=== PATIENT | female | born 2000 | race Hispanic/Latino ===

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

== ENCOUNTER 2023-04-30 14:58 | Emergency (ER) | payer OTHER ==
--- OUTSIDE RECORDS SUMMARY | 2023-04-30 15:09 | XMS REPORT | Continuity of Care Document ---
:2000 Author Organization [facility] t Address [address] [place] [address] Care Team Providers Name Role Phone Adrienne Serna PA-C Primary Care Physician [phone] DOM MOSER Attending Clinician Unavailable DOM MOSER Attending Clinician Unavailable Alexia Cheema MD Attending Clinician ALEXIA CHEEMA Attending Clinician Unavailable ERICA BURRIS Attending Clinician Unavailable Erica Burris MD Attending Clinician Doctor Unassigned, [place] Attending Clinician Unavailable Piter Tran CRNA Attending Clinician 1, Lkj Nst Room Attending Clinician Unavailable Room, [facility] Nst Attending Clinician Unavailable Pob, 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 Attending Clinician Unavailable 1, [facility] Us Room Attending Clinician Unavailable Jad Beckham MD Attending Clinician Zena Rizvi RN Attending Clinician Unavailable Kandy Delgado MD Attending Clinician Ultrasound, Jamilah Attending Clinician Unavailable JAD BECKHAM Attending Clinician Unavailable JAD BECKHAM Attending Clinician Unavailable Lab, Ang - Db Attending Clinician Unavailable Shawn Almaraz Attending Clinician SHAWN REID Attending Clinician Unavailable KANDY DELGADO Attending Clinician Unavailable Joo Jacksono F Attending Clinician Adrienne Serna PA-C Attending Clinician ADRIENNE SERNA Attending Clinician Unavailable KANDY BYRD Attending Clinician Unavailable Kandy Buchanan Attending Clinician Keny SHELTON Shakiralexis Sahu Attending Clinician Lab, Adc Fam Pob I Attending Clinician Unavailable Rolanda Jo BERG Attending Clinician Lab, Lkj Libradoi Attending Clinician Unavailable PIPPA GARAY Attending Clinician Unavailable Pippa Garay NP Attending Clinician Naomie Mario Attending Clinician KANDY DELGADO Admitting Clinician Unavailable ERICA BURRIS Admitting Clinician Unavailable Erica Burris MD Admitting Clinician ALEXIA CHEEMA Admitting Clinician Unavailable Kandy Delgado MD Admitting Clinician DOM MOSER Admitting Clinician Unavailable PIPPA GARAY Admitting Clinician Unavailable Payers Payer Name Policy Type Policy Number Effective Date Expiration Date [facility]is [facility]as [facility] [place] [id number] 2020 00:00:00 [place] [id number] 2022 00:00:00 [facility] [id number] 2019 00:00:00 Problems Condition Condition Condition Status Onset Resolution Last Treating Co mments Source Name Details Category Date Date Treatment Clinician Date Menorrhagi Menorrhagi Disease Active U nivers a with a with 2-17 [place] irregular irregular [place] cycle 00 [place] Oral Oral Disease Active Univers contracept contracept 2-17 it y of kayli pill kayli pill 00:00: [place] surveillan surveillan 00 Me dical ce ce Branch Breastfeed Breastfeed Disease Active U nivers ing ing 2-17 ity of problem problem 00:00: [place] 00 Medical Branch Positive Positive Disease Active Unive rs depression depression 2-17 [place] of screening [place] 00[place] [facility] Liveborn Liveborn Disease Active 2021-06 Unive rs infant, of infant, of 2-16 it y of capone capone 00:[place] , , 00 Me dical born in born in [facility] hospital by vaginal by vaginal delivery delivery 40 weeks 40 weeks Disease Active 2021-06 Unive rs gestation gestation 2-15 ity of of of 00:00: [place] 00 [facility] Encounter Encounter Disease Active 2021-06 Uni vers for for 2-15 it[place] of screening screening 00:00[place] for for 00 Medical maternal maternal Branch depression depression Post-term Post-term Disease Active 2021-06 Uni vers , , 2-12 it y of 40-42 40-42 00:00: [place] weeks of weeks of 00 Medica l gestation gestation Bran ch Obesity in Obesity in Disease Active 2021-06 U nivers , , 1-11 it [place] of antepartum antepartum [place] [facility] Candidiasi Candidiasi Disease Active 2021-06 U zhane s of s of 1-11 ity of breast breast 00:00: [place] 00 [facility] 34 weeks 34 weeks Disease Active 2021-06 Unive rs gestation gestation 1-04 ity of of of 00:00: [place] 00 [facility] Anemia of Anemia of Disease Active 2021-06 Uni vers mother in mother in 1-04 it[place] of , , 00:[place] antepartum antepartum 00 [facility] Heartburn Heartburn Disease Active Uni vers during during 7-12 it[place] of , , 00[place]00[place] antepartum antepartum 00 [facility] Maternal Maternal Disease Active Unive rs hypotensio hypotensio 7-12 it y of n n 00:00: [place] syndrome, syndrome, 00 [facility] antepartum antepartum Br anch Dizziness Dizziness Disease Active Uni vers and and 7-12 ity of giddiness giddiness 00:00[place] [facility] Dysuria Dysuria Disease Active Univers 7-02 ity of 00:00: [place] 00 [facility] Abnormal Abnormal Disease Active Unive rs urinalysis urinalysis - it y of 00:00: [place] 00 Medical Branch Hyperemesi Hyperemesi Disease Active U nivers s s 6-10 ity of gravidarum gravidarum 00:00: [place] 00 [place] Syncope, Syncope, Disease Active Unive rs unspecifie unspecifie 6-09 it y of d syncope d syncope 00:00[place] type type 00 [place] Encounter Encounter Disease Active Uni vers for for 5-16 ity of supervisio supervisio 00:[place] n of n of 00 Medical normal normal Branch first first in first in first trimester trimester Nausea and Nausea and Disease Active U nivers vomiting vomiting 5-16 ity of in in 00:00: [place] 00 Medi manish Branch BMI BMI Disease Active Univers 32.0-32.9, 32.0-32.9, 5-16 it y of adult adult 00:00: [place] 00 Medical Branch Supervisio Supervisio Disease Active U nivers n of other n of other 4-18 it y of high risk high risk 00:00[place] pregnancie pregnancie 00 Me dical s, third s, third Branch trimester trimester Disease Active Uni vers screening screening 4-18 ity of for for 00:00: [place] malformati malformati 00 Me dical on using on using Branch ultrasonic ultrasonic s s Asthma Asthma Disease Active Univers affecting affecting 4-18 it[place] of 00:00[place] in first in first 00 Medica l trimester trimester Bran ch Phalanx Phalanx Disease Active Univers (hand) (hand) 5-22 ity of fracture, fracture, 00:[place] closed[place] closed, 00 Medical initial initial Branch encounter encounter Allergies, Adverse Reactions, Alerts Allergy Allergy Status Severity Reaction(s) Onset Inactive Treating Comm ents Source Name Type Date Date Clinician NO KNOWN Drug Active Univers ALLERGIE Class ity of S [facility] Social History Social Habit Start Date Stop Date Quantity Comments Source ASSERTION 2021-09-04 [facility] 00:00:00 [facility] History of tobacco Passive smoker Un iversity of use [facility] Sexual orientation Univer sity of [facility] Exposure to 2022-07-25 2022-08-04 Not sure [facility] SARS-CoV-2 (event) 00:00:00 09:04:00 [facility] Education 2022-06-01 2022-06-01 13 [facility] 00:00:00 00:00:00 [facility] Alcohol intake 2022-01-09 2022-01-09 Ex-drinker [facility] 00:00:00 00:00:00 (finding) [facility] History of Social 2021-10-03 2021-10-03 Univers ity of function 00:00:00 00:00:00 [facility] Tobacco use and 2017-05-18 2017-05-18 Smokeless Universit y of exposure 00:00:00 00:00:00 tobacco non-user [facility] Sex Assigned At [birth year] Universit y of 00:00:00 00:00:00 [facility] Smoking Status Start Date Stop Date Source Never smoked tobacco [facility] Medications Ordered Filled Start Stop Current Ordering Indication Dosage Frequency Signature Comments Components Source Medication Medication Date Date Medication? Clinician (SIG) [facility] [id number] Take by Univers HCl (ZYRTEC 2-17 103 mouth. ity of ORAL) 09:18: [address] cetirine Yes [id number] Take by Univers HCl (ZYRTEC 2-17 103 mouth. ity of ORAL) 09:18: [address] cetirizine Yes [id number] Take by Univers HCl (ZYRTEC 2-17 103 mouth. ity of ORAL) 09:18: [address] cetirizine Yes [id number] Take by Univers HCl (ZYRTEC 2-17 103 mouth. ity of ORAL) 09:18: [address] cetirizine Yes [id number] Take by Univers HCl (ZYRTEC 2-17 103 mouth. ity of ORAL) 09:18: [address] cetirizine Yes [id number] Take by Univers HCl (ZYRTEC 2-17 103 mouth. ity of ORAL) 09:18: [address] cetirizine Yes [id number] Take by Univers HCl (ZYRTEC 2-17 103 mouth. ity of ORAL) 09:18: [place] [address] Medical Branch cetirizine 2022-0 Yes [id number] Take by Univers HCl (ZYRTEC 2-17 103 mouth. ity of ORAL) 09:18: [place] [address] Medical Branch norethindro 2022-0 Yes [id number] .35mg Take 1 Univers ne (ORTHO 2-17 tablet by ity o f MICRONOR) 00:00: [place] 0.35 mg 00 the Medical tablet morning. Branch metoclopram 2022-0 Yes [id number] 10mg Take 1 Univers riaz HCl 10 2-17 tablet by ity of mg tablet 00:00: mouth [place] 00 every 8 Medical (eight) Branch hours. norethindro 2022-0 Yes [id number] .35mg Take 1 Univers ne (ORTHO 2-17 tablet by ity o f MICRONOR) 00:00: [place] 0.35 mg 00 the Medical tablet morning. Branch metoclopram 2022-0 Yes [id number] 10mg Take 1 Univers riaz HCl 10 2-17 tablet by ity of mg tablet 00:00: mouth [place] 00 every 8 Medical (eight) Branch hours. norgestimat 2022-0 Yes [id number] 1{tbl} Take 1 Univers e-ethinyl 1-06 tablet by ity o f estradioL 00:00: mouth [place] 0.25-35 00 the Medical mg-mcg per morning. Branc h tablet norgestimat 2022-0 Yes [id number] 1{tbl} Take 1 Univers e-ethinyl 1-06 tablet by ity o f estradioL 00:00: mouth [place] 0.25-35 00 the Medical mg-mcg per morning. Branc h tablet norgestimat 3-0 Yes [id number] 1{tbl} Take 1 Univers e-ethinyl 1-06 tablet by ity o f estradioL 00:00: mouth in [place] 0.25-35 00 the Medical mg-mcg per morning. Branc h tablet norgestimat 2022-0 Yes [id number] 1{tbl} Take 1 Univers e-ethinyl 1-06 tablet by ity o f estradioL 00:00: mouth in [place] 0.25-35 00 the Medical mg-mcg per morning. Branc h tablet norgestimat Yes [id number] 1{tbl} Take 1 Univers e-ethinyl 1-06 tablet by ity o f estradioL 00:00: mouth in [place] 0.25-35 00 the Medical mg-mcg per morning. Branc h tablet norgestimat 2022- No [id number] 1{tbl} Take 1 Univers e-ethinyl 1-06 02-17 tablet by ity of estradioL 00:00: 00:00 mouth in [place] 0.25-35 00 :00 the Medical mg-mcg per morning. Branc h tablet norgestimat 2022- No [id number] 1{tbl} Take 1 Univers e-ethinyl 1-06 02-17 tablet by ity of estradioL 00:00: 00:00 mouth in [place] 0.25-35 00 :00 the Medical mg-mcg per morning. Branc h tablet cetirizine 2021-06 Yes [id number] Take by Univers HCl (ZYRTEC 2-17 103 mouth. ity of ORAL) 14:21: [address] cetirizine 2021-06 Yes [id number] Take by Univers HCl (ZYRTEC 2-17 103 mouth. ity of ORAL) 14:21: [address] cetirizine 2021-06 Yes [id number] Take by Univers HCl (ZYRTEC 2-17 103 mouth. ity of ORAL) 14:21: [address] cetirizine 2021-06 Yes [id number] Take by Univers HCl (ZYRTEC 2-17 103 mouth. ity of ORAL) 14:21: [address] cetirizine 2021-06 Yes [id number] Take by Univers HCl (ZYRTEC 2-17 103 mouth. ity of ORAL) 14:21: [address] cetirizine 2021-06 Yes [id number] Take by Univers HCl (ZYRTEC 2-17 103 mouth. ity of ORAL) 14:21: [address] 2021-06 Take by Unive rs 25/iron 2-16 12-16 mouth. ity of fum/folic/d 08:38: 00:00 Nathalie silva 37 :00 Medical (-1 Branch ORAL) rho(D) 2021-06 Yes 300ug 300 mcg, Univer s immune 2-16 Intramuscu ity of globulin 06:37: lar, ONCE, [place] (RHOGAM) 08 For 1 Medical syringe 300 dose, Branch mcg Conditiona l, Routine witch Elizabeth 2021-06 Yes Topical, Un luis felipe (TUCKS) 50 2-16 Q4HPRN, ity of % topical 06:36: [place] pad 53 on Fri Medical 06/02/22 Branch at 0036, Until Discontinu ed, Routine, rectal/hem orrhoidal pain HYDROcodone 2021-06 Yes 1{tbl} 1 tablet, Univers -acetaminop 2-16 Oral, ity of hen (NORCO 06:36: Q6HPRN, [place] 5) 5-325 mg 53 Starting Medi manish tablet 1 on Fri Branch tablet 06/02/22 at 0036, Until Discontinu ed, Routine, Pain (scale 7-10) ibuprofen 2021-06 Yes 600mg 600 mg, Univ ers (IBU) 2-16 Oral, ity of tablet 600 06:36: Q6HPRN, [place] mg 53 Starting Medical on Fri Branch 06/02/22 at 0036, Until Discontinu ed, Routine, Pain (scale 4-6) acetaminoph 2021-06 Yes 650mg 650 mg, Un luis felipe en 2-16 Oral, ity of (TYLENOL) 06:36: Q6HPRN, [place] tablet 650 53 Starting Medic al mg on Fri Branch 06/02/22 at 0036, Until Discontinu ed, Routine, Pain (scale 1-3) diphenhydrA 2021-06 Yes 25mg 25 mg, Univ ers MINE 2-16 Oral, ity of (BENADRYL) 06:36: Q6HPRN, [place] tablet 25 53 Starting Medica l mg on Fri Branch 06/02/22 at 0036, Until Discontinu ed, Routine, Sleep, Itching ondansetron 2021-06 Yes 4mg 4 mg, Slow Univers (ZOFRAN 2-16 IV Push, ity of (PF)) 06:36: Q8HPRN, [place] injection 4 53 Starting Medi manish mg on Fri Branch 06/02/22 at 0036, Until Discontinu ed, Routine, Nausea and Vomiting (N/V) simethicone 2021-06 Yes 160mg 160 mg, Un luis felipe (GAS RELIEF 2-16 Oral, ity of (SIMETHICON 06:36: PC+HSPRN, [place] E)) 53 Starting Medical chewable on Sun Branch tablet 160 06/02/22 mg at 0036, Until Discontinu ed, Routine, Gas docusate 2021-06 Yes 200mg 200 mg, Unive rs (COLACE) 2-16 Oral, ity of capsule 200 06:36: QDAILYPRN, [place] mg 53 Starting Medical on Fri Branch 06/02/22 at 0036, Until Discontinu ed, Routine, Constipati on magnesium 2021-06 Yes 30mL 30 mL, Univer s hydroxide 2-16 Oral, ity of (MILK OF 06:36: QDAILYPRN, [place] MAGNESIA) 53 Starting Medica l 400 mg/5 mL on Sun Branch suspension 06/02/22 30 mL at 0036, Until Discontinu ed, Routine, Constipati on benzocaine- 2021-06 Yes Topical, Un luis felipe menthol 2-16 PRN, ity of (DERMOPLAST 06:36: [place] 20-0.5 % 53 on Sun Medical topical 06/02/22 Branch spray at 0036, Until Discontinu ed, Routine, Perineum discomfort cetirizine 2021-06 Yes [id number] Take by [facility] (ZYRTEC 2-16 103 mouth. ity of ORAL) 00:16: [place] 55 Medical Branch 2021-06 Yes Take by Univer s 25/iron 2-16 mouth. ity of fum/folic/d 00:16: [facility] [facility] 55 Medical (-1 Branch ORAL) 2021-06 Yes [id number] 1{tbl} Take 1 U nivers vitamin 2-16 tablet by ity of w/FA tablet 00:00: mouth in [place] 00 the Medical morning. Branch docusate 2021-06 Yes [id number] 200mg Take 2 Un luis felipe 100 mg 2-16 capsules ity of capsule 00:00: by mouth [place] [id number] once daily Medical as needed Branch for Constipati on. ferrous 2021-06 Yes [id number] 325mg Take 1 Uni vers sulfate 325 2-16 tablet by ity of mg (65 mg 00:00: [place] iron) 00 the Medical tablet morning Branch and 1 tablet in the evening. ibuprofen 2021-06 Yes [id number] 600mg Take 1 U nivers 600 mg 2-16 tablet by ity of tablet 00:00: mouth [place] 00 every 6 Medical (six) Branch hours as needed (Pain). Take with food or milk. 2021-06 Yes [id number] 1{tbl} Take 1 U nivers vitamin 2-16 tablet by ity of w/FA tablet 00:00: mouth in [place] 00 the Medical morning. Branch ferrous 2021-06 Yes [id number] 325mg Take 1 Uni vers sulfate 325 2-16 tablet by ity of mg (65 mg 00:00: [place] iron) 00 the Medical tablet morning Branch and 1 tablet in the evening. 2021-06 Yes [id number] 1{tbl} Take 1 U nivers vitamin 2-16 tablet by ity of w/FA tablet 00:00: mouth in [place] 00 the Medical morning. Branch ferrous 2021-06 Yes [id number] 325mg Take 1 Uni vers sulfate 325 2-16 tablet by ity of mg (65 mg 00:00: [place] iron) 00 the Medical tablet morning Branch and 1 tablet in the evening. 2021-06 Yes [id number] 1{tbl} Take 1 U nivers vitamin 2-16 tablet by ity of w/FA tablet 00:00: mouth in [place] 00 the Medical morning. Branch ferrous 2021-06 Yes [id number] 325mg Take 1 Uni vers sulfate 325 2-16 tablet by ity of mg (65 mg 00:00: [place] iron) 00 the Medical tablet morning Branch and 1 tablet in the evening. 2021-06 Yes [id number] 1{tbl} Take 1 U nivers vitamin 2-16 tablet by ity of w/FA tablet 00:00: mouth in [place] 00 the Medical morning. Branch ferrous 2021-06 Yes [id number] 325mg Take 1 Uni vers sulfate 325 2-16 tablet by ity of mg (65 mg 00:00: [place] iron) 00 the Medical tablet morning Branch and 1 tablet in the evening. 2021-06 Yes [id number] 1{tbl} Take 1 U nivers vitamin 2-16 tablet by ity of w/FA tablet 00:00: mouth in [place] 00 the Medical morning. Branch ferrous 2021-06 Yes [id number] 325mg Take 1 Uni vers sulfate 325 2-16 tablet by ity of mg (65 mg 00:00: mouth [place] iron) 00 the Medical tablet morning Branch and 1 tablet in the evening. 2021-06 Yes [id number] 1{tbl} Take 1 U nivers vitamin 2-16 tablet by ity of w/FA tablet 00:00: mouth in [place] 00 the Medical morning. Branch ferrous 2021-06 Yes [id number] 325mg Take 1 Uni vers sulfate 325 2-16 tablet by ity of mg (65 mg 00:00: mouth [place] iron) 00 the Medical tablet morning Branch and 1 tablet in the evening. 2021-06 Yes [id number] 1{tbl} Take 1 U nivers vitamin 2-16 tablet by ity of w/FA tablet 00:00: mouth in [place] 00 the Medical morning. Branch ferrous 2021-06 Yes [id number] 325mg Take 1 Uni vers sulfate 325 2-16 tablet by ity of mg (65 mg 00:00: mouth [place] iron) 00 the Medical tablet morning Branch and 1 tablet in the evening. 2021-06 Yes [id number] 1{tbl} Take 1 U nivers vitamin 2-16 tablet by ity of w/FA tablet 00:00: mouth in [place] 00 the Medical morning. Branch ferrous 2021-06 Yes [id number] 325mg Take 1 Uni vers sulfate 325 2-16 tablet by ity of mg (65 mg 00:00: mouth [place] iron) 00 the Medical tablet morning Branch and 1 tablet in the evening. docusate 2021-06- No [id number] 200mg Take 2 U nivers 100 mg 2-16 - capsules ity of capsule 00:00: 00:00 by mouth [place] 00 :00 once daily Medical as needed Branch for Constipati on. ibuprofen 2021-06- No [id number] 600mg Take 1 Univers 600 mg 2-16 - tablet by ity of tablet 00:00: 00:00 mouth [place] 00 :00 every 6 Medical (six) Branch hours as needed (Pain). Take with food or milk. misoprostol 2021-06 No 25ug 25 mcg, Un luis felipe (CYTOTEC) 08-02 Vaginal, ity o f quarter-tab 18:30: 06:37 Q4H ABX, [place] let 25 mcg 00 :04 First dose Med ical on [place] Branch 06/01/22 at 1230, Until Discontinu ed, Routine lactated 2021-06- No 500mL at 999 Unive rs ringers IV 08-02 12-15 mL/hr, 500 it y of infusion 18:15: 17:52 mL, IV [place] 500 mL 00 :00 Infusion, Medical ONCE, 1 Branch dose, On [place]da 06/01/22 at 1215, Routine misoprostol 2021-06 No 25ug 25 mcg, Un luis felipe (CYTOTEC) 08-02 Oral, ity of quarter-tab 17:45: 18:34 ONCE, 1 [place] let 25 mcg 00 :00 dose, On Medic al [place] Branch 06/01/22 at 1145, Routine FENTanyl PF 2021-06- No 100ug 100 mcg, Univers (SUBLIMAZE 08-02 Slow IV ity o f (PF)) 17:29: 06:37 Push, [place] injection 21 :04 Q1HPRN, Medical 100 mcg Starting Branch on Brenda 06/01/22 at 1129, Until Sun06/02/22 at 0037, Routine, contractio n pain without an epidural and SVE < 8 cm and Cat I strip proMETHazin 2021-06- No 25mg 25 mg, IV Univers e 08-02 Piggyback, ity of (PHENERGAN) 17:29: 06:37 Q4HPRN, [place] 25 mg in 13 :04 Starting Medical NaCl 0.9% on [place] Branch (NS) 50 mL 06/01/22 IV at 1129, piggyback Until Sun06/02/22 at 0037, Routine, Nausea and Vomiting (N/V) lactated 2021-06- No 500mL at 999 Unive rs ringers IV 08-02-16 mL/hr, 500 it y of infusion 17:26: 06:37 mL, IV [place] 500 mL 52 :04 Infusion, Medical PRN - SEE Branch INSTRUCTIO NS, Starting on Brenda 06/01/22 at 1126, Until Sun06/02/22 at 0037, Routine D5W-LR IV 2021-06- 1000mL at 1-125 U nivers infusion 2-15 12-16 mL/hr, IV ity o f 1,000 mL 17:26: 06:37 Infusion, [place] 52 :04 TITRATE, Medical Starting Branch on Brenda 06/01/22 at 1126, Until Sun06/02/22 at 0037, Routine cetirizine 2021-06 Yes [id number] Take by Univers HCl (ZYRTEC 123 103 mouth. ity of ORAL) 13:17: [address] cetirizine 2021-06 Yes [id number] Take by Univers HCl (ZYRTEC 123 103 mouth. ity of ORAL) 13:17: [address] cetirizine 2021-06 Yes [id number] Take by Univers HCl (ZYRTEC 123 103 mouth. ity of ORAL) 13:17: [address] cetirizine 2021-06 Yes [id number] Take by Univers HCl (ZYRTEC 123 103 mouth. ity of ORAL) 13:17: [address] cetirizine 2021-06 Yes [id number] Take by Univers HCl (ZYRTEC 123 103 mouth. ity of ORAL) 13:17: [address] cetirizine 2021-06 Yes [id number] Take by Univers HCl (ZYRTEC 123 103 mouth. ity of ORAL) 13:17: [address] cetirizine 2021-06 Yes [id number] Take by Univers HCl (ZYRTEC 123 103 mouth. ity of ORAL) 13:17: [address] cetirizine 2021-06 Yes [id number] Take by Univers HCl (ZYRTEC 1-23 103 mouth. ity of ORAL) 13:17: [address] cetirizine 2021-06 Yes [id number] Take by Univers HCl (ZYRTEC 123 103 mouth. ity of ORAL) 13:17: [place] 57 Medical Branch nystatin 2021- Yes [id number] Apply to U nivers 100,000 1-11 area(s) 2 ity of unit/gram 00:00: (two) [place] cream 00 times Medical daily. Branch nystatin 2021-06 Yes [id number] Apply to U nivers 100,000 1-11 area(s) 2 ity of unit/gram 00:00: (two) [place] cream 00 times Medical daily. Branch nystatin 2021-06 Yes [id number] Apply to U nivers 100,000 1-11 area(s) 2 ity of unit/gram 00:00: (two) [place] cream 00 times Medical daily. Branch nystatin 2021-06 Yes [id number] Apply to U nivers 100,000 1-11 area(s) 2 ity of unit/gram 00:00: (two) [place] cream 00 times Medical daily. Branch nystatin 2021-06 Yes [id number] Apply to U nivers 100,000 1-11 area(s) 2 ity of unit/gram 00:00: (two) [place] cream 00 times Medical daily. Branch nystatin 2021-06 Yes [id number] Apply to U nivers 100,000 1-11 area(s) 2 ity of unit/gram 00:00: (two) [place] cream 00 times Medical daily. Branch nystatin 2021-06 Yes [id number] Apply to U nivers 100,000 1-11 area(s) 2 ity of unit/gram 00:00: (two) [place] cream 00 times Medical daily. Branch nystatin 2021-06 Yes [id number] Apply to U nivers 100,000 1-11 area(s) 2 ity of unit/gram 00:00: (two) [place] cream 00 times Medical daily. Branch nystatin 2021-06 Yes [id number] Apply to U nivers 100,000 1-11 area(s) 2 ity of unit/gram 00:00: (two) [place] cream 00 times Medical daily. Branch nystatin 2021- Yes [id number] Apply to U nivers 100,000 1-11 area(s) 2 ity of unit/gram 00:00: (two) [place] cream 00 times Medical daily. Branch nystatin 2021-06 Yes [id number] Apply to U nivers 100,000 1-11 area(s) 2 ity of unit/gram 00:00: (two) [place] cream 00 times Medical daily. Branch nystatin 2021-06 Yes [id number] Apply to U nivers 100,000 1-11 area(s) 2 ity of unit/gram 00:00: (two) [place] cream 00 times Medical daily. Branch nystatin 2021-06 Yes [id number] Apply to U nivers 100,000 1-11 area(s) 2 ity of unit/gram 00:00: (two) [place] cream 00 times Medical daily. Branch nystatin 2021-06 Yes [id number] Apply to U nivers 100,000 1-11 area(s) 2 ity of unit/gram 00:00: (two) [place] cream 00 times Medical daily. Branch nystatin 2021-06 Yes [id number] Apply to U nivers 100,000 1-11 area(s) 2 ity of unit/gram 00:00: (two) [place] cream 00 times Medical daily. Branch nystatin 2021-06- No [id number] Apply to Univers 100,000 1-11 12-16 area(s) 2 ity of unit/gram 00:00: 00:00 (two) [place] cream 00 :00 times Medical daily. Branch ferrous 2021-06 Yes [id number] 325mg Take 1 Un luis felipe sulfate 0-19 tablet by ity of (IRON, 00:00: mouth in [place] FERROUS 00 the Medical SULFATE,) morning Branch 325 mg (65 and 1 mg iron) tablet in tablet the evening. ascorbic 2021-06 Yes [id number] 250mg Take 0.5 Univers acid, 0-19 tablets by ity of vitamin C, 00:00: mouth in [place] 500 mg 00 the Medical tablet morning Branch and 0.5 tablets in the evening. polyethylen 2021-06 Yes [id number] 17g Take 17 g Univers e glycol 0-19 by mouth ity of 3350 17 00:00: in the [place] gram/dose 00 morning. Medica l powder Branch ferrous 2021-06 Yes [id number] 325mg Take 1 Un luis felipe sulfate 0-19 tablet by ity of (IRON, 00:00: mouth in [place] FERROUS 00 the Medical SULFATE,) morning Branch 325 mg (65 and 1 mg iron) tablet in tablet the evening. ascorbic 2021-06 Yes [id number] 250mg Take 0.5 Univers acid, 0-19 tablets by ity of vitamin C, 00:00: mouth in [place] 500 mg 00 the Medical tablet morning Branch and 0.5 tablets in the evening. polyethylen 2021-06 Yes [id number] 17g Take 17 g [facility] glycol 0-19 by mouth ity of 3350 17 00:00: in the [place] gram/dose 00 morning. Medica l powder Branch ferrous 2021-06 Yes [id number] 325mg Take 1 Un luis felipe sulfate 0-19 tablet by ity of (IRON, 00:00: mouth in [place] FERROUS 00 the Medical SULFATE,) morning Branch 325 mg (65 and 1 mg iron) tablet in tablet the evening. ascorbic 2021-06 Yes [id number] 250mg Take 0.5 [facility] acid, 0-19 tablets by ity of vitamin C, 00:00: mouth in [place] 500 mg 00 the Medical tablet morning Branch and 0.5 tablets in the evening. polyethylen 2021-06 Yes [id number] 17g Take 17 g [facility] e glycol 0-19 by mouth ity of 3350 17 00:00: in the [place] gram/dose 00 morning. Medica l powder Branch ferrous 2021-06 Yes [id number] 325mg Take 1 [facility] felipe sulfate 0-19 tablet by ity of (IRON, 00:00: mouth in [place] FERROUS 00 the Medical SULFATE,) morning Branch 325 mg (65 and 1 mg iron) tablet in tablet the evening. ascorbic 2021-06 Yes [id number] 250mg Take 0.5 [facility] acid, 0-19 tablets by ity of vitamin C, 00:00: mouth in [place] 500 mg 00 the Medical tablet morning Branch and 0.5 tablets in the evening. polyethylen 2021-06 Yes [id number] 17g Take 17 g [facility] e glycol 0-19 by mouth ity of 3350 17 00:00: in the [place] gram/dose 00 morning. Medica l powder Branch ferrous 2021-06 Yes [id number] 325mg Take 1 [facility] felipe sulfate 0-19 tablet by ity of (IRON, 00:00: mouth in [place] FERROUS 00 the Medical SULFATE,) morning Branch 325 mg (65 and 1 mg iron) tablet in tablet the evening. ascorbic 2021-06 Yes [id number] 250mg Take 0.5 [facility] acid, 0-19 tablets by ity of vitamin C, 00:00: mouth in [place] 500 mg 00 the Medical tablet morning Branch and 0.5 tablets in the evening. polyethylen 2021-06 Yes [id number] 17g Take 17 g [facility] e glycol 0-19 by mouth ity of 3350 17 00:00: in the [place] gram/dose 00 morning. Medica l powder Branch ferrous 2021-06 Yes [id number] 325mg Take 1 [facility] felipe sulfate 0-19 tablet by ity of (IRON, 00:00: mouth in [place] FERROUS 00 the Medical SULFATE,) morning Branch 325 mg (65 and 1 mg iron) tablet in tablet the evening. ascorbic 2021-06 Yes [id number] 250mg Take 0.5 [facility] acid, 0-19 tablets by ity of vitamin C, 00:00: mouth in [place] 500 mg 00 the Medical tablet morning Branch and 0.5 tablets in the evening. polyethylen 2021-06 Yes [id number] 17g Take 17 g [facility] e glycol 0-19 by mouth ity of 3350 17 00:00: in the [place] gram/dose 00 morning. Medica l powder Branch ferrous 2021-06 Yes [id number] 325mg Take 1 [facility] felipe sulfate 0-19 tablet by ity of (IRON, 00:00: mouth in [place] FERROUS 00 the Medical SULFATE,) morning Branch 325 mg (65 and 1 mg iron) tablet in tablet the evening. ascorbic 2021-06 Yes [id number] 250mg Take 0.5 [facility] acid, 0-19 tablets by ity of vitamin C, 00:00: mouth in [place] 500 mg 00 the Medical tablet morning Branch and 0.5 tablets in the evening. polyethylen 2021-06 Yes [id number] 17g Take 17 g [facility] glycol 0-19 by mouth ity of 3350 17 00:00: in the [place] gram/dose 00 morning. Medica l powder Branch ferrous 2021-06 Yes [id number] 325mg Take 1 [facility] felipe sulfate 0-19 tablet by ity of (IRON, 00:00: mouth in [place] FERROUS 00 the Medical SULFATE,) morning Branch 325 mg (65 and 1 mg iron) tablet in tablet the evening. ascorbic 2021-06 Yes [id number] 250mg Take 0.5 [facility] acid, 0-19 tablets by ity of vitamin C, 00:00: mouth in [place] 500 mg 00 the Medical tablet morning Branch and 0.5 tablets in the evening. polyethylen 2021-06 Yes [id number] 17g Take 17 g [facility] e glycol 0-19 by mouth ity of 3350 17 00:00: in the [place] gram/dose 00 morning. Medica l powder Branch ferrous 2021-06 Yes [id number] 325mg Take 1 [facility] felipe sulfate 0-19 tablet by ity of (IRON, 00:00: mouth in [place] FERROUS 00 the Medical SULFATE,) morning Branch 325 mg (65 and 1 mg iron) tablet in tablet the evening. ascorbic 2021-06 Yes [id number] 250mg Take 0.5 [facility] acid, 0-19 tablets by ity of vitamin C, 00:00: mouth in [place] 500 mg 00 the Medical tablet morning Branch and 0.5 tablets in the evening. polyethylen 2021-06 Yes [id number] 17g Take 17 g [facility] e glycol 0-19 by mouth ity of 3350 17 00:00: in the [place] gram/dose 00 morning. Medica l powder Branch ferrous 2021-06 Yes [id number] 325mg Take 1 [facility] felipe sulfate 0-19 tablet by ity of (IRON, 00:00: mouth in [place] FERROUS 00 the Medical SULFATE,) morning Branch 325 mg (65 and 1 mg iron) tablet in tablet the evening. ascorbic 2021-06 Yes [id number] 250mg Take 0.5 [facility] acid, 0-19 tablets by ity of vitamin C, 00:00: mouth in [place] 500 mg 00 the Medical tablet morning Branch and 0.5 tablets in the evening. polyethylen 2021-06 Yes [id number] 17g Take 17 g [facility] e glycol 0-19 by mouth ity of 3350 17 00:00: in the [place] gram/dose 00 morning. Medica l powder Branch ferrous 2021-06 Yes [id number] 325mg Take 1 [facility] felipe sulfate 0-19 tablet by ity of (IRON, 00:00: mouth in [place] FERROUS 00 the Medical SULFATE,) morning Branch 325 mg (65 and 1 mg iron) tablet in tablet the evening. ascorbic 2021-06 Yes [id number] 250mg Take 0.5 [facility] acid, 0-19 tablets by ity of vitamin C, 00:00: mouth in [place] 500 mg 00 the Medical tablet morning Branch and 0.5 tablets in the evening. polyethylen 2021-06 Yes [id number] 17g Take 17 g [facility] e glycol 0-19 by mouth ity of 3350 17 00:00: in the [place] gram/dose 00 morning. Medica l powder Branch ferrous 2021-06 Yes [id number] 325mg Take 1 [facility] felipe sulfate 0-19 tablet by ity of (IRON, 00:00: mouth in [place] FERROUS 00 the Medical SULFATE,) morning Branch 325 mg (65 and 1 mg iron) tablet in tablet the evening. ascorbic 2021-06 Yes [id number] 250mg Take 0.5 [facility] acid, 0-19 tablets by ity of vitamin C, 00:00: mouth in [place] 500 mg 00 the Medical tablet morning Branch and 0.5 tablets in the evening. polyethylen 2021-06 Yes [id number] 17g Take 17 g [facility] e glycol 0-19 by mouth ity of 3350 17 00:00: in the [place] gram/dose 00 morning. Medica l powder Branch ferrous 2021-06 Yes [id number] 325mg Take 1 [facility] felipe sulfate 0-19 tablet by ity of (IRON, 00:00: mouth in [place] FERROUS 00 the Medical SULFATE,) morning Branch 325 mg (65 and 1 mg iron) tablet in tablet the evening. ascorbic 2021-06 Yes [id number] 250mg Take 0.5 [facility] acid, 0-19 tablets by ity of vitamin C, 00:00: mouth in [place] 500 mg 00 the Medical tablet morning Branch and 0.5 tablets in the evening. polyethylen 2021-06 Yes [id number] 17g Take 17 g [facility] e glycol 0-19 by mouth ity of 3350 17 00:00: in the [place] gram/dose 00 morning. Medica l powder Branch ferrous 2021-06 Yes [id number] 325mg Take 1 [facility] felipe sulfate 0-19 tablet by ity of (IRON, 00:00: mouth in [place] FERROUS 00 the Medical SULFATE,) morning Branch 325 mg (65 and 1 mg iron) tablet in tablet the evening. ascorbic 2021-06 Yes [id number] 250mg Take 0.5 [facility] acid, 0-19 tablets by ity of vitamin C, 00:00: mouth in [place] 500 mg 00 the Medical tablet morning Branch and 0.5 tablets in the evening. polyethylen 2021-06 Yes [id number] 17g Take 17 g [facility] e glycol 0-19 by mouth ity of 3350 17 00:00: in the [place] gram/dose 00 morning. Medica l powder Branch ferrous 2021-06 Yes [id number] 325mg Take 1 [facility] felipe sulfate 0-19 tablet by ity of (IRON, 00:00: mouth in [place] FERROUS 00 the Medical SULFATE,) morning Branch 325 mg (65 and 1 mg iron) tablet in tablet the evening. ascorbic 2021-06 Yes [id number] 250mg Take 0.5 [facility] acid, 0-19 tablets by ity of vitamin C, 00:00: mouth in [place] 500 mg 00 the Medical tablet morning Branch and 0.5 tablets in the evening. polyethylen 2021-06 Yes [id number] 17g Take 17 g [facility] e glycol 0-19 by mouth ity of 3350 17 00:00: in the [place] gram/dose 00 morning. Medica l powder Branch ferrous 2021-06 Yes [id number] 325mg Take 1 [facility] felipe sulfate 0-19 tablet by ity of (IRON, 00:00: mouth in [place] FERROUS 00 the Medical SULFATE,) morning Branch 325 mg (65 and 1 mg iron) tablet in tablet the evening. ascorbic 2021-06 Yes [id number] 250mg Take 0.5 [facility] acid, 0-19 tablets by ity of vitamin C, 00:00: mouth in [place] 500 mg 00 the Medical tablet morning Branch and 0.5 tablets in the evening. polyethylen 2021-06 Yes [id number] 17g Take 17 g [facility] e glycol 0-19 by mouth ity of 3350 17 00:00: in the [place] gram/dose 00 morning. Medica l powder Branch ferrous 2021-06 Yes [id number] 325mg Take 1 [facility] felipe sulfate 0-19 tablet by ity of (IRON, 00:00: mouth in [place] FERROUS 00 the Medical SULFATE,) morning Branch 325 mg (65 and 1 mg iron) tablet in tablet the evening. ascorbic 2021-06 Yes [id number] 250mg Take 0.5 [facility] acid, 0-19 tablets by ity of vitamin C, 00:00: mouth in [place] 500 mg 00 the Medical tablet morning Branch and 0.5 tablets in the evening. polyethylen 2021-06 Yes [id number] 17g Take 17 g [facility] e glycol 0-19 by mouth ity of 3350 17 00:00: in the [place] gram/dose 00 morning. Medica l powder Branch ascorbic 2021-06 Yes [id number] 250mg Take 0.5 [facility] acid, 0-19 tablets by ity of vitamin C, 00:00: mouth in [place] 500 mg 00 the Medical tablet morning Branch and 0.5 tablets in the evening. ascorbic 2021-06 Yes [id number] 250mg Take 0.5 [facility] acid, 0-19 tablets by ity of vitamin C, 00:00: mouth in [place] 500 mg 00 the Medical tablet morning Branch and 0.5 tablets in the evening. ascorbic 2021-06 Yes [id number] 250mg Take 0.5 [facility] acid, 0-19 tablets by ity of vitamin C, 00:00: mouth in [place] 500 mg 00 the Medical tablet morning Branch and 0.5 tablets in the evening. ascorbic 2021-06 Yes [id number] 250mg Take 0.5 [facility] acid, 0-19 tablets by ity of vitamin C, 00:00: mouth in [place] 500 mg 00 the Medical tablet morning Branch and 0.5 tablets in the evening. ascorbic 2021-06 Yes [id number] 250mg Take 0.5 [facility] acid, 0-19 tablets by ity of vitamin C, 00:00: mouth in [place] 500 mg 00 the Medical tablet morning Branch and 0.5 tablets in the evening. ascorbic 2021-06 Yes [id number] 250mg Take 0.5 [facility] acid, 0-19 tablets by ity of vitamin C, 00:00: mouth in [place] 500 mg 00 the Medical tablet morning Branch and 0.5 tablets in the evening. ascorbic 2021-06 Yes [id number] 250mg Take 0.5 [facility] acid, 0-19 tablets by ity of vitamin C, 00:00: mouth in [place] 500 mg 00 the Medical tablet morning Branch and 0.5 tablets in the evening. ascorbic 2021-06 Yes [id number] 250mg Take 0.5 [facility] acid, 0-19 tablets by ity of vitamin C, 00:00: mouth in [place] 500 mg 00 the Medical tablet morning Branch and 0.5 tablets in the evening. ascorbic 2021-06 Yes [id number] 250mg Take 0.5 [facility] acid, 0-19 tablets by ity of vitamin C, 00:00: mouth in [place] 500 mg 00 the Medical tablet morning Branch and 0.5 tablets in the evening. ascorbic 2021-06 Yes [id number] 250mg Take 0.5 [facility] acid, 0-19 tablets by ity of vitamin C, 00:00: mouth in [place] 500 mg 00 the Medical tablet morning Branch and 0.5 tablets in the evening. ascorbic 2021-06 Yes [id number] 250mg Take 0.5 [facility] acid, 0-19 tablets by ity of vitamin C, 00:00: mouth in [place] 500 mg 00 the Medical tablet morning Branch and 0.5 tablets in the evening. ferrous 2021-06- No [id number] 325mg Take 1 [facility] sulfate 0-19 12-16 tablet by ity of (IRON, 00:00: 00:00 mouth in [place] FERROUS 00 :00 the Medical SULFATE,) morning Branch 325 mg (65 and 1 mg iron) tablet in tablet the evening. polyethylen 2021-06- No [id number] 17g Take 17 g [facility] e glycol 0-19 12-16 by mouth ity of 3350 17 00:00: 00:00 in the [place] gram/dose 00 :00 morning. Medica l powder Branch ondansetron 2021-06 Yes [id number] 8mg Take 1 [facility] 8 mg 0-17 tablet by ity of disintegrat 00:00: mouth [place] ing tablet 00 every 8 Medica l (eight) Branch hours as needed for Nausea and Vomiting (N/V). omeprazole 2021-06 Yes [id number] 20mg Take 1 [facility] 20 mg 0-17 capsule by ity of capsule 00:00: mouth in [place] 00 the morning. Branch ondansetron 2021-06 Yes [id number] 8mg Take 1 [facility] 8 mg 0-17 tablet by ity of disintegrat 00:00: mouth [place] ing tablet 00 every 8 Medica l (eight) Branch hours as needed for Nausea and Vomiting (N/V). omeprazole 2021-06 Yes [id number] 20mg Take 1 [facility] 20 mg 0-17 capsule by ity of capsule 00:00: mouth in [place] 00 the morning. Branch ondansetron 2021-06 Yes [id number] 8mg Take 1 [facility] 8 mg 0-17 tablet by ity of disintegrat 00:00: mouth [place] ing tablet 00 every 8 Medica l (eight) Branch hours as needed for Nausea and Vomiting (N/V). omeprazole 2021-06 Yes [id number] 20mg Take 1 [facility] nivers 20 mg 0-17 capsule by ity of capsule 00:00: mouth in [place] 00 the Medical morning. Branch ondansetron 2021-06 Yes [id number] 8mg Take 1 [facility] 8 mg 0-17 tablet by ity of disintegrat 00:00: mouth [place] ing tablet 00 every 8 Medica l (eight) Branch hours as needed for Nausea and Vomiting (N/V). omeprazole 2021-06 Yes [id number] 20mg Take 1 [facility] nivers 20 mg 0-17 capsule by ity of capsule 00:00: mouth in [place] 00 the Medical morning. Branch ondansetron 2021-06 Yes [id number] 8mg Take 1 [facility] 8 mg 0-17 tablet by ity of disintegrat 00:00: mouth [place] ing tablet 00 every 8 Medica l (eight) Branch hours as needed for Nausea and Vomiting (N/V). omeprazole 2021-06 Yes [id number] 20mg Take 1 [facility] nivers 20 mg 0-17 capsule by ity of capsule 00:00: mouth in [place] the Medical morning. Branch ondansetron 2021-06 Yes [id number] 8mg Take 1 [facility] 8 mg 0-17 tablet by ity of disintegrat 00:00: mouth [place] ing tablet 00 every 8 Medica l (eight) Branch hours as needed for Nausea and Vomiting (N/V). omeprazole 2021-06 Yes [id number] 20mg Take 1 U nivers 20 mg 0-17 capsule by ity of capsule 00:00: mouth in [place] the Medical morning. Branch ondansetron 2021-06 Yes [id number] 8mg Take 1 [facility] 8 mg 0-17 tablet by ity of disintegrat 00:00: mouth [place] ing tablet 00 every 8 Medica l (eight) Branch hours as needed for Nausea and Vomiting (N/V). omeprazole 2021-06 Yes [id number] 20mg Take 1 [facility] nivers 20 mg 0-17 capsule by ity of capsule 00:00: mouth in [place] 00 the Medical morning. Branch ondansetron 2021-06 Yes [id number] 8mg Take 1 [facility] 8 mg 0-17 tablet by ity of disintegrat 00:00: mouth [place] ing tablet 00 every 8 Medica l (eight) Branch hours as needed for Nausea and Vomiting (N/V). omeprazole 2022-1 Yes [id number] 20mg Take 1 U nivers 20 mg 0-17 capsule by ity of capsule 00:00: mouth in [place] 00 the Medical morning. Branch ondansetron 2021-06 Yes [id number] 8mg Take 1 [facility] 8 mg 0-17 tablet by ity of disintegrat 00:00: mouth [place] ing tablet 00 every 8 Medica l (eight) Branch hours as needed for Nausea and Vomiting (N/V). omeprazole 2021-06 Yes [id number] 20mg Take 1 U nivers 20 mg 0-17 capsule by ity of capsule 00:00: mouth in [place] 00 the Medical morning. Branch ondansetron 2021-06 Yes [id number] 8mg Take 1 [facility] 8 mg 0-17 tablet by ity of disintegrat 00:00: mouth [place] ing tablet 00 every 8 Medica l (eight) Branch hours as needed for Nausea and Vomiting (N/V). omeprazole 2021-06 Yes [id number] 20mg Take 1 U nivers 20 mg 0-17 capsule by ity of capsule 00:00: mouth in [place] the Medical morning. Branch ondansetron 2021-06 Yes [id number] 8mg Take 1 [facility] 8 mg 0-17 tablet by ity of disintegrat 00:00: mouth [place] ing tablet 00 every 8 Medica l (eight) Branch hours as needed for Nausea and Vomiting (N/V). omeprazole 2021-06 Yes [id number] 20mg Take 1 U nivers 20 mg 0-17 capsule by ity of capsule 00:00: mouth in [place] the Medical morning. Branch ondansetron 2021-06 Yes [id number] 8mg Take 1 [facility] 8 mg 0-17 tablet by ity of disintegrat 00:00: mouth [place] ing tablet 00 every 8 Medica l (eight) Branch hours as needed for Nausea and Vomiting (N/V). omeprazole 2021-06 Yes [id number] 20mg Take 1 U nivers 20 mg 0-17 capsule by ity of capsule 00:00: mouth in [place] the Medical morning. Branch ondansetron 2021-06 Yes [id number] 8mg Take 1 [facility] 8 mg 0-17 tablet by ity of disintegrat 00:00: mouth [place] ing tablet 00 every 8 Medica l (eight) Branch hours as needed for Nausea and Vomiting (N/V). omeprazole 2021-06 Yes [id number] 20mg Take 1 U nivers 20 mg 0-17 capsule by ity of capsule 00:00: mouth in [place] 00 the Medical morning. Branch ondansetron 2021-06 Yes [id number] 8mg Take 1 [facility] 8 mg 0-17 tablet by ity of disintegrat 00:00: mouth [place] ing tablet 00 every 8 Medica l (eight) Branch hours as needed for Nausea and Vomiting (N/V). omeprazole 2021-06 Yes [id number] 20mg Take 1 U nivers 20 mg 0-17 capsule by ity of capsule 00:00: mouth in [place] the Medical morning. Branch ondansetron 2021-06 Yes [id number] 8mg Take 1 [facility] 8 mg 0-17 tablet by ity of disintegrat 00:00: mouth [place] ing tablet 00 every 8 Medica l (eight) Branch hours as needed for Nausea and Vomiting (N/V). omeprazole 2021-06 Yes [id number] 20mg Take 1 U nivers 20 mg 0-17 capsule by ity of capsule 00:00: mouth in [place] the Medical morning. Branch ondansetron 2021-06 Yes [id number] 8mg Take 1 [facility] 8 mg 0-17 tablet by ity of disintegrat 00:00: mouth [place] ing tablet 00 every 8 Medica l (eight) Branch hours as needed for Nausea and Vomiting (N/V). omeprazole 2021-06 Yes [id number] 20mg Take 1 U nivers 20 mg 0-17 capsule by ity of capsule 00:00: mouth in [place] the Medical morning. Branch ondansetron 2021-06 Yes [id number] 8mg Take 1 [facility] 8 mg 0-17 tablet by ity of disintegrat 00:00: mouth [place] ing tablet 00 every 8 Medica l (eight) Branch hours as needed for Nausea and Vomiting (N/V). omeprazole 2021-06 Yes [id number] 20mg Take 1 U nivers 20 mg 0-17 capsule by ity of capsule 00:00: mouth in [place] 00 the Medical morning. Branch ondansetron 2021-06 Yes [id number] 8mg Take 1 [facility] 8 mg 0-17 tablet by ity of disintegrat 00:00: mouth [place] ing tablet 00 every 8 Medica l (eight) Branch hours as needed for Nausea and Vomiting (N/V). omeprazole 2021-06 Yes [id number] 20mg Take 1 U nivers 20 mg 0-17 capsule by ity of capsule 00:00: mouth in [place] 00 the Medical morning. Branch ondansetron 2021-06 Yes [id number] 8mg Take 1 [facility] 8 mg 0-17 tablet by ity of disintegrat 00:00: mouth [place] ing tablet 00 every 8 Medica l (eight) Branch hours as needed for Nausea and Vomiting (N/V). omeprazole 2021-06 Yes [id number] 20mg Take 1 U nivers 20 mg 0-17 capsule by ity of capsule 00:00: mouth in [place] 00 the Medical morning. Branch ondansetron 2021-06- No [id number] 8mg Take 1 [facility] 8 mg 0-17 12-16 tablet by ity of disintegrat 00:00: 00:00 [place] tablet 00 :00 every 8 Medica l (eight) Branch hours as needed for Nausea and Vomiting (N/V). omeprazole 2021-06- No [id number] 20mg Take 1 [facility] 20 mg 0-17 12-16 capsule by ity of capsule 00:00: 00:00 mouth in [place] 00 :00 the Medical morning. Branch cetirizine 2021-06 Yes [id number] Take by Univers HCl (ZYRTEC 0-14 103 mouth. ity of ORAL) 11:12: [place] [facility] cetirizine 2021-06 Yes [id number] Take by [facility] HCl (ZYRTEC 0-14 103 mouth. ity of ORAL) 11:12: [place] [facility] cetirizine 2021-06 Yes [id number] Take by [facility] HCl (ZYRTEC 0-14 103 mouth. ity of ORAL) 11:12: [place] [facility] cetirizine 2021-06 Yes [id number] Take by [facility] HCl (ZYRTEC 0-14 103 mouth. ity of ORAL) 11:12: [place] [facility] cetirizine 2021-06 Yes [id number] Take by [facility] HCl (ZYRTEC 0-14 103 mouth. ity of ORAL) 11:12: [address] cetirizine 2021-06 Yes [id number] Take by [facility] HCl (ZYRTEC 0-14 103 mouth. ity of ORAL) 11:12: [facility] cetirizine 2021-06 Yes [id number] Take by [facility] HCl (ZYRTEC 0-14 103 mouth. ity of ORAL) 11:12: [facility] cetirizine 2021-06 Yes [id number] Take by [facility] HCl (ZYRTEC 0-14 103 mouth. ity of ORAL) 11:12: [facility] cetirizine 2021-06 Yes [id number] Take by [facility] HCl (ZYRTEC 0-14 103 mouth. ity of ORAL) 11:12: [facility] cetirizine 2021-06 Yes [id number] Take by [facility] HCl (ZYRTEC 0-14 103 mouth. ity of ORAL) 11:12: [facility] cetirizine 2021-06 Yes [id number] Take by [facility] HCl (ZYRTEC 0-14 103 mouth. ity of ORAL) 11:12: [address] cetirizine Yes [id number] Take by [facility] HCl (ZYRTEC 9-16 103 mouth. ity of ORAL) 15:39: [address] cetirizine Yes [id number] Take by [facility] HCl (ZYRTEC 9-16 103 mouth. ity of ORAL) 15:39: [address] cetirizine Yes [id number] Take by [facility] HCl (ZYRTEC 9-16 103 mouth. ity of ORAL) 15:39: [address] cetirizine Yes [id number] Take by [facility] HCl (ZYRTEC 9-16 103 mouth. ity of ORAL) 15:39: [address] ondansetron Yes [id number] 8mg Take 1 [facility] 8 mg 9-16 tablet by ity of disintegrat 00:00: mouth [place] ing tablet 00 every 8 Medica l (eight) Branch hours as needed for Nausea and Vomiting (N/V). ondansetron Yes [id number] 8mg Take 1 [facility] 8 mg 9-16 tablet by ity of disintegrat 00:00: mouth [place] ing tablet 00 every 8 Medica l (eight) Branch hours as needed for Nausea and Vomiting (N/V). ondansetron 2021-0 Yes [id number] 8mg Take 1 [facility] 8 mg 9-16 tablet by ity of disintegrat 00:00: mouth [place] ing tablet 00 every 8 Medica l (eight) Branch hours as needed for Nausea and Vomiting (N/V). ondansetron 2021-0 Yes [id number] 8mg Take 1 [facility] 8 mg 9-16 tablet by ity of disintegrat 00:00: mouth [place] ing tablet 00 every 8 Medica l (eight) Branch hours as needed for Nausea and Vomiting (N/V). ondansetron 2021-0 Yes [id number] 8mg Take 1 [facility] 8 mg 9-16 tablet by ity of disintegrat 00:00: mouth [place] ing tablet 00 every 8 Medica l (eight) Branch hours as needed for Nausea and Vomiting (N/V). ondansetron 2021- No [id number] 8mg Take 1 [facility] 8 mg 9-16 10-17 tablet by ity of disintegrat 00:00: 00:00 [place] tablet 00 :00 every 8 Medica l (eight) Branch hours as needed for Nausea and Vomiting (N/V). ondansetron 2021-0 Yes [id number] 8mg Take 1 [facility] 8 mg 7-11 tablet by ity of disintegrat 00:00: mouth [place] ing tablet 00 every 8 Medica l (eight) Branch hours as needed for Nausea and Vomiting (N/V). omeprazole 2021-0 Yes [id number] 20mg Take 1 U nivers 20 mg 7-11 capsule by ity of capsule 00:00: mouth in [place] 00 the Medical morning. Branch ondansetron 2021-0 Yes [id number] 8mg Take 1 [facility] 8 mg 7-11 tablet by ity of disintegrat 00:00: mouth [place] ing tablet 00 every 8 Medica l (eight) Branch hours as needed for Nausea and Vomiting (N/V). omeprazole 2-0 Yes [id number] 20mg Take 1 U nivers 20 mg 7-11 capsule by ity of capsule 00:00: mouth in [place] 00 the Medical morning. Branch ondansetron 2021-0 Yes [id number] 8mg Take 1 [facility] 8 mg 7-11 tablet by ity of disintegrat 00:00: mouth [place] ing tablet 00 every 8 Medica l (eight) Branch hours as needed for Nausea and Vomiting (N/V). omeprazole 2021-0 Yes [id number] 20mg Take 1 U nivers 20 mg 7-11 capsule by ity of capsule 00:00: mouth in [place] 00 the Medical morning. Branch omeprazole 2021-0 Yes [id number] 20mg Take 1 U nivers 20 mg 7-11 capsule by ity of capsule 00:00: mouth in [place] the Medical morning. Branch omeprazole 2021-0 Yes [id number] 20mg Take 1 U nivers 20 mg 7-11 capsule by ity of capsule 00:00: mouth in [place] 00 the Medical morning. Branch omeprazole 2021-0 Yes [id number] 20mg Take 1 U nivers 20 mg 7-11 capsule by ity of capsule 00:00: mouth in [place] the morning. Branch omeprazole 2021-0 Yes [id number] 20mg Take 1 U nivers 20 mg 7-11 capsule by ity of capsule 00:00: mouth in [place] the morning. Branch omeprazole 2021-0 Yes [id number] 20mg Take 1 U nivers 20 mg 7-11 capsule by ity of capsule 00:00: mouth in [place] the morning. Branch omeprazole 2021-0 Yes [id number] 20mg Take 1 U nivers 20 mg 7-11 capsule by ity of capsule 00:00: mouth in [place] the Medical morning. Branch omeprazole 0 2021- No [id number] 20mg Take 1 [facility] 20 mg 7-11 10-17 capsule by ity of capsule 00:00: 00:00 mouth in [place] 00 :00 the Medical morning. Branch ondansetron 2021-0 2021- No [id number] 8mg Take 1 [facility] 8 mg 7-11 09-16 tablet by ity of disintegrat 00:00: 00:00 [place] tablet 00 :00 every 8 Medica l (eight) Branch hours as needed for Nausea and Vomiting (N/V). ondansetron 2021-0 2021- No [id number] 8mg Take 1 [facility] 8 mg 7-11 09-16 tablet by ity of disintegrat 00:00: 00:00 [place] tablet 00 :00 every 8 Medica l (eight) Branch hours as needed for Nausea and Vomiting (N/V). 2021-0 Yes Take by Univer s 25/iron 6-29 mouth. ity of fum/folic/d 14:03: [place] [facility] 24 Medical (-1 Branch ORAL) 2021-0 Yes Take by Univer [facility] 25/iron 6-29 mouth. ity of fum/folic/d 14:03: [facility] [facility] 24 Medical (-1 Branch ORAL) 2021-0 Yes Take by Univer s 25/iron 6-29 mouth. ity of fum/folic/d 14:03: [place] [facility] 24 Medical (-1 Branch ORAL) 2021-0 Yes Take by Univer s 25/iron 6-29 mouth. ity of fum/folic/d 14:03: [facility] [facility] 24 Medical (-1 Branch ORAL) 2021-0 Yes Take by Univer s 25/iron 6-29 mouth. ity of fum/folic/d 14:03: [facility] [facility] 24 Medical (-1 Branch ORAL) 2021-0 Yes Take by Univer s 25/iron 6-29 mouth. ity of fum/folic/d 14:03: [facility] [facility] 24 Medical (-1 Branch ORAL) 0 Yes Take by Univer s 25/iron 6-29 mouth. ity of fum/folic/d 14:03: [facility] [facility] 24 Medical (-1 Branch ORAL) 2021-0 Yes Take by Univer s 25/iron 6-29 mouth. ity of fum/folic/d 14:03: [facility] [facility] 24 Medical (-1 Branch ORAL) 2021-0 Yes Take by Univer s 25/iron 6-29 mouth. ity of fum/folic/d 14:03: [place] [facility] 24 Medical (-1 Branch ORAL) 2021-0 Yes Take by Univer s 25/iron 6-29 mouth. ity of fum/folic/d 14:03: [facility] [facility] 24 Medical (-1 Branch ORAL) 2021-0 Yes Take by Univer s 25/iron 6-29 mouth. ity of fum/folic/d 14:03: [facility] [facility] 24 Medical (-1 Branch ORAL) 2021-0 Yes Take by Univer s 25/iron 6-29 mouth. ity of fum/folic/d 14:03: [place] [facility] 24 Medical (-1 Branch ORAL) 202-0 Yes Take by Univer s 25/iron 6-29 mouth. ity of fum/folic/d 14:03: [facility] [facility] 24 Medical (-1 Branch ORAL) 2021-0 Yes Take by Univer s 25/iron 6-29 mouth. ity of fum/folic/d 14:03: [facility] [facility] 24 Medical (-1 Branch ORAL) 2021-0 Yes Take by Unive rs 25/iron 6-29 mouth. ity of fum/folic/d 14:03: [facility] [facility] 24 Medical (-1 Branch ORAL) 2021-0 Yes Take by Univer s 25/iron 6-29 mouth. ity of fum/folic/d 14:03: [facility] [facility] 24 Medical (-1 Branch ORAL) 0 Yes Take by Univer s 25/iron 6-29 mouth. ity of fum/folic/d 14:03: [facility] [facility] 24 Medical (-1 Branch ORAL) 0 Yes Take by Univer s 25/iron 6-29 mouth. ity of fum/folic/d 14:03: [facility] [facility] 24 Medical (-1 Branch ORAL) 0 Yes Take by Univer s 25/iron 6-29 mouth. ity of fum/folic/d 14:03: [facility] [facility] 24 Medical (-1 Branch ORAL) 0 Yes Take by Univer s 25/iron 6-29 mouth. ity of fum/folic/d 14:03: [facility] [facility] 24 Medical (-1 Branch ORAL) 0 Yes Take by Univer s 25/iron 6-29 mouth. ity of fum/folic/d 14:03: [facility] [facility] 24 Medical (-1 Branch ORAL) 2021-0 Yes Take by Univer s 25/iron 6-29 mouth. ity of fum/folic/d 14:03: [facility] [facility] 24 Medical (-1 Branch ORAL) 2021-0 Yes Take by Univer s 25/iron 6-29 mouth. ity of fum/folic/d 14:03: [facility] [facility] 24 Medical (-1 Branch ORAL) 2021-0 Yes Take by Univer s 25/iron 6-29 mouth. ity of fum/folic/d 14:03: [facility] [facility] 24 Medical (-1 Branch ORAL) Yes Take by Univer s 25/iron 6-29 mouth. ity of fum/folic/d 14:03: [facility] [facility] 24 Medical (-1 Branch ORAL) Yes Take by Univer s 25/iron 6-29 mouth. ity of fum/folic/d 14:03: [place] [address] Medical (-1 Branch ORAL) Yes Take by Univer s 25/iron 6-29 mouth. ity of fum/folic/d 14:03: [facility] [facility] 24 Medical (-1 Branch ORAL) metoclopram Yes [id number] 10mg Take 1 [facility] riaz HCl 10 6-29 tablet by ity of mg tablet 00:00: mouth [place] 00 every 6 Medical (six) Branch hours as needed for Nausea and Vomiting (N/V). metoclopram Yes [id number] 10mg Take 1 [facility] riaz HCl 10 6-29 tablet by ity of mg tablet 00:00: mouth [place] 00 every 6 Medical (six) Branch hours as needed for Nausea and Vomiting (N/V). metoclopram Yes [id number] 10mg Take 1 [facility] ri[facility] HCl 10 6-29 tablet by ity of mg tablet 00:00: mouth [place] 00 every 6 Medical (six) Branch hours as needed for Nausea and Vomiting (N/V). metoclopram 2021- No [id number] 10mg Take 1 [facility] ri[facility] HCl 10 6-29 09-16 tablet by ity of mg tablet 00:00: 00:00 mouth [place] 00 :00 every 6 Medical (six) Branch hours as needed for Nausea and Vomiting (N/V). metoclopram 2021- No [id number] 10mg Take 1 [facility] riaz HCl 10 6-29 09-16 tablet by ity of mg tablet 00:00: 00:00 mouth [place] 00 :00 every 6 Medical (six) Branch hours as needed for Nausea and Vomiting (N/V). cetirizine 0 Yes [id number] Take by Univers HCl (ZYRTEC 6-12 103 mouth. ity of ORAL) 09:48: [place] [address] Medical Branch cetirizine 2021-0 Yes [id number] Take by Univers HCl (ZYRTEC 6-12 103 mouth. ity of ORAL) 09:48: [place] [address] Medical Branch cetirizine 2021-0 Yes [id number] Take by Univers HCl (ZYRTEC 6-12 103 mouth. ity of ORAL) 09:48: [place] [address] Medical Branch pyridoxine, 2021-0 Yes [id number] 25mg Take 1 Univers vitamin B6, 6-12 tablet by ity of 25 mg 00:00: mouth 3 [place] tablet 00 (three) Medical times Branch daily. pyridoxine, 2021-0 Yes [id number] 25mg Take 1 [facility] vitamin B6, 6-12 tablet by ity of 25 mg 00:00: mouth 3 [place] tablet 00 (three) Medical times Branch daily. pyridoxine, 2021-0 Yes [id number] 25mg Take 1 [facility] vitamin B6, 6-12 tablet by ity of 25 mg 00:00: mouth 3 [place] tablet 00 (three) Medical times Branch daily. pyridoxine, 2021-0 2022- No [id number] 25mg Take 1 [facility] vitamin B6, 6-12 -16 tablet by it y of 25 mg 00:00: 00:00 mouth 3 [place] tablet 00 :00 (three) Medical times Branch daily. pyridoxine, 2021-0 2022- No [id number] 25mg Take 1 Univers vitamin B6, 6-12 -16 tablet by it y of 25 mg 00:00: 00:00 mouth 3 [place] tablet 00 :00 (three) Medical times Branch daily. metoclopram 2021-0 Yes [id number] 10mg Take 1 [facility] HCl 10 6-11 tablet by ity of mg tablet 00:00: mouth [place] 00 every 6 Medical (six) Branch hours as needed for Nausea and Vomiting (N/V). doxylamine 2-0 Yes [id number] 25mg Take 1 U nivers 25 mg 6-11 tablet by ity of tablet 00:00: mouth at [place] 00 bedtime as Medical needed for Branch Nausea and Vomiting (N/V). metoclopram 2022-0 Yes [id number] 10mg Take 1 [facility] ri[facility] HCl 10 6-11 tablet by ity of mg tablet 00:00: mouth [place] 00 every 6 Medical (six) Branch hours as needed for Nausea and Vomiting (N/V). doxylamine 2022-0 Yes [id number] 25mg Take 1 U nivers 25 mg 6-11 tablet by ity of tablet 00:00: mouth at [place] 00 bedtime as Medical needed for Branch Nausea and Vomiting (N/V). metoclopram 2-0 Yes [id number] 10mg Take 1 [facility] ri[facility] HCl 10 6-11 tablet by ity of mg tablet 00:00: mouth [place] 00 every 6 Medical (six) Branch hours as needed for Nausea and Vomiting (N/V). doxylamine 2021-0 Yes [id number] 25mg Take 1 U nivers 25 mg 6-11 tablet by ity of tablet 00:00: mouth at [place] 00 bedtime as Medical needed for Branch Nausea and Vomiting (N/V). metoclopram 2021-0 2021- No [id number] 10mg Take 1 [facility] ri[facility] HCl 10 -04 26-16 tablet by ity of mg tablet 00:00: 00:00 mouth [place] 00 :00 every 6 Medical (six) Branch hours as needed for Nausea and Vomiting (N/V). doxylamine 2021-0 2021- No [id number] 25mg Take 1 Univers 25 mg 6-04 26-16 tablet by ity of tablet 00:00: 00:00 mouth at [place] 00 :00 bedtime as Medical needed for Branch Nausea and Vomiting (N/V). metoclopram 2021-0 2021- No [id number] 10mg Take 1 [facility] ri[facility] HCl 10 11-2616 tablet by ity of mg tablet 00:00: 00:00 mouth [place] 00 :00 every 6 Medical (six) Branch hours as needed for Nausea and Vomiting (N/V). doxylamine 2021-0 2021- No [id number] 25mg Take 1 Univers 25 mg 11-2616 tablet by ity of tablet 00:00: 00:00 mouth at [place] 00 :00 bedtime as Medical needed for Branch Nausea and Vomiting (N/V). ondansetron 0 Yes TAKE 1 Univ ers 8 mg tablet 6-08 TABLET BY ity of 00:00: MOUTH [place] 00 EVERY 8 Medical HOURS FOR Branch NAUSEA AND VOMITING ondansetron 2021-0 Yes TAKE 1 Univ ers 8 mg tablet 6-08 TABLET BY ity of 00:00: MOUTH [place] 00 EVERY 8 Medical HOURS FOR Branch NAUSEA AND VOMITING ondansetron 2021-0 2021- No TAKE 1 Uni vers 8 mg tablet 11-23 TABLET BY it y of 00:00: 00:00 MOUTH [place] 00 :00 EVERY 8 Medical HOURS FOR Branch NAUSEA AND VOMITING ondansetron 0 2021- No TAKE 1 Uni vers 8 mg tablet 11-23 TABLET BY it y of 00:00: 00:00 MOUTH [place] 00 :00 EVERY 8 Medical HOURS FOR Branch NAUSEA AND VOMITING albuterol 0 Yes [id number] 2{puff} Inhale 2 Univers (PROAIR 6-16 Puffs ity of HFA) 90 00:00: every 6 [place] mcg/actuati 00 (six) Medical on inhaler hours as Branc h needed for Wheezing or Shortness of Breath. montelukast Yes [id number] 10mg Take 1 Univers (SINGULAIR) 6-16 tablet by ity of 10 mg 00:00: mouth [place] tablet 00 daily. Medical Branch albuterol 0 Yes [id number] 2{puff} Inhale 2 Univers (PROAIR 6-16 Puffs ity of HFA) 90 00:00: every 6 [place] mcg/actuati 00 (six) Medical on inhaler hours as Branc h needed for Wheezing or Shortness of Breath. montelukast 0 Yes [id number] 10mg Take 1 Univers (SINGULAIR) 6-16 tablet by ity of 10 mg 00:00: mouth [place] tablet 00 daily. Medical Branch albuterol 0 Yes [id number] 2{puff} Inhale 2 Univers (PROAIR 6-16 Puffs ity of HFA) 90 00:00: every 6 [place] mcg/actuati 00 (six) Medical on inhaler hours as Branc h needed for Wheezing or Shortness of Breath. montelukast Yes [id number] 10mg Take 1 Univers (SINGULAIR) 6-16 tablet by ity of 10 mg 00:00: mouth [place] tablet 00 daily. Medical Branch albuterol Yes [id number] 2{puff} Inhale 2 Univers (PROAIR 6-16 Puffs ity of HFA) 90 00:00: every 6 [place] mcg/actuati 00 (six) Medical on inhaler hours as Branc h needed for Wheezing or Shortness of Breath. albuterol Yes [id number] 2{puff} Inhale 2 Univers (PROAIR 6-16 Puffs ity of HFA) 90 00:00: every 6 [place] mcg/actuati 00 (six) Medical on inhaler hours as Branc h needed for Wheezing or Shortness of Breath. albuterol 0 Yes [id number] 2{puff} Inhale 2 Univers (PROAIR 6-16 Puffs ity of HFA) 90 00:00: every 6 [place] mcg/actuati 00 (six) Medical on inhaler hours as Branc h needed for Wheezing or Shortness of Breath. albuterol 0 Yes [id number] 2{puff} Inhale 2 Univers (PROAIR 6-16 Puffs ity of HFA) 90 00:00: every 6 [place] mcg/actuati 00 (six) Medical on inhaler hours as Branc h needed for Wheezing or Shortness of Breath. albuterol 0 Yes [id number] 2{puff} Inhale 2 Univers (PROAIR 6-16 Puffs ity of HFA) 90 00:00: every 6 [place] mcg/actuati 00 (six) Medical on inhaler hours as Branc h needed for Wheezing or Shortness of Breath. albuterol 0 Yes [id number] 2{puff} Inhale 2 Univers (PROAIR 6-16 Puffs ity of HFA) 90 00:00: every 6 [place] mcg/actuati 00 (six) Medical on inhaler hours as Branc h needed for Wheezing or Shortness of Breath. albuterol 0 Yes [id number] 2{puff} Inhale 2 Univers (PROAIR 6-16 Puffs ity of HFA) 90 00:00: every 6 [place] mcg/actuati 00 (six) Medical on inhaler hours as Branc h needed for Wheezing or Shortness of Breath. albuterol 0 Yes [id number] 2{puff} Inhale 2 Univers (PROAIR 6-16 Puffs ity of HFA) 90 00:00: every 6 [place] mcg/actuati 00 (six) Medical on inhaler hours as Branc h needed for Wheezing or Shortness of Breath. albuterol 0 Yes [id number] 2{puff} Inhale 2 Univers (PROAIR 6-16 Puffs ity of HFA) 90 00:00: every 6 [place] mcg/actuati 00 (six) Medical on inhaler hours as Branc h needed for Wheezing or Shortness of Breath. albuterol 2020-0 Yes [id number] 2{puff} Inhale 2 Univers (PROAIR 6-16 Puffs ity of HFA) 90 00:00: every 6 [place] mcg/actuati 00 (six) Medical on inhaler hours as Branc h needed for Wheezing or Shortness of Breath. albuterol 2020-0 Yes [id number] 2{puff} Inhale 2 Univers (PROAIR 6-16 Puffs ity of HFA) 90 00:00: every 6 [place] mcg/actuati 00 (six) Medical on inhaler hours as Branc h needed for Wheezing or Shortness of Breath. albuterol 2020-0 Yes [id number] 2{puff} Inhale 2 Univers (PROAIR 6-16 Puffs ity of HFA) 90 00:00: every 6 [place] mcg/actuati 00 (six) Medical on inhaler hours as Branc h needed for Wheezing or Shortness of Breath. albuterol 2020-0 Yes [id number] 2{puff} Inhale 2 Univers (PROAIR 6-16 Puffs ity of HFA) 90 00:00: every 6 [place] mcg/actuati 00 (six) Medical on inhaler hours as Branc h needed for Wheezing or Shortness of Breath. albuterol 2020-0 Yes [id number] 2{puff} Inhale 2 Univers (PROAIR 6-16 Puffs ity of HFA) 90 00:00: every 6 [place] mcg/actuati 00 (six) Medical on inhaler hours as Branc h needed for Wheezing or Shortness of Breath. albuterol 2020-0 Yes [id number] 2{puff} Inhale 2 Univers (PROAIR 6-16 Puffs ity of HFA) 90 00:00: every 6 [place] mcg/actuati 00 (six) Medical on inhaler hours as Branc h needed for Wheezing or Shortness of Breath. albuterol 2020-0 Yes [id number] 2{puff} Inhale 2 Univers (PROAIR 6-16 Puffs ity of HFA) 90 00:00: every 6 [place] mcg/actuati 00 (six) Medical on inhaler hours as Branc h needed for Wheezing or Shortness of Breath. albuterol 2020-0 Yes [id number] 2{puff} Inhale 2 Univers (PROAIR 6-16 Puffs ity of HFA) 90 00:00: every 6 [place] mcg/actuati 00 (six) Medical on inhaler hours as Branc h needed for Wheezing or Shortness of Breath. albuterol 2020-0 Yes [id number] 2{puff} Inhale 2 Univers (PROAIR 6-16 Puffs ity of HFA) 90 00:00: every 6 [place] mcg/actuati 00 (six) Medical on inhaler hours as Branc h needed for Wheezing or Shortness of Breath. albuterol 2020-0 Yes [id number] 2{puff} Inhale 2 Univers (PROAIR 6-16 Puffs ity of HFA) 90 00:00: every 6 [place] mcg/actuati 00 (six) Medical on inhaler hours as Branc h needed for Wheezing or Shortness of Breath. albuterol 2020-0 Yes [id number] 2{puff} Inhale 2 Univers (PROAIR 6-16 Puffs ity of HFA) 90 00:00: every 6 [place] mcg/actuati 00 (six) Medical on inhaler hours as Branc h needed for Wheezing or Shortness of Breath. albuterol 2020-0 Yes [id number] 2{puff} Inhale 2 Univers (PROAIR 6-16 Puffs ity of HFA) 90 00:00: every 6 [place] mcg/actuati 00 (six) Medical on inhaler hours as Branc h needed for Wheezing or Shortness of Breath. albuterol 2020-0 Yes [id number] 2{puff} Inhale 2 Univers (PROAIR 6-16 Puffs ity of HFA) 90 00:00: every 6 [place] mcg/actuati 00 (six) Medical on inhaler hours as Branc h needed for Wheezing or Shortness of Breath. albuterol 2020-0 Yes [id number] 2{puff} Inhale 2 Univers (PROAIR 6-16 Puffs ity of HFA) 90 00:00: every 6 [place] mcg/actuati 00 (six) Medical on inhaler hours as Branc h needed for Wheezing or Shortness of Breath. albuterol 0 Yes [id number] 2{puff} Inhale 2 Univers (PROAIR 6-16 Puffs ity of HFA) 90 00:00: every 6 [place] mcg/actuati 00 (six) Medical on inhaler hours as Branc h needed for Wheezing or Shortness of Breath. albuterol 2020-0 Yes [id number] 2{puff} Inhale 2 Univers (PROAIR 6-16 Puffs ity of HFA) 90 00:00: every 6 [place] mcg/actuati 00 (six) Medical on inhaler hours as Branc h needed for Wheezing or Shortness of Breath. albuterol 2020-0 Yes [id number] 2{puff} Inhale 2 Univers (PROAIR 6-16 Puffs ity of HFA) 90 00:00: every 6 [place] mcg/actuati 00 (six) Medical on inhaler hours as Branc h needed for Wheezing or Shortness of Breath. albuterol 0 Yes [id number] 2{puff} Inhale 2 Univers (PROAIR 6-16 Puffs ity of HFA) 90 00:00: every 6 [place] mcg/actuati 00 (six) Medical on inhaler hours as Branc h needed for Wheezing or Shortness of Breath. albuterol 2020-0 Yes [id number] 2{puff} Inhale 2 Univers (PROAIR 6-16 Puffs ity of HFA) 90 00:00: every 6 [place] mcg/actuati 00 (six) Medical on inhaler hours as Branc h needed for Wheezing or Shortness of Breath. albuterol 2020-0 Yes [id number] 2{puff} Inhale 2 Univers (PROAIR 6-16 Puffs ity of HFA) 90 00:00: every 6 [place] mcg/actuati 00 (six) Medical on inhaler hours as Branc h needed for Wheezing or Shortness of Breath. albuterol 2020-0 Yes [id number] 2{puff} Inhale 2 Univers (PROAIR 6-16 Puffs ity of HFA) 90 00:00: every 6 [place] mcg/actuati 00 (six) Medical on inhaler hours as Branc h needed for Wheezing or Shortness of Breath. albuterol 2020-0 Yes [id number] 2{puff} Inhale 2 Univers (PROAIR 6-16 Puffs ity of HFA) 90 00:00: every 6 [place] mcg/actuati 00 (six) Medical on inhaler hours as Branc h needed for Wheezing or Shortness of Breath. albuterol 0 Yes [id number] 2{puff} Inhale 2 Univers (PROAIR 6-16 Puffs ity of HFA) 90 00:00: every 6 [place] mcg/actuati 00 (six) Medical on inhaler hours as Branc h needed for Wheezing or Shortness of Breath. albuterol 2020-0 Yes [id number] 2{puff} Inhale 2 Univers (PROAIR 6-16 Puffs ity of HFA) 90 00:00: every 6 [place] mcg/actuati 00 (six) Medical on inhaler hours as Branc h needed for Wheezing or Shortness of Breath. albuterol 0 Yes [id number] 2{puff} Inhale 2 Univers (PROAIR 6-16 Puffs ity of HFA) 90 00:00: every 6 [place] mcg/actuati 00 (six) Medical on inhaler hours as Branc h needed for Wheezing or Shortness of Breath. albuterol 0 Yes [id number] 2{puff} Inhale 2 Univers (PROAIR 6-16 Puffs ity of HFA) 90 00:00: every 6 [place] mcg/actuati 00 (six) Medical on inhaler hours as Branc h needed for Wheezing or Shortness of Breath. albuterol 0 Yes [id number] 2{puff} Inhale 2 Univers (PROAIR 6-16 Puffs ity of HFA) 90 00:00: every 6 [place] mcg/actuati 00 (six) Medical on inhaler hours as Branc h needed for Wheezing or Shortness of Breath. albuterol 0 Yes [id number] 2{puff} Inhale 2 Univers (PROAIR 6-16 Puffs ity of HFA) 90 00:00: every 6 [place] mcg/actuati 00 (six) Medical on inhaler hours as Branc h needed for Wheezing or Shortness of Breath. albuterol 0 Yes [id number] 2{puff} Inhale 2 Univers (PROAIR 6-16 Puffs ity of HFA) 90 00:00: every 6 [place] mcg/actuati 00 (six) Medical on inhaler hours as Branc h needed for Wheezing or Shortness of Breath. albuterol Yes [id number] 2{puff} Inhale 2 Univers (PROAIR 6-16 Puffs ity of HFA) 90 00:00: every 6 [place] mcg/actuati 00 (six) Medical on inhaler hours as Branc h needed for Wheezing or Shortness of Breath. montelukast 2021- No [id number] 10mg Take 1 Univers (SINGULAIR) 12-01 tablet by it y of 10 mg 00:00: 00:00 mouth [place] tablet 00 :00 daily. [facility] montelukast 2021- No [id number] 10mg Take 1 Univers (SINGULAIR) 12-01 tablet by it y of 10 mg 00:00: 00:00 mouth [place] tablet 00 :00 daily. [facility] Immunizations Ordered Immunization Filled Date Status Comments Sour ce Name Immunization Name TDAP 2022-03-20 Completed University of 00:00:00 [facility] Influenza Virus 2022-03-20 Completed Universit y of Vaccine Quad IM, 00:00:00 [place] Me dical Preserv and ABX Free Bran ch 6 MO-64 YRS TDAP 2022-03-20 Completed University of 00:00:00 [facility] Influenza Virus 2022-03-20 Completed Universit y of Vaccine Quad IM, 00:00:00 [place] Me dical Preserv and ABX Free Bran ch 6 MO-64 YRS TDAP 2022-03-20 Completed University of 00:00:00 [facility] Influenza Virus 2022-03-20 Completed Universit y of Vaccine Quad IM, 00:00:00 [place] Me dical Preserv and ABX Free Bran ch 6 MO-64 YRS TDAP 2022-03-20 Completed University of 00:00:00 [facility] Influenza Virus 2022-03-20 Completed Universit y of Vaccine Quad IM, 00:00:00 [place] Me dical Preserv and ABX Free Bran ch 6 MO-64 YRS TDAP 2022-03-20 Completed University of 00:00:00 [facility] Influenza Virus 2022-03-20 Completed Universit y of Vaccine Quad IM, 00:00:00 [place] Me dical Preserv and ABX Free Bran ch 6 MO-64 YRS TDAP 2022-03-20 Completed University of 00:00:00 [facility] Influenza Virus 2022-03-20 Completed Universit y of Vaccine Quad IM, 00:00:00 [place] Me dical Preserv and ABX Free Bran ch 6 MO-64 YRS TDAP 2022-03-20 Completed University of 00:00:00 [facility] Influenza Virus 2022-03-20 Completed Universit y of Vaccine Quad IM, 00:00:00 [place] Me dical Preserv and ABX Free Bran ch 6 MO-64 YRS TDAP 2022-03-20 Completed University of 00:00:00 [facility] Influenza Virus 2022-03-20 Completed Universit y of Vaccine Quad IM, 00:00:00 [place] Me dical Preserv and ABX Free Bran ch 6 MO-64 YRS TDAP 2022-03-20 Completed University of 00:00:00 [facility] Influenza Virus 2022-03-20 Completed Universit y of Vaccine Quad IM, 00:00:00 [place] Me dical Preserv and ABX Free Bran ch 6 MO-64 YRS TDAP 2022-03-20 Completed University of 00:00:00 [facility] Influenza Virus 2022-03-20 Completed Universit y of Vaccine Quad IM, 00:00:00 [place] Me dical Preserv and ABX Free Bran ch 6 MO-64 YRS TDAP 2022-03-20 Completed University of 00:00:00 [facility] Influenza Virus 2022-03-20 Completed Universit y of Vaccine Quad IM, 00:00:00 [place] Me dical Preserv and ABX Free Bran ch 6 MO-64 YRS TDAP 2022-03-20 Completed University of 00:00:00 [facility] Influenza Virus 2022-03-20 Completed Universit y of Vaccine Quad IM, 00:00:00 [place] Me dical Preserv and ABX Free Bran ch 6 MO-64 YRS TDAP 2022-03-20 Completed University of 00:00:00 [facility] Influenza Virus 2022-03-20 Completed Universit y of Vaccine Quad IM, 00:00:00 [place] Me dical Preserv and ABX Free Bran ch 6 MO-64 YRS TDAP 2022-03-20 Completed University of 00:00:00 [facility] Influenza Virus 2022-03-20 Completed Universit y of Vaccine Quad IM, 00:00:00 [place] Me dical Preserv and ABX Free Bran ch 6 MO-64 YRS TDAP 2022-03-20 Completed University of 00:00:00 [facility] Influenza Virus 2022-03-20 Completed Universit y of Vaccine Quad IM, 00:00:00 [place] Me dical Preserv and ABX Free Bran ch 6 MO-64 YRS TDAP 2022-03-20 Completed University of 00:00:00 [facility] Influenza Virus 2022-03-20 Completed Universit y of Vaccine Quad IM, 00:00:00 [place] Me dical Preserv and ABX Free Bran ch 6 MO-64 YRS TDAP 2022-03-20 Completed University of 00:00:00 [facility] Influenza Virus 2022-03-20 Completed Universit y of Vaccine Quad IM, 00:00:00 [place] Me dical Preserv and ABX Free Bran ch 6 MO-64 YRS TDAP 2022-03-20 Completed University of 00:00:00 [facility] Influenza Virus 2022-03-20 Completed Universit y of Vaccine Quad IM, 00:00:00 [place] Me dical Preserv and ABX Free Bran ch 6 MO-64 YRS TDAP 2022-03-20 Completed University of 00:00:00 [facility] Influenza Virus 2022-03-20 Completed Universit y of Vaccine Quad IM, 00:00:00 [place] Me dical Preserv and ABX Free Bran ch 6 MO-64 YRS TDAP 2022-03-20 Completed University of 00:00:00 [facility] Influenza Virus 2022-03-20 Completed Universit y of Vaccine Quad IM, 00:00:00 [place] Me dical Preserv and ABX Free Bran ch 6 MO-64 YRS TDAP 2022-03-20 Completed University of 00:00:00 [facility] Influenza Virus 2022-03-20 Completed Universit y of Vaccine Quad IM, 00:00:00 [place] Me dical Preserv and ABX Free Bran ch 6 MO-64 YRS TDAP 2022-03-20 Completed University of 00:00:00 [facility] Influenza Virus 2022-03-20 Completed Universit y of Vaccine Quad IM, 00:00:00 [place] Me dical Preserv and ABX Free Bran ch 6 MO-64 YRS TDAP 2022-03-20 Completed University of 00:00:00 [facility] Influenza Virus 2022-03-20 Completed Universit y of Vaccine Quad IM, 00:00:00 [place] Me dical Preserv and ABX Free Bran ch 6 MO-64 YRS TDAP 2022-03-20 Completed University of 00:00:00 [facility] Influenza Virus 2022-03-20 Completed Universit y of Vaccine Quad IM, 00:00:00 [place] Me dical Preserv and ABX Free Bran ch 6 MO-64 YRS TDAP 2022-03-20 Completed University of 00:00:00 [facility] Influenza Virus 2022-03-20 Completed Universit y of Vaccine Quad IM, 00:00:00 [place] Me dical Preserv and ABX Free Bran ch 6 MO-64 YRS TDAP 2022-03-20 Completed University of 00:00:00 [facility] Influenza Virus 2022-03-20 Completed Universit y of Vaccine Quad IM, 00:00:00 [place] Me dical Preserv and ABX Free Bran ch 6 MO-64 YRS TDAP 2022-03-20 Completed University of 00:00:00 [facility] Influenza Virus 2022-03-20 Completed Universit y of Vaccine Quad IM, 00:00:00 [place] Me dical Preserv and ABX Free Bran ch 6 MO-64 YRS TDAP 2022-03-20 Completed University of 00:00:00 [facility] Influenza Virus 2022-03-20 Completed [facility], 00:00:00 [place] [facility] Preserv and ABX Free Bran ch 6 MO-64 YRS TDAP 2022-03-20 Completed [facility] 00:00:00 [facility] Influenza Virus 2022-03-20 Completed [facility], 00:00:00 [place] [facility] Preserv and ABX Free Bran ch 6 MO-64 YRS TDAP 2022-03-20 Completed [facility] 00:00:00 [facility] Influenza Virus 2022-03-20 Completed [facility], 00:00:00 [place] [facility] Preserv and ABX Free Bran ch 6 MO-64 YRS TDAP 2022-03-20 Completed [facility] 00:00:00 [facility] Influenza Virus 2022-03-20 Completed [facility], 00:00:00 [facility] dical Preserv and ABX Free Bran ch 6 MO-64 YRS Meningococcal B, OMV 2020-12-01 Completed [facility] ers[facility] of 00:00:00 [facility] Meningococcal B, OMV 2020-12-01 Completed Univ ersity of 00:00:00 [facility] Meningococcal B, OMV 2020-12-01 Completed Univ ersity of 00:00:00 [facility] Meningococcal B, OMV 2020-12-01 Completed Univ ersity of 00:00:00 [facility] Meningococcal B, OMV 2020-12-01 Completed [facility] ers[facility] of 00:00:00 [facility] Meningococcal B, OMV 2020-12-01 Completed [facility] ers[facility] of 00:00:00 [facility] Meningococcal B, OMV 2020-12-01 Completed [facility] ers[facility] of 00:00:00 [facility] Meningococcal B, OMV 2020-12-01 Completed [facility] ers[facility] of 00:00:00 [facility] Meningococcal B, OMV 2020-12-01 Completed [facility] ersity of 00:00:00 [facility] Meningococcal B, OMV 2020-12-01 Completed [facility] ers[facility] of 00:00:00 [facility] Meningococcal B, OMV 2020-12-01 Completed [facility] ers[facility] of 00:00:00 [facility] Meningococcal B, OMV 2020-12-01 Completed [facility] ers[facility] of 00:00:00 [facility] Meningococcal B, OMV 2020-12-01 Completed [facility] ers[facility] of 00:00:00 [facility] Meningococcal B, OMV 2020-12-01 Completed [facility] ers[facility] of 00:00:00 [facility] Meningococcal B, OMV 2020-12-01 Completed [facility] ers[facility] of 00:00:00 [facility] Meningococcal B, OMV 2020-12-01 Completed [facility] ers[facility] of 00:00:00 [facility] Meningococcal B, OMV 2020-12-01 Completed [facility] ers[facility] of 00:00:00 [facility] Meningococcal B, OMV 2020-12-01 Completed [facility] 00:00:00 [facility] Meningococcal B, OMV 2020-12-01 Completed [facility] 00:00:00 [facility] Meningococcal B, OMV 2020-12-01 Completed [facility] 00:00:00 [facility] Meningococcal B, OMV 2020-12-01 Completed [facility] of 00:00:00 [facility] Meningococcal B, OMV 2020-12-01 Completed [facility] 00:00:00 [facility] Meningococcal B, OMV 2020-12-01 Completed [facility] ers[facility] 00:00:00 [facility] Meningococcal B, OMV 2020-12-01 Completed [facility] 00:00:00 [facility] Meningococcal B, OMV 2020-12-01 Completed [facility] 00:00:00 [facility] Meningococcal B, OMV 2020-12-01 Completed [facility] 00:00:00 [facility] Meningococcal B, OMV 2020-12-01 Completed [facility] ers[facility] of 00:00:00 [facility] Meningococcal B, OMV 2020-12-01 Completed [facility] ers[facility] of 00:00:00 [facility] Meningococcal B, OMV 2020-12-01 Completed [facility] 00:00:00 [facility] Meningococcal B, OMV 2020-12-01 Completed [facility] of 00:00:00 [facility] Meningococcal B, OMV 2020-12-01 Completed [facility] 00:00:00 [facility] Meningococcal B, OMV 2020-12-01 Completed [facility] 00:00:00 [facility] Meningococcal B, OMV 2020-12-01 Completed [facility] 00:00:00 [facility] Meningococcal B, OMV 2020-12-01 Completed [facility] 00:00:00 [facility] Meningococcal B, OMV 2020-12-01 Completed [facility] 00:00:00 [facility] Meningococcal B, OMV 2020-12-01 Completed [facility] ers[facility] 00:00:00 [facility] Influenza Virus 2019-04-18 Completed [facility] .5 mL 00:00:00 [facility] 6+ MO Branch Influenza Virus 2019-04-18 Completed [facility] .5 mL 00:00:00 [facility] 6+ MO Branch Influenza Virus 2019-04-18 Completed [facility] .5 mL 00:00:00 [facility] 6+ MO Branch Influenza Virus 2019-04-18 Completed [facility] .5 mL 00:00:00 [facility] 6+ MO Branch Influenza Virus 2019-04-18 Completed [facility] .5 mL 00:00:00 [facility] 6+ MO Branch Influenza Virus 2019-04-18 Completed [facility] .5 mL 00:00:00 [facility] 6+ MO Branch Influenza Virus 2019-04-18 Completed [facility] .5 mL 00:00:00 [facility] 6+ MO [facility] Influenza Virus 2019-04-18 Completed [facility] .5 mL 00:00:00 [facility] 6+ MO Branch Influenza Virus 2019-04-18 Completed [facility] .5 mL 00:00:00 [facility] 6+ MO [facility] Influenza Virus 2019-04-18 Completed [facility] .5 mL 00:00:00 [facility] 6+ MO Branch Influenza Virus 2019-04-18 Completed [facility] .5 mL 00:00:00 [facility] 6+ MO [facility] Influenza Virus 2019-04-18 Completed [facility] .5 mL 00:00:00 [facility] 6+ MO [facility] Influenza Virus 2019-04-18 Completed [facility] .5 mL 00:00:00 [facility] 6+ MO Branch Influenza Virus 2019-04-18 Completed [facility] .5 mL 00:00:00 [facility] 6+ MO [facility] Influenza Virus 2019-04-18 Completed [facility] .5 mL 00:00:00 [facility] 6+ MO Branch Influenza Virus 2019-04-18 Completed [facility] .5 mL 00:00:00 [facility] 6+ MO [facility] Influenza Virus 2019-04-18 Completed [facility] .5 mL 00:00:00 [facility] 6+ MO Branch Influenza Virus 2019-04-18 Completed [facility] .5 mL 00:00:00 [facility] 6+ MO [facility] Influenza Virus 2019-04-18 Completed [facility] .5 mL 00:00:00 [facility] 6+ MO Branch Influenza Virus 2019-04-18 Completed [facility] .5 mL 00:00:00 [facility] 6+ MO [facility] Influenza Virus 2019-04-18 Completed [facility] .5 mL 00:00:00 [facility] 6+ MO Branch Influenza Virus 2019-04-18 Completed [facility] .5 mL 00:00:00 [facility] 6+ MO Branch Influenza Virus 2019-04-18 Completed [facility] .5 mL 00:00:00 [facility] 6+ MO [facility] Influenza Virus 2019-04-18 Completed [facility] .5 mL 00:00:00 [facility] 6+ MO Branch Influenza Virus 2019-04-18 Completed [facility] .5 mL 00:00:00 [facility] 6+ MO Branch Influenza Virus 2019-04-18 Completed [facility] .5 mL 00:00:00 [facility] 6+ MO Branch Influenza Virus 2019-04-18 Completed [facility] .5 mL 00:00:00 [facility] 6+ MO Branch Influenza Virus 2019-04-18 Completed [facility] .5 mL 00:00:00 [facility] 6+ MO Branch Influenza Virus 2019-04-18 Completed [facility] .5 mL 00:00:00 [facility] 6+ MO Branch Influenza Virus 2019-04-18 Completed [facility] .5 mL 00:00:00 [facility] 6+ MO Branch Influenza Virus 2019-04-18 Completed [facility] .5 mL 00:00:00 [place] [facility] 6+ MO Branch Influenza Virus 2019-04-18 Completed [facility] .5 mL 00:00:00 [facility] 6+ MO [facility] Influenza Virus 2019-04-18 Completed [facility] .5 mL 00:00:00 [facility] 6+ MO Branch Influenza Virus 2019-04-18 Completed [facility] .5 mL 00:00:00 [facility] 6+ MO Branch Influenza Virus 2019-04-18 Completed [facility] .5 mL 00:00:00 [facility] 6+ MO Branch Influenza Virus 2019-04-18 Completed [facility] .5 mL 00:00:00 [facility] 6+ MO Branch PPD (TB) 2018-11-25 Completed [facility] of 00:00:00 [facility] PPD (TB) 2018-11-25 Completed [facility] 00:00:00 [facility] PPD (TB) 2018-11-25 Completed [facility] 00:00:00 [facility] PPD (TB) 2018-11-25 Completed [facility] of 00:00:00 [facility] PPD (TB) 2018-11-25 Completed [facility] of 00:00:00 [facility] PPD (TB) 2018-11-25 Completed [facility] 00:00:00 [facility] PPD (TB) 2018-11-25 Completed [facility] 00:00:00 [facility] PPD (TB) 2018-11-25 Completed [facility] 00:00:00 [facility] PPD (TB) 2018-11-25 Completed [facility] of 00:00:00 [facility] PPD (TB) 2018-11-25 Completed [facility] of 00:00:00 [facility] PPD (TB) 2018-11-25 Completed [facility] of 00:00:00 [facility] PPD (TB) 2018-11-25 Completed [facility] of 00:00:00 [facility] PPD (TB) 2018-11-25 Completed [facility] of 00:00:00 [facility] PPD (TB) 2018-11-25 Completed [facility] of 00:00:00 [facility] PPD (TB) 2018-11-25 Completed [facility] 00:00:00 [facility] PPD (TB) 2018-11-25 Completed [facility] 00:00:00 [facility] PPD (TB) 2018-11-25 Completed [facility] 00:00:00 [facility] PPD (TB) 2018-11-25 Completed [facility] of 00:00:00 [facility] PPD (TB) 2018-11-25 Completed [facility] of 00:00:00 [facility] PPD (TB) 2018-11-25 Completed [facility] of 00:00:00 [facility] PPD (TB) 2018-11-25 Completed [facility] 00:00:00 [facility] PPD (TB) 2018-11-25 Completed [facility] 00:00:00 [facility] PPD (TB) 2018-11-25 Completed [facility] 00:00:00 [facility] PPD (TB) 2018-11-25 Completed [facility] of 00:00:00 [facility] PPD (TB) 2018-11-25 Completed [facility] 00:00:00 [facility] PPD (TB) 2018-11-25 Completed [facility] of 00:00:00 [facility] PPD (TB) 2018-11-25 Completed [facility] of 00:00:00 [facility] PPD (TB) 2018-11-25 Completed [facility] of 00:00:00 [facility] PPD (TB) 2018-11-25 Completed [facility] of 00:00:00 [facility] PPD (TB) 2018-11-25 Completed [facility] of 00:00:00 [facility] PPD (TB) 2018-11-25 Completed [facility] of 00:00:00 [facility] PPD (TB) 2018-11-25 Completed [facility] of 00:00:00 [facility] PPD (TB) 2018-11-25 Completed [facility] of 00:00:00 [facility] PPD (TB) 2018-11-25 Completed [facility] of 00:00:00 [facility] PPD (TB) 2018-11-25 Completed [facility] of 00:00:00 [facility] PPD (TB) 2018-11-25 Completed [facility] of 00:00:00 [facility] HPV9 2018-11-22 Completed [facility] 00:00:00 [facility] Meningococcal 2018-11-22 Completed [facility] Polysaccharide 00:00:00 [place] [facility] (groups A, C, Y and Branc h W-135) conjugate vaccine (MCV4P) HPV9 2018-11-22 Completed [facility] 00:00:00 [facility] Meningococcal 2018-11-22 Completed [facility] Polysaccharide 00:00:00 [place] [facility] (groups A, C, Y and Branc h W-135) conjugate vaccine (MCV4P) HPV9 2018-11-22 Completed [facility] 00:00:00 [facility] Meningococcal 2018-11-22 Completed [facility] Polysaccharide 00:00:00 [place] [facility] (groups A, C, Y and Branc h W-135) conjugate vaccine (MCV4P) HPV9 2018-11-22 Completed [facility] 00:00:00 [facility] Meningococcal 2018-11-22 Completed [facility] Polysaccharide 00:00:00 [place] [facility] (groups A, C, Y and Branc h W-135) conjugate vaccine (MCV4P) HPV9 2018-11-22 Completed [facility] 00:00:00 [facility] Meningococcal 2018-11-22 Completed [facility] Polysaccharide 00:00:00 [place] [facility] (groups A, C, Y and Branc h W-135) conjugate vaccine (MCV4P) HPV9 2018-11-22 Completed [facility] 00:00:00 [facility] Meningococcal 2018-11-22 Completed [facility] Polysaccharide 00:00:00 [place] [facility] (groups A, C, Y and Branc h W-135) conjugate vaccine (MCV4P) HPV9 2018-11-22 Completed [facility] 00:00:00 [facility] Meningococcal 2018-11-22 Completed [facility] Polysaccharide 00:00:00 [place] [facility] (groups A, C, Y and Branc h W-135) conjugate vaccine (MCV4P) 9 2018-11-22 Completed [facility] 00:00:00 [facility] Meningococcal 2018-11-22 Completed [facility] Polysaccharide 00:00:00 [place] [facility] (groups A, C, Y and Branc h W-135) conjugate vaccine (MCV4P) 9 2018-11-22 Completed [facility] 00:00:00 [facility] Meningococcal 2018-11-22 Completed [facility] of Polysaccharide 00:00:00 [place] [facility] (groups A, C, Y and Branc h W-135) conjugate vaccine (MCV4P) 2018-11-22 Completed [facility] 00:00:00 [facility] Meningococcal 2018-11-22 Completed [facility] Polysaccharide 00:00:00 [place] [facility] (groups A, C, Y and Branc h W-135) conjugate vaccine (MCV4P) 2018-11-22 Completed [facility] 00:00:00 [facility] Meningococcal 2018-11-22 Completed [facility] Polysaccharide 00:00:00 [place] [facility] (groups A, C, Y and Branc h W-135) conjugate vaccine (MCV4P) 9 2018-11-22 Completed [facility] 00:00:00 [facility] Meningococcal 2018-11-22 Completed [facility] Polysaccharide 00:00:00 [place] [facility] (groups A, C, Y and Branc h W-135) conjugate vaccine (MCV4P) 9 2018-11-22 Completed [facility] 00:00:00 [facility] Meningococcal 2018-11-22 Completed [facility] Polysaccharide 00:00:00 [place] [facility] (groups A, C, Y and Branc h W-135) conjugate vaccine (MCV4P) HPV9 2018-11-22 Completed [facility] 00:00:00 [facility] Meningococcal 2018-11-22 Completed [facility] Polysaccharide 00:00:00 [place] [facility] (groups A, C, Y and Branc h W-135) conjugate vaccine (MCV4P) HPV9 2018-11-22 Completed [facility] 00:00:00 [facility] Meningococcal 2018-11-22 Completed [facility] Polysaccharide 00:00:00 [place] [facility] (groups A, C, Y and Branc h W-135) conjugate vaccine (MCV4P) HPV9 2018-11-22 Completed [facility] 00:00:00 [facility] Meningococcal 2018-11-22 Completed [facility] Polysaccharide 00:00:00 [place] [facility] (groups A, C, Y and Branc h W-135) conjugate vaccine (MCV4P) HPV9 2018-11-22 Completed [facility] 00:00:00 [facility] Meningococcal 2018-11-22 Completed [facility] Polysaccharide 00:00:00 [place] [facility] (groups A, C, Y and Branc h W-135) conjugate vaccine (MCV4P) HPV9 2018-11-22 Completed [facility] 00:00:00 [facility] Meningococcal 2018-11-22 Completed [facility] Polysaccharide 00:00:00 [place] [facility] (groups A, C, Y and Branc h W-135) conjugate vaccine (MCV4P) HPV9 2018-11-22 Completed [facility] 00:00:00 [facility] Meningococcal 2018-11-22 Completed [facility] Polysaccharide 00:00:00 [place] [facility] (groups A, C, Y and Branc h W-135) conjugate vaccine (MCV4P) HPV9 2018-11-22 Completed [facility] 00:00:00 [facility] Meningococcal 2018-11-22 Completed [facility] Polysaccharide 00:00:00 [place] [facility] (groups A, C, Y and Branc h W-135) conjugate vaccine (MCV4P) HPV9 2018-11-22 Completed [facility] 00:00:00 [facility] Meningococcal 2018-11-22 Completed [facility] Polysaccharide 00:00:00 [place] [facility] (groups A, C, Y and Branc h W-135) conjugate vaccine (MCV4P) 9 2018-11-22 Completed [facility] 00:00:00 [facility] Meningococcal 2018-11-22 Completed [facility] Polysaccharide 00:00:00 [place] [facility] (groups A, C, Y and Branc h W-135) conjugate vaccine (MCV4P) HPV9 2018-11-22 Completed [facility] 00:00:00 [facility] Meningococcal 2018-11-22 Completed [facility] Polysaccharide 00:00:00 [place] [facility] (groups A, C, Y and Branc h W-135) conjugate vaccine (MCV4P) HPV9 2018-11-22 Completed [facility] 00:00:00 [facility] Meningococcal 2018-11-22 Completed [facility] Polysaccharide 00:00:00 [place] [facility] (groups A, C, Y and Branc h W-135) conjugate vaccine (MCV4P) HPV9 2018-11-22 Completed [facility] 00:00:00 [facility] Meningococcal 2018-11-22 Completed [facility] Polysaccharide 00:00:00 [place] [facility] (groups A, C, Y and Branc h W-135) conjugate vaccine (MCV4P) HPV9 2018-11-22 Completed [facility] 00:00:00 [facility] Meningococcal 2018-11-22 Completed [facility] Polysaccharide 00:00:00 [place] [facility] (groups A, C, Y and Branc h W-135) conjugate vaccine (MCV4P) HPV9 2018-11-22 Completed [facility] 00:00:00 [facility] Meningococcal 2018-11-22 Completed [facility] Polysaccharide 00:00:00 [place] [facility] (groups A, C, Y and Branc h W-135) conjugate vaccine (MCV4P) 9 2018-11-22 Completed [facility] 00:00:00 [facility] Meningococcal 2018-11-22 Completed [facility] of Polysaccharide 00:00:00 [place] [facility] (groups A, C, Y and Branc h W-135) conjugate vaccine (MCV4P) HPV2018-11-22 Completed [facility] 00:00:00 [facility] Meningococcal 2018-11-22 Completed [facility] Polysaccharide 00:00:00 [place] [facility] (groups A, C, Y and Branc h W-135) conjugate vaccine (MCV4P) HPV9 2018-11-22 Completed [facility] 00:00:00 [facility] Meningococcal 2018-11-22 Completed [facility] Polysaccharide 00:00:00 [place] [facility] (groups A, C, Y and Branc h W-135) conjugate vaccine (MCV4P) HPV9 2018-11-22 Completed [facility] 00:00:00 [facility] Meningococcal 2018-11-22 Completed [facility] Polysaccharide 00:00:00 [place] [facility] (groups A, C, Y and Branc h W-135) conjugate vaccine (MCV4P) HPV9 2018-11-22 Completed [facility] 00:00:00 [facility] Meningococcal 2018-11-22 Completed [facility] Polysaccharide 00:00:00 [place] [facility] (groups A, C, Y and Branc h W-135) conjugate vaccine (MCV4P) HPV9 2018-11-22 Completed [facility] 00:00:00 [facility] Meningococcal 2018-11-22 Completed [facility] Polysaccharide 00:00:00 [place] [facility] (groups A, C, Y and Branc h W-135) conjugate vaccine (MCV4P) HPV9 2018-11-22 Completed [facility] 00:00:00 [facility] Meningococcal 2018-11-22 Completed [facility] Polysaccharide 00:00:00 [place] [facility] (groups A, C, Y and Branc h W-135) conjugate vaccine (MCV4P) HPV9 2018-11-22 Completed [facility] 00:00:00 [facility] Meningococcal 2018-11-22 Completed [facility] Polysaccharide 00:00:00 [place] [facility] (groups A, C, Y and Branc h W-135) conjugate vaccine (MCV4P) HPV9 2018-11-22 Completed [facility] 00:00:00 [facility] Meningococcal 2018-11-22 Completed [facility] Polysaccharide 00:00:00 [place] [facility] (groups A, C, Y and Branc h W-135) conjugate vaccine (MCV4P) HPV9 2015-03-01 Completed [facility] 00:00:00 [facility] HPV 2015-03-01 Completed [facility] 00:00:00 [facility] HPV9 2015-03-01 Completed [facility] 00:00:00 [facility] HPV 2015-03-01 Completed [facility] 00:00:00 [facility] HPV9 2015-03-01 Completed [facility] 00:00:00 [facility] HPV 2015-03-01 Completed [facility] 00:00:00 [facility] HPV9 2015-03-01 Completed [facility] 00:00:00 [facility] HPV 2015-03-01 Completed [facility] 00:00:00 [facility] HPV9 2015-03-01 Completed [facility] 00:00:00 [facility] HPV 2015-03-01 Completed [facility] 00:00:00 [facility] HPV9 2015-03-01 Completed [facility] 00:00:00 [facility] HPV 2015-03-01 Completed [facility] 00:00:00 [facility] HPV9 2015-03-01 Completed [facility] 00:00:00 [facility] HPV 2015-03-01 Completed [facility] 00:00:00 [facility] HPV9 2015-03-01 Completed [facility] 00:00:00 [facility] HPV 2015-03-01 Completed [facility] 00:00:00 [facility] HPV9 2015-03-01 Completed [facility] 00:00:00 [facility] HPV 2015-03-01 Completed [facility] 00:00:00 [facility] HPV9 2015-03-01 Completed [facility] 00:00:00 [facility] HPV 2015-03-01 Completed [facility] 00:00:00 [facility] HPV9 2015-03-01 Completed [facility] 00:00:00 [facility] HPV 2015-03-01 Completed [facility] 00:00:00 [facility] HPV9 2015-03-01 Completed [facility] 00:00:00 [facility] HPV 2015-03-01 Completed [facility] 00:00:00 [facility] HPV9 2015-03-01 Completed [facility] 00:00:00 [facility] HPV 2015-03-01 Completed [facility] 00:00:00 [facility] HPV9 2015-03-01 Completed [facility] 00:00:00 [facility] HPV 2015-03-01 Completed [facility] 00:00:00 [facility] HPV9 2015-03-01 Completed [facility] 00:00:00 [facility] HPV 2015-03-01 Completed [facility] 00:00:00 [facility] HPV9 2015-03-01 Completed [facility] 00:00:00 [facility] HPV 2015-03-01 Completed [facility] 00:00:00 [facility] HPV9 2015-03-01 Completed [facility] 00:00:00 [facility] HPV 2015-03-01 Completed [facility] 00:00:00 [facility] HPV9 2015-03-01 Completed [facility] 00:00:00 [facility] HPV 2015-03-01 Completed [facility] 00:00:00 [facility] HPV9 2015-03-01 Completed [facility] 00:00:00 [facility] HPV 2015-03-01 Completed [facility] 00:00:00 [facility] HPV9 2015-03-01 Completed [facility] 00:00:00 [facility] HPV 2015-03-01 Completed [facility] 00:00:00 [facility] HPV9 2015-03-01 Completed [facility] 00:00:00 [facility] HPV 2015-03-01 Completed [facility] 00:00:00 [facility] HPV9 2015-03-01 Completed [facility] 00:00:00 [facility] HPV 2015-03-01 Completed [facility] 00:00:00 [facility] HPV9 2015-03-01 Completed [facility] 00:00:00 [facility] HPV 2015-03-01 Completed [facility] 00:00:00 [facility] HPV9 2015-03-01 Completed [facility] 00:00:00 [facility] HPV 2015-03-01 Completed [facility] 00:00:00 [facility] HPV9 2015-03-01 Completed [facility] 00:00:00 [facility] HPV 2015-03-01 Completed [facility] 00:00:00 [facility] HPV9 2015-03-01 Completed [facility] 00:00:00 [facility] HPV 2015-03-01 Completed [facility] 00:00:00 [facility] HPV9 2015-03-01 Completed [facility] 00:00:00 [facility] HPV 2015-03-01 Completed [facility] 00:00:00 [facility] HPV9 2015-03-01 Completed [facility] 00:00:00 [facility] HPV 2015-03-01 Completed [facility] 00:00:00 [facility] HPV9 2015-03-01 Completed [facility] 00:00:00 [facility] HPV 2015-03-01 Completed [facility] 00:00:00 [facility] HPV9 2015-03-01 Completed [facility] 00:00:00 [facility] HPV 2015-03-01 Completed [facility] 00:00:00 [facility] HPV9 2015-03-01 Completed [facility] 00[facility]00:00 [facility] HPV 2015-03-01 Completed [facility] 00:00:00 [facility] HPV9 2015-03-01 Completed [facility] 00:00:00 [facility] HPV 2015-03-01 Completed [facility] 00:00:00 [facility] HPV9 2015-03-01 Completed [facility] 00:00:00 [facility] HPV 2015-03-01 Completed [facility] 00:00:00 [facility] HPV9 2015-03-01 Completed [facility] 00:00:00 [facility] HPV 2015-03-01 Completed [facility] 00:00:00 [facility] HPV9 2015-03-01 Completed [facility] 00:00:00 [facility] HPV 2015-03-01 Completed [facility] 00:00:00 [facility] HPV9 2015-03-01 Completed [facility] 00:00:00 [facility] HPV 2015-03-01 Completed [facility] 00:00:00 [facility] HPV 2014-09-30 Completed [facility] 00:00:00 [facility] Meningococcal 2014-09-30 Completed [facility] Polysaccharide 00:00:00 [facility] (groups A, C, Y and Branc h W-135) conjugate vaccine (MCV4P) TDAP 2014-09-30 Completed [facility] 00:00:00 [facility] HPV 2014-09-30 Completed [facility] 00:00:00 [facility] Meningococcal 2014-09-30 Completed [facility] Polysaccharide 00:00:00 [facility] (groups A, C, Y and Branc h W-135) conjugate vaccine (MCV4P) TDAP 2014-09-30 Completed [facility] 00:00:00 [facility] HPV 2014-09-30 Completed [facility] 00:00:00 [facility] Meningococcal 2014-09-30 Completed [facility] Polysaccharide 00:00:00 [facility] (groups A, C, Y and Branc h W-135) conjugate vaccine (MCV4P) TDAP 2014-09-30 Completed [facility] 00:00:00 [facility] HPV 2014-09-30 Completed [facility] 00:00:00 [facility] Meningococcal 2014-09-30 Completed [facility] Polysaccharide 00:00:00 [facility] (groups A, C, Y and Branc h W-135) conjugate vaccine (MCV4P) TDAP 2014-09-30 Completed [facility] 00:00:00 [facility] HPV 2014-09-30 Completed [facility] 00:00:00 [facility] Meningococcal 2014-09-30 Completed [facility] Polysaccharide 00:00:00 [facility] (groups A, C, Y and Branc h W-135) conjugate vaccine (MCV4P) TDAP 2014-09-30 Completed [facility] 00:00:00 [facility] HPV 2014-09-30 Completed [facility] 00:00:00 [facility] Meningococcal 2014-09-30 Completed [facility] Polysaccharide 00:00:00 [facility] (groups A, C, Y and Branc h W-135) conjugate vaccine (MCV4P) TDAP 2014-09-30 Completed [facility] 00:00:00 [facility] HPV 2014-09-30 Completed [facility] 00:00:00 [facility] Meningococcal 2014-09-30 Completed [facility] Polysaccharide 00:00:00 [facility] (groups A, C, Y and Branc h W-135) conjugate vaccine (MCV4P) TDAP 2014-09-30 Completed [facility] 00:00:00 [facility] HPV 2014-09-30 Completed [facility] 00:00:00 [facility] Meningococcal 2014-09-30 Completed [facility] Polysaccharide 00:00:00 [facility] (groups A, C, Y and Branc h W-135) conjugate vaccine (MCV4P) TDAP 2014-09-30 Completed [facility] 00:00:00 [facility] HPV 2014-09-30 Completed [facility] 00:00:00 [facility] Meningococcal 2014-09-30 Completed [facility] Polysaccharide 00:00:00 [facility] (groups A, C, Y and Branc h W-135) conjugate vaccine (MCV4P) TDAP 2014-09-30 Completed [facility] 00:00:00 [facility] HPV 2014-09-30 Completed [facility] 00:00:00 [facility] Meningococcal 2014-09-30 Completed [facility] Polysaccharide 00:00:00 [facility] (groups A, C, Y and Branc h W-135) conjugate vaccine (MCV4P) TDAP 2014-09-30 Completed [facility] 00:00:00 [facility] HPV 2014-09-30 Completed [facility] 00:00:00 [facility] Meningococcal 2014-09-30 Completed [facility] Polysaccharide 00:00:00 [facility] (groups A, C, Y and Branc h W-135) conjugate vaccine (MCV4P) TDAP 2014-09-30 Completed [facility] 00:00:00 [facility] HPV 2014-09-30 Completed [facility] 00:00:00 [facility] Meningococcal 2014-09-30 Completed [facility] Polysaccharide 00:00:00 [facility] (groups A, C, Y and Branc h W-135) conjugate vaccine (MCV4P) TDAP 2014-09-30 Completed [facility] 00:00:00 [facility] HPV 2014-09-30 Completed [facility] 00:00:00 [facility] Meningococcal 2014-09-30 Completed [facility] Polysaccharide 00:00:00 [facility] (groups A, C, Y and Branc h W-135) conjugate vaccine (MCV4P) TDAP 2014-09-30 Completed [facility] 00:00:00 [facility] HPV 2014-09-30 Completed [facility] 00:00:00 [facility] Meningococcal 2014-09-30 Completed [facility] Polysaccharide 00:00:00 [facility] (groups A, C, Y and Branc h W-135) conjugate vaccine (MCV4P) TDAP 2014-09-30 Completed [facility] 00:00:00 [facility] HPV 2014-09-30 Completed [facility] 00:00:00 [facility] Meningococcal 2014-09-30 Completed [facility] Polysaccharide 00:00:00 [facility] (groups A, C, Y and Branc h W-135) conjugate vaccine (MCV4P) TDAP 2014-09-30 Completed [facility] 00:00:00 [facility] HPV 2014-09-30 Completed [facility] 00:00:00 [facility] Meningococcal 2014-09-30 Completed [facility] Polysaccharide 00:00:00 [facility] (groups A, C, Y and Branc h W-135) conjugate vaccine (MCV4P) TDAP 2014-09-30 Completed [facility] 00:00:00 [facility] HPV 2014-09-30 Completed [facility] 00:00:00 [facility] Meningococcal 2014-09-30 Completed [facility] Polysaccharide 00:00:00 [facility] (groups A, C, Y and Branc h W-135) conjugate vaccine (MCV4P) TDAP 2014-09-30 Completed [facility] 00:00:00 [facility] HPV 2014-09-30 Completed [facility] 00:00:00 [facility] Meningococcal 2014-09-30 Completed [facility] Polysaccharide 00:00:00 [facility] (groups A, C, Y and Branc h W-135) conjugate vaccine (MCV4P) TDAP 2014-09-30 Completed [facility] 00:00:00 [facility] HPV 2014-09-30 Completed [facility] 00:00:00 [facility] Meningococcal 2014-09-30 Completed [facility] Polysaccharide 00:00:00 [facility] (groups A, C, Y and Branc h W-135) conjugate vaccine (MCV4P) TDAP 2014-09-30 Completed [facility] 00:00:00 [facility] HPV 2014-09-30 Completed [facility] 00:00:00 [facility] Meningococcal 2014-09-30 Completed [facility] Polysaccharide 00:00:00 [facility] (groups A, C, Y and Branc h W-135) conjugate vaccine (MCV4P) TDAP 2014-09-30 Completed [facility] 00:00:00 [facility] HPV 2014-09-30 Completed [facility] 00:00:00 [facility] Meningococcal 2014-09-30 Completed [facility] Polysaccharide 00:00:00 [facility] (groups A, C, Y and Branc h W-135) conjugate vaccine (MCV4P) TDAP 2014-09-30 Completed [facility] 00:00:00 [facility] HPV 2014-09-30 Completed [facility] 00:00:00 [facility] Meningococcal 2014-09-30 Completed [facility] Polysaccharide 00:00:00 [facility] (groups A, C, Y and Branc h W-135) conjugate vaccine (MCV4P) TDAP 2014-09-30 Completed [facility] 00:00:00 [facility] HPV 2014-09-30 Completed [facility] 00:00:00 [facility] Meningococcal 2014-09-30 Completed [facility] Polysaccharide 00:00:00 [facility] (groups A, C, Y and Branc h W-135) conjugate vaccine (MCV4P) TDAP 2014-09-30 Completed [facility] 00:00:00 [facility] HPV 2014-09-30 Completed [facility] 00:00:00 [facility] Meningococcal 2014-09-30 Completed [facility] Polysaccharide 00:00:00 [facility] (groups A, C, Y and Branc h W-135) conjugate vaccine (MCV4P) TDAP 2014-09-30 Completed [facility] 00:00:00 [facility] HPV 2014-09-30 Completed [facility] 00:00:00 [facility] Meningococcal 2014-09-30 Completed [facility] Polysaccharide 00:00:00 [facility] (groups A, C, Y and Branc h W-135) conjugate vaccine (MCV4P) TDAP 2014-09-30 Completed [facility] 00:00:00 [facility] HPV 2014-09-30 Completed [facility] 00:00:00 [facility] Meningococcal 2014-09-30 Completed [facility] Polysaccharide 00:00:00 [facility] (groups A, C, Y and Branc h W-135) conjugate vaccine (MCV4P) TDAP 2014-09-30 Completed [facility] 00:00:00 [facility] HPV 2014-09-30 Completed [facility] 00:00:00 [facility] Meningococcal 2014-09-30 Completed [facility] Polysaccharide 00:00:00 [facility] (groups A, C, Y and Branc h W-135) conjugate vaccine (MCV4P) TDAP 2014-09-30 Completed [facility] 00:00:00 [facility] HPV 2014-09-30 Completed [facility] 00:00:00 [facility] Meningococcal 2014-09-30 Completed [facility] Polysaccharide 00:00:00 [facility] (groups A, C, Y and Branc h W-135) conjugate vaccine (MCV4P) TDAP 2014-09-30 Completed [facility] 00:00:00 [facility] HPV 2014-09-30 Completed [facility] 00:00:00 [facility] Meningococcal 2014-09-30 Completed [facility] Polysaccharide 00:00:00 [facility] (groups A, C, Y and Branc h W-135) conjugate vaccine (MCV4P) TDAP 2014-09-30 Completed [facility] 00:00:00 [facility] HPV 2014-09-30 Completed [facility] 00:00:00 [facility] Meningococcal 2014-09-30 Completed [facility] Polysaccharide 00:00:00 [facility] (groups A, C, Y and Branc h W-135) conjugate vaccine (MCV4P) TDAP 2014-09-30 Completed [facility] 00:00:00 [facility] HPV 2014-09-30 Completed [facility] 00:00:00 [facility] Meningococcal 2014-09-30 Completed [facility] Polysaccharide 00:00:00 [facility] (groups A, C, Y and Branc h W-135) conjugate vaccine (MCV4P) TDAP 2014-09-30 Completed [facility] 00:00:00 [facility] HPV 2014-09-30 Completed [facility] 00:00:00 [facility] Meningococcal 2014-09-30 Completed [facility] Polysaccharide 00:00:00 [facility] (groups A, C, Y and Branc h W-135) conjugate vaccine (MCV4P) TDAP 2014-09-30 Completed [facility] 00:00:00 [facility] HPV 2014-09-30 Completed [facility] 00:00:00 [facility] Meningococcal 2014-09-30 Completed [facility] Polysaccharide 00:00:00 [facility] (groups A, C, Y and Branc h W-135) conjugate vaccine (MCV4P) TDAP 2014-09-30 Completed [facility] 00:00:00 [facility] HPV 2014-09-30 Completed [facility] 00:00:00 [facility] Meningococcal 2014-09-30 Completed [facility] Polysaccharide 00:00:00 [place] [facility] (groups A, C, Y and Branc h W-135) conjugate vaccine (MCV4P) TDAP 2014-09-30 Completed [facility] 00:00:00 [facility] HPV 2014-09-30 Completed [facility] 00:00:00 [facility] Meningococcal 2014-09-30 Completed [facility] Polysaccharide 00:00:00 [facility] (groups A, C, Y and Branc h W-135) conjugate vaccine (MCV4P) TDAP 2014-09-30 Completed [facility] 00:00:00 [facility] HPV 2014-09-30 Completed [facility] 00:00:00 [facility] Meningococcal 2014-09-30 Completed [facility] Polysaccharide 00:00:00 [facility] (groups A, C, Y and Branc h W-135) conjugate vaccine (MCV4P) TDAP 2014-09-30 Completed [facility] 00:00:00 [facility] DTAP 2006-08-24 Completed [facility] 00:00:00 [facility] HEPATITIS A 2006-08-24 Completed [facility] 00:00:00 [facility] Polio (IPV/OPV) 2006-08-24 Completed [facility] 00:00:00 [facility] Proquad 2006-08-24 Completed [facility] (MMR/VARICELLA) 00:00:00 [facility] DTAP 2006-08-24 Completed [facility] 00:00:00 [facility] HEPATITIS A 2006-08-24 Completed [facility] 00:00:00 [facility] Polio (IPV/OPV) 2006-08-24 Completed [facility] 00:00:00 [facility] Proquad 2006-08-24 Completed [facility] (MMR/VARICELLA) 00:00:00 [facility] DTAP 2006-08-24 Completed [facility] 00:00:00 [facility] HEPATITIS A 2006-08-24 Completed [facility] 00:00:00 [facility] Polio (IPV/OPV) 2006-08-24 Completed [facility] 00:00:00 [facility] Proquad 2006-08-24 Completed [facility] (MMR/VARICELLA) 00:00:00 [facility] DTAP 2006-08-24 Completed [facility] 00:00:00 [facility] HEPATITIS A 2006-08-24 Completed [facility] 00:00:00 [facility] Polio (IPV/OPV) 2006-08-24 Completed [facility] 00:00:00 [facility] Proquad 2006-08-24 Completed [facility] (MMR/VARICELLA) 00:00:00 [facility] DTAP 2006-08-24 Completed [facility] 00:00:00 [facility] HEPATITIS A 2006-08-24 Completed [facility] 00:00:00 [facility] Polio (IPV/OPV) 2006-08-24 Completed [facility] 00:00:00 [facility] Proquad 2006-08-24 Completed [facility] (MMR/VARICELLA) 00:00:00 [facility] DTAP 2006-08-24 Completed [facility] 00:00:00 [facility] HEPATITIS A 2006-08-24 Completed [facility] 00:00:00 [facility] Polio (IPV/OPV) 2006-08-24 Completed [facility] 00:00:00 [facility] Proquad 2006-08-24 Completed [facility] (MMR/VARICELLA) 00:00:00 [facility] DTAP 2006-08-24 Completed [facility] 00:00:00 [facility] HEPATITIS A 2006-08-24 Completed [facility] 00:00:00 [facility] Polio (IPV/OPV) 2006-08-24 Completed [facility] 00:00:00 [facility] Proquad 2006-08-24 Completed [facility] (MMR/VARICELLA) 00:00:00 [facility] DTAP 2006-08-24 Completed [facility] 00:00:00 [facility] HEPATITIS A 2006-08-24 Completed [facility] 00:00:00 [facility] Polio (IPV/OPV) 2006-08-24 Completed [facility] 00:00:00 [facility] Proquad 2006-08-24 Completed [facility] (MMR/VARICELLA) 00:00:00 [facility] DTAP 2006-08-24 Completed [facility] 00:00:00 [facility] HEPATITIS A 2006-08-24 Completed [facility] 00:00:00 [facility] Polio (IPV/OPV) 2006-08-24 Completed [facility] 00:00:00 [facility] Proquad 2006-08-24 Completed [facility] (MMR/VARICELLA) 00:00:00 [facility] DTAP 2006-08-24 Completed [facility] 00:00:00 [facility] HEPATITIS A 2006-08-24 Completed [facility] 00:00:00 [facility] Polio (IPV/OPV) 2006-08-24 Completed [facility] 00:00:00 [facility] Proquad 2006-08-24 Completed [facility] (MMR/VARICELLA) 00:00:00 [facility] DTAP 2006-08-24 Completed [facility] 00:00:00 [facility] HEPATITIS A 2006-08-24 Completed [facility] 00:00:00 [facility] Polio (IPV/OPV) 2006-08-24 Completed [facility] 00:00:00 [facility] Proquad 2006-08-24 Completed [facility] (MMR/VARICELLA) 00:00:00 [facility] DTAP 2006-08-24 Completed [facility] 00:00:00 [facility] HEPATITIS A 2006-08-24 Completed [facility] 00:00:00 [facility] Polio (IPV/OPV) 2006-08-24 Completed [facility] 00:00:00 [facility] Proquad 2006-08-24 Completed [facility] (MMR/VARICELLA) 00:00:00 [facility] DTAP 2006-08-24 Completed [facility] 00:00:00 [facility] HEPATITIS A 2006-08-24 Completed [facility] 00:00:00 [facility] Polio (IPV/OPV) 2006-08-24 Completed [facility] 00:00:00 [facility] Proquad 2006-08-24 Completed [facility] (MMR/VARICELLA) 00:00:00 [facility] DTAP 2006-08-24 Completed [facility] 00:00:00 [facility] HEPATITIS A 2006-08-24 Completed [facility] 00:00:00 [facility] Polio (IPV/OPV) 2006-08-24 Completed [facility] 00:00:00 [facility] Proquad 2006-08-24 Completed [facility] (MMR/VARICELLA) 00:00:00 [facility] DTAP 2006-08-24 Completed [facility] 00:00:00 [facility] HEPATITIS A 2006-08-24 Completed [facility] 00:00:00 [facility] Polio (IPV/OPV) 2006-08-24 Completed [facility] 00:00:00 [facility] Proquad 2006-08-24 Completed [facility] (MMR/VARICELLA) 00:00:00 [facility] DTAP 2006-08-24 Completed [facility] 00:00:00 [facility] HEPATITIS A 2006-08-24 Completed [facility] 00:00:00 [facility] Polio (IPV/OPV) 2006-08-24 Completed [facility] 00:00:00 [facility] Proquad 2006-08-24 Completed [facility] (MMR/VARICELLA) 00:00:00 [facility] DTAP 2006-08-24 Completed [facility] 00:00:00 [facility] HEPATITIS A 2006-08-24 Completed [facility] 00:00:00 [facility] Polio (IPV/OPV) 2006-08-24 Completed [facility] 00:00:00 [facility] Proquad 2006-08-24 Completed [facility] (MMR/VARICELLA) 00:00:00 [facility] DTAP 2006-08-24 Completed [facility] 00:00:00 [facility] HEPATITIS A 2006-08-24 Completed [facility] 00:00:00 [facility] Polio (IPV/OPV) 2006-08-24 Completed [facility] 00:00:00 [facility] Proquad 2006-08-24 Completed [facility] (MMR/VARICELLA) 00:00:00 [facility] DTAP 2006-08-24 Completed [facility] 00:00:00 [facility] HEPATITIS A 2006-08-24 Completed [facility] 00:00:00 [facility] Polio (IPV/OPV) 2006-08-24 Completed [facility] 00:00:00 [facility] Proquad 2006-08-24 Completed [facility] (MMR/VARICELLA) 00:00:00 [facility] DTAP 2006-08-24 Completed [facility] 00:00:00 [facility] HEPATITIS A 2006-08-24 Completed [facility] 00:00:00 [facility] Polio (IPV/OPV) 2006-08-24 Completed [facility] 00:00:00 [facility] Proquad 2006-08-24 Completed [facility] (MMR/VARICELLA) 00:00:00 [facility] DTAP 2006-08-24 Completed [facility] 00:00:00 [facility] HEPATITIS A 2006-08-24 Completed [facility] 00:00:00 [facility] Polio (IPV/OPV) 2006-08-24 Completed [facility] 00:00:00 [facility] Proquad 2006-08-24 Completed [facility] (MMR/VARICELLA) 00:00:00 [facility] DTAP 2006-08-24 Completed [facility] 00:00:00 [facility] HEPATITIS A 2006-08-24 Completed [facility] 00:00:00 [facility] Polio (IPV/OPV) 2006-08-24 Completed [facility] 00:00:00 [facility] Proquad 2006-08-24 Completed [facility] (MMR/VARICELLA) 00:00:00 [facility] DTAP 2006-08-24 Completed [facility] 00:00:00 [facility] HEPATITIS A 2006-08-24 Completed [facility] 00:00:00 [facility] Polio (IPV/OPV) 2006-08-24 Completed [facility] 00:00:00 [facility] Proquad 2006-08-24 Completed [facility] (MMR/VARICELLA) 00:00:00 [facility] DTAP 2006-08-24 Completed [facility] 00:00:00 [facility] HEPATITIS A 2006-08-24 Completed [facility] 00:00:00 [facility] Polio (IPV/OPV) 2006-08-24 Completed [facility] 00:00:00 [facility] Proquad 2006-08-24 Completed [facility] (MMR/VARICELLA) 00:00:00 [facility] DTAP 2006-08-24 Completed [facility] 00:00:00 [facility] HEPATITIS A 2006-08-24 Completed [facility] 00:00:00 [facility] Polio (IPV/OPV) 2006-08-24 Completed [facility] 00:00:00 [facility] Proquad 2006-08-24 Completed [facility] (MMR/VARICELLA) 00:00:00 [facility] DTAP 2006-08-24 Completed [facility] 00:00:00 [facility] HEPATITIS A 2006-08-24 Completed [facility] 00:00:00 [facility] Polio (IPV/OPV) 2006-08-24 Completed [facility] 00:00:00 [facility] Proquad 2006-08-24 Completed [facility] (MMR/VARICELLA) 00:00:00 [facility] DTAP 2006-08-24 Completed [facility] 00:00:00 [facility] HEPATITIS A 2006-08-24 Completed [facility] 00:00:00 [facility] Polio (IPV/OPV) 2006-08-24 Completed [facility] 00:00:00 [facility] Proquad 2006-08-24 Completed [facility] (MMR/VARICELLA) 00:00:00 [facility] DTAP 2006-08-24 Completed [facility] 00:00:00 [facility] HEPATITIS A 2006-08-24 Completed [facility] 00:00:00 [facility] Polio (IPV/OPV) 2006-08-24 Completed [facility] 00:00:00 [facility] Proquad 2006-08-24 Completed [facility] (MMR/VARICELLA) 00:00:00 [facility] DTAP 2006-08-24 Completed [facility] 00:00:00 [facility] HEPATITIS A 2006-08-24 Completed [facility] 00:00:00 [facility] Polio (IPV/OPV) 2006-08-24 Completed [facility] 00:00:00 [facility] Proquad 2006-08-24 Completed [facility] (MMR/VARICELLA) 00:00:00 [facility] DTAP 2006-08-24 Completed [facility] 00:00:00 [facility] HEPATITIS A 2006-08-24 Completed [facility] 00:00:00 [facility] Polio (IPV/OPV) 2006-08-24 Completed [facility] 00:00:00 [facility] Proquad 2006-08-24 Completed University of (MMR/VARICELLA) 00:00:00 [facility] DTAP 2006-08-24 Completed [facility] of 00:00:00 [facility] HEPATITIS A 2006-08-24 Completed [facility] of 00:00:00 [facility] Polio (IPV/OPV) 2006-08-24 Completed [facility] 00:00:00 [facility] Proquad 2006-08-24 Completed [facility] of (MMR/VARICELLA) 00:00:00 [facility] DTAP 2006-08-24 Completed [facility] 00:00:00 [facility] HEPATITIS A 2006-08-24 Completed [facility] of 00:00:00 [facility] Polio (IPV/OPV) 2006-08-24 Completed [facility] 00:00:00 [facility] Proquad 2006-08-24 Completed [facility] of (MMR/VARICELLA) 00:00:00 [facility] DTAP 2006-08-24 Completed [facility] of 00:00:00 [facility] HEPATITIS A 2006-08-24 Completed [facility] of 00:00:00 [facility] Polio (IPV/OPV) 2006-08-24 Completed [facility] 00:00:00 [facility] Proquad 2006-08-24 Completed [facility] of (MMR/VARICELLA) 00:00:00 [facility] DTAP 2006-08-24 Completed [facility] of 00:00:00 [facility] HEPATITIS A 2006-08-24 Completed [facility] of 00:00:00 [facility] Polio (IPV/OPV) 2006-08-24 Completed [facility] 00:00:00 [facility] Proquad 2006-08-24 Completed [facility] of (MMR/VARICELLA) 00:00:00 [facility] DTAP 2006-08-24 Completed [facility] of 00:00:00 [facility] HEPATITIS A 2006-08-24 Completed [facility] of 00:00:00 [facility] Polio (IPV/OPV) 2006-08-24 Completed [facility] 00:00:00 [facility] Proquad 2006-08-24 Completed [facility] of (MMR/VARICELLA) 00:00:00 [facility] DTAP 2006-08-24 Completed [facility] of 00:00:00 [facility] HEPATITIS A 2006-08-24 Completed [facility] of 00:00:00 [facility] Polio (IPV/OPV) 2006-08-24 Completed [facility] 00:00:00 [facility] Proquad 2006-08-24 Completed [facility] of (MMR/VARICELLA) 00:00:00 [facility] HEPATITIS A 2006-02-14 Completed [facility] of 00:00:00 [facility] HEPATITIS A 2006-02-14 Completed [facility] 00:00:00 [facility] HEPATITIS A 2006-02-14 Completed [facility] 00:00:00 [facility] HEPATITIS A 2006-02-14 Completed [facility] 00:00:00 [facility] HEPATITIS A 2006-02-14 Completed [facility] 00:00:00 [facility] HEPATITIS A 2006-02-14 Completed [facility] 00:00:00 [facility] HEPATITIS A 2006-02-14 Completed [facility] 00:00:00 [facility] HEPATITIS A 2006-02-14 Completed [facility] 00:00:00 [facility] HEPATITIS A 2006-02-14 Completed [facility] 00:00:00 [facility] HEPATITIS A 2006-02-14 Completed [facility] 00:00:00 [facility] HEPATITIS A 2006-02-14 Completed [facility] 00:00:00 [facility] HEPATITIS A 2006-02-14 Completed [facility] 00:00:00 [facility] HEPATITIS A 2006-02-14 Completed [facility] 00:00:00 [facility] HEPATITIS A 2006-02-14 Completed [facility] 00:00:00 [facility] HEPATITIS A 2006-02-14 Completed [facility] 00:00:00 [facility] HEPATITIS A 2006-02-14 Completed [facility] 00:00:00 [facility] HEPATITIS A 2006-02-14 Completed [facility] 00:00:00 [facility] HEPATITIS A 2006-02-14 Completed [facility] of 00:00:00 [facility] HEPATITIS A 2006-02-14 Completed [facility] 00:00:00 [facility] HEPATITIS A 2006-02-14 Completed [facility] 00:00:00 [facility] HEPATITIS A 2006-02-14 Completed [facility] 00:00:00 [facility] HEPATITIS A 2006-02-14 Completed [facility] 00:00:00 [facility] HEPATITIS A 2006-02-14 Completed [facility] 00:00:00 [facility] HEPATITIS A 2006-02-14 Completed [facility] 00:00:00 [facility] HEPATITIS A 2006-02-14 Completed [facility] 00:00:00 [facility] HEPATITIS A 2006-02-14 Completed [facility] 00:00:00 [facility] HEPATITIS A 2006-02-14 Completed [facility] 00:00:00 [facility] HEPATITIS A 2006-02-14 Completed [facility] 00:00:00 [facility] HEPATITIS A 2006-02-14 Completed [facility] 00:00:00 [facility] HEPATITIS A 2006-02-14 Completed [facility] 00:00:00 [facility] HEPATITIS A 2006-02-14 Completed [facility] 00:00:00 [facility] HEPATITIS A 2006-02-14 Completed [facility] 00:00:00 [facility] HEPATITIS A 2006-02-14 Completed [facility] 00:00:00 [facility] HEPATITIS A 2006-02-14 Completed [facility] 00:00:00 [facility] HEPATITIS A 2006-02-14 Completed [facility] of 00:00:00 [facility] HEPATITIS A 2006-02-14 Completed [facility] of 00:00:00 [facility] DTAP 2003-11-10 Completed [facility] of 00:00:00 [facility] HIB 4 Dose Schedule 2003-11-10 Completed Unive rsity of 00:00:00 [facility] DTAP 2003-11-10 Completed [facility] 00:00:00 [facility] HIB 4 Dose Schedule 2003-11-10 Completed Unive rsity of 00:00:00 [facility] DTAP 2003-11-10 Completed [facility] 00:00:00 [facility] HIB 4 Dose Schedule 2003-11-10 Completed Unive rsity of 00:00:00 [facility] DTAP 2003-11-10 Completed [facility] of 00:00:00 [facility] HIB 4 Dose Schedule 2003-11-10 Completed Unive rsity of 00:00:00 [facility] DTAP 2003-11-10 Completed [facility] 00:00:00 [facility] HIB 4 Dose Schedule 2003-11-10 Completed Unive rsity of 00:00:00 [facility] DTAP 2003-11-10 Completed [facility] 00:00:00 [facility] HIB 4 Dose Schedule 2003-11-10 Completed Unive rsity of 00:00:00 [facility] DTAP 2003-11-10 Completed [facility] 00:00:00 [facility] HIB 4 Dose Schedule 2003-11-10 Completed Unive rsity of 00:00:00 [facility] DTAP 2003-11-10 Completed [facility] 00:00:00 [facility] HIB 4 Dose Schedule 2003-11-10 Completed Unive rsity of 00:00:00 [facility] DTAP 2003-11-10 Completed [facility] 00:00:00 [facility] HIB 4 Dose Schedule 2003-11-10 Completed Unive rsity of 00:00:00 [facility] DTAP 2003-11-10 Completed [facility] 00:00:00 [facility] HIB 4 Dose Schedule 2003-11-10 Completed Unive rsity of 00:00:00 [facility] DTAP 2003-11-10 Completed [facility] 00:00:00 [facility] HIB 4 Dose Schedule 2003-11-10 Completed Unive rsity of 00:00:00 [facility] DTAP 2003-11-10 Completed [facility] 00:00:00 [facility] HIB 4 Dose Schedule 2003-11-10 Completed Unive rsity of 00:00:00 [facility] DTAP 2003-11-10 Completed [facility] 00:00:00 [facility] HIB 4 Dose Schedule 2003-11-10 Completed Unive rsity of 00:00:00 [facility] DTAP 2003-11-10 Completed [facility] of 00:00:00 [facility] HIB 4 Dose Schedule 2003-11-10 Completed Unive rsity of 00:00:00 [facility] DTAP 2003-11-10 Completed [facility] 00:00:00 [facility] HIB 4 Dose Schedule 2003-11-10 Completed Unive rsity of 00:00:00 [facility] DTAP 2003-11-10 Completed [facility] 00:00:00 [facility] HIB 4 Dose Schedule 2003-11-10 Completed Unive rsity of 00:00:00 [facility] DTAP 2003-11-10 Completed [facility] 00:00:00 [facility] HIB 4 Dose Schedule 2003-11-10 Completed Unive rsity of 00:00:00 [facility] DTAP 2003-11-10 Completed [facility] 00:00:00 [facility] HIB 4 Dose Schedule 2003-11-10 Completed Unive rsity of 00:00:00 [facility] DTAP 2003-11-10 Completed [facility] 00:00:00 [facility] HIB 4 Dose Schedule 2003-11-10 Completed Unive rsity of 00:00:00 [facility] DTAP 2003-11-10 Completed [facility] 00:00:00 [facility] HIB 4 Dose Schedule 2003-11-10 Completed Unive rsity of 00:00:00 [facility] DTAP 2003-11-10 Completed [facility] 00:00:00 [facility] HIB 4 Dose Schedule 2003-11-10 Completed Unive rsity of 00:00:00 [facility] DTAP 2003-11-10 Completed [facility] of 00:00:00 [facility] HIB 4 Dose Schedule 2003-11-10 Completed Unive rsity of 00:00:00 [facility] DTAP 2003-11-10 Completed [facility] 00:00:00 [facility] HIB 4 Dose Schedule 2003-11-10 Completed Unive rsity of 00:00:00 [facility] DTAP 2003-11-10 Completed [facility] 00:00:00 [facility] HIB 4 Dose Schedule 2003-11-10 Completed Unive rsity of 00:00:00 [facility] DTAP 2003-11-10 Completed [facility] 00:00:00 [facility] HIB 4 Dose Schedule 2003-11-10 Completed Unive rsity of 00:00:00 [facility] DTAP 2003-11-10 Completed [facility] 00:00:00 [facility] HIB 4 Dose Schedule 2003-11-10 Completed Unive rsity of 00:00:00 [facility] DTAP 2003-11-10 Completed [facility] 00:00:00 [facility] HIB 4 Dose Schedule 2003-11-10 Completed Unive rsity of 00:00:00 [facility] DTAP 2003-11-10 Completed [facility] of 00:00:00 [facility] HIB 4 Dose Schedule 2003-11-10 Completed Unive rsity of 00:00:00 [facility] DTAP 2003-11-10 Completed [facility] 00:00:00 [facility] HIB 4 Dose Schedule 2003-11-10 Completed Unive rsity of 00:00:00 [facility] DTAP 2003-11-10 Completed [facility] 00:00:00 [facility] HIB 4 Dose Schedule 2003-11-10 Completed Unive rsity of 00:00:00 [facility] DTAP 2003-11-10 Completed [facility] 00:00:00 [facility] HIB 4 Dose Schedule 2003-11-10 Completed Unive rsity of 00:00:00 [facility] DTAP 2003-11-10 Completed [facility] 00:00:00 [facility] HIB 4 Dose Schedule 2003-11-10 Completed Unive rsity of 00:00:00 [facility] DTAP 2003-11-10 Completed [facility] 00:00:00 [facility] HIB 4 Dose Schedule 2003-11-10 Completed Unive rsity of 00:00:00 [facility] DTAP 2003-11-10 Completed [facility] 00:00:00 [facility] HIB 4 Dose Schedule 2003-11-10 Completed Unive rsity of 00:00:00 [facility] DTAP 2003-11-10 Completed [facility] 00:00:00 [facility] HIB 4 Dose Schedule 2003-11-10 Completed Unive rsity of 00:00:00 [facility] DTAP 2003-11-10 Completed [facility] of 00:00:00 [facility] HIB 4 Dose Schedule 2003-11-10 Completed Unive rsity of 00:00:00 [facility] Pneumococcal 13 2003-10-09 Completed Universit y [...] [facility] y of Conjugate, PCV13 00:00:00 [facility] (Pre[facility]ar 13) [facility] Pneumococcal 13 2003-10-09 Completed [facility] Conjugate, PCV13 00:00:00 [facility] (Prevnar 13) [facility] Pneumococcal 13 2003-10-09 Completed [facility] Conjugate, PCV13 00:00:00 [facility] (Prevnar 13) [facility] Pneumococcal 13 2003-10-09 Completed [facility] Conjugate, PCV13 00:00:00 [facility] (Prevnar 13) [facility] Pneumococcal 13 2003-10-09 Completed [facility] Conjugate, PCV13 00:00:00 [facility] (Prevnar 13) [facility] Pneumococcal 13 2003-08-10 Completed [facility]it y of Conjugate, PCV13 00:00:00 [facility] dical (Prevnar 13) Branch Polio (IPV/OPV) 2003-08-10 Completed [facility]it [facility] of 00:00:00 [facility] Proquad 2003-08-10 Completed [facility] of (MMR/VARICELLA) 00:00:00 [facility] Pneumococcal 13 2003-08-10 Completed Universit y of Conjugate, PCV13 00:00:00 [facility] dical (Prevnar 13) Branch Polio (IPV/OPV) 2003-08-10 Completed [facility] of 00:00:00 [facility] Proquad 2003-08-10 Completed [facility] of (MMR/VARICELLA) 00:00:00 [facility] Pneumococcal 13 2003-08-10 Completed Universit y of Conjugate, PCV13 00:00:00 [facility] dical (Prevnar 13) Branch Polio (IPV/OPV) 2003-08-10 Completed [facility] of 00:00:00 [facility] Proquad 2003-08-10 Completed [facility] of (MMR/VARICELLA) 00:00:00 [facility] Pneumococcal 13 2003-08-10 Completed [facility]it [facility] of Conjugate, PCV13 00:00:00 [facility] dical (Prevnar 13) Branch Polio (IPV/OPV) 2003-08-10 Completed [facility] of 00:00:00 [facility] Proquad 2003-08-10 Completed [facility] of (MMR/VARICELLA) 00:00:00 [facility] Pneumococcal 13 2003-08-10 Completed [facility] of Conjugate, PCV13 00:00:00 [facility] dical (Prevnar 13) Branch Polio (IPV/OPV) 2003-08-10 Completed [facility] of 00:00:00 [facility] Proquad 2003-08-10 Completed [facility] of (MMR/VARICELLA) 00:00:00 [facility] Pneumococcal 13 2003-08-10 Completed [facility] of Conjugate, PCV13 00:00:00 [facility] dical (Prevnar 13) Branch Polio (IPV/OPV) 2003-08-10 Completed [facility] of 00:00:00 [facility] Proquad 2003-08-10 Completed [facility] of (MMR/VARICELLA) 00:00:00 [facility] Pneumococcal 13 2003-08-10 Completed [facility]it y of Conjugate, PCV13 00:00:00 [facility] dical (Prevnar 13) Branch Polio (IPV/OPV) 2003-08-10 Completed [facility] (MMR/VARICELLA) 00:00:00 [facility] Pneumococcal 13 2003-08-10 Completed [facility]it y of Conjugate, PCV13 00:00:00 [facility] dical (Prevnar 13) Branch Polio (IPV/OPV) 2003-08-10 Completed [facility] (MMR/VARICELLA) 00:00:00 [facility] Pneumococcal 13 2003-08-10 Completed [facility]jug[facility], PC[facility]13 [facility] Polio (IPV/OPV) 2003-08-10 Completed [facility] of 00:00:00 [facility] Proquad 2003-08-10 Completed [facility] of (MMR/VARICELLA) 00:00:00 [facility] Pneumococcal 13 2003-08-10 Completed Universit y of Conjugate, PCV13 00:00:00 [facility] dical (Prevnar 13) Branch Polio (IPV/OPV) 2003-08-10 Completed [facility] (MMR/VARICELLA) 00:00:00 [facility] Pneumococcal 13 2003-08-10 Completed [facility]it [facility] of Conjugate, PCV13 00:00:00 [facility] dical (Prevnar 13) Branch Polio (IPV/OPV) 2003-08-10 Completed [facility] of 00:00:00 [facility] Proquad 2003-08-10 Completed [facility] of (MMR/VARICELLA) 00:00:00 [facility] Pneumococcal 13 2003-08-10 Completed [facility]it y of Conjugate, PCV13 00:00:00 [facility] dical (Prevnar 13) Branch Polio (IPV/OPV) 2003-08-10 Completed [facility]00 [facility] (MMR/VARICELLA) 00:00:00 [facility] Pneumococcal 13 2003-08-10 Completed [facility]it y of Conjugate, PCV13 00:00:00 [facility] dical (Prevnar 13) Branch Polio (IPV/OPV) 2003-08-10 Completed [facility] (MMR/VARICELLA) 00:00:00 [facility] Pneumococcal 13 2003-08-10 Completed [facility] of Conjugate, PCV13 00:00:00 [facility] dical (Prevnar 13) Branch Polio (IPV/OPV) 2003-08-10 Completed [facility]00 [facility] (MMR/VARICELLA) 00:00:00 [facility] Pneumococcal 13 2003-08-10 Completed [facility] Conjugate, PCV13 00:00:00 [facility] Polio (IPV/OPV) 2003-08-10 Completed [facility]00 [facility] 2003[facility] Com[facility] (MMR/VARICELLA) 00:00:00 [facility] Pneumococcal 13 2003-08-10 Completed [facility]it y of Conjugate, PCV13 00:00:00 [facility] dical (Prevnar 13) Branch Polio (IPV/OPV) 2003-08-10 Completed [facility] 00:00[facility]00 [facility] Com[facility] (MMR/VARICELLA) 00:00:00 [facility] Pneumococcal 13 2003-08-10 Completed [facility]it y of Conjugate, PCV13 00:00:00 [facility] dical (Prevnar 13) Branch Polio (IPV/OPV) 2003-08-10 Completed [facility]it [facility] of 00:00:00 [facility] Proquad 2003-08-10 Completed [facility] of (MMR/VARICELLA) 00:00:00 [facility] Pneumococcal 13 2003-08-10 Completed [facility]it y of Conjugate, PCV13 00:00:00 [facility] dical (Prevnar 13) Branch Polio (IPV/OPV) 2003-08-10 Completed [facility]it y of 00:00:00 [facility] Proquad 2003-08-10 Completed [facility] of (MMR/VARICELLA) 00:00:00 [facility] Pneumococcal 13 2003-08-10 Completed [facility]it y of Conjugate, PCV13 00:00:00 [facility] dical (Prevnar 13) Branch Polio (IPV/OPV) 2003-08-10 Completed [facility] 00:00[facility]00 [facility] Com[facility] (MMR/VARICELLA) 00:00:00 [facility] Pneumococcal 13 2003-08-10 Completed Universit y of Conjugate, PCV13 00:00:00 [facility] dical (Prevnar 13) Branch Polio (IPV/OPV) 2003-08-10 Completed [facility] (MMR/VARICELLA) 00:00:00 [facility] Pneumococcal 13 2003-08-10 Completed [facility]it y of Conjugate, PCV13 00:00:00 [facility] dical (Prevnar 13) Branch Polio (IPV/OPV) 2003-08-10 Completed [facility]00 [facility] 2003[facility] Com[facility] (MMR/VARICELLA) 00:00:00 [facility] Pneumococcal 13 2003-08-10 Completed Universit y of Conjugate, PCV13 00:00:00 [facility] dical (Prevnar 13) Branch Polio (IPV/OPV) 2003-08-10 Completed [facility]00 [facility] 2003[facility] Com[facility] (MMR/VARICELLA) 00:00:00 [facility] Pneumococcal 13 2003-08-10 Completed [facility]it y of Conjugate, PCV13 00:00:00 [facility] dical (Prevnar 13) Branch Polio (IPV/OPV) 2003-08-10 Completed [facility]it y of 00:00:00 [facility] Proquad 2003-08-10 Completed [facility] of (MMR/VARICELLA) 00:00:00 [facility] Pneumococcal 13 2003-08-10 Completed Universit y of Conjugate, PCV13 00:00:00 [facility] dical (Prevnar 13) Branch Polio (IPV/OPV) 2003-08-10 Completed [facility] 00:[facility]00 [facility] 2003[facility] Com[facility] (MMR/VARICELLA) 00:00:00 [facility] Pneumococcal 13 2003-08-10 Completed Universit y of Conjugate, PCV13 00:00:00 [facility] dical (Prevnar 13) Branch Polio (IPV/OPV) 2003-08-10 Completed [facility]it y [facility] 00:00:00 [facility] 2003-08-10 Completed [facility] of (MMR/VARICELLA) 00:00:00 [facility] Pneumococcal 13 2003-08-10 Completed [facility]it y of Conjugate, PCV13 00:00:00 [facility] dical (Prevnar 13) Branch Polio (IPV/OPV) 2003-08-10 Completed [facility] 00:[facility]00 [facility] (MMR/VARICELLA) 00:00:00 [facility] Pneumococcal 13 2003-08-10 Completed Universit y of Conjugate, PCV13 00:00:00 [facility] dical (Prevnar 13) Branch Polio (IPV/OPV) 2003-08-10 Completed [facility]00 [facility] 2003[facility] Com[facility] (MMR/VARICELLA) 00:00:00 [facility] Pneumococcal 13 2003-08-10 Completed Universit y of Conjugate, PCV13 00:00:00 [facility] dical (Prevnar 13) Branch Polio (IPV/OPV) 2003-08-10 Completed [facility] 00:00[facility]00 [facility] Com[facility] (MMR/VARICELLA) 00:00:00 [facility] Pneumococcal 13 2003-08-10 Completed Universit y of Conjugate, PCV13 00:00:00 [facility] dical (Prevnar 13) Branch Polio (IPV/OPV) 2003-08-10 Completed [facility]it y of 00:00:00 [facility] Proquad 2003-08-10 Completed [facility] of (MMR/VARICELLA) 00:00:00 [facility] Pneumococcal 13 2003-08-10 Completed Universit y of Conjugate, PCV13 00:00:00 [facility] dical (Prevnar 13) Branch Polio (IPV/OPV) 2003-08-10 Completed [facility]it y of 00:00:00 [facility] Proquad 2003-08-10 Completed [facility] of (MMR/VARICELLA) 00:00:00 [facility] Pneumococcal 13 2003-08-10 Completed [facility]it y of Conjugate, PCV13 00:00:00 [facility] dical (Prevnar 13) Branch Polio (IPV/OPV) 2003-08-10 Completed [facility] 00:00[facility]00 [facility] Completed [facility] (MMR/VARICELLA) 00:00:00 [facility] Pneumococcal 13 2003-08-10 Completed Universit y of Conjugate, PCV13 00:00:00 [facility] dical (Prevnar 13) Branch Polio (IPV/OPV) 2003-08-10 Completed [facility] 00:[facility]:00 [facility] [facility] 2003-08-10 Completed [facility] (MMR/VARICELLA) 00:00:00 [facility] Pneumococcal 13 2003-08-10 Completed [facility] Conjugate, PCV13 00:00:00 [facility] dical (Prevnar 13) Branch Polio (IPV/OPV) 2003-08-10 Completed [facility] 00:00:00 [facility] 2003-08-10 Completed [facility] (MMR/VARICELLA) 00:00:00 [facility] Pneumococcal 13 2003-08-10 Completed [facility] Conjugate, PCV13 00:00:00 [facility] dical (Prevnar 13) Branch Polio (IPV/OPV) 2003-08-10 Completed [facility] 00:00:00 [facility] 2003-08-10 Completed [facility] (MMR/VARICELLA) 00:00:00 [facility] Pneumococcal 13 2003-08-10 Completed [facility] Conjugate, PCV13 00:00:00 [facility] dical (Prevnar 13) Branch Polio (IPV/OPV) 2003-08-10 Completed [facility] 00:00:00 [facility] Proquad 2003-08-10 Completed [facility] of (MMR/VARICELLA) 00:00:00 [facility] ical Branch Pneumococcal 13 2003-08-10 Completed [facility] of Conjugate, PCV13 00:00:00 [facility] dical (Prevnar 13) Branch Polio (IPV/OPV) 2003-08-10 Completed [facility] 00:00:00 [facility] Proquad 2003-08-10 Completed [facility] (MMR/VARICELLA) 00:00:00 [facility] Hep B, Adol or Pedi 2003-04-17 Completed Unive rsity of Dosage 00:00:00 [facility] Hep B, Adol or Pedi 2003-04-17 Completed [facility] of Dosage 00:00:00 [facility] Hep B, Adol or Pedi 2003-04-17 Completed [facility] of Dosage 00:00:00 [facility] Hep B, Adol or Pedi 2003-04-17 Completed [facility] of Dosage 00:00:00 [facility] Hep B, Adol or Pedi 2003-04-17 Completed [facility] of Dosage 00:00:00 [facility] Hep B, Adol or Pedi 2003-04-17 Completed [facility] of Dosage 00:00:00 [facility] Hep B, Adol or Pedi 2003-04-17 Completed [facility] of Dosage 00:00:00 [facility] Hep B, Adol or Pedi 2003-04-17 Completed [facility] of Dosage 00:00:00 [facility] Hep B, Adol or Pedi 2003-04-17 Completed [facility] of Dosage 00:00:00 [facility] Hep B, Adol or Pedi 2003-04-17 Completed [facility] of Dosage 00:00:00 [facility] Hep B, Adol or Pedi 2003-04-17 Completed [facility] of Dosage 00:00:00 [facility] Hep B, Adol or Pedi 2003-04-17 Completed [facility] of Dosage 00:00:00 [facility] Hep B, Adol or Pedi 2003-04-17 Completed [facility] of Dosage 00:00:00 [facility] Hep B, Adol or Pedi 2003-04-17 Completed [facility] of Dosage 00:00:00 [facility] Hep B, Adol or Pedi 2003-04-17 Completed [facility] of Dosage 00:00:00 [facility] Hep B, Adol or Pedi 2003-04-17 Completed [facility] of Dosage 00:00:00 [facility] Hep B, Adol or Pedi 2003-04-17 Completed [facility] of Dosage 00:00:00 [facility] Hep B, Adol or Pedi 2003-04-17 Completed [facility] of Dosage 00:00:00 [facility] Hep B, Adol or Pedi 2003-04-17 Completed [facility] of Dosage 00:00:00 [facility] Hep B, Adol or Pedi 2003-04-17 Completed [facility] of Dosage 00:00:00 [facility] Hep B, Adol or Pedi 2003-04-17 Completed [facility] of Dosage 00:00:00 [facility] Hep B, Adol or Pedi 2003-04-17 Completed [facility] of Dosage 00:00:00 [facility] Hep B, Adol or Pedi 2003-04-17 Completed [facility] of Dosage 00:00:00 [facility] Hep B, Adol or Pedi 2003-04-17 Completed [facility] of Dosage 00:00:00 [facility] Hep B, Adol or Pedi 2003-04-17 Completed [facility] of Dosage 00:00:00 [facility] Hep B, Adol or Pedi 2003-04-17 Completed [facility] of Dosage 00:00:00 [facility] Hep B, Adol or Pedi 2003-04-17 Completed [facility] of Dosage 00:00:00 [facility] Hep B, Adol or Pedi 2003-04-17 Completed [facility] of Dosage 00:00:00 [facility] Hep B, Adol or Pedi 2003-04-17 Completed [facility] of Dosage 00:00:00 [facility] Hep B, Adol or Pedi 2003-04-17 Completed [facility] Dosage 00:00:00 [facility] Hep B, Adol or Pedi 2003-04-17 Completed [facility] of Dosage 00:00:00 [facility] Hep B, Adol or Pedi 2003-04-17 Completed [facility] of Dosage 00:00:00 [facility] Hep B, Adol or Pedi 2003-04-17 Completed [facility] of Dosage 00:00:00 [facility] Hep B, Adol or Pedi 2003-04-17 Completed [facility] of Dosage 00:00:00 [facility] Hep B, Adol or Pedi 2003-04-17 Completed [facility] of Dosage 00:00:00 [facility] Hep B, Adol or Pedi 2003-04-17 Completed [facility] of Dosage 00:00:00 [facility] DTAP 2003-01-28 Completed [facility] 00:00:00 [facility] HIB 4 Dose Schedule 2003-01-28 Completed [facility]ive [facility]ity of 00:00:00 [facility] Pneumococcal 13 2003-01-28 Completed [facility] of Conjugate, PCV13 00:00:00 [facility] dical (Prevnar 13) Branch DTAP 2003-01-28 Completed [facility] of 00:00:00 [facility] HIB 4 Dose Schedule 2003-01-28 Completed [facility]ive [facility]ity of 00:00:00 [facility] Pneumococcal 13 2003-01-28 Completed [facility] of Conjugate, PCV13 00:00:00 [facility] dical (Prevnar 13) Branch DTAP 2003-01-28 Completed [facility] of 00:00:00 [facility] HIB 4 Dose Schedule 2003-01-28 Completed [facility]ive rsity of 00:00:00 [facility] Pneumococcal 13 2003-01-28 Completed [facility] of Conjugate, PCV13 00:00:00 [facility] dical (Prevnar 13) Branch DTAP 2003-01-28 Completed [facility] of 00:00:00 [facility] HIB 4 Dose Schedule 2003-01-28 Completed [facility]ive rsity of 00:00:00 [facility] Pneumococcal 13 2003-01-28 Completed [facility] of Conjugate, PCV13 00:00:00 [facility] dical (Prevnar 13) Branch DTAP 2003-01-28 Completed [facility] of 00:00:00 [facility] HIB 4 Dose Schedule 2003-01-28 Completed [facility]ive rsity of 00:00:00 [facility] Pneumococcal 13 2003-01-28 Completed [facility] Conjugate, PCV13 00:00:00 [facility] (Prevnar 13) [facility] DTAP 2003-01-28 Completed [facility] 00:00:00 [facility] HIB 4 Dose Schedule 2003-01-28 Completed [facility]ive rsity of 00:00:00 [facility] Pneumococcal 13 2003-01-28 Completed [facility] Conjugate, PCV13 00:00:00 [facility] (Prevnar 13) Branch DTAP 2003-01-28 Completed [facility] of 00:00:00 [facility] HIB 4 Dose Schedule 2003-01-28 Completed [facility]ive rsity of 00:00:00 [facility] Pneumococcal 13 2003-01-28 Completed [facility] of Conjugate, PCV13 00:00:00 [facility] (Prevnar 13) Branch DTAP 2003-01-28 Completed [facility] of 00:00:00 [facility] HIB 4 Dose Schedule 2003-01-28 Completed [facility]ive rsity of 00:00:00 [facility] Pneumococcal 13 2003-01-28 Completed [facility] of Conjugate, PCV13 00:00:00 [facility] (Prevnar 13) Branch DTAP 2003-01-28 Completed [facility] 00:00:00 [facility] HIB 4 Dose Schedule 2003-01-28 Completed [facility]ive rsity of 00:00:00 [facility] Pneumococcal 13 2003-01-28 Completed [facility] of Conjugate, PCV13 00:00:00 [facility] (Prevnar 13) Branch DTAP 2003-01-28 Completed [facility] 00:00:00 [facility] HIB 4 Dose Schedule 2003-01-28 Completed [facility]ity of 00:00:00 [facility] Pneumococcal 13 2003-01-28 Completed [facility] of Conjugate, PCV13 00:00:00 [facility] (Prevnar 13) Branch DTAP 2003-01-28 Completed [facility] of 00:00:00 [facility] HIB 4 Dose Schedule 2003-01-28 Completed [facility]ive rsity of 00:00:00 [facility] Pneumococcal 13 2003-01-28 Completed [facility] of Conjugate, PCV13 00:00:00 [facility] (Prevnar 13) Branch DTAP 2003-01-28 Completed [facility] of 00:00:00 [facility] HIB 4 Dose Schedule 2003-01-28 Completed [facility] rsity of 00:00:00 [facility] Pneumococcal 13 2003-01-28 Completed [facility] of Conjugate, PCV13 00:00:00 [facility] (Prevnar 13) Branch DTAP 2003-01-28 Completed [facility] of 00:00:00 [facility] HIB 4 Dose Schedule 2003-01-28 Completed [facility]ive rsity of 00:00:00 [facility] Pneumococcal 13 2003-01-28 Completed [facility] of Conjugate, PCV13 00:00:00 [facility] (Prevnar 13) Branch DTAP 2003-01-28 Completed [facility] of 00:00:00 [facility] HIB 4 Dose Schedule 2003-01-28 Completed [facility]ive rsity of 00:00:00 [facility] Pneumococcal 13 2003-01-28 Completed [facility] of Conjugate, PCV13 00:00:00 [facility] (Prevnar 13) Branch DTAP 2003-01-28 Completed [facility] of 00:00:00 [facility] HIB 4 Dose Schedule 2003-01-28 Completed [facility]ive rsity of 00:00:00 [facility] Pneumococcal 13 2003-01-28 Completed [facility] of Conjugate, PCV13 00:00:00 [facility] (Prevnar 13) Branch DTAP 2003-01-28 Completed [facility] of 00:00:00 [facility] HIB 4 Dose Schedule 2003-01-28 Completed [facility]ive rsity of 00:00:00 [facility] Pneumococcal 13 2003-01-28 Completed [facility] of Conjugate, PCV13 00:00:00 [facility] (Prevnar 13) Branch DTAP 2003-01-28 Completed [facility] 00:00:00 [facility] HIB 4 Dose Schedule 2003-01-28 Completed [facility]ive [facility]ity of 00:00:00 [facility] Pneumococcal 13 2003-01-28 Completed [facility] of Conjugate, PCV13 00:00:00 [facility] (Prevnar 13) Branch DTAP 2003-01-28 Completed [facility] of 00:00:00 [facility] HIB 4 Dose Schedule 2003-01-28 Completed [facility]ity of 00:00:00 [facility] Pneumococcal 13 2003-01-28 Completed [facility] of Conjugate, PCV13 00:00:00 [facility] (Prevnar 13) Branch DTAP 2003-01-28 Completed [facility] of 00:00:00 [facility] HIB 4 Dose Schedule 2003-01-28 Completed [facility]ive [facility] of 00:00:00 [facility] Pneumococcal 13 2003-01-28 Completed [facility] of Conjugate, PCV13 00:00:00 [facility] (Prevnar 13) Branch DTAP 2003-01-28 Completed [facility] 00:00:00 [facility] HIB 4 Dose Schedule 2003-01-28 Completed [facility] of 00:00:00 [facility] Pneumococcal 13 2003-01-28 Completed [facility] of Conjugate, PCV13 00:00:00 [facility] (Prevnar 13) Branch DTAP 2003-01-28 Completed [facility] 00:00:00 [facility] HIB 4 Dose Schedule 2003-01-28 Completed [facility]ity of 00:00:00 [facility] Pneumococcal 13 2003-01-28 Completed [facility] of Conjugate, PCV13 00:00:00 [facility] (Prevnar 13) Branch DTAP 2003-01-28 Completed [facility] 00:00:00 [facility] HIB 4 Dose Schedule 2003-01-28 Completed [facility] of 00:00:00 [facility] Pneumococcal 13 2003-01-28 Completed [facility] of Conjugate, PCV13 00:00:00 [facility] (Prevnar 13) Branch DTAP 2003-01-28 Completed [facility] 00:00:00 [facility] HIB 4 Dose Schedule 2003-01-28 Completed [facility] of 00:00:00 [facility] Pneumococcal 13 2003-01-28 Completed [facility] of Conjugate, PCV13 00:00:00 [facility] (Prevnar 13) Branch DTAP 2003-01-28 Completed [facility] 00:00:00 [facility] HIB 4 Dose Schedule 2003-01-28 Completed [facility] of 00:00:00 [facility] Pneumococcal 13 2003-01-28 Completed [facility] of Conjugate, PCV13 00:00:00 [facility] (Prevnar 13) Branch DTAP 2003-01-28 Completed [facility] 00:00:00 [facility] HIB 4 Dose Schedule 2003-01-28 Completed [facility] of 00:00:00 [facility] Pneumococcal 13 2003-01-28 Completed [facility] of Conjugate, PCV13 00:00:00 [facility] (Prevnar 13) Branch DTAP 2003-01-28 Completed [facility] 00:00:00 [facility] HIB 4 Dose Schedule 2003-01-28 Completed [facility] of 00:00:00 [facility] Pneumococcal 13 2003-01-28 Completed [facility] Conjugate, PCV13 00:00:00 [facility] (Prevnar 13) [facility] DTAP 2003-01-28 Completed [facility] of 00:00:00 [facility] HIB 4 Dose Schedule 2003-01-28 Completed [facility] of 00:00:00 [facility] Pneumococcal 13 2003-01-28 Completed [facility] of Conjugate, PCV13 00:00:00 [facility] (Prevnar 13) Branch DTAP 2003-01-28 Completed [facility] of 00:00:00 [facility] HIB 4 Dose Schedule 2003-01-28 Completed [facility] of 00:00:00 [facility] Pneumococcal 13 2003-01-28 Completed [facility] of Conjugate, PCV13 00:00:00 [facility] (Prevnar 13) Branch DTAP 2003-01-28 Completed [facility] of 00:00:00 [facility] HIB 4 Dose Schedule 2003-01-28 Completed [facility] of 00:00:00 [facility] Pneumococcal 13 2003-01-28 Completed [facility] of Conjugate, PCV13 00:00:00 [facility] (Prevnar 13) Branch DTAP 2003-01-28 Completed [facility] 00:00:00 [facility] HIB 4 Dose Schedule 2003-01-28 Completed [facility] of 00:00:00 [facility] Pneumococcal 13 2003-01-28 Completed [facility] of Conjugate, PCV13 00:00:00 [facility] (Prevnar 13) Branch DTAP 2003-01-28 Completed [facility] of 00:00:00 [facility] HIB 4 Dose Schedule 2003-01-28 Completed [facility] of 00:00:00 [facility] Pneumococcal 13 2003-01-28 Completed [facility] of Conjugate, PCV13 00:00:00 [facility] (Prevnar 13) Branch DTAP 2003-01-28 Completed [facility] 00:00:00 [facility] HIB 4 Dose Schedule 2003-01-28 Completed [facility] of 00:00:00 [facility] Pneumococcal 13 2003-01-28 Completed [facility] of Conjugate, PCV13 00:00:00 [facility] (Prevnar 13) Branch DTAP 2003-01-28 Completed [facility] of 00:00:00 [facility] HIB 4 Dose Schedule 2003-01-28 Completed [facility] of 00:00:00 [facility] Pneumococcal 13 2003-01-28 Completed [facility] of Conjugate, PCV13 00:00:00 [facility] dical (Prevnar 13) Branch DTAP 2003-01-28 Completed [facility] of 00:00:00 [facility] HIB 4 Dose Schedule 2003-01-28 Completed [facility] of 00:00:00 [facility] Pneumococcal 13 2003-01-28 Completed [facility] of Conjugate, PCV13 00:00:00 [facility] dical (Prevnar 13) Branch DTAP 2003-01-28 Completed [facility] of 00:00:00 [facility] HIB 4 Dose Schedule 2003-01-28 Completed [facility] of 00:00:00 [facility] Pneumococcal 13 2003-01-28 Completed [facility] of Conjugate, PCV13 00:00:00 [facility] dical (Prevnar 13) Branch DTAP 2003-01-28 Completed [facility] of 00:00:00 [facility] HIB 4 Dose Schedule 2003-01-28 Completed [facility] of 00:00:00 [facility] Pneumococcal 13 2003-01-28 Completed [facility] of Conjugate, PCV13 00:00:00 [facility] dical (Prevnar 13) Branch DTAP 2002 Completed [facility] of 00:00:00 [facility] HIB 4 Dose Schedule 2002 Completed [facility] of 00:00:00 [facility] Pneumococcal 13 2002 Completed [facility] of Conjugate, PCV13 00:00:00 [facility] dical (Prevnar 13) Branch Polio (IPV/OPV) 2002 Completed [facility] 00:00:00 [facility] DTAP 2002 Completed [facility] 00:00:00 [facility] HIB 4 Dose Schedule 2002 Completed [facility] of 00:00:00 [facility] Pneumococcal 13 2002 Completed [facility] of Conjugate, PCV13 00:00:00 [facility] dical (Prevnar 13) Branch Polio (IPV/OPV) 2002 Completed [facility] 00:00:00 [facility] DTAP 2002 Completed [facility] 00:00:00 [facility] HIB 4 Dose Schedule 2002 Completed [facility] 00:00:00 [facility] Pneumococcal 13 2002 Completed [facility] Conjugate, PCV13 00:00:00 [facility] (Prevnar 13) [facility] Polio (IPV/OPV) 2002 Completed [facility] 00:00:00 [facility] DTAP 2002 Completed [facility] 00:00:00 [facility] HIB 4 Dose Schedule 2002 Completed [facility] 00:00:00 [facility] Pneumococcal 13 2002 Completed [facility] of Conjugate, PCV13 00:00:00 [facility] (Prevnar 13) Branch Polio (IPV/OPV) 2002 Completed [facility] 00:00:00 [facility] DTAP 2002 Completed [facility] 00:00:00 [facility] HIB 4 Dose Schedule 2002 Completed [facility] of 00:00:00 [facility] Pneumococcal 13 2002 Completed [facility] of Conjugate, PCV13 00:00:00 [facility] dical (Prevnar 13) Branch Polio (IPV/OPV) 2002 Completed [facility] 00:00:00 [facility] DTAP 2002 Completed [facility] 00:00:00 [facility] HIB 4 Dose Schedule 2002 Completed [facility] 00:00:00 [facility] Pneumococcal 13 2002 Completed [facility] of Conjugate, PCV13 00:00:00 [facility] dical (Prevnar 13) Branch Polio (IPV/OPV) 2002 Completed [facility] 00:00:00 [facility] DTAP 2002 Completed [facility] 00:00:00 [facility] HIB 4 Dose Schedule 2002 Completed [facility] of 00:00:00 [facility] Pneumococcal 13 2002 Completed [facility] of Conjugate, PCV13 00:00:00 [facility] dical (Prevnar 13) Branch Polio (IPV/OPV) 2002 Completed [facility] 00:00:00 [facility] DTAP 2002 Completed [facility] 00:00:00 [facility] HIB 4 Dose Schedule 2002 Completed [facility] 00:00:00 [facility] Pneumococcal 13 2002 Completed [facility] of Conjugate, PCV13 00:00:00 [facility] dical (Prevnar 13) Branch Polio (IPV/OPV) 2002 Completed [facility] 00:00:00 [facility] DTAP 2002 Completed [facility] 00:00:00 [facility] HIB 4 Dose Schedule 2002 Completed [facility] 00:00:00 [facility] Pneumococcal 13 2002 Completed [facility] of Conjugate, PCV13 00:00:00 [facility] dical (Prevnar 13) Branch Polio (IPV/OPV) 2002 Completed [facility] 00:00:00 [facility] DTAP 2002 Completed [facility] 00:00:00 [facility] HIB 4 Dose Schedule 2002 Completed [facility] 00:00:00 [facility] Pneumococcal 13 2002 Completed [facility] of Conjugate, PCV13 00:00:00 [facility] dical (Prevnar 13) Branch Polio (IPV/OPV) 2002 Completed [facility] 00:00:00 [facility] DTAP 2002 Completed [facility] 00:00:00 [facility] HIB 4 Dose Schedule 2002 Completed [facility] 00:00:00 [facility] Pneumococcal 13 2002 Completed [facility] of Conjugate, PCV13 00:00:00 [facility] dical (Prevnar 13) Branch Polio (IPV/OPV) 2002 Completed [facility] 00:00:00 [facility] DTAP 2002 Completed [facility] 00:00:00 [facility] HIB 4 Dose Schedule 2002 Completed [facility] 00:00:00 [facility] Pneumococcal 13 2002 Completed [facility] of Conjugate, PCV13 00:00:00 [facility] dical (Prevnar 13) Branch Polio (IPV/OPV) 2002 Completed [facility] 00:00:00 [facility] DTAP 2002 Completed [facility] 00:00:00 [facility] HIB 4 Dose Schedule 2002 Completed [facility] 00:00:00 [facility] Pneumococcal 13 2002 Completed [facility] of Conjugate, PCV13 00:00:00 [facility] dical (Prevnar 13) Branch Polio (IPV/OPV) 2002 Completed [facility] 00:00:00 [facility] DTAP 2002 Completed [facility] 00:00:00 [facility] HIB 4 Dose Schedule 2002 Completed [facility] 00:00:00 [facility] Pneumococcal 13 2002 Completed [facility] of Conjugate, PCV13 00:00:00 [facility] (Prevnar 13) Branch Polio (IPV/OPV) 2002 Completed [facility] 00:00:00 [facility] DTAP 2002 Completed [facility] 00:00:00 [facility] HIB 4 Dose Schedule 2002 Completed [facility] 00:00:00 [facility] Pneumococcal 13 2002 Completed [facility] of Conjugate, PCV13 00:00:00 [facility] dical (Prevnar 13) Branch Polio (IPV/OPV) 2002 Completed [facility] 00:00:00 [facility] DTAP 2002 Completed [facility] 00:00:00 [facility] HIB 4 Dose Schedule 2002 Completed [facility] 00:00:00 [facility] Pneumococcal 13 2002 Completed [facility] of Conjugate, PCV13 00:00:00 [facility] dical (Prevnar 13) Branch Polio (IPV/OPV) 2002 Completed [facility] 00:00:00 [facility] DTAP 2002 Completed [facility] 00:00:00 [facility] HIB 4 Dose Schedule 2002 Completed [facility] 00:00:00 [facility] Pneumococcal 13 2002 Completed [facility] of Conjugate, PCV13 00:00:00 [facility] dical (Prevnar 13) Branch Polio (IPV/OPV) 2002 Completed [facility] 00:00:00 [facility] DTAP 2002 Completed [facility] 00:00:00 [facility] HIB 4 Dose Schedule 2002 Completed [facility] 00:00:00 [facility] Pneumococcal 13 2002 Completed [facility] of Conjugate, PCV13 00:00:00 [facility] dical (Prevnar 13) Branch Polio (IPV/OPV) 2002 Completed [facility] 00:00:00 [facility] DTAP 2002 Completed [facility] 00:00:00 [facility] HIB 4 Dose Schedule 2002 Completed [facility] 00:00:00 [facility] Pneumococcal 13 2002 Completed [facility] of Conjugate, PCV13 00:00:00 [facility] (Prevnar 13) Branch Polio (IPV/OPV) 2002 Completed [facility] 00:00:00 [facility] DTAP 2002 Completed [facility] 00:00:00 [facility] HIB 4 Dose Schedule 2002 Completed [facility] 00:00:00 [facility] Pneumococcal 13 2002 Completed [facility] of Conjugate, PCV13 00:00:00 [facility] (Prevnar 13) Branch Polio (IPV/OPV) 2002 Completed [facility] 00:00:00 [facility] DTAP 2002 Completed [facility] 00:00:00 [facility] [facility] H[facility] 4 Dose Schedule 2002 Completed [facility] 00:00:00 [facility] Pneumococcal 13 2002 Completed [facility] y of Conjugate, PCV13 00:00:00 [facility] dical (Prevnar 13) Branch Polio (IPV/OPV) 2002 Completed [facility] 00:00:00 [facility] DTAP 2002 Completed [facility] of 00:00:00 [facility] HIB 4 Dose Schedule 2002 Completed [facility] 00:00:00 [facility] Pneumococcal 13 2002 Completed [facility] of Conjugate, PCV13 00:00:00 [facility] dical (Prevnar 13) Branch Polio (IPV/OPV) 2002 Completed [facility] 00:00:00 [facility] DTAP 2002 Completed [facility] of 00:00:00 [facility] HIB 4 Dose Schedule 2002 Completed [facility] of 00:00:00 [facility] Pneumococcal 13 2002 Completed [facility] of Conjugate, PCV13 00:00:00 [facility] dical (Prevnar 13) Branch Polio (IPV/OPV) 2002 Completed [facility] 00:00:00 [facility] DTAP 2002 Completed [facility] of 00:00:00 [facility] HIB 4 Dose Schedule 2002 Completed [facility] of 00:00:00 [facility] Pneumococcal 13 2002 Completed [facility] of Conjugate, PCV13 00:00:00 [facility] dical (Prevnar 13) Branch Polio (IPV/OPV) 2002 Completed [facility] 00:00:00 [facility] DTAP 2002 Completed [facility] of 00:00:00 [facility] HIB 4 Dose Schedule 2002 Completed [facility] of 00:00:00 [facility] Pneumococcal 13 2002 Completed [facility] of Conjugate, PCV13 00:00:00 [facility] dical (Prevnar 13) Branch Polio (IPV/OPV) 2002 Completed [facility] 00:00:00 [facility] DTAP 2002 Completed [facility] 00:00:00 [facility] HIB 4 Dose Schedule 2002 Completed [facility] 00:00:00 [facility] Pneumococcal 13 2002 Completed [facility] of Conjugate, PCV13 00:00:00 [facility] dical (Prevnar 13) Branch Polio (IPV/OPV) 2002 Completed [facility] 00:00:00 [facility] DTAP 2002 Completed [facility] 00:00:00 [facility] HIB 4 Dose Schedule 2002 Completed [facility] of 00:00:00 [facility] Pneumococcal 13 2002 Completed [facility] of Conjugate, PCV13 00:00:00 [facility] dical (Prevnar 13) Branch Polio (IPV/OPV) 2002 Completed [facility] 00:00:00 [facility] DTAP 2002 Completed [facility] 00:00:00 [facility] HIB 4 Dose Schedule 2002 Completed [facility] 00:00:00 [facility] Pneumococcal 13 2002 Completed [facility] of Conjugate, PCV13 00:00:00 [facility] dical (Prevnar 13) Branch Polio (IPV/OPV) 2002 Completed [facility] 00:00:00 [facility] DTAP 2002 Completed [facility] of 00:00:00 [facility] HIB 4 Dose Schedule 2002 Completed [facility] 00:00:00 [facility] Pneumococcal 13 2002 Completed [facility] Conjugate, PCV13 00:00:00 [facility] (Prevnar 13) Branch Polio (IPV/OPV) 2002 Completed [facility] of 00:00:00 [facility] DTAP 2002 Completed [facility] 00:00:00 [facility] HIB 4 Dose Schedule 2002 Completed [facility] of 00:00:00 [facility] Pneumococcal 13 2002 Completed [facility] of Conjugate, PCV13 00:00:00 [facility] dical (Prevnar 13) Branch Polio (IPV/OPV) 2002 Completed [facility] 00:00:00 [facility] DTAP 2002 Completed [facility] 00:00:00 [facility] HIB 4 Dose Schedule 2002 Completed [facility] 00:00:00 [facility] Pneumococcal 13 2002 Completed [facility] of Conjugate, PCV13 00:00:00 [facility] dical (Prevnar 13) Branch Polio (IPV/OPV) 2002 Completed [facility] of 00:00:00 [facility] DTAP 2002 Completed [facility] of 00:00:00 [facility] HIB 4 Dose Schedule 2002 Completed [facility] of 00:00:00 [facility] Pneumococcal 13 2002 Completed [facility] of Conjugate, PCV13 00:00:00 [facility] dical (Prevnar 13) Branch Polio (IPV/OPV) 2002 Completed [facility] of 00:00:00 [facility] DTAP 2002 Completed [facility] 00:00:00 [facility] HIB 4 Dose Schedule 2002 Completed [facility] 00:00:00 [facility] Pneumococcal 13 2002 Completed [facility] of Conjugate, PCV13 00:00:00 [facility] dical (Prevnar 13) Branch Polio (IPV/OPV) 2002 Completed [facility] of 00:00:00 [facility] DTAP 2002 Completed [facility] 00:00:00 [facility] HIB 4 Dose Schedule 2002 Completed [facility] of 00:00:00 [facility] Pneumococcal 13 2002 Completed [facility] of Conjugate, PCV13 00:00:00 [facility] (Prevnar 13) Branch Polio (IPV/OPV) 2002 Completed [facility] 00:00:00 [facility] DTAP 2002 Completed [facility] of 00:00:00 [facility] HIB 4 Dose Schedule 2002 Completed [facility] of 00:00:00 [facility] Pneumococcal 13 2002 Completed [facility] of Conjugate, PCV13 00:00:00 [facility] dical (Prevnar 13) Branch Polio (IPV/OPV) 2002 Completed [facility] of 00:00:00 [facility] DTAP 2002 Completed [facility] of 00:00:00 [facility] HIB 4 Dose Schedule 2002 Completed [facility] of 00:00:00 [facility] Pneumococcal 13 2002 Completed [facility] of Conjugate, PCV13 00:00:00 [facility] dical (Prevnar 13) Branch Polio (IPV/OPV) 2002 Completed [facility] of 00:00:00 [facility] DTAP 2002 Completed [facility] of 00:00:00 [facility] HIB 4 Dose Schedule 2002 Completed [facility] 00:00:00 [facility] Polio (IPV/OPV) 2002 Completed [facility] 00:00:00 [facility] DTAP 2002 Completed [facility] of 00:00:00 [facility] HIB 4 Dose Schedule 2002 Completed [facility] 00:00:00 [facility] Polio (IPV/OPV) 2002 Completed [facility] 00:00:00 [facility] DTAP 2002 Completed [facility] 00:00:00 [facility] HIB 4 Dose Schedule 2002 Completed [facility] 00:00:00 [facility] Polio (IPV/OPV) 2002 Completed [facility] 00:00:00 [facility] DTAP 2002 Completed [facility] 00:00:00 [facility] HIB 4 Dose Schedule 2002 Completed [facility] 00:00:00 [facility] Polio (IPV/OPV) 2002 Completed [facility] 00:00:00 [facility] DTAP 2002 Completed [facility] 00:00:00 [facility] HIB 4 Dose Schedule 2002 Completed [facility] 00:00:00 [facility] Polio (IPV/OPV) 2002 Completed [facility] 00:00:00 [facility] DTAP 2002 Completed [facility] 00:00:00 [facility] HIB 4 Dose Schedule 2002 Completed [facility] 00:00:00 [facility] Polio (IPV/OPV) 2002 Completed [facility] 00:00:00 [facility] DTAP 2002 Completed [facility] 00:00:00 [facility] HIB 4 Dose Schedule 2002 Completed [facility] 00:00:00 [facility] Polio (IPV/OPV) 2002 Completed [facility] 00:00:00 [facility] DTAP 2002 Completed [facility] 00:00:00 [facility] HIB 4 Dose Schedule 2002 Completed [facility] 00:00:00 [facility] Polio (IPV/OPV) 2002 Completed [facility] 00:00:00 [facility] DTAP 2002 Completed [facility] 00:00:00 [facility] HIB 4 Dose Schedule 2002 Completed [facility] 00:00:00 [facility] Polio (IPV/OPV) 2002 Completed [facility] 00:00:00 [facility] DTAP 2002 Completed [facility] 00:00:00 [facility] HIB 4 Dose Schedule 2002 Completed [facility] 00:00:00 [facility] Polio (IPV/OPV) 2002 Completed [facility] 00:00:00 [facility] DTAP 2002 Completed [facility] 00:00:00 [facility] HIB 4 Dose Schedule 2002 Completed [facility] 00:00:00 [facility] Polio (IPV/OPV) 2002 Completed [facility] 00:00:00 [facility] DTAP 2002 Completed [facility] 00:00:00 [facility] HIB 4 Dose Schedule 2002 Completed [facility] 00:00:00 [facility] Polio (IPV/OPV) 2002 Completed [facility] 00:00:00 [facility] DTAP 2002 Completed [facility] 00:00:00 [facility] HIB 4 Dose Schedule 2002 Completed [facility] 00:00:00 [facility] Polio (IPV/OPV) 2002 Completed [facility] 00:00:00 [facility] DTAP 2002 Completed [facility] 00:00:00 [facility] HIB 4 Dose Schedule 2002 Completed [facility] 00:00:00 [facility] Polio (IPV/OPV) 2002 Completed [facility] 00:00:00 [facility] DTAP 2002 Completed [facility] 00:00:00 [facility] HIB 4 Dose Schedule 2002 Completed [facility] 00:00:00 [facility] Polio (IPV/OPV) 2002 Completed [facility] 00:00:00 [facility] DTAP 2002 Completed [facility] 00:00:00 [facility] HIB 4 Dose Schedule 2002 Completed [facility] 00:00:00 [facility] Polio (IPV/OPV) 2002 Completed [facility] 00:00:00 [facility] DTAP 2002 Completed [facility] 00:00:00 [facility] HIB 4 Dose Schedule 2002 Completed [facility] 00:00:00 [facility] Polio (IPV/OPV) 2002 Completed [facility] 00:00:00 [facility] DTAP 2002 Completed [facility] 00:00:00 [facility] HIB 4 Dose Schedule 2002 Completed [facility] 00:00:00 [facility] Polio (IPV/OPV) 2002 Completed [facility] 00:00:00 [facility] DTAP 2002 Completed [facility] 00:00:00 [facility] HIB 4 Dose Schedule 2002 Completed [facility] 00:00:00 [facility] Polio (IPV/OPV) 2002 Completed [facility] 00:00:00 [facility] DTAP 2002 Completed [facility] 00:00:00 [facility] HIB 4 Dose Schedule 2002 Completed [facility] 00:00:00 [facility] Polio (IPV/OPV) 2002 Completed [facility] 00:00:00 [facility] DTAP 2002 Completed [facility] 00:00:00 [facility] HIB 4 Dose Schedule 2002 Completed [facility] 00:00:00 [facility] Polio (IPV/OPV) 2002 Completed [facility] 00:00:00 [facility] DTAP 2002 Completed [facility] 00:00:00 [facility] HIB 4 Dose Schedule 2002 Completed [facility] 00:00:00 [facility] Polio (IPV/OPV) 2002 Completed [facility] 00:00:00 [facility] DTAP 2002 Completed [facility] 00:00:00 [facility] HIB 4 Dose Schedule 2002 Completed [facility] 00:00:00 [facility] Polio (IPV/OPV) 2002 Completed [facility] 00:00:00 [facility] DTAP 2002 Completed [facility] 00:00:00 [facility] HIB 4 Dose Schedule 2002 Completed [facility] 00:00:00 [facility] Polio (IPV/OPV) 2002 Completed [facility] 00:00:00 [facility] DTAP 2002 Completed [facility] 00:00:00 [facility] HIB 4 Dose Schedule 2002 Completed [facility] 00:00:00 [facility] Polio (IPV/OPV) 2002 Completed [facility] 00:00:00 [facility] DTAP 2002 Completed [facility] 00:00:00 [facility] HIB 4 Dose Schedule 2002 Completed [facility] 00:00:00 [facility] Polio (IPV/OPV) 2002 Completed [facility] 00:00:00 [facility] DTAP 2002 Completed [facility] 00:00:00 [facility] HIB 4 Dose Schedule 2002 Completed [facility] 00:00:00 [facility] Polio (IPV/OPV) 2002 Completed [facility] 00:00:00 [facility] DTAP 2002 Completed [facility] 00:00:00 [facility] HIB 4 Dose Schedule 2002 Completed [facility] 00:00:00 [facility] Polio (IPV/OPV) 2002 Completed [facility] 00:00:00 [facility] DTAP 2002 Completed [facility] 00:00:00 [facility] HIB 4 Dose Schedule 2002 Completed [facility] 00:00:00 [facility] Polio (IPV/OPV) 2002 Completed [facility] 00:00:00 [facility] DTAP 2002 Completed [facility] 00:00:00 [facility] HIB 4 Dose Schedule 2002 Completed [facility] 00:00:00 [facility] Polio (IPV/OPV) 2002 Completed [facility] 00:00:00 [facility] DTAP 2002 Completed [facility] 00:00:00 [facility] HIB 4 Dose Schedule 2002 Completed [facility] 00:00:00 [facility] Polio (IPV/OPV) 2002 Completed [facility] 00:00:00 [facility] DTAP 2002 Completed [facility] 00:00:00 [facility] HIB 4 Dose Schedule 2002 Completed [facility] 00:00:00 [facility] Polio (IPV/OPV) 2002 Completed [facility] 00:00:00 [facility] DTAP 2002 Completed [facility] 00:00:00 [facility] HIB 4 Dose Schedule 2002 Completed [facility] 00:00:00 [facility] Polio (IPV/OPV) 2002 Completed [facility] 00:00:00 [facility] DTAP 2002 Completed [facility] 00:00:00 [facility] HIB 4 Dose Schedule 2002 Completed [facility] 00:00:00 [facility] Polio (IPV/OPV) 2002 Completed [facility] 00:00:00 [facility] DTAP 2002 Completed [facility] 00:00:00 [facility] HIB 4 Dose Schedule 2002 Completed [facility] 00:00:00 [facility] Polio (IPV/OPV) 2002 Completed [facility] 00:00:00 [facility] DTAP 2002 Completed [facility] 00:00:00 [facility] HIB 4 Dose Schedule 2002 Completed [facility] 00:00:00 [facility] Polio (IPV/OPV) 2002 Completed [facility] 00:00:00 [facility] Hep B, Adol or Pedi 2002 Completed [facility]ive [facility] of Dosage 00:00:00 [facility] Hep B, Adol or Pedi 2002 Completed [facility] Dosage 00:00:00 [facility] Hep B, Adol or Pedi 2002 Completed [facility] of Dosage 00:00:00 [facility] Hep B, Adol or Pedi 2002 Completed [facility] of Dosage 00:00:00 [facility] Hep B, Adol or Pedi 2002 Completed [facility] of Dosage 00:00:00 [facility] Hep B, Adol or Pedi 2002 Completed [facility] of Dosage 00:00:00 [facility] Hep B, Adol or Pedi 2002 Completed [facility] of Dosage 00:00:00 [facility] Hep B, Adol or Pedi 2002 Completed [facility] of Dosage 00:00:00 [facility] Hep B, Adol or Pedi 2002 Completed [facility] of Dosage 00:00:00 [facility] Hep B, Adol or Pedi 2002 Completed [facility] of Dosage 00:00:00 [facility] Hep B, Adol or Pedi 2002 Completed [facility] of Dosage 00:00:00 [facility] Hep B, Adol or Pedi 2002 Completed [facility] of Dosage 00:00:00 [facility] Hep B, Adol or Pedi 2002 Completed [facility] of Dosage 00:00:00 [facility] Hep B, Adol or Pedi 2002 Completed [facility] of Dosage 00:00:00 [facility] Hep B, Adol or Pedi 2002 Completed [facility] of Dosage 00:00:00 [facility] Hep B, Adol or Pedi 2002 Completed [facility] of Dosage 00:00:00 [facility] Hep B, Adol or Pedi 2002 Completed [facility] of Dosage 00:00:00 [facility] Hep B, Adol or Pedi 2002 Completed [facility] of Dosage 00:00:00 [facility] Hep B, Adol or Pedi 2002 Completed [facility] of Dosage 00:00:00 [facility] Hep B, Adol or Pedi 2002 Completed [facility] of Dosage 00:00:00 [facility] Hep B, Adol or Pedi 2002 Completed [facility] of Dosage 00:00:00 [facility] Hep B, Adol or Pedi 2002 Completed [facility] of Dosage 00:00:00 [facility] Hep B, Adol or Pedi 2002 Completed [facility] of Dosage 00:00:00 [facility] Hep B, Adol or Pedi 2002 Completed [facility] of Dosage 00:00:00 [facility] Hep B, Adol or Pedi 2002 Completed [facility] of Dosage 00:00:00 [facility] Hep B, Adol or Pedi 2002 Completed [facility] of Dosage 00:00:00 [facility] Hep B, Adol or Pedi 2002 Completed [facility] of Dosage 00:00:00 [facility] Hep B, Adol or Pedi 2002 Completed [facility] of Dosage 00:00:00 [facility] Hep B, Adol or Pedi 2002 Completed [facility] of Dosage 00:00:00 [facility] Hep B, Adol or Pedi 2002 Completed [facility] of Dosage 00:00:00 [facility] Hep B, Adol or Pedi 2002 Completed [facility] of Dosage 00:00:00 [facility] Hep B, Adol or Pedi 2002 Completed [facility] of Dosage 00:00:00 [facility] Hep B, Adol or Pedi 2002 Completed [facility] of Dosage 00:00:00 [facility] Hep B, Adol or Pedi 2002 Completed [facility] of Dosage 00:00:00 [facility] Hep B, Adol or Pedi 2002 Completed [facility] of Dosage 00:00:00 [facility] Hep B, Adol or Pedi 2002 Completed [facility] of Dosage 00:00:00 [facility] Hep B, Adol or Pedi 2002 Completed [facility] of Dosage 00:00:00 [facility] Hep B, Adol or Pedi 2002 Completed [facility] of Dosage 00:00:00 [facility] Hep B, Adol or Pedi 2002 Completed [facility] of Dosage 00:00:00 [facility] Hep B, Adol or Pedi 2002 Completed [facility] of Dosage 00:00:00 [facility] Hep B, Adol or Pedi 2002 Completed [facility] of Dosage 00:00:00 [facility] Hep B, Adol or Pedi 2002 Completed [facility] of Dosage 00:00:00 [facility] Hep B, Adol or Pedi 2002 Completed [facility] of Dosage 00:00:00 [facility] Hep B, Adol or Pedi 2002 Completed [facility] of Dosage 00:00:00 [facility] Hep B, Adol or Pedi 2002 Completed [facility] of Dosage 00:00:00 [facility] Hep B, Adol or Pedi 2002 Completed [facility] of Dosage 00:00:00 [facility] Hep B, Adol or Pedi 2002 Completed [facility] of Dosage 00:00:00 [facility] Hep B, Adol or Pedi 2002 Completed [facility] of Dosage 00:00:00 [facility] Hep B, Adol or Pedi 2002 Completed [facility] of Dosage 00:00:00 [facility] Hep B, Adol or Pedi 2002 Completed [facility] of Dosage 00:00:00 [facility] Hep B, Adol or Pedi 2002 Completed [facility] of Dosage 00:00:00 [facility] Hep B, Adol or Pedi 2002 Completed [facility] of Dosage 00:00:00 [facility] Hep B, Adol or Pedi 2002 Completed [facility] of Dosage 00:00:00 [facility] Hep B, Adol or Pedi 2002 Completed [facility] of Dosage 00:00:00 [facility] Hep B, Adol or Pedi 2002 Completed [facility] of Dosage 00:00:00 [facility] Hep B, Adol or Pedi 2002 Completed [facility] of Dosage 00:00:00 [facility] Hep B, Adol or Pedi 2002 Completed [facility] of Dosage 00:00:00 [facility] Hep B, Adol or Pedi 2002 Completed [facility] of Dosage 00:00:00 [facility] Hep B, Adol or Pedi 2002 Completed [facility] of Dosage 00:00:00 [facility] Hep B, Adol or Pedi 2002 Completed [facility] of Dosage 00:00:00 [facility] Hep B, Adol or Pedi 2002 Completed [facility] of Dosage 00:00:00 [facility] Hep B, Adol or Pedi 2002 Completed [facility] of Dosage 00:00:00 [facility] Hep B, Adol or Pedi 2002 Completed [facility] of Dosage 00:00:00 [facility] Hep B, Adol or Pedi 2002 Completed [facility] of Dosage 00:00:00 [facility] Hep B, Adol or Pedi 2002 Completed [facility] of Dosage 00:00:00 [facility] Hep B, Adol or Pedi 2002 Completed [facility] of Dosage 00:00:00 [facility] Hep B, Adol or Pedi 2002 Completed [facility] of Dosage 00:00:00 [facility] Hep B, Adol or Pedi 2002 Completed [facility] of Dosage 00:00:00 [facility] Hep B, Adol or Pedi 2002 Completed [facility] of Dosage 00:00:00 [facility] Hep B, Adol or Pedi 2002 Completed [facility] of Dosage 00:00:00 [facility] Hep B, Adol or Pedi 2002 Completed [facility] of Dosage 00:00:00 [facility] Hep B, Adol or Pedi 2002 Completed [facility] Dosage 00:00:00 [facility] HPV9 Unknown Completed [facility] HPV9 Unknown Completed [facility] Meningococcal Unknown Completed [facility] manish (groups A, C, Y and Branc h W-135) conjugate vaccine (MCV4P) DTAP Unknown Completed [facility] DTAP Unknown Completed [facility] DTAP Unknown Completed [facility] DTAP Unknown Completed [facility] DTAP Unknown Completed [facility]IB 4 Dose Schedule [facility] D[facility] Completed [facility] HIB 4 Dose Schedule Unknown [facility] D[facility] Com[facility] HEPATITIS A Unknown Completed [facility] Hep B, Adol or Pedi Unknown Completed Unive [facility]ity [facility] Dosage [facility] Hep B, Adol or Pedi Unknown Completed [facility] Dosage [facility] Hep B, Adol or Pedi Unknown Completed [facility]ive [facility] of Dosage [facility] HPV Unknown Completed [facility] HPV Unknown Completed [facility] Meningococcal Unknown Completed [facility] manish (groups A, C, Y and Branc h W-135) conjugate vaccine (MCV4P) Pneumococcal 13 Unknown Completed [facility] Conjugate, PCV13 [facility] (Prevnar 13) Branch Pneumococcal 13 Unknown Completed [facility] of Conjugate, PCV13 [facility] dical (Prevnar 13) Branch Pneumococcal 13 Unknown Completed [facility] of Conjugate, PCV13 [facility] dical (Prevnar 13) Branch Pneumococcal 13 Unknown Completed [facility] of Conjugate, PCV13 [facility] dical (Prevnar 13) Branch Polio (IPV/OPV) Unknown Completed [facility] Polio (IPV/OPV) Unknown Completed [facility] Polio (IPV/OPV) Unknown Completed [facility] Polio (IPV/OPV) Unknown Completed [facility] Proquad Unknown Completed [facility] (MMR/VARICELLA) [facility] Proquad Unknown Completed [facility] (MMR/VARICELLA) [facility] TDAP Unknown Completed [facility] PPD (TB) Unknown Completed [facility] Meningococcal B, OMV Unknown [facility] Influ[facility] Virus Unknown Completed Univers[facility] y of Vaccine Quad .5 mL [facility] 6+ MO Branch (FLUZONE/FLULAVAL/FL UARIX) TDAP Unknown Completed [facility] Influenza Virus Unknown Completed Universit y of Vaccine Quad IM, [facility] dical Preserv and ABX Free Bran ch 6 MO-64 YRS (FLUCELVAX) HPV9 Unknown Completed [facility] HPV9 Unknown Completed [facility] Meningococcal Unknown Completed [facility] (groups A, C, Y and Branc h W-135) conjugate vaccine (MCV4P) DTAP Unknown Completed [facility] DTAP Unknown Completed [facility] DTAP Unknown Completed [facility] DTAP Unknown Completed [facility] DTAP Unknown Completed [facility] HIB 4 Dose Schedule Unknown Com[facility] Dose [facility] Dose Schedule [facility] 4 Dose Schedule Unknown Com[facility] Completed [facility] HEPATITIS A Unknown Completed [facility] Hep B, Adol or Pedi Unknown Completed Unive rsity of [facility] Hep B, Adol or Pedi Unknown Completed Unive rsity of [facility] Hep B, Adol or Pedi Unknown Completed Unive rsity of Dosage [facility] HPV Unknown Completed [facility] HPV Unknown Completed [facility] Meningococcal Unknown Completed [facility] Polysaccharide [facility] (groups A, C, Y and Branc h W-135) conjugate vaccine (MCV4P) Pneumococcal 13 Unknown Completed Universit y of Conjugate, PCV13 [facility] dical (Prevnar 13) Branch Pneumococcal 13 Unknown Completed Universit y of Conjugate, PCV13 [facility] dical (Prevnar 13) Branch Pneumococcal 13 Unknown Completed Universit y of Conjugate, PCV13 [facility] dical (Prevnar 13) Branch Pneumococcal 13 Unknown Completed Universit y of Conjugate, PCV13 [facility] dical (Prevnar 13) Branch Polio (IPV/OPV) Unknown Completed Universit y [facility] Polio (IPV/OPV) Unknown Completed Universit y [facility] Polio (IPV/OPV) Unknown Completed Universit y [facility] Polio (IPV/OPV) Unknown Completed Universit y [facility] Proquad Unknown Completed University (MMR/VARICELLA) [facility] Proquad Unknown Completed [facility] (MMR/VARICELLA) [facility] TDAP Unknown Completed [facility] PPD (TB) Unknown Completed [facility] Meningococcal B, OMV Unknown [facility] Influ[facility] Virus Unknown Completed Universit y of Vaccine Quad .5 mL [facility] 6+ MO Branch (FLUZONE/FLULAVAL/FL UARIX) TDAP Unknown Completed [facility] Influenza Virus Unknown Completed Universit y of Vaccine Quad IM, [facility] dicky Preserv and ABX Free Bran ch 6 MO-64 YRS (FLUCELVAX) HPV9 Unknown Completed [facility] HPV9 Unknown Completed [facility] Meningococcal Unknown Completed [facility] Polysaccharide [facility] man[facility] (groups A, C, Y and Branc h W-135) conjugate vaccine (MCV4P) DTAP Unknown Completed [facility] DTAP Unknown Completed [facility] DTAP Unknown Completed [facility] DTAP Unknown Completed [facility] DTAP Unknown Completed [facility] HIB 4 Dose Schedule Unknown Completed Unive rsity [facility] HIB 4 Dose Schedule Unknown Completed Unive rsity [facility] HIB 4 Dose Schedule Unknown Completed Unive rsity [facility] HIB 4 Dose Schedule Unknown Completed Unive rsity [facility] HEPATITIS A Unknown Completed [facility] HEPATITIS A Unknown Completed [facility] Hep B, Adol or Pedi Unknown Completed Unive rsity of Dosage [facility] Hep B, Adol or Pedi Unknown Completed Unive rsity of Dosage [facility] Hep B, Adol or Pedi Unknown Completed Unive rsity of Dosage [facility] HPV Unknown Completed [facility] HPV Unknown Completed [facility] Meningococcal Unknown Completed [facility] Polysaccharide [facility] (groups A, C, Y and Branc h W-135) conjugate vaccine (MCV4P) Pneumococcal 13 Unknown Completed Universit y of Conjugate, PCV13 [facility] dical (Prevnar 13) Branch Pneumococcal 13 Unknown Completed Universit y of Conjugate, PCV13 [facility] dical (Prevnar 13) Branch Pneumococcal 13 Unknown Completed Universit y of Conjugate, PCV13 [facility] dical (Prevnar 13) Branch Pneumococcal 13 Unknown Completed Universit y of Conjugate, PCV13 [facility] dical (Prevnar 13) Branch Polio (IPV/OPV) Unknown Completed Universit y [facility] Polio (IPV/OPV) Unknown Completed Universit y [facility] Polio (IPV/OPV) Unknown Completed Universit y [facility] Polio (IPV/OPV) Unknown Completed Universit y of [facility] Proquad Unknown Completed University of (MMR/VARICELLA) [facility] Proquad Unknown Completed University (MMR/VARICELLA) [facility] TDAP Unknown Completed [facility] PPD (TB) Unknown Completed [facility] Meningococcal B, OMV Unknown [facility] Influ[facility] Virus Unknown Completed Universit y of Vaccine Quad .5 mL [facility] IM 6+ MO Branch (FLUZONE/FLULAVAL/FL UARIX) TDAP Unknown Completed [facility] Influenza Virus Unknown Completed Universit y of Vaccine Quad IM, [facility] dical Preserv and ABX Free Bran ch 6 MO-64 YRS (FLUCELVAX) HPV9 Unknown Completed [facility] HPV9 Unknown Completed [facility] Meningococcal Unknown Completed University Polysaccharide [facility] (groups A, C, Y and Branc h W-135) conjugate vaccine (MCV4P) DTAP Unknown Completed [facility] DTAP Unknown Completed [facility] DTAP Unknown Completed [facility] DTAP Unknown Completed [facility] DTAP Unknown Completed [facility] HIB 4 Dose Schedule Unknown Completed Unive rsity [facility] HIB 4 Dose Schedule Unknown Completed Unive rsity [facility] HIB 4 Dose Schedule Unknown Completed Unive rsity [facility] HIB 4 Dose Schedule Unknown Completed Unive rsity [facility] HEPATITIS A Unknown Completed [facility] HEPATITIS A Unknown Completed [facility] Hep B, Adol or Pedi Unknown Completed Unive rsity of Dosage [facility] Hep B, Adol or Pedi Unknown Completed Unive rsity of [facility] Hep B, Adol or Pedi Unknown Completed Unive rsity of Dosage [facility] HPV Unknown Completed [facility] HPV Unknown Completed [facility] Meningococcal Unknown Completed [facility] manish (groups A, C, Y and Branc h W-135) conjugate vaccine (MCV4P) Pneumococcal 13 Unknown Completed Universit y of Conjugate, PCV13 [facility] dical (Prevnar 13) Branch Pneumococcal 13 Unknown Completed Universit y of Conjugate, PCV13 [facility] dical (Prevnar 13) Branch Pneumococcal 13 Unknown Completed Universit y of Conjugate, PCV13 [facility] dical (Prevnar 13) Branch Pneumococcal 13 Unknown Completed Universit y of Conjugate, PCV13 [facility] dical (Prevnar 13) Branch Polio (IPV/OPV) Unknown Completed Universit y [facility] Polio (IPV/OPV) Unknown Completed Universit y [facility] Polio (IPV/OPV) Unknown Completed Universit y [facility] Polio (IPV/OPV) Unknown Completed Universit y [facility] Proquad Unknown Completed University of (MMR/VARICELLA) [facility] Proquad Unknown Completed University (MMR/VARICELLA) [facility] TDAP Unknown Completed [facility] PPD (TB) Unknown Completed [facility] Meningococcal B, OMV Unknown Completed Univ ersity [facility] Influenza Virus Unknown Completed Universit y of Vaccine Quad .5 mL [facility] 6+ MO Branch (FLUZONE/FLULAVAL/FL UARIX) HPV9 Unknown Completed [facility] HPV9 Unknown Completed [facility] Meningococcal Unknown Completed [facility] manish (groups A, C, Y and Branc h W-135) conjugate vaccine (MCV4P) DTAP Unknown Completed [facility] DTAP Unknown Completed [facility] DTAP Unknown Completed [facility] DTAP Unknown Completed [facility] DTAP Unknown Completed [facility] HIB 4 Dose Schedule Unknown Completed Unive rsity [facility] HIB 4 Dose Schedule Unknown Com[facility] 4 Dose Schedule Unknown Completed Unive rsity [facility] HIB 4 Dose Schedule Unknown Completed Unive rsity [facility] HEPATITIS A Unknown Completed [facility] HEPATITIS A Unknown Completed [facility] Hep B, Adol or Pedi Unknown Completed Unive rsity of Dosage [facility] Hep B, Adol or Pedi Unknown Completed Unive rsity of Dosage [facility] Hep B, Adol or Pedi Unknown Completed Unive rsity [facility] HPV Unknown Completed [facility] HPV Unknown Completed [facility] Meningococcal Unknown Completed [facility] (groups A, C, Y and Branc h W-135) conjugate vaccine (MCV4P) Pneumococcal 13 Unknown Completed Universit y of Conjugate, PCV13 [facility] dical (Prevnar 13) Branch Pneumococcal 13 Unknown Completed Universit y of Conjugate, PCV13 [facility] dical (Prevnar 13) Branch Pneumococcal 13 Unknown Completed Universit y of Conjugate, PCV13 [facility] dical (Prevnar 13) Branch Pneumococcal 13 Unknown Completed Universit y of Conjugate, PCV13 [facility] dical (Prevnar 13) Branch Polio (IPV/OPV) Unknown Completed Universit y [facility] Polio (IPV/OPV) Unknown Completed Universit y [facility] Polio (IPV/OPV) Unknown Completed Universit y [facility] Polio (IPV/OPV) Unknown Completed Universit y [facility] Proquad Unknown Completed University of (MMR/VARICELLA) [facility] Proquad Unknown Completed [facility] (MMR/VARICELLA) [facility] TDAP Unknown Completed [facility] PPD (TB) Unknown Completed [facility] Meningococcal B, OMV Unknown Completed Univ ersity [facility] Influenza Virus Unknown Completed Universit y of Vaccine Quad .5 mL [facility] 6+ MO Branch (FLUZONE/FLULAVAL/FL UARIX) HPV9 Unknown Completed [facility] HPV9 Unknown Completed [facility] Meningococcal Unknown Completed [facility] Polysaccharide [facility] (groups A, C, Y and Branc h W-135) conjugate vaccine (MCV4P) DTAP Unknown Completed [facility] DTAP Unknown Completed [facility] DTAP Unknown Completed [facility] DTAP Unknown Completed [facility] DTAP Unknown Completed [facility] HIB 4 Dose Schedule Unknown Completed Unive rsity [facility] HIB 4 Dose Schedule Unknown Completed Unive rsity [facility] HIB 4 Dose Schedule Unknown Completed Unive rsity [facility] HIB 4 Dose Schedule Unknown Completed Unive rsity [facility] HEPATITIS A Unknown Completed [facility] HEPATITIS A Unknown Completed [facility] Hep B, Adol or Pedi Unknown Completed Unive rsity of [facility] Hep B, Adol or Pedi Unknown Completed Unive rsity of [facility] Hep B, Adol or Pedi Unknown Completed Unive rsity of [facility] HPV Unknown Completed [facility] HPV Unknown Completed [facility] Meningococcal Unknown Completed [facility] Polysaccharide [facility] manish (groups A, C, Y and Branc h W-135) conjugate vaccine (MCV4P) Pneumococcal 13 Unknown Completed Universit y of Conjugate, PCV13 [facility] dical (Prevnar 13) Branch Pneumococcal 13 Unknown Completed Universit y of Conjugate, PCV13 [facility] dical (Prevnar 13) Branch Pneumococcal 13 Unknown Completed Universit y of Conjugate, PCV13 [facility] dical (Prevnar 13) Branch Pneumococcal 13 Unknown Completed Universit y of Conjugate, PCV13 [facility] dical (Prevnar 13) Branch Polio (IPV/OPV) Unknown Completed Universit y of [facility] Polio (IPV/OPV) Unknown Completed Universit y [facility] Polio (IPV/OPV) Unknown Completed Universit y of [facility] Polio (IPV/OPV) Unknown Completed Universit y [facility] Proquad Unknown Completed University of (MMR/VARICELLA) [facility] Proquad Unknown Completed University of (MMR/VARICELLA) [facility] TDAP Unknown Completed [facility] PPD (TB) Unknown Completed [facility] Meningococcal B, OMV Unknown Completed Univ ersity [facility] Influenza Virus Unknown Completed Universit y of Vaccine Quad .5 mL [facility] 6+ MO Branch (FLUZONE/FLULAVAL/FL UARIX) Vital Signs Vital Name Observation Time Observation Value Comments Source Systolic blood 2022-08-04 15:17:00 118 mm[Hg] Univer sity of pressure [facility] Diastolic blood 2022-08-04 15:17:00 76 mm[Hg] Unive rsity of [facility] Heart rate 2022-08-04 15:17:00 77 /min Universi ty of [facility] Respiratory rate 2022-08-04 15:17:00 18 /min Univ ersity of [facility] Body height 2022-08-04 15:17:00 162.6 cm Universi ty of [facility] Body weight 2022-08-04 15:17:00 87.091 kg Universi ty of [facility] BMI 2022-08-04 15:17:00 32.96 kg/m2 Universi ty of [facility] Systolic blood 2022-08-01 15:22:00 107 mm[Hg] Univer sity of [facility] Diastolic blood 2022-08-01 15:22:00 71 mm[Hg] Unive rsity of [facility] Heart rate 2022-08-01 15:22:00 85 /min Universi ty of [facility] Body temperature 2022-08-01 15:22:00 36.78 Yasmeen [facility] Body height 2022-08-01 15:22:00 162.6 cm Universi ty of [facility] Body weight 2022-08-01 15:22:00 86.456 kg [facility] BMI 2022-08-01 15:22:00 32.72 kg/m2 Universi ty of [facility] Oxygen saturation in 2022-08-01 15:22:00 98 /min [facility] Arterial blood by [facility] Pulse oximetry Branch Systolic blood 2022-06-23 21:21:00 108 mm[Hg] Univer sity of [facility] Diastolic blood 2022-06-23 21:21:00 74 mm[Hg] Unive rsity of pressure [facility] Heart rate 2022-06-23 21:21:00 98 /min Universi ty of [facility] Body temperature 2022-06-23 21:21:00 36.44 Yasmeen Univ ers[facility] Body height 2022-06-23 21:21:00 162.6 cm [facility] Body weight 2022-06-23 21:21:00 85.775 kg [facility] BMI 2022-06-23 21:21:00 32.46 kg/m2 [facility] Systolic blood 2022-06-03 06:16:00 122 mm[Hg] Univer sity of [facility] Diastolic blood 2022-06-03 06:16:00 57 mm[Hg] Unive rsity of [facility] Heart rate 2022-06-03 06:16:00 84 /min [facility] ty [facility] Body temperature 2022-06-03 06:16:00 36.67 Yasmeen Univ ers[facility] Respiratory rate 2022-06-03 06:16:00 18 /min Univ ersity of [facility] Oxygen saturation in 2022-06-03 06:16:00 99 /min University Arterial blood by [facility] Pulse oximetry Branch Body height 2022-06-01 18:00:00 162.6 cm [facility]i ty of [facility] Body weight 2022-06-01 18:00:00 92.987 kg [facility] BMI 2022-06-01 18:00:00 35.19 kg/m2 [facility] Systolic blood 2022-05-29 21:08:00 119 mm[Hg] Univer sity of [facility] Diastolic blood 2022-05-29 21:08:00 77 mm[Hg] Unive rsity of [facility] Heart rate 2022-05-29 21:08:00 75 /min [facility] ty [facility] Body temperature 2022-05-29 21:08:00 36.72 Yasmeen Univ ersity of [facility] Branch Respiratory rate 2022-05-29 21:08:00 16 /min Univ ersity of [facility] Body height 2022-05-29 21:08:00 162.6 cm Universi ty of [facility] Body weight 2022-05-29 21:08:00 92.534 kg [facility] ty of [facility] BMI 2022-05-29 21:08:00 35.02 kg/m2 [facility] ty of [facility] Oxygen saturation in 2022-05-29 21:08:00 98 /min University of Arterial blood by [place] [employer] [facility] Pulse oximetry Branch Systolic blood 2022-05-26 20:50:00 110 mm[Hg] Univer sity of [facility] Diastolic blood 2022-05-26 20:50:00 72 mm[Hg] Unive rsity of [facility] Heart rate 2022-05-26 20:50:00 82 /min [facility] Body temperature 2022-05-26 20:50:00 36.72 Yasmeen Univ ers[facility] Respiratory rate 2022-05-26 20:50:00 18 /min Univ ers[facility] Body height 2022-05-26 20:50:00 162.6 cm [facility] Body weight 2022-05-26 20:50:00 91.173 kg [facility] BMI 2022-05-26 20:50:00 34.50 kg/m2 [facility] Systolic blood 2022-05-19 21:30:00 120 mm[Hg] Univer sity of [facility] Diastolic blood 2022-05-19 21:30:00 79 mm[Hg] Unive rsity of [facility] Heart rate 2022-05-19 21:30:00 75 /min [facility] Body temperature 2022-05-19 21:30:00 36.89 Yasmeen Univ ers[facility] of [facility] Respiratory rate 2022-05-19 21:30:00 16 /min Univ ers[facility] Body height 2022-05-19 21:30:00 162.6 cm [facility] Body weight 2022-05-19 21:30:00 92.398 kg [facility] BMI 2022-05-19 21:30:00 34.97 kg/m2 [facility] Oxygen saturation in 2022-05-19 21:30:00 98 /min University of Arterial blood by [place] [employer] [facility] Pulse oximetry Branch Systolic blood 2022-05-10 19:17:00 110 mm[Hg] Univer sity of [facility] Diastolic blood 2022-05-10 19:17:00 73 mm[Hg] Unive rsity of [facility] Heart rate 2022-05-10 19:17:00 72 /min [facility] Body temperature 2022-05-10 19:17:00 36.67 Yasmeen Univ [facility] Body height 2022-05-10 19:17:00 162.6 cm [facility] Body weight 2022-05-10 19:17:00 91.899 kg [facility] BMI 2022-05-10 19:17:00 34.78 kg/m2 Universi ty of [facility] Branch Systolic blood 2022-05-09 19:11:00 108 mm[Hg] Univer sity of [facility] Diastolic blood 2022-05-09 19:11:00 69 mm[Hg] Unive rsity of [facility] Heart rate 2022-05-09 19:11:00 85 /min [facility] Body temperature 2022-05-09 19:11:00 36.89 Yasmeen Univ ersity of [facility] Branch Respiratory rate 2022-05-09 19:11:00 16 /min Univ ers[facility] of [facility] Body height 2022-05-09 19:11:00 162.6 cm [facility] Body weight 2022-05-09 19:11:00 92.443 kg [facility] BMI 2022-05-09 19:11:00 34.98 kg/m2 Universi ty of [facility] Branch Oxygen saturation in 2022-05-09 19:11:00 95 /min University of Arterial blood by [facility] Pulse oximetry Branch Systolic blood 2022-05-05 21:31:00 111 mm[Hg] Univer sity of [facility] Diastolic blood 2022-05-05 21:31:00 77 mm[Hg] Unive rsity of [facility] Heart rate 2022-05-05 21:31:00 71 /min [facility] Body temperature 2022-05-05 21:31:00 36.78 Yasmeen Univ ersity of [facility] Branch Respiratory rate 2022-05-05 21:31:00 16 /min Univ ers[facility] Body height 2022-05-05 21:31:00 162.6 cm [facility] Body weight 2022-05-05 21:31:00 92.987 kg [facility] BMI 2022-05-05 21:31:00 35.19 kg/m2 [facility] Oxygen saturation in 2022-05-05 21:31:00 98 /min University Arterial blood by [facility] Pulse oximetry Branch Systolic blood 2022-04-28 16:13:00 101 mm[Hg] Univer sity of [facility] Diastolic blood 2022-04-28 16:13:00 69 mm[Hg] Unive rsity of [facility] Heart rate 2022-04-28 16:13:00 93 /min [facility] Body temperature 2022-04-28 16:13:00 36.61 Yasmeen Univ ers[facility] Respiratory rate 2022-04-28 16:13:00 18 /min Univ ersity of [facility] Branch Body height 2022-04-28 16:13:00 162.6 cm [facility] Body weight 2022-04-28 16:13:00 88.451 kg [facility] BMI 2022-04-28 16:13:00 33.47 kg/m2 [facility] Systolic blood 2022-04-21 16:08:00 108 mm[Hg] Univer sity of [facility] Diastolic blood 2022-04-21 16:08:00 69 mm[Hg] Unive rsity of [facility] Heart rate 2022-04-21 16:08:00 97 /min [facility] Body temperature 2022-04-21 16:08:00 36.83 Yasmeen Univ [facility] Respiratory rate 2022-04-21 16:08:00 18 /min Univ ersity of [facility] Branch Body height 2022-04-21 16:08:00 162.6 cm [facility] Body weight 2022-04-21 16:08:00 87.091 kg [facility] BMI 2022-04-21 16:08:00 32.96 kg/m2 [facility] Systolic blood 2022-04-03 15:29:00 109 mm[Hg] Univer sity of [facility] Diastolic blood 2022-04-03 15:29:00 75 mm[Hg] Unive rsity of [facility] Heart rate 2022-04-03 15:29:00 90 /min [facility] Body temperature 2022-04-03 15:29:00 36.94 Yasmeen [facility] Respiratory rate 2022-04-03 15:29:00 16 /min [facility] Body height 2022-04-03 15:29:00 162.6 cm [facility] Body weight 2022-04-03 15:29:00 87.317 kg [facility] BMI 2022-04-03 15:29:00 33.04 kg/m2 [facility] Oxygen saturation in 2022-04-03 15:29:00 98 /min University of Arterial blood by [facility] Pulse oximetry Branch Systolic blood 2022-03-31 16:12:00 107 mm[Hg] [facility] Diastolic blood 2022-03-31 16:12:00 73 mm[Hg] [facility] Heart rate 2022-03-31 16:12:00 80 /min [facility] Body weight 2022-03-31 16:12:00 85.049 kg [facility] Oxygen saturation in 2022-03-31 16:12:00 96 /min [facility] Arterial blood by [facility] Pulse oximetry Branch Systolic blood 2022-03-20 21:15:00 103 mm[Hg] [facility] Diastolic blood 2022-03-20 21:15:00 67 mm[Hg] [facility] Heart rate 2022-03-20 21:15:00 52 /min [facility] Body temperature 2022-03-20 21:15:00 37.06 Yasmeen [facility] Body height 2022-03-20 21:15:00 162.6 cm [facility] Body weight 2022-03-20 21:15:00 86.456 kg [facility] BMI 2022-03-20 21:15:00 32.72 kg/m2 [facility] Systolic blood 2022-03-03 20:37:00 98 mm[Hg] [facility] Diastolic blood 2022-03-03 20:37:00 63 mm[Hg] [facility] Heart rate 2022-03-03 20:37:00 83 /min [facility] Body temperature 2022-03-03 20:37:00 36.44 Yasmeen [facility] Respiratory rate 2022-03-03 20:37:00 16 /min [facility] Body height 2022-03-03 20:37:00 162.6 cm [facility] Body weight 2022-03-03 20:37:00 84.052 kg [facility] BMI 2022-03-03 20:37:00 31.81 kg/m2 [facility] Oxygen saturation in 2022-03-03 20:37:00 97 /min [facility] Arterial blood by [facility] Pulse oximetry Branch Systolic blood 2022-02-03 16:50:00 91 mm[Hg] [facility] Diastolic blood 2022-02-03 16:50:00 61 mm[Hg] Unive rsity of pressure [facility] Branch Heart rate 2022-02-03 16:50:00 80 /min [facility] Body temperature 2022-02-03 16:50:00 36.61 Yasmeen [facility] Respiratory rate 2022-02-03 16:50:00 17 /min [facility] Body height 2022-02-03 16:50:00 162.6 cm [facility] Body weight 2022-02-03 16:50:00 83.507 kg [facility] BMI 2022-02-03 16:50:00 31.60 kg/m2 [facility] Systolic blood 2022-01-17 14:27:00 103 mm[Hg] Univer sity of pressure [facility] Diastolic blood 2022-01-17 14:27:00 55 mm[Hg] [facility] Heart rate 2022-01-17 14:27:00 71 /min [facility] Body height 2022-01-17 14:27:00 162.6 cm [facility] Body weight 2022-01-17 14:27:00 84.369 kg [facility] BMI 2022-01-17 14:27:00 31.93 kg/m2 [facility] Oxygen saturation in 2022-01-17 14:27:00 99 /min [facility] Arterial blood by [facility] Pulse oximetry Branch Procedures Procedure Date / Time Performing Clinician Source Performed CONSENT FOR 2022-06-23 06:01:00 Doctor Unassigned, Teressa [facility] CONTRACEPTION [facility] POCT TEST 2022-06-23 00:00:00 Erica Burris [facility] CBC WITH DIFF 2022-06-03 10:08:00 Erica Burris [facility] PREPARE PACKED RBC 2022-06-02 02:27:18 Erica Burris [facility] CBC WITH DIFF 2022-06-01 17:54:00 Erica Burris [facility] o f [facility] HEPATITIS B SURFACE 2022-06-01 17:54:00 Erica Burris [facility] ANTIGEN [facility] ADC OR NEREIDA ONLY - 2022-06-01 17:54:00 Erica Burris [facility] RPR [facility] HIV 1/2 AG-AB WITH 2022-06-01 17:54:00 Erica Burris [facility] REFLEX [facility] HB ABO GROUPING 2022-06-01 17:45:00 Erica Burris [place] o f [facility] RHO (D) IMMUNE GLOBULIN 2022-06-01 17:45:00 BurrisErica [facility] ASSIGN[facility] OF BENEFITS 2022-06-01 16:48:52 Doctor Unassigned, Teressa [facility] NON-STRESS TEST 2022-05-29 21:34:28 [facility] URINALYSIS W/O 2022-05-19 00:00:00 Erica Burris [facility] SPECIFIC GRAVITY [facility] NON-STRESS TEST 2022-05-14 23:43:10 Dom Moser [facility] DSU PRE-OP 2022-05-10 06:01:00 Doctor Unassigned, [facility] POCT URINALYSIS W/O 2022-05-10 00:00:[address] [facility] POCT URINALYSIS W/O 2022-04-28 00:00:00 Dom Moser [facility] POCT URINALYSIS W/O 2022-04-21 00:00:00 Erica Burris [facility] POCT URINALYSIS W/O 2022-04-03 00:00:00 Dom Moser [facility] TDAP VACCINE, >11 YRS, 2022-03-20 21:16:33 Erica Burris [facility] Branch FLU VACC (), 6 2022-03-20 21:16:33 Erica Burris [facility] MO-64 YRS, .5ML, IM, Medical [facility] QUAD (FLUCELVAX) POCT URINALYSIS W/O 2022-03-20 00:00:[address] [facility] POCT URINALYSIS W/O 2022-03-03 00:00:00 Dom Moser [facility] POCT URINALYSIS W/O 2022-02-03 16:58:00 Erica Burris [facility] Encounters Start End Encounter Admission Attending Care Care Encounter Source Date/Time Date/Time Type Type Clinicians Facility Department ID 2021-11-27 Outpatient X [facility] IRIS [id number] Univers 09:49:09 [facility] 2022-08-04 2022-08-04 Outpatient R DOM MOSER [facility] B [id number] Univers 09:00:00 09:35:47 DOM MOSER justin [facility] 2022-08-04 2022-08-04 Office BORIS Moser [place] [facility] 1.2.840.114 [id number] Univers 09:00:00 09:35:47 Visit Dom JACOB 350.1.13.10 it [place] [id number] [address] 2022-08-01 2022-08-01 Office [facility] 1.2.840.114 [id number] Univers 09:00:00 09:20:00 Visit Alexia MOORE 350.1.13.10 it[place] [id number] Pa dical NAL 0[address] [facility] 2022-08-01 2022-08-01 [facility] [id number] Univers 09:00:00 09:00:00 ALEXIA loydy o f [facility] 2022-07-21 2022-07-21 Outpatient R DAYTON [facility] [id number] Univers 11:00:00 11:00:00 ity of [facility] 2022-07-06 2022-07-06 Patient Burris [facility] 1.2.840.114 [id number] Univers 00:00:00 00:00:00 Secure Msg Ramírez JACOB 350.1.13.10 it[place] [id number] [address] 2022-06-23 2022-06-23 Outpatient R ERICA BURRIS [facility] [id number] Univers 15:15:00 15:38:12 ity of [facility] 2022-06-23 2022-06-23 Routine [place] [facility] 1.2.840.114 [id number] Univers 15:15:00 15:38:12 Ramírez JACOB 350.1.13.10 i ty of [place] [id number] [address] 2022-06-23 2022-06-23 Orders Doctor GONZALES 1.2.840.114 [id number] Univers 00:00:00 00:00:00 Only Unassigned, BARTOLO 350.1.13.10 ity of [place] [facility] 4.2.7.2.686 Neo [id number] [place] [address] Branch 2022-06-01 2022-06-03 Inpatient P ERICA BURRIS [facility] IRIS [id number] Univers 10:44:00 13:00:00 ity of [facility] 2022-06-01 2022-06-03 Hospital Erica Burris [facility] 1.2.840.114 [id number] Univers 10:44:00 13:00:00 Encounter Ramírez MO[place] 350.1.13.10 [place] [id number] [address] 2022-06-02 2022-06-02 Patient Minancy [facility] 1.2.840.114 [id number] Univers 00:00:00 00:00:00 Secure Msg Dom CECIL 350.1.13.10 it[place] [id number] [address] 2022-06-01 2022-06-01 Anesthesia [facility] 1.2.840.114 [id number] Univers 18:30:46 18:30:46 Event Piter FRANKOARNIE 350.1.13.10 i ty of [facility] [place] [id number] [address] 2022-05-30 2022-05-30 Patient Erica Burris [facility] 1.2.840.114 [id number] Univers 00:00:00 00:00:00 Secure Msg Ramírez JACOB 350.1.13.10 it[place] [id number] [address] 2022-05-29 2022-05-29 Outpatient R ERICA BURRIS [facility] [id number] Univers 15:00:00 15:27:52 ity of [facility] 2022-05-29 2022-05-29 Routine 1, Prema Nst [facility] 1.2.840. 114 [id number] Univers 15:00:00 15:27:52 Erica Burris 350.1.13.10 ity of [place] [id number] [address] 2022-05-26 2022-05-26 Outpatient R ERICA BURRIS [facility] [id number] Univers 14:30:00 15:17:01 ity of [facility] 2022-05-26 2022-05-26 [facility] 1.2. 840.114 [id number] Univers 14:30:00 15:17:01 Erica Burris 350.1.13.10 ity [place] [id number] [address] 2022-05-22 2022-05-22 Patient Erica Burris [facility] 1.2.840.114 [id number] Univers 00:00:00 00:00:00 Secure Msg Ramírez JACOB 350.1.13.10 it[place] [id number] [address] 2022-05-22 2022-05-22 Telephone Erica Burris [facility] 1.2.840.114 [id number] Univers 00:00:00 00:00:00 Ramírez MOORE 350.1.13.10 i ty of [place] [id number] Pa dical [address] 2022-05-19 2022-05-19 Outpatient R ERICA BURRIS [facility] [id number] Univers 14:45:00 15:58:01 ity of [facility] 2022-05-19 2022-05-19 Routine Erica Burris [facility] 1.2.840.114 [id number] Univers 14:45:00 15:58:01 Ramírez JACOB 350.1.13.10 i ty of [place] [id number] [address] 2022-05-15 2022-05-15 [facility] 1.2.840.114 [id number] Univers 00:00:00 00:00:00 Dom JACOB 350.1.13.10 it [place] [id number] [address] 2022-05-10 2022-05-10 Outpatient R ERICA BURRIS [facility] [id number] Univers 13:00:00 14:11:24 ity of [facility] 2022-05-10 2022-05-10 Routine Room, [facility] 1.2.840.1 14 [id number] Univers 13:00:00 14:11:24 Dom Moser 350.1.13 .10 ity of Visit Erica Burris Ramírez [place] 4.2.7.2.686 [facility] [id number] Pa dical NAL 134 [facility] 2022-05-10 2022-05-10 Ophthalmic Aide Norma, [facility] Main [facility] 1.2.8 40.114 [id number] Univers 12:15:00 12:30:00 Visit Dom Moser 350.1.13. 10 [place] [id number] Pa dical NAL 353 [facility] 2022-05-10 2022-05-10 Orders Doctor CHRISTIAN 1.2.840.114 [id number] Univers 00:00:00 00:00:00 Only Unassigned, BARTOLO 350.1.13.10 ity of [place] [facility] 4.2.7.2.686 Neo as [id number] [facility] 009 Branch 2022-05-09 2022-05-09 Outpatient R DMO MOSER [facility] B [id number] Univers 13:00:00 13:34:31 DOM MOSER ity of [facility] 2022-05-09 2022-05-09 Routine 1, Lkj Nst Room [facility] 1.2.840. 114 [id number] Univers 13:00:00 13:34:31 Dom Moser 350.1.13. 10 it[place] [id number] [address] 2022-05-08 2022-05-08 Outpatient R DOM MOSER [facility] B [id number] Univers 13:00:00 13:00:00 DOM MOSER [facility] 2022-05-05 2022-05-05 Outpatient R DOM MOSER [facility] B [id number] Univers 15:15:00 16:19:39 DOM MOSER [facility] 2022-05-05 2022-05-05 Routine [facility] 1.2.840.114 [id number] Univers 15:15:00 16:19:39 Crissymonika JACOB 350.1.13.10 i ty of [place] [id number] [address] 2022-05-05 2022-05-05 Ophthalmic Aide [facility] 1.2. 840.114 [id number] Univers 11:00:00 11:20:56 Visit Jad Beckham BACK WEDGER 350.1.13.10 ity of REGIONAL 4.2.7.2.686 Neo as MATERNAL [id number] [facility] & CHILD [address] [place] [address] 2022-04-28 2022-04-28 Outpatient R BIADOM ARMENDARIZ [facility] B [id number] Univers 10:00:00 10:51:22 BIADOM ARMENDARIZ [facility] 2022-04-28 2022-04-28 Routine [facility] 1.2.840.114 [id number] Univers 10:00:00 10:51:22 Crissymonika JACOB 350.1.13.10 i ty of [place] [id number] [address] 2022-04-21 2022-04-21 Outpatient R ERICA BURRIS [facility] [id number] Univers 11:15:00 11:46:33 ity of [facility] 2022-04-21 2022-04-21 Routine Dom Moser [facility] 1.2. 840.114 [id number] Univers 11:15:00 11:46:33 Erica Burris 350.1.13.10 ity of [place] [id number] [address] 2022-04-21 2022-04-21 Patient Ehsan AKSTELLA [facility] 1.2.840.114 [id number] Univers 00:00:00 00:00:00 Secure Msg Dom JACOB 350.1.13.10 ity [place] [id number] [address] 2022-04-05 2022-04-05 Case Ehsan [facility] 1.2.840.114 [id number] Univers 00:00:00 00:00:00 Management Dom JACOB 350.1.13.10 it[place] [id number] [address] 2022-04-04 2022-04-04 Ophthalmic Aide [facility] Main [facility] 1.2.8 40.114 [id number] Univers 12:45:00 13:00:00 Visit Erica Burris OSCAR 350.1.13.10 ity of [facility] 4.2.[place].2.[place] [id number] Pa dical [address] 2022-04-04 2022-04-04 Outpatient R ERICA BURRIS [facility] [id number] Univers 12:45:00 12:45:00 ity of [facility] 2022-04-03 2022-04-03 Outpatient R DOM MOSER [facility] B [id number] Univers 10:30:00 10:51:59 DOM MOSER itjustin of [facility] 2022-04-03 2022-04-03 Routine [facility] 1.2.840.114 [id number] Univers 10:30:00 10:51:59 Dom JACOB 350.1.13.10 i ty of [place] [id number] [address] 2022-03-31 2022-03-31 Outpatient R DHEERAJ, [facility] [id number] Univers 11:00:00 11:37:45 DARLINMCKENNA georgina o f [facility] 2022-03-31 2022-03-31 Office [facility] 1.2.840.114 [id number] Univers 11:00:00 11:37:45 Visit Alexia MOORE 350.1.13.10 ity of [facility] 4.2.[place].2.[place] [id number] Pa dical NAL 059 [facility] 2022-03-30 2022-03-30 Out[facility] [id number] Univers 09:40:00 09:40:00 ALEXIA arnett [facility] 2022-03-23 2022-03-23 Patient CaseZena [facility] DOROTHY 1.2.840.114 [id number] Univers 00:00:00 00:00:00 Secure Msalba JACOB 350.1.13.10 [place] [id number] [address] 2022-03-20 2022-03-20 Outpatient R ERICA BURRIS [facility] [id number] Univers 16:00:00 17:27:08 ity of [facility] 2022-03-20 2022-03-20 Routine Erica Burris [facility] 1.2.443.748 [id number] Univers 16:00:00 17:27:08 Ramírez MOORE 350.1.13.10 ity of Visit [facility] 4.2.7.2.[place] [id number] Pa dical NAL 134 [facility] 2022-03-13 2022-03-13 Out[facility] [id number] Univers 09:40:00 09:40:00 ALEXIA erickson o f [facility] 2022-03-03 2022-03-03 Outpatient R DOM MOSER [facility] B [id number] Univers 15:00:00 15:55:42 TRIDOM ARMENDARIZ itjustin [facility] 2022-03-03 2022-03-03 Routine Ehsan [facility] DOROTHY 1.2.840.114 [id number] Univers 15:00:00 15:55:42 Dom JACOB 350.1.13.10 i ty of [place] [id number] [address] 2022-02-22 2022-02-22 Patient [facility] 1.2.840.114 [id number] Univers 00:00:00 00:00:00 Secure Msg Alexia ABDULARNIE 350.1.13.10 ity [facility] [place]2.[place] [id number] Pa dicky NAL [address] [place] [address] 2022-02-07 2022-02-07 Outpatient R DHEERAJ [facility] [id number] Univers 13:00:00 23:59:00 ALEXIA erickson o f [facility] 2022-02-07 2022-02-07 Patient [facility] 1.2.840.114 [id number] Univers 00:00:00 00:00:00 Secure Msg Alexia ABDULARNIE 350.1.13.10 ity [facility] 4.2.7.2.[place] [id number] Pa dicky NAL [address] [place] [address] 2022-02-03 2022-02-03 Outpatient R ERICA BURRIS [facility] [id number] Univers 11:45:00 12:10:26 ity of [facility] 2022-02-03 2022-02-03 Routine Erica Burris [facility] 1.2.840.114 [id number] Univers 11:45:00 12:10:26 Ramírez JACOB 350.1.13.10 i ty of [place] [id number] [address] 2022-01-26 2022-01-26 Outpatient R DHEERAJ [facility] [id number] Univers 08:00:00 08:00:00 ALEXIA arnett [facility] 2022-01-17 2022-01-17 Outpatient R DHEERAJ [facility] [id number] Univers 09:20:00 10:23:16 ALEXIA arnett [facility] 2022-01-17 2022-01-17 Office [facility] 1.2.840.114 [id number] Univers 09:20:00 10:23:16 Visit Alexia MOORE 350.1.13.10 it[place] [id number] [address] 2022-01-17 2022-01-17 Outpatient R DHEERAJ [facility] [id number] Univers 09:20:00 10:23:16 ALEXIA arnett [facility] 2022-01-16 2022-01-16 Outpatient R DOM MOSER [facility] B [id number] Univers 11:30:00 12:15:12 [facility] 2022-01-16 2022-01-16 [facility] 1.2.840.114 [id number] Univers 11:30:00 12:15:12 Dom JACOB 350.1.13.10 i ty of [place] [id number] [address] 2022-01-11 2022-01-11 Patient Ehsan [facility] 1.2.840.114 [id number] Univers 00:00:00 00:00:00 Secure Msg Dom JACOB 350.1.13.10 ity [place] [id number] [address] 2022-01-09 2022-01-09 Outpatient R DOM MOSER [facility] B [id number] Univers 13:30:00 14:18:57 DOM MOSER [facility] 2022-01-09 2022-01-09 Routine [facility] 1.2.840.114 [id number] Univers 13:30:00 14:18:57 Dom JACOB 350.1.13.10 i ty of [place] [id number] [address] 2022-01-09 2022-01-09 Outpatient R MINANCY DOM [facility] B [id number] Univers 13:30:00 13:30:00 TRIDOM ARMENDARIZ [facility] 2022-01-03 2022-01-03 Case Kandy Delgado [facility] 1.2.840.114 [id number] Univers 00:00:00 00:00:00 Management CECIL 350.1.13.10 ity of PEDIATRIC 4.2.7.2.686 [facility] [id number] [address] 2022-01-02 2022-01-02 Ophthalmic Aide Ultrasound, Jamilah [facility] 1.2 .840.114 [id number] Univers 08:30:00 09:29:12 Visit Jad Beckham BACK WEDGER 350.1.13.10 ity of REGIONAL 4.2.7.2.686 Neo as MATERNAL [id number] Med ical & CHILD [address] [place] [address] 2022-01-02 2022-01-02 Outpatient P JAD BECKHAM [facility] [id number] Univers 08:30:00 08:30:00 [facility] 2021-12-26 2021-12-26 Outpatient R DOM MOSER [facility] B [id number] Univers 13:30:00 14:10:27 DOM MOSERjustin [facility] 2021-12-26 2021-12-26 Routine Ehsan [facility] 1.2.840.114 [id number] Univers 13:30:00 14:10:27 Dom JACOB 350.1.13.10 i ty of [place] [id number] [address] 2021-12-21 2021-12-21 Ophthalmic Aide Lab, Viet Perales [facility] 1.2.840.1 14 [id number] Univers 08:15:00 09:01:30 Visit BiaDom armendariz 350.1.13.1 0 ity of [place] 4.2.7.2.686 Neo as SHEEBA?BLEA [id number] Pa david [address] MEDICAL OFFICE BUILDING 2021-12-21 2021-12-21 Outpatient R DOM MOSER [facility] B [id number] Univers 08:15:00 08:15:00 BIADOM ARMENDARIZ [facility] 2021-12-21 2021-12-21 [facility] 1.2.840.11 [id number] Univers 00:00:00 00:00:00 Dom JACOB 350.1.13.10 it y of [facility] 4.2.7.2.686 [facility] [phone] [facility] [address] 2021-12-20 2021-12-20 [facility] [id number] Univers 11:30:00 11:30:00 SHIMADOM ABAD justin [facility] 2021-12-20 2021-12-20 Outpatient R DOM [facility] B [id number] Univers 11:00:00 11:00:00 SHIMADOM ABAD [facility] 2021-12-18 2021-12-18 Emergency [facility] 1.2.840.114 [id number] Univers 16:06:00 19:16:00 Shawn MOORE 350.1.13.10 i ty of [place] 4.2.7.2.686 [facility] [id number] [facility] [address] 2021-12-18 2021-12-18 [facility] [id number] Univers 16:06:00 19:16:00 SHAWN justin [facility] 2021-12-14 2021-12-14 [facility] [id number] Univers 13:30:00 14:24:42 TRIDOM ARMENDARIZ [facility] 2021-12-14 2021-12-14 Routine Ehsan [facility] 1.2.840.114 [id number] Univers 13:30:00 14:24:42 Dom JACOB 350.1.13.10 i ty of Visit WOMEN'S 4.2.7.2.686 [facility] [id number] [facility] [address] 2021-12-09 2021-12-09 [facility] [facility] 1.2.375.044 [id number] Univers 00:00:00 00:00:00 UnassignedCECIL 350.1.13.10 ity of [place] PEDIATRIC 4.2.7.2.686 [facility] [id number] [facility] [address] 2021-12-08 2021-12-08 Refill Ehsan [facility] 1.2.840.114 [id number] Univers 00:00:00 00:00:00 Dom JACOB 350.1.13.10 it y of WOMEN'S 4.2.7.2.686 [facility] [phone] [facility] [address] 2021-11-29 2021-11-29 Outpatient R MIDOM CRUZ [facility] B [id number] Univers 10:00:00 10:00:00 [facility] justin [facility] 2021-11-29 2021-11-29 Outpatient R MIDOM CRUZ [facility] B [id number] Univers 10:00:00 10:00:00 [facility] 2021-11-24 2021-11-27 Outpatient X KANDY DELGADO [facility] IRIS [id number] Univers 14:31:00 09:36:00 ity [facility] 2021-11-24 2021-11-27 Emergency Brandy Vickers [facility] 1.2. 840.114 [id number] Univers 14:31:00 09:36:00 Kandy Delgado 350.1.13.10 ity of [place] 4.2.7.2.686 [facility] [id number] [facility] [address] 2021-11-24 2021-11-24 Outpatient X KANDY DELGADO [facility] NAUN [id number] Univers 14:31:00 14:31:00 [facility] 2021-11-24 2021-11-24 Outpatient X KANDY DELGADO [facility] IRIS [id number] Univers 14:31:00 14:31:00 [facility] 2021-11-24 2021-11-24 Ophthalmic Aide Lab, Vite - Diaz [facility] 1.2.840.1 14 [id number] Univers 11:30:00 14:22:30 Visit Adrienne Serna [facility] 350.1.13.10 ity of [place] 4.2.7.2.686 Neo as SHEEBA?BLEA [id number] [address] MEDICAL OFFICE BUILDING 2021-11-24 2021-11-24 Outpatient R MELONY [facility] [id number] Univers 11:30:00 11:30:00 , ADRIENNE [facility] 2021-11-23 2021-11-23 Outpatient R [facility] [id number] Univers 10:30:00 10:30:00 [facility] 2021-11-22 2021-11-22 Outpatient R DOM MOSER [facility] B [id number] Univers 14:00:00 15:03:06 DOM MOSER [facility] 2021-11-22 2021-11-22 Routine Ehsan [facility] 1.2.840.114 [id number] Univers 14:00:00 15:03:06 Dom JACOB 350.1.13.10 i ty of Visit [place].2.[place] [facility] [id number] [facility] [address] 2021-11-22 2021-11-22 Outpatient R DOM MOSER [facility] B [id number] Univers 14:00:00 14:00:00 DOM MOSER [facility] 2021-11-01 2021-11-01 Telephone Ehsan [facility] 1.2.840.11 [id number] Univers 00:00:00 00:00:00 Dom JACOB 350.1.13.10 it y of PEDIATRIC 4.2.7.2.686 [facility] [id number] [address] 2021-10-31 2021-10-31 Outpatient R DOM MOSER [facility] B [id number] Univers 10:00:00 11:07:18 BIADOM ARMENDARIZ [facility] 2021-10-31 2021-10-31 [facility] 1.2.840.114 [id number] Univers 10:00:00 11:07:18 Dom JACOB 350.1.13.10 i ty of Visit WOMEN'S 4.2.7.2.686 [facility] [id number] [address] 2021-10-31 2021-10-31 Outpatient R DOM MOSER [facility] B [id number] Univers 10:00:00 10:00:00 BIADOM ARMENDARIZ [facility] 2021-10-31 2021-10-31 Outpatient R DOM MOSER [facility] B [id number] Univers 10:00:00 10:00:00 BIADOM ARMENDARIZ [facility] 2021-10-31 2021-10-31 Outpatient R DOM MOSER [facility] B [id number] Univers 10:00:00 10:00:00 BIADOM ARMENDARIZ [facility] 2021-10-31 2021-10-[address] [facility] 1.2.840.11 [id number] Univers 00:00:00 00:00:00 Dom JACOB 350.1.13.10 it y of WOMEN'S 4.2.7.2.686 [facility] [id number] [address] 2021-10-21 2021-10-21 Orders Doctor GONZALES 1.2.840.114 [id number] Univers 00:00:00 00:00:00 Only Unassigned, BARTOLO 350.1.13.10 ity of [place] [facility] 4.2.7.2.686 Neo as [id number] [facility] [address] 2021-10-17 2021-10-17 Case Ehsan [facility] 1.2.840.114 [id number] Univers 00:00:00 00:00:00 Management Crissymonika JACOB 350.1.13.10 ity of WOMEN'S 4.2.7.2.686 [facility] [id number] [facility] [address] 2021-10-14 2021-10-14 Emergency X [facility] ERT [id number] Univers 11:08:00 14:19:00 KANDY ity of [facility] 2021-10-14 2021-10-14 Emergency [facility] 1.2.705.005 [id number] Univers 11:08:00 14:19:00 Kandy Barbara OSCAR 350.1.13.10 i ty of [place] 4.2.7.2.686 [facility] [id number] [facility] [address] 2021-10-14 2021-10-14 Outpatient R MINANCY DOM [facility] B [id number] Univers 10:25:59 11:07:00 MIDOM CRUZ evertjustin [facility] 2021-10-14 2021-10-14 Outpatient R MIDOM CRUZ [facility] B [id number] Univers 10:25:59 11:07:00 MIDOM CRUZ evertjustin [facility] 2021-10-14 2021-10-14 [facility] 1.2.840.114 [id number] Univers 10:25:59 11:07:00 Encounter Dom MOORE 350.1.13.10 ity of [place] 4.2.7.2.686 [facility] [id number] [facility] [address] 2021-10-14 2021-10-14 Outpatient R MINANCY DOM [facility] B [id number] Univers 00:00:00 00:00:00 EHSAN DOM erickson [facility] 2021-10-14 2021-10-[address] [facility] 1.2.840.114 [id number] Univers 00:00:00 00:00:00 Management Dom JACOB 350.1.13.10 [place] [id number] [address] 2021-10-12 2021-10-12 Telephone BORIS Moser [place] 1.2.840.11 [id number] Univers 00:00:00 00:00:00 Dom JACOB 350.1.13.10 it [place] [id number] [address] 2021-10-11 2021-10-11 Ophthalmic Aide Lab, Viet - Diaz [facility] 1.2.840.1 14 [id number] Univers 14:00:00 14:12:37 Visit Adrienne Serna [facility] 350.1.13.10 ity of BiaDom armendariz [place] 4.2.7.2.686 [facility]?BLEA [id number] [address] MEDICAL OFFICE BUILDING 2021-10-11 2021-10-11 Outpatient R [facility] [id number] Univers 14:00:00 14:00:00 ity of [facility] 2021-10-11 2021-10-11 Outpatient R DOM MOSER [facility] B [id number] Univers 14:00:00 14:00:00 DOM MOSER [facility] 2021-10-11 2021-10-11 Case Biapennieyaimanancy [facility] 1.2.840.114 [id number] Univers 00:00:00 00:00:00 Management Dom JACOB 350.1.13.10 [place] [id number] [address] 2021-10-03 2021-10-03 Outpatient R DOM MOSER [facility] B [id number] Univers 15:00:00 16:25:05 DOM MOSER itjustin [facility] 2021-10-03 2021-10-03 [facility] 1.2.840.114 [id number] Univers 15:00:00 16:25:05 Visit Dom JACOB 350.1.13.10 it [place] [id number] [address] 2021-10-03 2021-10-03 Outpatient R DOM MOSER [facility] B [id number] Univers 15:00:00 16:25:05 DOM MOSER [facility] 2021-10-03 2021-10-03 Outpatient R DOM MOSER [facility] B [id number] Univers 15:00:00 16:25:05 DOM MOSER [facility] 2021-10-03 2021-10-03 Office [facility] 1.2.840.114 [id number] Univers 15:00:00 16:25:05 Visit Dom JACOB 350.1.13.10 it [place] [id number] [address] 2021-10-03 2021-10-03 Letter [facility] 1.2.840.114 [id number] Univers 00:00:00 00:00:00 (Out) Dom JACOB 350.1.13.10 it [place] [id number] [address] 2021-01-03 2021-01-03 Outpatient R [facility] [id number] Univers 10:00:00 10:00:00 ity [facility] 2020-12-01 2020-12-01 Office [facility] 1.2.840.114 [id number] Univers 15:30:31 16:08:37 Visit , Adrienne Jacob 350.1.13.10 it y of Pediatric 4.2.7.2.686 [facility] [id number] [place] [address] [address] 2020-12-01 2020-12-01 Outpatient R [facility] [id number] Univers 15:30:00 15:30:00 , ADRIENNE erickson of [facility] 2020-12-01 2020-12-01 Orders Doctor CHRISTIAN 1.2.840.114 [id number] Univers 00:00:00 00:00:00 Only Unassigned, BARTOLO 350.1.13.10 ity of [place] [facility] 4.2.7.2.686 Neo as [id number] [facility] [address] 2020-09-07 2020-09-07 [facility] 1.2.840.114 [id number] Univers 00:00:00 00:00:00 Outreach Shakir PRIMARY 350.1.13.[address] [facility] 4.2.7.2.686 [place] [id number] Pa dical [address] 2020-07-16 2020-07-16 Laboratory Lab, Adc Fam Pob I [facility] 1.2. 840.114 [id number] Univers 16:58:33 17:18:33 Only Jo Orantes [facility] 350.1.13.10 ity of [place] 4.2.7.2.686 Neo as Professio [id number] Pa dical nal [address] 2020-07-16 2020-07-16 Outpatient R [facility] [id number] Univers 17:00:00 17:00:00 ity of [facility] 2019-11-26 2019-11-26 Ophthalmic Aide Lab, Lkj [facility] 1.2.840 .114 [id number] Univers 08:01:52 08:32:14 Visit Adrienne Serna 350.1.13.10 ity of Pediatric 4.2.7.2.686 [facility] [id number] [facility] [address] 2019-11-26 2019-11-26 Outpatient R MELONY [facility] [id number] Univers 08:00:00 08:00:00 , ADRIENNE erickson [facility] 2019-11-26 2019-11-26 Orders Doctor GONZALES 1.2.840.114 [id number] Univers 00:00:00 00:00:00 Only Unassigned, BARTOLO 350.1.13.10 ity of [place] [facility] 4.2.7.2.686 Neo as [id number] [facility] [address] 2019-11-17 2019-11-17 Outpatient R MELONY [facility] [id number] Univers 09:10:00 09:10:00 , ADRIENNE ity [facility] 2019-11-05 2019-11-05 Emergency X [facility] ERT [id number] Univers 11:49:58 14:02:00 PIPPA ity [facility] 2019-11-05 2019-11-05 Emergency [facility] 1.2.631.802 [id number] Univers 11:49:58 14:02:00 Pippa Horne [place] 350.1.13.10 ity of [place] 4.2.7.2.686 [place] [id number] [facility] [address] 2019-11-05 2019-11-05 Telephone de [facility] 1.2.840.114 [id number] Univers 00:00:00 00:00:00 Cecil Oakley 350.1.13.10 ity of [place] [facility] 4.2.7.2.686 [facility] [id number] [facility] [address] 2019-11-05 2019-11-05 Orders Doctor CHRISTIAN 1.2.840.114 [id number] Univers 00:00:00 00:00:00 Only Unassigned, BARTOLO 350.1.13.10 ity of [place] [facility] 4.2.7.2.686 Neo as [id number] [address] Results Test Description Test Time Test Comments Results Result Comments Source POCT TEST 2022-06-23 21:33:00 Test Item Value Reference Range Interpretation Comme nts POCT PREG (test code = 1605) Negative On board controls acceptable with C Line (test code = 3574) Yes POCT PREG LOT # (test code = 3575) POCT PREG TEST DATE (test code = 3576) [facility] with [id number] 10:21:40 Test Item Value Reference Range Interpretation Comments WBC (test code = See_Comment H [Automated 6690-2) message] The sy stem which generated this result transmitted reference range : 4.30 - 11.10 10*3/?L. The reference range was not used to interpret this result as normal/abnormal . RBC (test code = See_Comment L [Automated 789-8) message] The sy stem which generated this result transmitted reference range : 3.93 - 5.25 10*6/?L. The reference range was not used to interpret this result as normal/abnormal . HGB (test code = 8.7 g/dL 11.6-15.0 L 718-7) HCT (test code = 28.2 % 35.7-45.2 L 4544-3) MCV (test code = 81.3 fL 80.6-95.5 787-2) MCH (test code = 25.1 pg 25.9-32.8 L 785-6) MCHC (test code = 30.9 g/dL 31.6-35.1 L 786-4) RDW-SD (test code = 42.6 fL 39.0-49.9 65126-6) RDW-CV (test code = 14.6 % 12.0-15.5 788-0) PLT (test code = See_Comment [Automated 777-3) message] The sy stem which generated this result transmitted reference range : 166 - 358 10*3/ ?L. The reference r mirna was not used to interpret this result as normal/abnormal . MPV (test code = 11.4 fL 9.5-12.9 49729-8) NRBC/100 WBC (test See_Comment [Automat ed code = 2609758047) message] The system which generated this result transmitted reference range : 0.0 - 10.0 /100 WBCs. The refer ence range was not u sed to interpret th is result as normal/abnormal . NRBC x10^3 (test code See_Comment [Auto mated = 4185271571) message] The s ystem which generated this result transmitted reference range : 10*3/?L. The reference range was not used to interpret this result as normal/abnormal . GRAN MAT (NEUT) % 63.3 % (test code = 770-8) IMM GRAN % (test code 0.50 % = 0631488740) LYMPH % (test code = 26.7 % 736-9) MONO % (test code = 6.4 % 5905-5) EOS % (test code = 2.6 % 713-8) BASO % (test code = 0.5 % 706-2) GRAN MAT x10^3(ANC) 8.36 10*3/uL 1.88-7.09 H (test code = 2907458219) IMM GRAN x10^3 (test 0.06 10*3/uL 0.00-0.06 code = 8097199737) LYMPH x10^3 (test code 3.53 10*3/uL 1.32-3.29 H = 731-0) MONO x10^3 (test code 0.85 10*3/uL 0.33-0.92 = 742-7) EOS x10^3 (test code = 0.35 10*3/uL 0.03-0.39 711-2) BASO x10^3 (test code 0.06 10*3/uL 0.01-0.07 = 704-7) Lab Interpretation Abnormal (test code = 55491-2) [facility] OR NEREIDA ONLY - [id number] 08:25:29 Test Item Value Reference Range Interpretation Comments RPR (Qualitative) (test code = Nonreactive Nonreactive 72761-3) Lab Interpretation (test code = Normal 05879-6) [facility] (D) IMMUNE [id number] 13:59:10 Test Item Value Reference Range Interpretation Comments RHIG CANDIDATE? No- see comment Patient i s not a (test code = candidate for R [facility]- 5055) Patient is Rh Positive.Perfor med at [facility] Laboratory Services - [facility] Blood [address] [place] [address]Tyil Free: [phone] A No. [id number] [facility]manHepatitis B Surface [id number] 22:27:11 Test Item Value Reference Range Interpretation Comments HBsAg Semi-Quantitative (test code = Negative Negative 5195-3) [facility]/2 AG-AB WITH [id number] 20:07:16 Test Item Value Reference Range Interpretation Comments HIV Negative Negative Semi-quantitative (test code = 70843-5) TONY (test code = Non-reactive for HIV-1 TONY) antigen and HIV-1/HIV-2 antibodies. ?No laboratory evidence of HIV infection. ?Repeat in 2-4 weeks if acute HIV infection is suspected. [facility]man[facility] and Screen - ONCE [id number] 19:23:30 Test Item Value Reference Range Interpretation Comments ABO & RH (test code A Positive Performe d at [facility] = 20) Laboratory Serv [facility] Blood Bank1 [address] [place], [place] [id number] Free: [phone] A No. [id number] IAT (test code = Negative Performed a t [facility] 1185) Laboratory Serv [facility] Blood [facility] [address] [place], [place] [id number] Free: [phone] A No. [id number] [facility] with [id number] 18:08:25 Test Item Value Reference Range Interpretation Comments WBC (test code = See_Comment [Automated 6690-2) message] The sy stem which generated this result transmitted reference range : 4.30 - 11.10 10*3/?L. The reference range was not used to interpret this result as normal/abnormal . RBC (test code = See_Comment L [Automated 789-8) message] The sy stem which generated this result transmitted reference range : 3.93 - 5.25 10*6/?L. The reference range was not used to interpret this result as normal/abnormal . HGB (test code = 8.8 g/dL 11.6-15.0 L 718-7) HCT (test code = 28.0 % 35.7-45.2 L 4544-3) MCV (test code = 80.7 fL 80.6-95.5 787-2) MCH (test code = 25.4 pg 25.9-32.8 L 785-6) MCHC (test code = 31.4 g/dL 31.6-35.1 L 786-4) RDW-SD (test code = 41.1 fL 39.0-49.9 67308-1) RDW-CV (test code = 14.2 % 12.0-15.5 788-0) PLT (test code = See_Comment [Automated 777-3) message] The sy stem which generated this result transmitted reference range : 166 - 358 10*3/ ?L. The reference r mirna was not used to interpret this result as normal/abnormal . MPV (test code = 11.7 fL 9.5-12.9 18271-3) NRBC/100 WBC (test See_Comment [Automat ed code = 8347871735) message] The system which generated this result transmitted reference range : 0.0 - 10.0 /100 WBCs. The refer ence range was not u sed to interpret th is result as normal/abnormal . NRBC x10^3 (test code See_Comment [Auto mated = 2180721958) message] The s ystem which generated this result transmitted reference range : 10*3/?L. The reference range was not used to interpret this result as normal/abnormal . GRAN MAT (NEUT) % 71.4 % (test code = 770-8) IMM GRAN % (test code 0.50 % = 8547023757) LYMPH % (test code = 19.6 % 736-9) MONO % (test code = 5.2 % 5905-5) EOS % (test code = 2.8 % 713-8) BASO % (test code = 0.5 % 706-2) GRAN MAT x10^3(ANC) 5.82 10*3/uL 1.88-7.09 (test code = 1823787701) IMM GRAN x10^3 (test 0.04 10*3/uL 0.00-0.06 code = 7320000307) LYMPH x10^3 (test code 1.60 10*3/uL 1.32-3.29 = 731-0) MONO x10^3 (test code 0.42 10*3/uL 0.33-0.92 = 742-7) EOS x10^3 (test code = 0.23 10*3/uL 0.03-0.39 711-2) BASO x10^3 (test code 0.04 10*3/uL 0.01-0.07 = 704-7) Lab Interpretation Abnormal (test code = 29975-5) [facility] URINALYSIS W/O SPECIFIC [id number] 21:34:00 Test Item Value Reference Range Interpretation Comments POCT PH U (test code = 3254) n/a 5-8 POCT U LEUK EST (test code = n/a Negative - Negative 3263) POCT U NIT (test code = 3262) n/a Negative - Negative POCT U PROT (test code = 3259) negative Negative - Negative POCT U GLU (test code = 3256) negative Negative - Negative POCT U KETONE (test code = 3258) n/a Negative - Negative POCT U BLD (test code = 3257) n/a Negative - Negative [facility] URINALYSIS W/O SPECIFIC [id number] 19:22:00 Test Item Value Reference Range Interpretation Comments POCT PH U (test code = 3254) n/a 5-8 POCT U LEUK EST (test code = n/a Negative - Negative 3263) POCT U NIT (test code = 3262) n/a Negative - Negative POCT U PROT (test code = 3259) Negative Negative - Negative POCT U GLU (test code = 3256) Normal Negative - Negative POCT U KETONE (test code = 3258) n/a Negative - Negative POCT U BLD (test code = 3257) n/a Negative - Negative [facility] URINALYSIS W/O SPECIFIC [id number] 16:19:00 Test Item Value Reference Range Interpretation Comments POCT PH U (test code = 3254) N/A 5-8 POCT U LEUK EST (test code = N/A Negative - Negative 3263) POCT U NIT (test code = 3262) N/A Negative - Negative POCT U PROT (test code = 3259) Negative Negative - Negative POCT U GLU (test code = 3256) Negative Negative - Negative POCT U KETONE (test code = 3258) N/A Negative - Negative POCT U BLD (test code = 3257) N/A Negative - Negative [facility] [id number] 19:50:00 Test Item Value Reference Range Interpretation Comments POCT PH U (test code = 3254) N/A 5-8 POCT U LEUK EST (test code = N/A Negative - Negative 3263) POCT U NIT (test code = 3262) N/A Negative - Negative POCT U PROT (test code = 3259) NEGATIVE Negative - Negative POCT U GLU (test code = 3256) NEGATIVE Negative - Negative POCT U KETONE (test code = 3258) N/A Negative - Negative POCT U BLD (test code = 3257) N/A Negative - Negative [facility] URINALYSIS W/O SPECIFIC [id number] 15:33:00 Test Item Value Reference Range Interpretation Comments POCT PH U (test code = 3254) n/a 5-8 POCT U LEUK EST (test code = n/a Negative - Negative 3263) POCT U NIT (test code = 3262) n/a Negative - Negative POCT U PROT (test code = 3259) trace Negative - Negative POCT U GLU (test code = 3256) negative Negative - Negative POCT U KETONE (test code = 3258) n/a Negative - Negative POCT U BLD (test code = 3257) n/a Negative - Negative [facility] URINALYSIS W/O SPECIFIC [id number] 21:13:00 Test Item Value Reference Range Interpretation Comments POCT PH U (test code = 3254) n/a 5-8 POCT U LEUK EST (test code = 3263) n/a Negative - Negative POCT U NIT (test code = 3262) n/a Negative - Negative POCT U PROT (test code = 3259) Trace Negative - Negative POCT U GLU (test code = 3256) Normal Negative - Negative POCT U KETONE (test code = 3258) n/a Negative - Negative POCT U BLD (test code = 3257) n/a Negative - Negative [facility]/O SPECIFIC [id number] 20:42:00 Test Item Value Reference Range Interpretation Comments POCT PH U (test code = 3254) n/a 5-8 POCT U LEUK EST (test code = n/a Negative - Negative 3263) POCT U NIT (test code = 3262) n/a Negative - Negative POCT U PROT (test code = 3259) negative Negative - Negative POCT U GLU (test code = 3256) negative Negative - Negative POCT U KETONE (test code = 3258) n/a Negative - Negative POCT U BLD (test code = 3257) n/a Negative - Negative [facility] SPECIFIC [id number] 16:58:00 Test Item Value Reference Range Interpretation Comments POCT PH U (test code = 3254) n/a 5-8 POCT U LEUK EST (test code = n/a Negative - Negative 3263) POCT U NIT (test code = 3262) n/a Negative - Negative POCT U PROT (test code = 3259) Negative - Negative POCT U GLU (test code = 3256) negative Negative - Negative POCT U KETONE (test code = 3258) n/a Negative - Negative POCT U BLD (test code = 3257) n/a Negative - Negative [facility]
[2023-04-30 15:34] LABS: Absolute Lymphocytes (CBC) 2.3 K/uL (0.7-4.9); Lymphocytes % 22.2 % (15.3-44.8); MCV 81.1 fL (80-100); MPV 8.2 fL (7.6-11.3); Platelets 323 thou/uL (152-406); RBC Red Blood Cell Count 4.19 M/uL (3.86-4.86)
[2023-04-30 15:47] LABS: Albumin 3.5 g/dL (3.4-5.0); Bilirubin Total 0.3 mg/dL (0.2-1.0); Potassium 4.1 mEq/L (3.5-5.1); Protein, Total 7.3 g/dL (6.4-8.2)
[2023-04-30] MEDS ORDERED: KETOROLAC 30 MG/ML INJ ONE (15:47)
[2023-04-30 15:59] LABS: Specific Gravity 1.019 (1.005-1.030); Urine Bilirubin NEGATIVE (Negative); Urine Blood Negative (Negative); Urine Clarity Clear (Clear); Urine Color Colorless (Yellow); Urine Glucose NEGATIVE (Negative); Urine Protein NEGATIVE (Negative); Urine Urobilinogen Normal (Normal)
[2023-04-30 16:00] LABS: Specific Gravity 1.019 (1.005-1.030)
--- NOTE | 2023-04-30 16:29 | RAD REPORT ---
EXAM DESCRIPTION: CT - Abdomen Pelvis W Contrast - 04/30/2023 4:17 pm CLINICAL HISTORY: Abdominal pain COMPARISON: none. TECHNIQUE: Computed axial tomography of the abdomen pelvis was obtained. 100 cc Isovue-300 was admin istered intravenously. Oral contrast was not requested which limits evaluation of bowel and appendix All CT scans are performed using dose optimization technique as appropriate and may include automated exposure control or mA/KV adjustment according to patient size. FINDINGS: The liver, spleen, pancreas, adrenal and kidneys appear unremarkable. There is no evidence of diverticulitis. Normal appendix. 2 centimeter irregularly-shaped left ovarian cyst without significant free fluid. No followup imaging recommended Tiny umbilical hernia IMPRESSION: 2 centimeter irregularly-shaped left ovarian cyst without significant free fluid
--- NOTE | 2023-04-30 16:36 | ER ---
Nurse's Notes [facility] Name: Christa Sinha Age: 22 yrs Sex: Female : 2000 Arrival Date: 04/30/2023 Time: 14:58 Bed 18 Private MD: Diagnosis: Lower abdominal pain, unspecified;Other ovarian cysts Presentation: 04/30 15:16 Chief complaint: Intermittent RLQ pain x 1 month, yesterday pain became constant. hb Coronavirus screen: At this time, the client does not indicate any symptoms associated with coronavirus-19. Ebola Screen: No symptoms or risks identified at this time. Initial Sepsis Screen: Does the patient meet any 2 criteria? No. Patient's initial sepsis screen is negative. Does the patient have a suspected source of infection? No. Patient's initial sepsis screen is negative. Risk Assessment: Do you want to hurt yourself or someone else? Patient reports no desire to harm self or others. Onset of symptoms was April 20, 2023. 15:16 Method Of Arrival: Ambulatory hb 15:16 Acuity: IZABEL 3 hb Historical: - Allergies: 15:17 No Known Allergies; hb - PMHx: 15:17 Asthma; hb Screenin:11 [facility] ED Fall Risk Assessment (Adult) History of falling in the last 3 months, kc6 including since admission No falls in past 3 months (0 pts) Confusion or Disorientation No (0 pts) Intoxicated or Sedated No (0 pts) Impaired Gait No (0 pts) Mobility Assist Device Used No (0 pt) Altered Elimination No (0 pt) Score/Fall Risk Level 0 - 2 = Low Risk. Abuse screen: Denies threats or abuse. Denies injuries from another. Nutritional screening: No deficits noted. Tuberculosis screening: No symptoms or risk factors identified. Assessment: 15:30 General: Appears in no apparent distress. comfortable, Behavior is calm, cooperative, kc6 appropriate for age. Pain: Complains of pain in right lower quadrant. Neuro: Level of Consciousness is awake, alert, obeys commands, Oriented to person, place, time, situation, Appropriate for age. Cardiovascular: Capillary refill < 3 seconds. Respiratory: Airway is patent Trachea midline Respiratory effort is even, unlabored, Respiratory pattern is regular, symmetrical. GI: Bowel sounds present X 4 quads. Abd is soft X 4 quads Abdomen is tender to palpation in right lower quadrant Patient currently denies diarrhea, nausea, vomiting. : No signs and/or symptoms were reported regarding the genitourinary system. EENT: No signs and/or symptoms were reported regarding the EENT system. Derm: No signs and/or symptoms reported regarding the dermatologic system. Skin is intact, is healthy with good turgor, Skin is pink, warm \T\ dry. Musculoskeletal: No signs and/or symptoms reported regarding the musculoskeletal system. Circulation, motion, and sensation intact. Capillary refill < 3 seconds, Range of motion: intact in all extremities. 16:30 Reassessment: Patient appears in no apparent distress at this time. No changes from kc6 previously documented assessment. Patient and/or family updated on plan of care and expected duration. Pain level reassessed. Patient is alert, oriented x 3, equal unlabored respirations, skin warm/dry/pink. Vital Signs: 15:16 BP 132 / 82; Pulse 102; Resp 16; Temp 97.6(O); Pulse Ox 100% on R/A; Weight 84.37 kg; hb Height 5 ft. 4 in. ; Pain 3/10; 15:16 Body Mass Index 31.93 (84.37 kg, 162.56 cm) hb 15:16 Pain Scale: Adult hb ED Course: 14:59 Patient arrived in ED. rg4 15:05 Lauro Montesinos DO is Attending Physician. ms3 15:10 Nyla Foster, RN is Primary Nurse. kc6 15:12 Patient maintains SpO2 saturation greater than 95% on room air. kc6 15:12 Patient has correct armband on for positive identification. Bed in low position. Call kc6 light in reach. Side rails up X 1. Adult w/ patient. Client placed on continuous cardiac and pulse oximetry monitoring. NIBP monitoring applied. 15:17 Triage completed. hb 15:26 CBC with Diff Sent. ds4 15:26 CMP Sent. ds4 15:26 Inserted saline lock: 22 gauge in right forearm, using aseptic technique. Blood ds4 collected. 16:18 CT Abd/Pelvis - IV Contrast Only In Process Unspecified. EDMS 16:30 Arm band placed on. kc6 16:35 Shayan Davey DO is Referral Physician. ms3 17:00 No provider procedures requiring assistance completed. IV discontinued, intact, kc6 bleeding controlled, No redness/swelling at site. Pressure dressing applied. Administered Medications: 15:42 Drug: Famotidine IVP 20 mg IVP once; dilute with 10 mL 0.9% NaCl; give over 2 minutes kc6 Route: IVP; Site: right forearm; 16:24 Follow up: Response: No adverse reaction kc6 15:42 Drug: TORadol - Ketorolac IVP 15 mg IVP once Route: IVP; Site: right forearm; kc6 16:24 Follow up: Response: No adverse reaction kc6 Medication: 16:30 VIS not applicable for this client. kc6 Outcome: 16:36 Discharge ordered by . ms3 17:00 Discharged to home ambulatory, with significant other, kc6 17:00 Condition: improved 17:00 Discharge instructions given to patient, Instructed on discharge instructions, follow up and referral plans. Demonstrated understanding of instructions, follow-up care, 17:01 Patient left the ED. kc6 Signatures: Dispatcher [employer] EDMS Dillon Jay ds4 Blessing Magdaleno, RN RN Geraldine Hudson rg4 Lauro Montesinos DO DO ms3 Nyla Foster, NICKY RN kc6
--- NOTE | 2023-04-30 16:36 | EDPHYS ---
Physician Documentation [facility] Name: Christa Sinha Age: 22 yrs Sex: Female : 2000 Arrival Date: 04/30/2023 Time: 14:58 Bed 18 Private MD: ED Physician Lauro Montesinos HPI: 04/30 15:19 This 22 yrs old Female presents to ER via Ambulatory with complaints of ms3 Abdominal Pain. 15:19 22-year-old female with past medical history of asthma presents to the emergency ms3 department for right lower quadrant abdominal pain that has been ongoing for 2 months. Patient states the pain became worse yesterday and is currently sore. Patient rates her pain currently a 3/10. Patient denies any alleviating or inciting factors. Historical: - Allergies: 15:17 No Known Allergies; hb - PMHx: 15:17 Asthma; hb ROS: 15:19 Constitutional: Negative for fever, and chills. Neck: Negative for injury, pain, and ms3 swelling, Cardiovascular: Negative for chest pain, and palpitations. Respiratory: Negative for shortness of breath, cough, wheezing, and pleuritic chest pain, Back: Negative for injury and pain, 15:19 Abdomen/GI: Positive for abdominal pain, Negative for nausea, vomiting, and diarrhea, 15:19 All other systems are negative, Exam: 15:19 Constitutional: This is a well developed, well nourished patient who is awake, alert, ms3 and in no acute distress. Head/Face: Normocephalic, atraumatic. Neck: Trachea midline, no cervical lymphadenopathy. Supple, full range of motion without nuchal rigidity, or vertebral point tenderness. No Meningismus. Chest/axilla: Normal chest wall appearance and motion. Nontender with no deformity. Cardiovascular: Regular rate and rhythm with a normal S1 and S2. No gallops, murmurs, or rubs. Normal PMI, no JVD. No pulse deficits. Respiratory: Lungs have equal breath sounds bilaterally, clear to auscultation and percussion. No rales, rhonchi or wheezes noted. No increased work of breathing, no retractions or nasal flaring. Skin: Warm, dry with normal turgor. Normal color with no rashes, no lesions, and no evidence of cellulitis. MS/ Extremity: Pulses equal, no cyanosis. Neurovascular intact. Full, normal range of motion. 15:19 Abdomen/GI: Inspection: abdomen appears normal, Bowel sounds: normal, Palpation: mild abdominal tenderness, in the right lower quadrant, Vital Signs: 15:16 BP 132 / 82; Pulse 102; Resp 16; Temp 97.6(O); Pulse Ox 100% on R/A; Weight 84.37 kg; hb Height 5 ft. 4 in. ; Pain 3/10; 15:16 Body Mass Index 31.93 (84.37 kg, 162.56 cm) hb 15:16 Pain Scale: Adult hb MDM: 15:16 Patient medically screened. ms3 15:19 Differential diagnosis: appendicitis, bowel obstruction, non-specific abd pain, urinary ms3 tract infection. 16:36 Data reviewed: vital signs, nurses notes, and as a result, I will discharge patient. I ms3 considered the following discharge prescriptions or medication management in the emergency department Medications were administered in the Emergency Department. See MAR. Care significantly affected by the following Social Determinants of Health: Poor access to healthcare and/or lack of insurance. Counseling: I had a detailed discussion with the patient and/or guardian regarding the historical points, exam findings, and any diagnostic results supporting the discharge/admit diagnosis, lab results, radiology results, the need for outpatient follow up, to return to the emergency department if symptoms worsen or persist or if there are any questions or concerns that arise at home. Special discussion: I discussed with the patient/guardian in detail that at this point there is no indication for admission to the hospital. It is understood, however, that if the symptoms persist or worsen the patient needs to return immediately for re-evaluation. 04/30 15:17 Order name: CBC with Diff ms3 04/30 15:17 Order name: CMP; Complete Time: 16:09 ms3 04/30 15:17 Order name: Test, Urine; Complete Time: 16:09 ms3 04/30 15:17 Order name: Urinalysis w/ reflexes; Complete Time: 16:09 ms3 04/30 15:17 Order name: CT Abd/Pelvis - IV Contrast Only; Complete Time: 16:32 ms3 04/30 15:17 Order name: IV Saline Lock; Complete Time: 15:26 ms3 04/30 15:17 Order name: Labs collected and sent; Complete Time: 15:26 ms3 Administered Medications: 15:42 Drug: Famotidine IVP 20 mg IVP once; dilute with 10 mL 0.9% NaCl; give over 2 minutes kc6 Route: IVP; Site: right forearm; 16:24 Follow up: Response: No adverse reaction kc6 15:42 Drug: TORadol - Ketorolac IVP 15 mg IVP once Route: IVP; Site: right forearm; kc6 16:24 Follow up: Response: No adverse reaction kc6 Disposition Summary: 04/30/23 16:36 Discharge Ordered Notes: Location: Home ms3 Condition: Stable ms3 Diagnosis - Lower abdominal pain, unspecified ms3 - Other ovarian cysts ms3 Followup: ms3 - With: Shayan Davey DO - When: 2 - 3 days - Reason: Recheck today's complaints Discharge Instructions: - Discharge Summary Sheet ms3 - Abdominal Pain, Adult ms3 - Ovarian Cyst ms3 Forms: - Medication Reconciliation Form ms3 - Thank You Letter ms3 - Antibiotic Education ms3 - Prescription Opioid Use ms3 - Patient Portal Instructions ms3 - Leadership Thank You Letter ms3 Signatures: Dispatcher [employer] Blessing Alfaro, RN RN Lauro Montesinos DO DO ms3 Nyla Foster, RN RN kc6
[2023-04-30 17:03] LABS: Blood Morphology Comment NOT SEEN (NOT SEEN); Platelet Estimate ADEQ; White Blood Cell Scan OK (OK)
[2023-04-30 17:24] VITALS: BP 132/82; TEMP 97.6; O2SAT 100
== END 2023-04-30 17:01 | disposition home or self-care (01) ==
LOC: ER 14:58
DX: N83.299 Other ovarian cyst, unspecified side (principal)
CPT/HCPCS: 85025; 36415; 81025; 81003; 80053; 74177; 96375; 96374; 99285; Q9967

== ENCOUNTER 2023-05-29 09:34 | Emergency (ER) | payer OTHER, SELFPAY ==
--- OUTSIDE RECORDS SUMMARY | 2023-05-29 09:47 | XMS REPORT | Continuity of Care Document ---
Author Name Unknown Address [address] [facility]. [address] [place] [address] [facility] thconnect Address [address] [facility] [address] [place] [address] Care Team Providers Care Computer Education Teacher Name Role Phone Adrienne Serna PA-C Primary Care Physician + DOM MOSER Attending Clinician UnavailDOM Talbert Attending Clinician UnavailAlexia Johnson MD Attending Clinician [phone] ALEXIA CHEEMA Attending Clinician Unavailable ERICA BURRIS Attending Clinician Unavailable Erica Burris MD Attending Clinician [phone] Doctor Unassigned, [place] Attending Clinician U [place] CRNA Attending Clinician [phone], Lkj Nst Room Attending Clinician Unavailable Room, [facility] Nst Attending Clinician Unavailable Pob, 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 Attending Clinician Unavailabl e 1, [facility] Us Room Attending Clinician Unavailab Jad Anderson MD Attending Clinician [phone] Zena Rizvi RN Attending Clinician Unavailable Kandy Delgado MD Attending Clinician [phone] Ultrasound, Ang-Mfm Attending Clinician Unavaila JAD Macias Attending Clinician Unavailable JAD BECKHAM Attending Clinician Unavailable Lab, Ang - Db Attending Clinician Unavailable Shawn Almaraz Attending Clinician [phone] SHAWN SOW Attending Clinician Unavailable KANDY DELGADO Attending Clinician Unavailable Rancho BERG, Brandy Dyson Attending Clinician [phone]- [phone] Adrienne Serna PA-C Attending Clinician ADRIENNE SERNA Attending Clinician Unavailab KANDY Cole Attending Clinician Unavailable Kandy Buchanan Attending Clinician [phone] Shakir Bustillo DO Attending Clinician [phone] Lab, Adc Fam Pob I Attending Clinician Unavailab michaelle Rolanda Jo BERG Attending Clinician [phone] Lab, Lkj Libradoi Attending Clinician Unavailable PIPPA GARAY Attending Clinician Unavailable Pippa Garay NP Attending Clinician [phone] Naomie Mario Attending Clinician +- [phone] KANDY DELGADO Admitting Clinician Unavailable ERICA BURRIS Admitting Clinician Unavailable Erica Burris MD Admitting Clinician [phone] ALEXIA CHEEMA Admitting Clinician Unavailable Kandy Delgado MD Admitting Clinician [phone] DOM MOSER Admitting Clinician UnavailPIPPA Ibrahim Admitting Clinician Unavailable Payers Payer Name Policy Type Policy Number Effective Date Expirati on Date Source [facility] [id number] 00:00:00 [place] [id number] 2022 00:00:00 [facility] [id number] 2019 00:00:00 Problems Condition Name Condition Details Condition Category Status Onset Date Resolution Date Last Treatment Date Treating Clinician Comments Source Menorrhagi a with irregular cycle Menorrhagi a with irregular cycle Disease Active 08-04 00:00: 00 [facility] Oral contracept kayli pill surveillan ce Oral contracept kayli pill surveillan ce Disease Active 08-04 00:00: 00 [facility] Breastfeed ing problem Breastfeed ing problem Disease Active 08-04 00:00: 00 [facility] Positive depression screening Positive depression screening Disease Active 0 2-17 00:00: 00 [facility] Liveborn , of cap[place] , born in hospital by vaginal delivery Liveborn , of [place] , born in hospital by vaginal delivery Disease Active 2021-06 2-16 00:00: 00 [facility] 40 weeks gestation of 40 weeks gestation of Disease Active 2021-06 2-15 00:00: 00 [facility] Encounter for screening for maternal depression Encounter for screening for maternal depression Disease Active 2021-06 2-15 00:00: 00 [facility] Post-term , 40-42 weeks of gestation Post-term , 40-42 weeks of gestation Disease Active 2021-06 2-12 00:00: 00 [facility] Obesity in , antepartum Obesity in , antepartum Disease Active 2021-06 1-11 00:00: 00 [facility] Candidiasi s of breast Candidiasi s of breast Disease Active 2021-06 1-11 00:00: 00 [facility] 34 weeks gestation of 34 weeks gestation of Disease Active 2021-06 1-04 00:00: 00 [facility] Anemia of mother in , antepartum Anemia of mother in , antepartum Disease Active 2021-06 1-04 00:00: 00 [facility] Heartburn during , antepartum Heartburn during , antepartum Disease Active 0 7-12 00:00: 00 [facility] Maternal hypotensio n syndrome, antepartum Maternal hypotensio n syndrome, antepartum Disease Active 7-12 00:00: 00 [facility] Dizziness and giddiness Dizziness and giddiness Disease Active 0 7-12 00:00: 00 [facility] Dysuria Dysuria Disease Active 7-02 00:00: 00 [facility] Abnormal urinalysis Abnormal urinalysis Disease Active 7-02 00:00: 00 [facility] Hyperemesi s gravidarum Hyperemesi s gravidarum Disease Active 2022-0 6-10 00:00: 00 [facility] Syncope, unspecifie d syncope type Syncope, unspecifie d syncope type Disease Active 6-09 00:00: 00 [facility] Encounter for supervisio n of normal first in first trimester Encounter for supervisio n of normal first in first trimester Disease Active 5-16 00:00: 00 [facility] Nausea and vomiting in Nausea and vomiting in Disease Active 516 00:00: 00 [facility] BMI 32.0-32.9, adult BMI 32.0-32.9, adult Disease Active 516 00:00: 00 [facility] Supervisio n of other high risk pregnancie s, third trimester Supervisio n of other high risk pregnancie s, third trimester Disease Active 4-18 00:00: 00 [facility] screening for malformati on using ultrasonic s screening for malformati on using ultrasonic s Disease Active 418 00:00: 00 [facility] Asthma affecting in first trimester Asthma affecting in first trimester Disease Active 418 00:00: 00 [facility] Phalanx (hand) fracture, closed, initial encounter Phalanx (hand) fracture, closed, initial encounter Disease Active 11-06 00:00: 00 [facility] Allergies, Adverse Reactions, Alerts Allergy Name Allergy Type Status Severity Reaction(s) Onset Date Inactive Date Treating Clinician Comments Source NO KNOWN ALLERGIE S Drug Class Active [facility] Social History Social Habit Start Date Stop Date Quantity Comments Source ASSERTION 2021-09-04 00:00:00 [facility] History of tobacco use Passive smoker [facility] Exposure to SARS-CoV-2 (event) 2022-07-25 00:00:00 2022-08-04 09:04:00 Not sure [facility] Education 2022-06-01 00:00:00 2022-06-01 00:00:00 13 [facility] Alcohol intake 2022-01-09 00:00:00 2022-01-09 00:00:00 Ex-drinker (finding) [facility] History of Social function 2021-10-03 00:00:00 2021-10-03 00:00:00 [facility] Tobacco use and exposure 2017-05-18 00:00:00 2017-05-18 00:00:00 Smokeless tobacco non-user [facility] Sex Assigned At 2000 00:00:00 2000 00:00:00 [facility] Smoking Status Start Date Stop Date Source Never smoked tobacco [facility] Medications Ordered Medication Name Filled Medication Name Start Date Stop Date Current Medication? Ordering Clinician Indication Dosage Frequency Signature (SIG) Comments Components Source cetirizine HCl (ZYRTEC ORAL) 08-04 09:18: 39 Yes [id number] 103 Take by mouth. [facility] cetirizine HCl (ZYRTEC ORAL) 08-04 09:18: 39 Yes [id number] 103 Take by mouth. [facility] cetirizine HCl (ZYRTEC ORAL) 08-04 09:18: 39 Yes [id number] 103 Take by mouth. [facility] cetirizine HCl (ZYRTEC ORAL) 08-04 09:18: 39 Yes [id number] 103 Take by mouth. [facility] cetirizine HCl (ZYRTEC ORAL) 08-04 09:18: 39 Yes [id number] 103 Take by mouth. [facility] cetirizine HCl (ZYRTEC ORAL) 08-04 09:18: 39 Yes [id number] 103 Take by mouth. [facility] cetirizine HCl (ZYRTEC ORAL) 08-04 09:18: 39 Yes [id number] 103 Take by mouth. [facility] cetirizine HCl (ZYRTEC ORAL) 08-04 09:18: 39 Yes [id number] 103 Take by mouth. [facility] norethindro ne (ORTHO MICRONOR) 0.35 mg tablet 2-17 00:00: 00 Yes [id number] .35mg Take 1 tablet by mouth in the morning. [facility] metoclopram riaz HCl 10 mg tablet -17 00:00: 00 Yes [id number] 10mg Take 1 tablet by mouth every 8 (eight) hours. [facility] norethindro ne (ORTHO MICRONOR) 0.35 mg tablet -17 00:00: 00 Yes [id number] .35mg Take 1 tablet by mouth in the morning. [facility] metoclopram riaz HCl 10 mg tablet 17 00:00: 00 Yes [id number] 10mg Take 1 tablet by mouth every 8 (eight) hours. [facility] norgestimat e-ethinyl estradioL 0.25-35 mg-mcg per tablet 1- 00:00: 00 Yes [id number] 1{tbl} Take 1 tablet by mouth in the morning. [facility] norgestimat e-ethinyl estradioL 0.25-35 mg-mcg per tablet 1- 00:00: 00 Yes [id number] 1{tbl} Take 1 tablet by mouth in the morning. [facility] norgestimat e-ethinyl estradioL 0.25-35 mg-mcg per tablet 1- 00:00: 00 Yes [id number] 1{tbl} Take 1 tablet by mouth in the morning. [facility] norgestimat e-ethinyl estradioL 0.25-35 mg-mcg per tablet 1-06 00:00: 00 Yes [id number] 1{tbl} Take 1 tablet by mouth in the morning. [facility] norgestimat e-ethinyl estradioL 0.25-35 mg-mcg per tablet 1- 00:00: 00 Yes [id number] 1{tbl} Take 1 tablet by mouth in the morning. [facility] norgestimat e-ethinyl estradioL 0.25-35 mg-mcg per tablet 2023-0 1-06 00:00: 00 08-04 00:00 :00 No [id number] 1{tbl} Take 1 tablet by mouth in the morning. [facility] norgestimat e-ethinyl estradioL 0.25-35 mg-mcg per tablet 06-23 00:00: 00 08-04 00:00 :00 No [id number] 1{tbl} Take 1 tablet by mouth in the morning. [facility] cetirizine HCl (ZYRTEC ORAL) 2021-06 14:21: 23 Yes [id number] 103 Take by mouth. [facility] cetirizine HCl (ZYRTEC ORAL) 2021-06 14:21: 23 Yes [id number] 103 Take by mouth. [facility] cetirizine HCl (ZYRTEC ORAL) 2021-06 14:21: 23 Yes [id number] 103 Take by mouth. [facility] cetirizine HCl (ZYRTEC ORAL) 2021-06 14:21: 23 Yes [id number] 103 Take by mouth. [facility] cetirizine HCl (ZYRTEC ORAL) 2021-06 14:21: 23 Yes [id number] 103 Take by mouth. [facility] cetirizine HCl (ZYRTEC ORAL) 2021-06 14:21: 23 Yes [id number] 103 Take by mouth. [facility] 25/iron fum/folic/d silva (-1 ORAL) 2021-06 08:38: 37 06-02 00:00 :00 No Take by mouth. [facility] rho(D) immune globulin (RHOGAM) syringe 300 mcg 2021-06 06:37: 08 Yes 300ug 300 mcg, Intramuscu lar, ONCE, For 1 dose, Conditiona l, Routine [facility] witch Elizabeth (TUCKS) 50 % topical pad 2021-06 06:36: 53 Yes Topical, Q4HPRN, Starting on Sun06/02/22 at 0036, Until Discontinu ed, Routine, rectal/hem orrhoidal pain [facility] HYDROcodone -acetaminop hen (NORCO 5) 5-325 mg tablet 1 tablet 2021-06 06:36: 53 Yes 1{tbl} 1 tablet, Oral, Q6HPRN, Starting on Sun06/02/22 at 0036, Until Discontinu ed, Routine, Pain (scale 7-10) [facility] ibuprofen (IBU) tablet 600 mg 2021-06 06:36: 53 Yes 600mg 600 mg, Oral, Q6HPRN, Starting on Sun06/02/22 at 0036, Until Discontinu ed, Routine, Pain (scale 4-6) [facility] acetaminoph en (TYLENOL) tablet 650 mg 2021-06 06:36: 53 Yes 650mg 650 mg, Oral, Q6HPRN, Starting on Sun06/02/22 at 0036, Until Discontinu ed, Routine, Pain (scale 1-3) [facility] diphenhydrA MINE (BENADRYL) tablet 25 mg 2021-06 06:36: 53 Yes 25mg 25 mg, Oral, Q6HPRN, Starting on Sun06/02/22 at 0036, Until Discontinu ed, Routine, Sleep, Itching [facility] ondansetron (ZOFRAN (PF)) injection 4 mg 2021-06 06:36: 53 Yes 4mg 4 mg, Slow IV Push, Q8HPRN, Starting on Sun06/02/22 at 0036, Until Discontinu ed, Routine, Nausea and Vomiting (N/V) [facility] simethicone (GAS RELIEF (SIMETHICON E)) chewable tablet 160 mg 2021-06 06:36: 53 Yes 160mg 160 mg, Oral, PC+HSPRN, Starting on Sun06/02/22 at 0036, Until Discontinu ed, Routine, Gas [facility] docusate (COLACE) capsule 200 mg 2021-06 06:36: 53 Yes 200mg 200 mg, Oral, QDAILYPRN, Starting on Sun06/02/22 at 0036, Until Discontinu ed, Routine, Constipati on [facility] magnesium hydroxide (MILK OF MAGNESIA) 400 mg/5 mL suspension 30 mL 2021-06 06:36: 53 Yes 30mL 30 mL, Oral, QDAILYPRN, Starting on Sun06/02/22 at 0036, Until Discontinu ed, Routine, Constipati on [facility] benzocaine- menthol (DERMOPLAST ) 20-0.5 % topical spray 2021-06 06:36: 53 Yes Topical, PRN, Starting on Sun06/02/22 at 0036, Until Discontinu ed, Routine, Perineum discomfort [facility] cetirizine HCl (ZYRTEC ORAL) 2021-06 00:16: 55 Yes [id number] 103 Take by mouth. [facility] 25/iron fum/folic/d silva (-1 ORAL) 2021-06 00:16: 55 Yes Take by mouth. [facility] vitamin w/FA tablet 2021-06 00:00: 00 Yes [id number] 1{tbl} Take 1 tablet by mouth in the morning. [facility] docusate 100 mg capsule 2021-06 00:00: 00 Yes [id number] 200mg Take 2 capsules by mouth once daily as needed for Constipati on. [facility] ferrous sulfate 325 mg (65 mg iron) tablet 2021-06 00:00: 00 Yes [id number] 325mg Take 1 tablet by mouth in the morning and 1 tablet in the evening. [facility] ibuprofen 600 mg tablet 2021-06 00:00: 00 Yes [id number] 600mg Take 1 tablet by mouth every 6 (six) hours as needed (Pain). Take with food or milk. [facility] vitamin w/FA tablet 2021-06 00:00: 00 Yes [id number] 1{tbl} Take 1 tablet by mouth in the morning. [facility] ferrous sulfate 325 mg (65 mg iron) tablet 2021-06 00:00: 00 Yes [id number] 325mg Take 1 tablet by mouth in the morning and 1 tablet in the evening. [facility] vitamin w/FA tablet 2021-06 00:00: 00 Yes [id number] 1{tbl} Take 1 tablet by mouth in the morning. [facility] ferrous sulfate 325 mg (65 mg iron) tablet 2021-06 00:00: 00 Yes [id number] 325mg Take 1 tablet by mouth in the morning and 1 tablet in the evening. [facility] vitamin w/FA tablet 2021-06 00:00: 00 Yes [id number] 1{tbl} Take 1 tablet by mouth in the morning. [facility] ferrous sulfate 325 mg (65 mg iron) tablet 2021-06 00:00: 00 Yes [id number] 325mg Take 1 tablet by mouth in the morning and 1 tablet in the evening. [facility] vitamin w/FA tablet 2021-06 00:00: 00 Yes [id number] 1{tbl} Take 1 tablet by mouth in the morning. [facility] ferrous sulfate 325 mg (65 mg iron) tablet 2021-06 00:00: 00 Yes [id number] 325mg Take 1 tablet by mouth in the morning and 1 tablet in the evening. [facility] vitamin w/FA tablet 2021-06 00:00: 00 Yes [id number] 1{tbl} Take 1 tablet by mouth in the morning. [facility] ferrous sulfate 325 mg (65 mg iron) tablet 2021-06 00:00: 00 Yes [id number] 325mg Take 1 tablet by mouth in the morning and 1 tablet in the evening. [facility] vitamin w/FA tablet 2021-06 00:00: 00 Yes [id number] 1{tbl} Take 1 tablet by mouth in the morning. [facility] ferrous sulfate 325 mg (65 mg iron) tablet 2021-06 00:00: 00 Yes [id number] 325mg Take 1 tablet by mouth in the morning and 1 tablet in the evening. [facility] vitamin w/FA tablet 2021-06 00:00: 00 Yes [id number] 1{tbl} Take 1 tablet by mouth in the morning. [facility] ferrous sulfate 325 mg (65 mg iron) tablet 2021-06 00:00: 00 Yes [id number] 325mg Take 1 tablet by mouth in the morning and 1 tablet in the evening. [facility] vitamin w/FA tablet 2021-06 00:00: 00 Yes [id number] 1{tbl} Take 1 tablet by mouth in the morning. [facility] ferrous sulfate 325 mg (65 mg iron) tablet 2021-06 00:00: 00 Yes [id number] 325mg Take 1 tablet by mouth in the morning and 1 tablet in the evening. [facility] docusate 100 mg capsule 2021-06 00:00: 00 06-23 00:00 :00 No [id number] 200mg Take 2 capsules by mouth once daily as needed for Constipati on. [facility] ibuprofen 600 mg tablet 2021-06 00:00: 00 06-23 00:00 :00 No [id number] 600mg Take 1 tablet by mouth every 6 (six) hours as needed (Pain). Take with food or milk. [facility] misoprostol (CYTOTEC) quarter-tab let 25 mcg 2021-06 18:30: 00 06-02 06:37 :04 No 25ug 25 mcg, Vaginal, Q4H ABX, First dose on Sun06/01/22 at 1230, Until Discontinu ed, Routine [facility] lactated ringers IV infusion 500 mL 2021-06 18:15: 00 06-01 17:52 :00 No 500mL at 999 mL/hr, 500 mL, IV Infusion, ONCE, 1 dose, On Sun06/01/22 at 1215, Routine [facility] misoprostol (CYTOTEC) quarter-tab let 25 mcg 2021-06 17:45: 00 06-01 18:34 :00 No 25ug 25 mcg, Oral, ONCE, 1 dose, On 06/01/22 at 1145, Routine [facility] FENTanyl PF (SUBLIMAZE (PF)) injection 100 mcg 2021-06 17:29: 21 06-02 06:37 :04 No 100ug 100 mcg, Slow IV Push, Q1HPRN, Starting on Brenda 06/01/22 at 1129, Until Sun06/02/22 at 0037, Routine, contractio n pain without an epidural and SVE < 8 cm and Cat I strip [facility] proMETHazin e (PHENERGAN) 25 mg in NaCl 0.9% (NS) 50 mL IV piggyback 2021-06 17:29: 13 06-02 06:37 :04 No 25mg 25 mg, IV Piggyback, Q4HPRN, Starting on Brenda 06/01/22 at 1129, Until Sun06/02/22 at 0037, Routine, Nausea and Vomiting (N/V) [facility] lactated ringers IV infusion 500 mL 2021-06 17:26: 52 06-02 06:37 :04 No 500mL at 999 mL/hr, 500 mL, IV Infusion, PRN - SEE INSTRUCTIO NS, Starting on Sun06/01/22 at 1126, Until Sun06/02/22 at 0037, Routine [facility] D5W-LR IV infusion 1,000 mL 2021-06 17:26: 52 06-02 06:37 :04 No 1000mL at 1-125 mL/hr, IV Infusion, TITRATE, Starting on Brenda 06/01/22 at 1126, Until Sun06/02/22 at 0037, Routine [facility] cetirizine HCl (ZYRTEC ORAL) 2021-06 13:17: 57 Yes [id number] 103 Take by mouth. [facility] cetirizine HCl (ZYRTEC ORAL) 2021-06 13:17: 57 Yes [id number] 103 Take by mouth. [facility] cetirizine HCl (ZYRTEC ORAL) 2021-06 13:17: 57 Yes [id number] 103 Take by mouth. [facility] cetirizine HCl (ZYRTEC ORAL) 2021-06 13:17: 57 Yes [id number] 103 Take by mouth. [facility] cetirizine HCl (ZYRTEC ORAL) 2021-06 13:17: 57 Yes [id number] 103 Take by mouth. [facility] cetirizine HCl (ZYRTEC ORAL) 2021-06 13:17: 57 Yes [id number] 103 Take by mouth. [facility] cetirizine HCl (ZYRTEC ORAL) 2021-06 13:17: 57 Yes [id number] 103 Take by mouth. [facility] cetirizine HCl (ZYRTEC ORAL) 2021-06 13:17: 57 Yes [id number] 103 Take by mouth. [facility] cetirizine HCl (ZYRTEC ORAL) 2021-06 13:17: 57 Yes [id number] 103 Take by mouth. [facility] nystatin 100,000 unit/gram cream 2021-06 00:00: 00 Yes [id number] Apply to area(s) 2 (two) times daily. [facility] nystatin 100,000 unit/gram cream 2021-06 00:00: 00 Yes [id number] Apply to area(s) 2 (two) times daily. [facility] nystatin 100,000 unit/gram cream 2021-06 00:00: 00 Yes [id number] Apply to area(s) 2 (two) times daily. [facility] nystatin 100,000 unit/gram cream 2021-06 00:00: 00 Yes [id number] Apply to area(s) 2 (two) times daily. [facility] nystatin 100,000 unit/gram cream 2021-06 00:00: 00 Yes [id number] Apply to area(s) 2 (two) times daily. [facility] nystatin 100,000 unit/gram cream 2021-06 00:00: 00 Yes [id number] Apply to area(s) 2 (two) times daily. [facility] nystatin 100,000 unit/gram cream 2021-06 00:00: 00 Yes [id number] Apply to area(s) 2 (two) times daily. [facility] nystatin 100,000 unit/gram cream 2021-06 00:00: 00 Yes [id number] Apply to area(s) 2 (two) times daily. [facility] nystatin 100,000 unit/gram cream 2021-06 00:00: 00 Yes [id number] Apply to area(s) 2 (two) times daily. [facility] nystatin 100,000 unit/gram cream 2021-06 00:00: 00 Yes [id number] Apply to area(s) 2 (two) times daily. [facility] nystatin 100,000 unit/gram cream 2021-06 00:00: 00 Yes [id number] Apply to area(s) 2 (two) times daily. [facility] nystatin 100,000 unit/gram cream 2021-06 00:00: 00 Yes [id number] Apply to area(s) 2 (two) times daily. [facility] nystatin 100,000 unit/gram cream 2021-06 00:00: 00 Yes [id number] Apply to area(s) 2 (two) times daily. [facility] nystatin 100,000 unit/gram cream 2021-06 00:00: 00 Yes [id number] Apply to area(s) 2 (two) times daily. [facility] nystatin 100,000 unit/gram cream 2021-06 00:00: 00 Yes [id number] Apply to area(s) 2 (two) times daily. [facility] nystatin 100,000 unit/gram cream 2021-06 00:00: 00 06-02 00:00 :00 No [id number] Apply to area(s) 2 (two) times daily. [facility] ferrous sulfate (IRON, FERROUS SULFATE,) 325 mg (65 mg iron) tablet 2021-06 00:00: 00 Yes [id number] 325mg Take 1 tablet by mouth in the morning and 1 tablet in the evening. [facility] ascorbic acid, vitamin C, 500 mg tablet 2021-06 00:00: 00 Yes [id number] 250mg Take 0.5 tablets by mouth in the morning and 0.5 tablets in the evening. [facility] polyethylen e glycol 3350 17 gram/dose powder 2021-06 00:00: 00 Yes [id number] 17g Take 17 g by mouth in the morning. [facility] ferrous sulfate (IRON, FERROUS SULFATE,) 325 mg (65 mg iron) tablet 2021-06 00:00: 00 Yes [id number] 325mg Take 1 tablet by mouth in the morning and 1 tablet in the evening. [facility] ascorbic acid, vitamin C, 500 mg tablet 2021-06 00:00: 00 Yes [id number] 250mg Take 0.5 tablets by mouth in the morning and 0.5 tablets in the evening. [facility] polyethylen e glycol 3350 17 gram/dose powder 2021-06 00:00: 00 Yes [id number] 17g Take 17 g by mouth in the morning. [facility] ferrous sulfate (IRON, FERROUS SULFATE,) 325 mg (65 mg iron) tablet 2021-06 00:00: 00 Yes [id number] 325mg Take 1 tablet by mouth in the morning and 1 tablet in the evening. [facility] ascorbic acid, vitamin C, 500 mg tablet 2021-06 00:00: 00 Yes [id number] 250mg Take 0.5 tablets by mouth in the morning and 0.5 tablets in the evening. [facility] polyethylen e glycol 3350 17 gram/dose powder 2021-06 00:00: 00 Yes [id number] 17g Take 17 g by mouth in the morning. [facility] ferrous sulfate (IRON, FERROUS SULFATE,) 325 mg (65 mg iron) tablet 2021-06 00:00: 00 Yes [id number] 325mg Take 1 tablet by mouth in the morning and 1 tablet in the evening. [facility] ascorbic acid, vitamin C, 500 mg tablet 2021-06 00:00: 00 Yes [id number] 250mg Take 0.5 tablets by mouth in the morning and 0.5 tablets in the evening. [facility] polyethylen e glycol 3350 17 gram/dose powder 2021-06 00:00: 00 Yes [id number] 17g Take 17 g by mouth in the morning. [facility] ferrous sulfate (IRON, FERROUS SULFATE,) 325 mg (65 mg iron) tablet 2021-06 00:00: 00 Yes [id number] 325mg Take 1 tablet by mouth in the morning and 1 tablet in the evening. [facility] ascorbic acid, vitamin C, 500 mg tablet 2021-06 00:00: 00 Yes [id number] 250mg Take 0.5 tablets by mouth in the morning and 0.5 tablets in the evening. [facility] polyethylen e glycol 3350 17 gram/dose powder 2021-06 00:00: 00 Yes [id number] 17g Take 17 g by mouth in the morning. [facility] ferrous sulfate (IRON, FERROUS SULFATE,) 325 mg (65 mg iron) tablet 2021-06 00:00: 00 Yes [id number] 325mg Take 1 tablet by mouth in the morning and 1 tablet in the evening. [facility] ascorbic acid, vitamin C, 500 mg tablet 2021-06 00:00: 00 Yes [id number] 250mg Take 0.5 tablets by mouth in the morning and 0.5 tablets in the evening. [facility] polyethylen e glycol 3350 17 gram/dose powder 2021-06 00:00: 00 Yes [id number] 17g Take 17 g by mouth in the morning. [facility] ferrous sulfate (IRON, FERROUS SULFATE,) 325 mg (65 mg iron) tablet 2021-06 00:00: 00 Yes [id number] 325mg Take 1 tablet by mouth in the morning and 1 tablet in the evening. [facility] ascorbic acid, vitamin C, 500 mg tablet 2021-06 00:00: 00 Yes [id number] 250mg Take 0.5 tablets by mouth in the morning and 0.5 tablets in the evening. [facility] polyethylen e glycol 3350 17 gram/dose powder 2021-06 00:00: 00 Yes [id number] 17g Take 17 g by mouth in the morning. [facility] ferrous sulfate (IRON, FERROUS SULFATE,) 325 mg (65 mg iron) tablet 2021-06 00:00: 00 Yes [id number] 325mg Take 1 tablet by mouth in the morning and 1 tablet in the evening. [facility] ascorbic acid, vitamin C, 500 mg tablet 2021-06 00:00: 00 Yes [id number] 250mg Take 0.5 tablets by mouth in the morning and 0.5 tablets in the evening. [facility] polyethylen e glycol 3350 17 gram/dose powder 2021-06 00:00: 00 Yes [id number] 17g Take 17 g by mouth in the morning. [facility] ferrous sulfate (IRON, FERROUS SULFATE,) 325 mg (65 mg iron) tablet 2021-06 00:00: 00 Yes [id number] 325mg Take 1 tablet by mouth in the morning and 1 tablet in the evening. [facility] ascorbic acid, vitamin C, 500 mg tablet 2021-06 00:00: 00 Yes [id number] 250mg Take 0.5 tablets by mouth in the morning and 0.5 tablets in the evening. [facility] polyethylen e glycol 3350 17 gram/dose powder 2021-06 00:00: 00 Yes [id number] 17g Take 17 g by mouth in the morning. [facility] ferrous sulfate (IRON, FERROUS SULFATE,) 325 mg (65 mg iron) tablet 2021-06 00:00: 00 Yes [id number] 325mg Take 1 tablet by mouth in the morning and 1 tablet in the evening. [facility] ascorbic acid, vitamin C, 500 mg tablet 2021-06 00:00: 00 Yes [id number] 250mg Take 0.5 tablets by mouth in the morning and 0.5 tablets in the evening. [facility] polyethylen e glycol 3350 17 gram/dose powder 2021-06 00:00: 00 Yes [id number] 17g Take 17 g by mouth in the morning. [facility] ferrous sulfate (IRON, FERROUS SULFATE,) 325 mg (65 mg iron) tablet 2021-06 00:00: 00 Yes [id number] 325mg Take 1 tablet by mouth in the morning and 1 tablet in the evening. [facility] ascorbic acid, vitamin C, 500 mg tablet 2021-06 00:00: 00 Yes [id number] 250mg Take 0.5 tablets by mouth in the morning and 0.5 tablets in the evening. [facility] polyethylen e glycol 3350 17 gram/dose powder 2021-06 00:00: 00 Yes [id number] 17g Take 17 g by mouth in the morning. [facility] ferrous sulfate (IRON, FERROUS SULFATE,) 325 mg (65 mg iron) tablet 2021-06 00:00: 00 Yes [id number] 325mg Take 1 tablet by mouth in the morning and 1 tablet in the evening. [facility] ascorbic acid, vitamin C, 500 mg tablet 2021-06 00:00: 00 Yes [id number] 250mg Take 0.5 tablets by mouth in the morning and 0.5 tablets in the evening. [facility] polyethylen e glycol 3350 17 gram/dose powder 2021-06 00:00: 00 Yes [id number] 17g Take 17 g by mouth in the morning. [facility] ferrous sulfate (IRON, FERROUS SULFATE,) 325 mg (65 mg iron) tablet 2021-06 00:00: 00 Yes [id number] 325mg Take 1 tablet by mouth in the morning and 1 tablet in the evening. [facility] ascorbic acid, vitamin C, 500 mg tablet 2021-06 00:00: 00 Yes [id number] 250mg Take 0.5 tablets by mouth in the morning and 0.5 tablets in the evening. [facility] polyethylen e glycol 3350 17 gram/dose powder 2021-06 00:00: 00 Yes [id number] 17g Take 17 g by mouth in the morning. [facility] ferrous sulfate (IRON, FERROUS SULFATE,) 325 mg (65 mg iron) tablet 2021-06 00:00: 00 Yes [id number] 325mg Take 1 tablet by mouth in the morning and 1 tablet in the evening. [facility] ascorbic acid, vitamin C, 500 mg tablet 2021-06 00:00: 00 Yes [id number] 250mg Take 0.5 tablets by mouth in the morning and 0.5 tablets in the evening. [facility] polyethylen e glycol 3350 17 gram/dose powder 2021-06 00:00: 00 Yes [id number] 17g Take 17 g by mouth in the morning. [facility] ferrous sulfate (IRON, FERROUS SULFATE,) 325 mg (65 mg iron) tablet 2021-06 00:00: 00 Yes [id number] 325mg Take 1 tablet by mouth in the morning and 1 tablet in the evening. [facility] ascorbic acid, vitamin C, 500 mg tablet 2021-06 00:00: 00 Yes [id number] 250mg Take 0.5 tablets by mouth in the morning and 0.5 tablets in the evening. [facility] polyethylen e glycol 3350 17 gram/dose powder 2021-06 00:00: 00 Yes [id number] 17g Take 17 g by mouth in the morning. [facility] ferrous sulfate (IRON, FERROUS SULFATE,) 325 mg (65 mg iron) tablet 2021-06 00:00: 00 Yes [id number] 325mg Take 1 tablet by mouth in the morning and 1 tablet in the evening. [facility] ascorbic acid, vitamin C, 500 mg tablet 2021-06 00:00: 00 Yes [id number] 250mg Take 0.5 tablets by mouth in the morning and 0.5 tablets in the evening. [facility] polyethylen e glycol 3350 17 gram/dose powder 2021-06 00:00: 00 Yes [id number] 17g Take 17 g by mouth in the morning. [facility] ferrous sulfate (IRON, FERROUS SULFATE,) 325 mg (65 mg iron) tablet 2021-06 00:00: 00 Yes [id number] 325mg Take 1 tablet by mouth in the morning and 1 tablet in the evening. [facility] ascorbic acid, vitamin C, 500 mg tablet 2021-06 00:00: 00 Yes [id number] 250mg Take 0.5 tablets by mouth in the morning and 0.5 tablets in the evening. [facility] polyethylen e glycol 3350 17 gram/dose powder 2021-06 00:00: 00 Yes [id number] 17g Take 17 g by mouth in the morning. [facility] ascorbic acid, vitamin C, 500 mg tablet 2021-06 00:00: 00 Yes [id number] 250mg Take 0.5 tablets by mouth in the morning and 0.5 tablets in the evening. [facility] ascorbic acid, vitamin C, 500 mg tablet 2021-06 00:00: 00 Yes [id number] 250mg Take 0.5 tablets by mouth in the morning and 0.5 tablets in the evening. [facility] ascorbic acid, vitamin C, 500 mg tablet 2021-06 00:00: 00 Yes [id number] 250mg Take 0.5 tablets by mouth in the morning and 0.5 tablets in the evening. [facility] ascorbic acid, vitamin C, 500 mg tablet 2021-06 00:00: 00 Yes [id number] 250mg Take 0.5 tablets by mouth in the morning and 0.5 tablets in the evening. [facility] ascorbic acid, vitamin C, 500 mg tablet 2021-06 00:00: 00 Yes [id number] 250mg Take 0.5 tablets by mouth in the morning and 0.5 tablets in the evening. [facility] ascorbic acid, vitamin C, 500 mg tablet 2021-06 00:00: 00 Yes [id number] 250mg Take 0.5 tablets by mouth in the morning and 0.5 tablets in the evening. [facility] ascorbic acid, vitamin C, 500 mg tablet 2021-06 00:00: 00 Yes [id number] 250mg Take 0.5 tablets by mouth in the morning and 0.5 tablets in the evening. [facility] ascorbic acid, vitamin C, 500 mg tablet 2021-06 00:00: 00 Yes [id number] 250mg Take 0.5 tablets by mouth in the morning and 0.5 tablets in the evening. [facility] ascorbic acid, vitamin C, 500 mg tablet 2021-06 00:00: 00 Yes [id number] 250mg Take 0.5 tablets by mouth in the morning and 0.5 tablets in the evening. [facility] ascorbic acid, vitamin C, 500 mg tablet 2021-06 00:00: 00 Yes [id number] 250mg Take 0.5 tablets by mouth in the morning and 0.5 tablets in the evening. [facility] ascorbic acid, vitamin C, 500 mg tablet 2021-06 00:00: 00 Yes [id number] 250mg Take 0.5 tablets by mouth in the morning and 0.5 tablets in the evening. [facility] ferrous sulfate (IRON, FERROUS SULFATE,) 325 mg (65 mg iron) tablet 2021-06 00:00: 00 06-02 00:00 :00 No [id number] 325mg Take 1 tablet by mouth in the morning and 1 tablet in the evening. [facility] polyethylen e glycol 3350 17 gram/dose powder 2021-06 00:00: 00 06-02 00:00 :00 No [id number] 17g Take 17 g by mouth in the morning. [facility] ondansetron 8 mg disintegrat ing tablet 2021-06 00:00: 00 Yes [id number] 8mg Take 1 tablet by mouth every 8 (eight) hours as needed for Nausea and Vomiting (N/V). [facility] omeprazole 20 mg capsule 2021-06 00:00: 00 Yes [id number] 20mg Take 1 capsule by mouth in the morning. [facility] ondansetron 8 mg disintegrat ing tablet 2021-06 00:00: 00 Yes [id number] 8mg Take 1 tablet by mouth every 8 (eight) hours as needed for Nausea and Vomiting (N/V). [facility] omeprazole 20 mg capsule 2021-1 0-17 00:00: 00 Yes [id number] 20mg Take 1 capsule by mouth in the morning. [facility] ondansetron 8 mg disintegrat ing tablet 2021- 0-17 00:00: 00 Yes [id number] 8mg Take 1 tablet by mouth every 8 (eight) hours as needed for Nausea and Vomiting (N/V). [facility] omeprazole 20 mg capsule 2021-1 0-17 00:00: 00 Yes [id number] 20mg Take 1 capsule by mouth in the morning. [facility] ondansetron 8 mg disintegrat ing tablet 2021- 0-17 00:00: 00 Yes [id number] 8mg Take 1 tablet by mouth every 8 (eight) hours as needed for Nausea and Vomiting (N/V). [facility] omeprazole 20 mg capsule 2021- 0-17 00:00: 00 Yes [id number] 20mg Take 1 capsule by mouth in the morning. [facility] ondansetron 8 mg disintegrat ing tablet 2021- 0-17 00:00: 00 Yes [id number] 8mg Take 1 tablet by mouth every 8 (eight) hours as needed for Nausea and Vomiting (N/V). [facility] omeprazole 20 mg capsule 2021- 0-17 00:00: 00 Yes [id number] 20mg Take 1 capsule by mouth in the morning. [facility] ondansetron 8 mg disintegrat ing tablet 2021-1 0-17 00:00: 00 Yes [id number] 8mg Take 1 tablet by mouth every 8 (eight) hours as needed for Nausea and Vomiting (N/V). [facility] omeprazole 20 mg capsule 2021-1 0-17 00:00: 00 Yes [id number] 20mg Take 1 capsule by mouth in the morning. [facility] ondansetron 8 mg disintegrat ing tablet 2021-1 0-17 00:00: 00 Yes [id number] 8mg Take 1 tablet by mouth every 8 (eight) hours as needed for Nausea and Vomiting (N/V). [facility] omeprazole 20 mg capsule 2021-1 0-17 00:00: 00 Yes [id number] 20mg Take 1 capsule by mouth in the morning. [facility] ondansetron 8 mg disintegrat ing tablet 2021-1 0-17 00:00: 00 Yes [id number] 8mg Take 1 tablet by mouth every 8 (eight) hours as needed for Nausea and Vomiting (N/V). [facility] omeprazole 20 mg capsule 2021- 0-17 00:00: 00 Yes [id number] 20mg Take 1 capsule by mouth in the morning. [facility] ondansetron 8 mg disintegrat ing tablet 2021- 0-17 00:00: 00 Yes [id number] 8mg Take 1 tablet by mouth every 8 (eight) hours as needed for Nausea and Vomiting (N/V). [facility] omeprazole 20 mg capsule 2021- 0-17 00:00: 00 Yes [id number] 20mg Take 1 capsule by mouth in the morning. [facility] ondansetron 8 mg disintegrat ing tablet 2021-06 0-17 00:00: 00 Yes [id number] 8mg Take 1 tablet by mouth every 8 (eight) hours as needed for Nausea and Vomiting (N/V). [facility] omeprazole 20 mg capsule 2021- 0-17 00:00: 00 Yes [id number] 20mg Take 1 capsule by mouth in the morning. [facility] ondansetron 8 mg disintegrat ing tablet 2021- 0-17 00:00: 00 Yes [id number] 8mg Take 1 tablet by mouth every 8 (eight) hours as needed for Nausea and Vomiting (N/V). [facility] omeprazole 20 mg capsule 2021- 0-17 00:00: 00 Yes [id number] 20mg Take 1 capsule by mouth in the morning. [facility] ondansetron 8 mg disintegrat ing tablet 2021- 0-17 00:00: 00 Yes [id number] 8mg Take 1 tablet by mouth every 8 (eight) hours as needed for Nausea and Vomiting (N/V). [facility] omeprazole 20 mg capsule 2021-1 0-17 00:00: 00 Yes [id number] 20mg Take 1 capsule by mouth in the morning. [facility] ondansetron 8 mg disintegrat ing tablet 2021-1 0-17 00:00: 00 Yes [id number] 8mg Take 1 tablet by mouth every 8 (eight) hours as needed for Nausea and Vomiting (N/V). [facility] omeprazole 20 mg capsule 2021-1 0-17 00:00: 00 Yes [id number] 20mg Take 1 capsule by mouth in the morning. [facility] ondansetron 8 mg disintegrat ing tablet 2021- 0-17 00:00: 00 Yes [id number] 8mg Take 1 tablet by mouth every 8 (eight) hours as needed for Nausea and Vomiting (N/V). [facility] omeprazole 20 mg capsule 2021- 0-17 00:00: 00 Yes [id number] 20mg Take 1 capsule by mouth in the morning. [facility] ondansetron 8 mg disintegrat ing tablet 2021- 0-17 00:00: 00 Yes [id number] 8mg Take 1 tablet by mouth every 8 (eight) hours as needed for Nausea and Vomiting (N/V). [facility] omeprazole 20 mg capsule 2021- 0-17 00:00: 00 Yes [id number] 20mg Take 1 capsule by mouth in the morning. [facility] ondansetron 8 mg disintegrat ing tablet 2021- 0-17 00:00: 00 Yes [id number] 8mg Take 1 tablet by mouth every 8 (eight) hours as needed for Nausea and Vomiting (N/V). [facility] omeprazole 20 mg capsule 2021-1 0-17 00:00: 00 Yes [id number] 20mg Take 1 capsule by mouth in the morning. [facility] ondansetron 8 mg disintegrat ing tablet 2021-1 0-17 00:00: 00 Yes [id number] 8mg Take 1 tablet by mouth every 8 (eight) hours as needed for Nausea and Vomiting (N/V). [facility] omeprazole 20 mg capsule 2021-1 0-17 00:00: 00 Yes [id number] 20mg Take 1 capsule by mouth in the morning. [facility] ondansetron 8 mg disintegrat ing tablet 2021-06 0-17 00:00: 00 Yes [id number] 8mg Take 1 tablet by mouth every 8 (eight) hours as needed for Nausea and Vomiting (N/V). [facility] omeprazole 20 mg capsule 2021-06 0-17 00:00: 00 Yes [id number] 20mg Take 1 capsule by mouth in the morning. [facility] ondansetron 8 mg disintegrat ing tablet 2021-06 0-17 00:00: 00 Yes [id number] 8mg Take 1 tablet by mouth every 8 (eight) hours as needed for Nausea and Vomiting (N/V). [facility] omeprazole 20 mg capsule 2021-06 0-17 00:00: 00 Yes [id number] 20mg Take 1 capsule by mouth in the morning. [facility] ondansetron 8 mg disintegrat ing tablet 2021-06 0 00:00: 00 06-02 00:00 :00 No [id number] 8mg Take 1 tablet by mouth every 8 (eight) hours as needed for Nausea and Vomiting (N/V). [facility] omeprazole 20 mg capsule 2021-06 017 00:00: 00 06-02 00:00 :00 No [id number] 20mg Take 1 capsule by mouth in the morning. [facility] cetirizine HCl (ZYRTEC ORAL) 2021-06 0 11:12: 00 Yes [id number] 103 Take by mouth. [facility] cetirizine HCl (ZYRTEC ORAL) 2021-06 0- 11:12: 00 Yes [id number] 103 Take by mouth. [facility] cetirizine HCl (ZYRTEC ORAL) 2021-06 0-14 11:12: 00 Yes [id number] 103 Take by mouth. [facility] cetirizine HCl (ZYRTEC ORAL) 2021-06 0 11:12: 00 Yes [id number] 103 Take by mouth. [facility] cetirizine HCl (ZYRTEC ORAL) 2022 11:12: 00 Yes [id number] 103 Take by mouth. [facility] cetirizine HCl (ZYRTEC ORAL) 2021-06 11:12: 00 Yes [id number] 103 Take by mouth. [facility] cetirizine HCl (ZYRTEC ORAL) 2021-06 11:12: 00 Yes [id number] 103 Take by mouth. [facility] cetirizine HCl (ZYRTEC ORAL) 2021-06 11:12: 00 Yes [id number] 103 Take by mouth. [facility] cetirizine HCl (ZYRTEC ORAL) 2021-06 11:12: 00 Yes [id number] 103 Take by mouth. [facility] cetirizine HCl (ZYRTEC ORAL) 2021-06 11:12: 00 Yes [id number] 103 Take by mouth. [facility] cetirizine HCl (ZYRTEC ORAL) 2021-06 11:12: 00 Yes [id number] 103 Take by mouth. [facility] cetirizine HCl (ZYRTEC ORAL) 03-03 15:39: 28 Yes [id number] 103 Take by mouth. [facility] cetirizine HCl (ZYRTEC ORAL) 03-03 15:39: 28 Yes [id number] 103 Take by mouth. [facility] cetirizine HCl (ZYRTEC ORAL) 03-03 15:39: 28 Yes [id number] 103 Take by mouth. [facility] cetirizine HCl (ZYRTEC ORAL) 03-03 15:39: 28 Yes [id number] 103 Take by mouth. [facility] ondansetron 8 mg disintegrat ing tablet 03-03 00:00: 00 Yes [id number] 8mg Take 1 tablet by mouth every 8 (eight) hours as needed for Nausea and Vomiting (N/V). [facility] ondansetron 8 mg disintegrat ing tablet 2022-0 9-16 00:00: 00 Yes [id number] 8mg Take 1 tablet by mouth every 8 (eight) hours as needed for Nausea and Vomiting (N/V). [facility] ondansetron 8 mg disintegrat ing tablet 2021-0 9-16 00:00: 00 Yes [id number] 8mg Take 1 tablet by mouth every 8 (eight) hours as needed for Nausea and Vomiting (N/V). [facility] ondansetron 8 mg disintegrat ing tablet 2021-0 9-16 00:00: 00 Yes [id number] 8mg Take 1 tablet by mouth every 8 (eight) hours as needed for Nausea and Vomiting (N/V). [facility] ondansetron 8 mg disintegrat ing tablet 2021-0 -16 00:00: 00 Yes [id number] 8mg Take 1 tablet by mouth every 8 (eight) hours as needed for Nausea and Vomiting (N/V). [facility] ondansetron 8 mg disintegrat ing tablet 0 16 00:00: 00 17 00:00 :00 No [id number] 8mg Take 1 tablet by mouth every 8 (eight) hours as needed for Nausea and Vomiting (N/V). [facility] ondansetron 8 mg disintegrat ing tablet 0 -11 00:00: 00 Yes [id number] 8mg Take 1 tablet by mouth every 8 (eight) hours as needed for Nausea and Vomiting (N/V). [facility] omeprazole 20 mg capsule 2021-0 7-11 00:00: 00 Yes [id number] 20mg Take 1 capsule by mouth in the morning. [facility] ondansetron 8 mg disintegrat ing tablet 2-0 7-11 00:00: 00 Yes [id number] 8mg Take 1 tablet by mouth every 8 (eight) hours as needed for Nausea and Vomiting (N/V). [facility] omeprazole 20 mg capsule 2-0 7-11 00:00: 00 Yes [id number] 20mg Take 1 capsule by mouth in the morning. [facility] ondansetron 8 mg disintegrat ing tablet 2022-0 7-11 00:00: 00 Yes [id number] 8mg Take 1 tablet by mouth every 8 (eight) hours as needed for Nausea and Vomiting (N/V). [facility] omeprazole 20 mg capsule 2-0 7-11 00:00: 00 Yes [id number] 20mg Take 1 capsule by mouth in the morning. [facility] omeprazole 20 mg capsule 2-0 7-11 00:00: 00 Yes [id number] 20mg Take 1 capsule by mouth in the morning. [facility] omeprazole 20 mg capsule 2-0 7-11 00:00: 00 Yes [id number] 20mg Take 1 capsule by mouth in the morning. [facility] omeprazole 20 mg capsule 2-0 7-11 00:00: 00 Yes [id number] 20mg Take 1 capsule by mouth in the morning. [facility] omeprazole 20 mg capsule 2-0 7-11 00:00: 00 Yes [id number] 20mg Take 1 capsule by mouth in the morning. [facility] omeprazole 20 mg capsule 2-0 7-11 00:00: 00 Yes [id number] 20mg Take 1 capsule by mouth in the morning. [facility] omeprazole 20 mg capsule 2-0 7-11 00:00: 00 Yes [id number] 20mg Take 1 capsule by mouth in the morning. [facility] omeprazole 20 mg capsule 2-0 7-11 00:00: 00 04-03 00:00 :00 No [id number] 20mg Take 1 capsule by mouth in the morning. [facility] ondansetron 8 mg disintegrat ing tablet 2021-0 7-11 00:00: 00 03-03 00:00 :00 No [id number] 8mg Take 1 tablet by mouth every 8 (eight) hours as needed for Nausea and Vomiting (N/V). [facility] ondansetron 8 mg disintegrat ing tablet 2021-0 7-11 00:00: 00 03-03 00:00 :00 No [id number] 8mg Take 1 tablet by mouth every 8 (eight) hours as needed for Nausea and Vomiting (N/V). [facility] 25/iron fum/folic/d silva (-1 ORAL) 12-14 14:03: 24 Yes Take by mouth. [facility] 25/iron fum/folic/d silva (-1 ORAL) 12-14 14:03: 24 Yes Take by mouth. [facility] 25/iron fum/folic/d silva (-1 ORAL) 12-14 14:03: 24 Yes Take by mouth. [facility] 25/iron fum/folic/d silva (-1 ORAL) 12-14 14:03: 24 Yes Take by mouth. [facility] 25/iron fum/folic/d silva (-1 ORAL) 12-14 14:03: 24 Yes Take by mouth. [facility] 25/iron fum/folic/d silva (-1 ORAL) 12-14 14:03: 24 Yes Take by mouth. [facility] 25/iron fum/folic/d silva (-1 ORAL) 12-14 14:03: 24 Yes Take by mouth. [facility] 25/iron fum/folic/d silva (-1 ORAL) 12-14 14:03: 24 Yes Take by mouth. [facility] 25/iron fum/folic/d silva (-1 ORAL) 12-14 14:03: 24 Yes Take by mouth. [facility] 25/iron fum/folic/d silva (-1 ORAL) 12-14 14:03: 24 Yes Take by mouth. [facility] 25/iron fum/folic/d silva (-1 ORAL) 12-14 14:03: 24 Yes Take by mouth. [facility] 25/iron fum/folic/d silva (-1 ORAL) 12-14 14:03: 24 Yes Take by mouth. [facility] 25/iron fum/folic/d silva (-1 ORAL) 12-14 14:03: 24 Yes Take by mouth. [facility] 25/iron fum/folic/d silva (-1 ORAL) 12-14 14:03: 24 Yes Take by mouth. [facility] 25/iron fum/folic/d silva (-1 ORAL) 12-14 14:03: 24 Yes Take by mouth. [facility] 25/iron fum/folic/d silva (-1 ORAL) 12-14 14:03: 24 Yes Take by mouth. [facility] 25/iron fum/folic/d silva (-1 ORAL) 12-14 14:03: 24 Yes Take by mouth. [facility] 25/iron fum/folic/d silva (-1 ORAL) 12-14 14:03: 24 Yes Take by mouth. [facility] 25/iron fum/folic/d silva (-1 ORAL) 12-14 14:03: 24 Yes Take by mouth. [facility] 25/iron fum/folic/d silva (-1 ORAL) 12-14 14:03: 24 Yes Take by mouth. [facility] 25/iron fum/folic/d silva (-1 ORAL) 12-14 14:03: 24 Yes Take by mouth. [facility] 25/iron fum/folic/d silva (-1 ORAL) 12-14 14:03: 24 Yes Take by mouth. [facility] 25/iron fum/folic/d silva (-1 ORAL) 12-14 14:03: 24 Yes Take by mouth. [facility] 25/iron fum/folic/d silva (-1 ORAL) 12-14 14:03: 24 Yes Take by mouth. [facility] 25/iron fum/folic/d silva (-1 ORAL) 12-14 14:03: 24 Yes Take by mouth. [facility] 25/iron fum/folic/d silva (-1 ORAL) 12-14 14:03: 24 Yes Take by mouth. [facility] 25/iron fum/folic/d silva (-1 ORAL) 12-14 14:03: 24 Yes Take by mouth. [facility] metoclopram riaz HCl 10 mg tablet 12-14 00:00: 00 Yes [id number] 10mg Take 1 tablet by mouth every 6 (six) hours as needed for Nausea and Vomiting (N/V). [facility] metoclopram riaz HCl 10 mg tablet 12-14 00:00: 00 Yes [id number] 10mg Take 1 tablet by mouth every 6 (six) hours as needed for Nausea and Vomiting (N/V). [facility] metoclopram riaz HCl 10 mg tablet 12-14 00:00: 00 Yes [id number] 10mg Take 1 tablet by mouth every 6 (six) hours as needed for Nausea and Vomiting (N/V). [facility] metoclopram riaz HCl 10 mg tablet 12-14 00:00: 00 03-03 00:00 :00 No [id number] 10mg Take 1 tablet by mouth every 6 (six) hours as needed for Nausea and Vomiting (N/V). [facility] metoclopram riaz HCl 10 mg tablet 12-14 00:00: 00 03-03 00:00 :00 No [id number] 10mg Take 1 tablet by mouth every 6 (six) hours as needed for Nausea and Vomiting (N/V). [facility] cetirizine HCl (ZYRTEC ORAL) 11-27 09:48: 59 Yes [id number] 103 Take by mouth. [facility] cetirizine HCl (ZYRTEC ORAL) 11-27 09:48: 59 Yes [id number] 103 Take by mouth. [facility] cetirizine HCl (ZYRTEC ORAL) 11-27 09:48: 59 Yes [id number] 103 Take by mouth. [facility] pyridoxine, vitamin B6, 25 mg tablet 0 12 00:00: 00 Yes [id number] 25mg Take 1 tablet by mouth 3 (three) times daily. [facility] pyridoxine, vitamin B6, 25 mg tablet 0 12 00:00: 00 Yes [id number] 25mg Take 1 tablet by mouth 3 (three) times daily. [facility] pyridoxine, vitamin B6, 25 mg tablet 0 12 00:00: 00 Yes [id number] 25mg Take 1 tablet by mouth 3 (three) times daily. [facility] pyridoxine, vitamin B6, 25 mg tablet 0 11-27 00:00: 00 03-03 00:00 :00 No [id number] 25mg Take 1 tablet by mouth 3 (three) times daily. [facility] pyridoxine, vitamin B6, 25 mg tablet 11-27 00:00: 00 03-03 00:00 :00 No [id number] 25mg Take 1 tablet by mouth 3 (three) times daily. [facility] metoclopram riaz HCl 10 mg tablet 2021-0 6-11 00:00: 00 Yes [id number] 10mg Take 1 tablet by mouth every 6 (six) hours as needed for Nausea and Vomiting (N/V). [facility] doxylamine 25 mg tablet 2021-0 6-11 00:00: 00 Yes [id number] 25mg Take 1 tablet by mouth at bedtime as needed for Nausea and Vomiting (N/V). [facility] metoclopram riaz HCl 10 mg tablet 2021-0 6-11 00:00: 00 Yes [id number] 10mg Take 1 tablet by mouth every 6 (six) hours as needed for Nausea and Vomiting (N/V). [facility] doxylamine 25 mg tablet 2021-0 6-11 00:00: 00 Yes [id number] 25mg Take 1 tablet by mouth at bedtime as needed for Nausea and Vomiting (N/V). [facility] metoclopram riaz HCl 10 mg tablet 2021-0 6-11 00:00: 00 Yes [id number] 10mg Take 1 tablet by mouth every 6 (six) hours as needed for Nausea and Vomiting (N/V). [facility] doxylamine 25 mg tablet 0 6 00:00: 00 Yes [id number] 25mg Take 1 tablet by mouth at bedtime as needed for Nausea and Vomiting (N/V). [facility] metoclopram riaz HCl 10 mg tablet 0 6 00:00: 00 03-03 00:00 :00 No [id number] 10mg Take 1 tablet by mouth every 6 (six) hours as needed for Nausea and Vomiting (N/V). [facility] doxylamine 25 mg tablet 11-26 00:00: 00 03-03 00:00 :00 No [id number] 25mg Take 1 tablet by mouth at bedtime as needed for Nausea and Vomiting (N/V). [facility] metoclopram riaz HCl 10 mg tablet 11-26 00:00: 00 03-03 00:00 :00 No [id number] 10mg Take 1 tablet by mouth every 6 (six) hours as needed for Nausea and Vomiting (N/V). [facility] doxylamine 25 mg tablet 11-26 00:00: 00 03-03 00:00 :00 No [id number] 25mg Take 1 tablet by mouth at bedtime as needed for Nausea and Vomiting (N/V). [facility] ondansetron 8 mg tablet 2021-0 11-23 00:00: 00 Yes TAKE 1 TABLET BY MOUTH EVERY 8 HOURS FOR NAUSEA AND VOMITING [facility] ondansetron 8 mg tablet 2021-0 6 00:00: 00 Yes TAKE 1 TABLET BY MOUTH EVERY 8 HOURS FOR NAUSEA AND VOMITING [facility] ondansetron 8 mg tablet 2021-0 608 00:00: 00 03-03 00:00 :00 No TAKE 1 TABLET BY MOUTH EVERY 8 HOURS FOR NAUSEA AND VOMITING [facility] ondansetron 8 mg tablet 2021-0 608 00:00: 00 03-03 00:00 :00 No TAKE 1 TABLET BY MOUTH EVERY 8 HOURS FOR NAUSEA AND VOMITING [facility] (PROAIR HFA) 90 mcg/actuati on inhaler 12-01 00:00: 00 Yes [id number] 2{puff} Inhale 2 Puffs every 6 (six) hours as needed for Wheezing or Shortness of Breath. [facility] mont[facility]uk[facility] (SINGULAIR) 10 mg tablet 12-01 00:00: 00 Yes [id number] 10mg Take 1 tablet by mouth daily. [facility]er[facility] (PROAIR HFA) 90 mcg/actuati on inhaler 12-01 00:00: 00 Yes [id number] 2{puff} Inhale 2 Puffs every 6 (six) hours as needed for Wheezing or Shortness of Breath. [facility] montelukast (SINGULAIR) 10 mg tablet 12-01 00:00: 00 Yes [id number] 10mg Take 1 tablet by mouth daily. [facility] albuterol (PROAIR HFA) 90 mcg/actuati on inhaler 12-01 00:00: 00 Yes [id number] 2{puff} Inhale 2 Puffs every 6 (six) hours as needed for Wheezing or Shortness of Breath. [facility] montelukast (SINGULAIR) 10 mg tablet 12-01 00:00: 00 Yes [id number] 10mg Take 1 tablet by mouth daily. [facility] (PROAIR HFA) 90 mcg/actuati on inhaler 12-01 00:00: 00 Yes [id number] 2{puff} Inhale 2 Puffs every 6 (six) hours as needed for Wheezing or Shortness of Breath. [facility] (PROAIR HFA) 90 mcg/actuati on inhaler 12-01 00:00: 00 Yes [id number] 2{puff} Inhale 2 Puffs every 6 (six) hours as needed for Wheezing or Shortness of Breath. [facility] (PROAIR HFA) 90 mcg/actuati on inhaler 12-01 00:00: 00 Yes [id number] 2{puff} Inhale 2 Puffs every 6 (six) hours as needed for Wheezing or Shortness of Breath. [facility] albuterol (PROAIR HFA) 90 mcg/actuati on inhaler 12-01 00:00: 00 Yes [id number] 2{puff} Inhale 2 Puffs every 6 (six) hours as needed for Wheezing or Shortness of Breath. [facility] albuterol (PROAIR HFA) 90 mcg/actuati on inhaler 12-01 00:00: 00 Yes [id number] 2{puff} Inhale 2 Puffs every 6 (six) hours as needed for Wheezing or Shortness of Breath. [facility] albuterol (PROAIR HFA) 90 mcg/actuati on inhaler 12-01 00:00: 00 Yes [id number] 2{puff} Inhale 2 Puffs every 6 (six) hours as needed for Wheezing or Shortness of Breath. [facility] albuterol (PROAIR HFA) 90 mcg/actuati on inhaler 12-01 00:00: 00 Yes [id number] 2{puff} Inhale 2 Puffs every 6 (six) hours as needed for Wheezing or Shortness of Breath. [facility] albuterol (PROAIR HFA) 90 mcg/actuati on inhaler 12-01 00:00: 00 Yes [id number] 2{puff} Inhale 2 Puffs every 6 (six) hours as needed for Wheezing or Shortness of Breath. [facility] albuterol (PROAIR HFA) 90 mcg/actuati on inhaler 12-01 00:00: 00 Yes [id number] 2{puff} Inhale 2 Puffs every 6 (six) hours as needed for Wheezing or Shortness of Breath. [facility] albuterol (PROAIR HFA) 90 mcg/actuati on inhaler 12-01 00:00: 00 Yes [id number] 2{puff} Inhale 2 Puffs every 6 (six) hours as needed for Wheezing or Shortness of Breath. [facility] albuterol (PROAIR HFA) 90 mcg/actuati on inhaler 12-01 00:00: 00 Yes [id number] 2{puff} Inhale 2 Puffs every 6 (six) hours as needed for Wheezing or Shortness of Breath. [facility] albuterol (PROAIR HFA) 90 mcg/actuati on inhaler 12-01 00:00: 00 Yes [id number] 2{puff} Inhale 2 Puffs every 6 (six) hours as needed for Wheezing or Shortness of Breath. [facility] albuterol (PROAIR HFA) 90 mcg/actuati on inhaler 12-01 00:00: 00 Yes [id number] 2{puff} Inhale 2 Puffs every 6 (six) hours as needed for Wheezing or Shortness of Breath. [facility] albuterol (PROAIR HFA) 90 mcg/actuati on inhaler 12-01 00:00: 00 Yes [id number] 2{puff} Inhale 2 Puffs every 6 (six) hours as needed for Wheezing or Shortness of Breath. [facility] albuterol (PROAIR HFA) 90 mcg/actuati on inhaler 12-01 00:00: 00 Yes [id number] 2{puff} Inhale 2 Puffs every 6 (six) hours as needed for Wheezing or Shortness of Breath. [facility] albuterol (PROAIR HFA) 90 mcg/actuati on inhaler 12-01 00:00: 00 Yes [id number] 2{puff} Inhale 2 Puffs every 6 (six) hours as needed for Wheezing or Shortness of Breath. [facility] albuterol (PROAIR HFA) 90 mcg/actuati on inhaler 12-01 00:00: 00 Yes [id number] 2{puff} Inhale 2 Puffs every 6 (six) hours as needed for Wheezing or Shortness of Breath. [facility] albuterol (PROAIR HFA) 90 mcg/actuati on inhaler 12-01 00:00: 00 Yes [id number] 2{puff} Inhale 2 Puffs every 6 (six) hours as needed for Wheezing or Shortness of Breath. [facility] albuterol (PROAIR HFA) 90 mcg/actuati on inhaler 12-01 00:00: 00 Yes [id number] 2{puff} Inhale 2 Puffs every 6 (six) hours as needed for Wheezing or Shortness of Breath. [facility] albuterol (PROAIR HFA) 90 mcg/actuati on inhaler 12-01 00:00: 00 Yes [id number] 2{puff} Inhale 2 Puffs every 6 (six) hours as needed for Wheezing or Shortness of Breath. [facility] albuterol (PROAIR HFA) 90 mcg/actuati on inhaler 12-01 00:00: 00 Yes [id number] 2{puff} Inhale 2 Puffs every 6 (six) hours as needed for Wheezing or Shortness of Breath. [facility] albuterol (PROAIR HFA) 90 mcg/actuati on inhaler 12-01 00:00: 00 Yes [id number] 2{puff} Inhale 2 Puffs every 6 (six) hours as needed for Wheezing or Shortness of Breath. [facility] albuterol (PROAIR HFA) 90 mcg/actuati on inhaler 12-01 00:00: 00 Yes [id number] 2{puff} Inhale 2 Puffs every 6 (six) hours as needed for Wheezing or Shortness of Breath. [facility] albuterol (PROAIR HFA) 90 mcg/actuati on inhaler 12-01 00:00: 00 Yes [id number] 2{puff} Inhale 2 Puffs every 6 (six) hours as needed for Wheezing or Shortness of Breath. [facility] albuterol (PROAIR HFA) 90 mcg/actuati on inhaler 12-01 00:00: 00 Yes [id number] 2{puff} Inhale 2 Puffs every 6 (six) hours as needed for Wheezing or Shortness of Breath. [facility] albuterol (PROAIR HFA) 90 mcg/actuati on inhaler 12-01 00:00: 00 Yes [id number] 2{puff} Inhale 2 Puffs every 6 (six) hours as needed for Wheezing or Shortness of Breath. [facility] albuterol (PROAIR HFA) 90 mcg/actuati on inhaler 12-01 00:00: 00 Yes [id number] 2{puff} Inhale 2 Puffs every 6 (six) hours as needed for Wheezing or Shortness of Breath. [facility] albuterol (PROAIR HFA) 90 mcg/actuati on inhaler 12-01 00:00: 00 Yes [id number] 2{puff} Inhale 2 Puffs every 6 (six) hours as needed for Wheezing or Shortness of Breath. [facility] albuterol (PROAIR HFA) 90 mcg/actuati on inhaler 12-01 00:00: 00 Yes [id number] 2{puff} Inhale 2 Puffs every 6 (six) hours as needed for Wheezing or Shortness of Breath. [facility] albuterol (PROAIR HFA) 90 mcg/actuati on inhaler 12-01 00:00: 00 Yes [id number] 2{puff} Inhale 2 Puffs every 6 (six) hours as needed for Wheezing or Shortness of Breath. [facility] albuterol (PROAIR HFA) 90 mcg/actuati on inhaler 12-01 00:00: 00 Yes [id number] 2{puff} Inhale 2 Puffs every 6 (six) hours as needed for Wheezing or Shortness of Breath. [facility] albuterol (PROAIR HFA) 90 mcg/actuati on inhaler 12-01 00:00: 00 Yes [id number] 2{puff} Inhale 2 Puffs every 6 (six) hours as needed for Wheezing or Shortness of Breath. [facility] albuterol (PROAIR HFA) 90 mcg/actuati on inhaler 12-01 00:00: 00 Yes [id number] 2{puff} Inhale 2 Puffs every 6 (six) hours as needed for Wheezing or Shortness of Breath. [facility] albuterol (PROAIR HFA) 90 mcg/actuati on inhaler 12-01 00:00: 00 Yes [id number] 2{puff} Inhale 2 Puffs every 6 (six) hours as needed for Wheezing or Shortness of Breath. [facility] albuterol (PROAIR HFA) 90 mcg/actuati on inhaler 12-01 00:00: 00 Yes [id number] 2{puff} Inhale 2 Puffs every 6 (six) hours as needed for Wheezing or Shortness of Breath. [facility] albuterol (PROAIR HFA) 90 mcg/actuati on inhaler 12-01 00:00: 00 Yes [id number] 2{puff} Inhale 2 Puffs every 6 (six) hours as needed for Wheezing or Shortness of Breath. [facility] albuterol (PROAIR HFA) 90 mcg/actuati on inhaler 12-01 00:00: 00 Yes [id number] 2{puff} Inhale 2 Puffs every 6 (six) hours as needed for Wheezing or Shortness of Breath. [facility] albuterol (PROAIR HFA) 90 mcg/actuati on inhaler 12-01 00:00: 00 Yes [id number] 2{puff} Inhale 2 Puffs every 6 (six) hours as needed for Wheezing or Shortness of Breath. [facility] albuterol (PROAIR HFA) 90 mcg/actuati on inhaler 12-01 00:00: 00 Yes [id number] 2{puff} Inhale 2 Puffs every 6 (six) hours as needed for Wheezing or Shortness of Breath. [facility] montelukast (SINGULAIR) 10 mg tablet 12-01 00:00: 03-03 00:00 :00 No [id number] 10mg Take 1 tablet by mouth daily. [facility] montelukast (SINGULAIR) 10 mg tablet 12-01 00:00: 00 03-03 00:00 :00 No [id number] 10mg Take 1 tablet by mouth daily. [facility] Immunizations Ordered Immunization Name Filled Immunization Name Date Status Comments Source [facility] 2022-03-20 00:00:00 Completed [facility] Influenza Virus Vaccine Quad IM, Preserv and ABX Free 6 MO-64 YRS 2022-03-20 00:00:00 Completed [facility] 2022-03-20 00:00:00 Completed [facility] Influenza Virus Vaccine Quad IM, Preserv and ABX Free 6 MO-64 YRS 2022-03-20 00:00:00 Completed [facility] 2022-03-20 00:00:00 Completed [facility] Influenza Virus Vaccine Quad IM, Preserv and ABX Free 6 MO-64 YRS 2022-03-20 00:00:00 Completed [facility] 2022-03-20 00:00:00 Completed [facility] Influenza Virus Vaccine Quad IM, Preserv and ABX Free 6 MO-64 YRS 2022-03-20 00:00:00 Completed [facility] 2022-03-20 00:00:00 Completed [facility] Influenza Virus Vaccine Quad IM, Preserv and ABX Free 6 MO-64 YRS 2022-03-20 00:00:00 Completed [facility] 2022-03-20 00:00:00 Completed [facility] Influenza Virus Vaccine Quad IM, Preserv and ABX Free 6 MO-64 YRS 2022-03-20 00:00:00 Completed [facility] 2022-03-20 00:00:00 Completed [facility] Influenza Virus Vaccine Quad IM, Preserv and ABX Free 6 MO-64 YRS 2022-03-20 00:00:00 Completed [facility] 2022-03-20 00:00:00 Completed [facility] Influenza Virus Vaccine Quad IM, Preserv and ABX Free 6 MO-64 YRS 2022-03-20 00:00:00 Completed [facility] TDAP 2022-03-20 00:00:00 Completed [facility] Influenza Virus Vaccine Quad IM, Preserv and ABX Free 6 MO-64 YRS 2022-03-20 00:00:00 Completed [facility] TDAP 2022-03-20 00:00:00 Completed [facility] Influenza Virus Vaccine Quad IM, Preserv and ABX Free 6 MO-64 YRS 2022-03-20 00:00:00 Completed [facility] TDAP 2022-03-20 00:00:00 Completed [facility] Influenza Virus Vaccine Quad IM, Preserv and ABX Free 6 MO-64 YRS 2022-03-20 00:00:00 Completed [facility] TDAP 2022-03-20 00:00:00 Completed [facility] Influenza Virus Vaccine Quad IM, Preserv and ABX Free 6 MO-64 YRS 2022-03-20 00:00:00 Completed [facility] TDAP 2022-03-20 00:00:00 Completed [facility] Influenza Virus Vaccine Quad IM, Preserv and ABX Free 6 MO-64 YRS 2022-03-20 00:00:00 Completed [facility] TDAP 2022-03-20 00:00:00 Completed [facility] Influenza Virus Vaccine Quad IM, Preserv and ABX Free 6 MO-64 YRS 2022-03-20 00:00:00 Completed [facility] TDAP 2022-03-20 00:00:00 Completed [facility] Influenza Virus Vaccine Quad IM, Preserv and ABX Free 6 MO-64 YRS 2022-03-20 00:00:00 Completed [facility] TDAP 2022-03-20 00:00:00 Completed [facility] Influenza Virus Vaccine Quad IM, Preserv and ABX Free 6 MO-64 YRS 2022-03-20 00:00:00 Completed [facility] TDAP 2022-03-20 00:00:00 Completed [facility] Influenza Virus Vaccine Quad IM, Preserv and ABX Free 6 MO-64 YRS 2022-03-20 00:00:00 Completed [facility] TDAP 2022-03-20 00:00:00 Completed [facility] Influenza Virus Vaccine Quad IM, Preserv and ABX Free 6 MO-64 YRS 2022-03-20 00:00:00 Completed [facility] TDAP 2022-03-20 00:00:00 Completed [facility] Influenza Virus Vaccine Quad IM, Preserv and ABX Free 6 MO-64 YRS 2022-03-20 00:00:00 Completed [facility] TDAP 2022-03-20 00:00:00 Completed [facility] Influenza Virus Vaccine Quad IM, Preserv and ABX Free 6 MO-64 YRS 2022-03-20 00:00:00 Completed [facility] TDAP 2022-03-20 00:00:00 Completed [facility] Influenza Virus Vaccine Quad IM, Preserv and ABX Free 6 MO-64 YRS 2022-03-20 00:00:00 Completed [facility] TDAP 2022-03-20 00:00:00 Completed [facility] Influenza Virus Vaccine Quad IM, Preserv and ABX Free 6 MO-64 YRS 2022-03-20 00:00:00 Completed [facility] TDAP 2022-03-20 00:00:00 Completed [facility] Influenza Virus Vaccine Quad IM, Preserv and ABX Free 6 MO-64 YRS 2022-03-20 00:00:00 Completed [facility] TDAP 2022-03-20 00:00:00 Completed [facility] Influenza Virus Vaccine Quad IM, Preserv and ABX Free 6 MO-64 YRS 2022-03-20 00:00:00 Completed [facility] TDAP 2022-03-20 00:00:00 Completed [facility] Influenza Virus Vaccine Quad IM, Preserv and ABX Free 6 MO-64 YRS 2022-03-20 00:00:00 Completed [facility] TDAP 2022-03-20 00:00:00 Completed [facility] Influenza Virus Vaccine Quad IM, Preserv and ABX Free 6 MO-64 YRS 2022-03-20 00:00:00 Completed [facility] TDAP 2022-03-20 00:00:00 Completed [facility] Influenza Virus Vaccine Quad IM, Preserv and ABX Free 6 MO-64 YRS 2022-03-20 00:00:00 Completed [facility] TDAP 2022-03-20 00:00:00 Completed [facility] Influenza Virus Vaccine Quad IM, Preserv and ABX Free 6 MO-64 YRS 2022-03-20 00:00:00 Completed [facility] TDAP 2022-03-20 00:00:00 Completed [facility] Influenza Virus Vaccine Quad IM, Preserv and ABX Free 6 MO-64 YRS 2022-03-20 00:00:00 Completed [facility] TDAP 2022-03-20 00:00:00 Completed [facility] Influenza Virus Vaccine Quad IM, Preserv and ABX Free 6 MO-64 YRS 2022-03-20 00:00:00 Completed [facility] TDAP 2022-03-20 00:00:00 Completed [facility] Influenza Virus Vaccine Quad IM, Preserv and ABX Free MO-64 YRS 2022-03-20 00:00:00 Completed [facility] Meningococcal B, OMV 2020-12-01 00:00:00 Completed [facility] Meningococcal B, OMV 2020-12-01 00:00:00 Completed [facility] Meningococcal B, OMV 2020-12-01 00:00:00 Completed [facility] Meningococcal B, OMV 2020-12-01 00:00:00 Completed [facility] Meningococcal B, OMV 2020-12-01 00:00:00 Completed [facility] Meningococcal B, OMV 2020-12-01 00:00:00 Completed [facility] Meningococcal B, OMV 2020-12-01 00:00:00 Completed [facility] Meningococcal B, OMV 2020-12-01 00:00:00 Completed [facility] Meningococcal B, OMV 2020-12-01 00:00:00 Completed [facility] Meningococcal B, OMV 2020-12-01 00:00:00 Completed [facility] Meningococcal B, OMV 2020-12-01 00:00:00 Completed [facility] Meningococcal B, OMV 2020-12-01 00:00:00 Completed [facility] Meningococcal B, OMV 2020-12-01 00:00:00 Completed [facility] Meningococcal B, OMV 2020-12-01 00:00:00 Completed [facility] Meningococcal B, OMV 2020-12-01 00:00:00 Completed [facility] Meningococcal B, OMV 2020-12-01 00:00:00 Completed [facility] Meningococcal B, OMV 2020-12-01 00:00:00 Completed [facility] Meningococcal B, OMV 2020-12-01 00:00:00 Completed [facility] Meningococcal B, OMV 2020-12-01 00:00:00 Completed [facility] Meningococcal B, OMV 2020-12-01 00:00:00 Completed [facility] Meningococcal B, OMV 2020-12-01 00:00:00 Completed [facility] Meningococcal B, OMV 2020-12-01 00:00:00 Completed [facility] Meningococcal B, OMV 2020-12-01 00:00:00 Completed [facility] Meningococcal B, OMV 2020-12-01 00:00:00 Completed [facility] Meningococcal B, OMV 2020-12-01 00:00:00 Completed [facility] Meningococcal B, OMV 2020-12-01 00:00:00 Completed [facility] Meningococcal B, OMV 2020-12-01 00:00:00 Completed [facility] Meningococcal B, OMV 2020-12-01 00:00:00 Completed [facility] Meningococcal B, OMV 2020-12-01 00:00:00 Completed [facility] Meningococcal B, OMV 2020-12-01 00:00:00 Completed [facility] Meningococcal B, OMV 2020-12-01 00:00:00 Completed [facility] Meningococcal B, OMV 2020-12-01 00:00:00 Completed [facility] Meningococcal B, OMV 2020-12-01 00:00:00 Completed [facility] Meningococcal B, OMV 2020-12-01 00:00:00 Completed [facility] Meningococcal B, OMV 2020-12-01 00:00:00 Completed [facility] Meningococcal B, OMV 2020-12-01 00:00:00 Completed [facility] Influenza Virus Vaccine Quad .5 mL IM 6+ MO 2019-04-18 00:00:00 Completed [facility] Influenza Virus Vaccine Quad .5 mL IM 6+ MO 2019-04-18 00:00:00 Completed [facility] Influenza Virus Vaccine Quad .5 mL IM 6+ MO 2019-04-18 00:00:00 Completed [facility] Influenza Virus Vaccine Quad .5 mL IM 6+ MO 2019-04-18 00:00:00 Completed [facility] Influenza Virus Vaccine Quad .5 mL IM 6+ MO 2019-04-18 00:00:00 Completed [facility] Influenza Virus Vaccine Quad .5 mL IM 6+ MO 2019-04-18 00:00:00 Completed [facility] Influenza Virus Vaccine Quad .5 mL IM 6+ MO 2019-04-18 00:00:00 Completed [facility] Influenza Virus Vaccine Quad .5 mL IM 6+ MO 2019-04-18 00:00:00 Completed [facility] Influenza Virus Vaccine Quad .5 mL IM 6+ MO 2019-04-18 00:00:00 Completed [facility] Influenza Virus Vaccine Quad .5 mL IM 6+ MO 2019-04-18 00:00:00 Completed [facility] Influenza Virus Vaccine Quad .5 mL IM 6+ MO 2019-04-18 00:00:00 Completed [facility] Influenza Virus Vaccine Quad .5 mL IM 6+ MO 2019-04-18 00:00:00 Completed [facility] Influenza Virus Vaccine Quad .5 mL IM 6+ MO 2019-04-18 00:00:00 Completed [facility] Influenza Virus Vaccine Quad .5 mL IM 6+ MO 2019-04-18 00:00:00 Completed [facility] Influenza Virus Vaccine Quad .5 mL IM 6+ MO 2019-04-18 00:00:00 Completed [facility] Influenza Virus Vaccine Quad .5 mL IM 6+ MO 2019-04-18 00:00:00 Completed [facility] Influenza Virus Vaccine Quad .5 mL IM 6+ MO 2019-04-18 00:00:00 Completed [facility] Influenza Virus Vaccine Quad .5 mL IM 6+ MO 2019-04-18 00:00:00 Completed [facility] Influenza Virus Vaccine Quad .5 mL IM 6+ MO 2019-04-18 00:00:00 Completed [facility] Influenza Virus Vaccine Quad .5 mL IM 6+ MO 2019-04-18 00:00:00 Completed [facility] Influenza Virus Vaccine Quad .5 mL IM 6+ MO 2019-04-18 00:00:00 Completed [facility] Influenza Virus Vaccine Quad .5 mL IM 6+ MO 2019-04-18 00:00:00 Completed [facility] Influenza Virus Vaccine Quad .5 mL IM 6+ MO 2019-04-18 00:00:00 Completed [facility] Influenza Virus Vaccine Quad .5 mL IM 6+ MO 2019-04-18 00:00:00 Completed [facility] Influenza Virus Vaccine Quad .5 mL IM 6+ MO 2019-04-18 00:00:00 Completed [facility] Influenza Virus Vaccine Quad .5 mL IM 6+ MO 2019-04-18 00:00:00 Completed [facility] Influenza Virus Vaccine Quad .5 mL IM 6+ MO 2019-04-18 00:00:00 Completed [facility] Influenza Virus Vaccine Quad .5 mL IM 6+ MO 2019-04-18 00:00:00 Completed [facility] Influenza Virus Vaccine Quad .5 mL IM 6+ MO 2019-04-18 00:00:00 Completed [facility] Influenza Virus Vaccine Quad .5 mL IM 6+ MO 2019-04-18 00:00:00 Completed [facility] Influenza Virus Vaccine Quad .5 mL IM 6+ MO 2019-04-18 00:00:00 Completed [facility] Influenza Virus Vaccine Quad .5 mL IM 6+ MO 2019-04-18 00:00:00 Completed [facility] Influenza Virus Vaccine Quad .5 mL IM 6+ MO 2019-04-18 00:00:00 Completed [facility] Influenza Virus Vaccine Quad .5 mL IM 6+ MO 2019-04-18 00:00:00 Completed [facility] Influenza Virus Vaccine Quad .5 mL IM 6+ MO 2019-04-18 00:00:00 Completed [facility] Influenza Virus Vaccine Quad .5 mL IM 6+ MO 2019-04-18 00:00:00 Completed [facility] PPD (TB) 2018-11-25 00:00:00 Completed [facility] PPD (TB) 2018-11-25 00:00:00 Completed [facility] PPD (TB) 2018-11-25 00:00:00 Completed [facility] PPD (TB) 2018-11-25 00:00:00 Completed [facility] PPD (TB) 2018-11-25 00:00:00 Completed [facility] PPD (TB) 2018-11-25 00:00:00 Completed [facility] PPD (TB) 2018-11-25 00:00:00 Completed [facility] PPD (TB) 2018-11-25 00:00:00 Completed [facility] PPD (TB) 2018-11-25 00:00:00 Completed [facility] PPD (TB) 2018-11-25 00:00:00 Completed [facility] PPD (TB) 2018-11-25 00:00:00 Completed [facility] PPD (TB) 2018-11-25 00:00:00 Completed [facility] PPD (TB) 2018-11-25 00:00:00 Completed [facility] PPD (TB) 2018-11-25 00:00:00 Completed [facility] PPD (TB) 2018-11-25 00:00:00 Completed [facility] PPD (TB) 2018-11-25 00:00:00 Completed [facility] PPD (TB) 2018-11-25 00:00:00 Completed [facility] PPD (TB) 2018-11-25 00:00:00 Completed [facility] PPD (TB) 2018-11-25 00:00:00 Completed [facility] PPD (TB) 2018-11-25 00:00:00 Completed [facility] PPD (TB) 2018-11-25 00:00:00 Completed [facility] PPD (TB) 2018-11-25 00:00:00 Completed [facility] PPD (TB) 2018-11-25 00:00:00 Completed [facility] PPD (TB) 2018-11-25 00:00:00 Completed [facility] PPD (TB) 2018-11-25 00:00:00 Completed [facility] PPD (TB) 2018-11-25 00:00:00 Completed [facility] PPD (TB) 2018-11-25 00:00:00 Completed [facility] PPD (TB) 2018-11-25 00:00:00 Completed [facility] PPD (TB) 2018-11-25 00:00:00 Completed [facility] PPD (TB) 2018-11-25 00:00:00 Completed [facility] PPD (TB) 2018-11-25 00:00:00 Completed [facility] PPD (TB) 2018-11-25 00:00:00 Completed [facility] PPD (TB) 2018-11-25 00:00:00 Completed [facility] PPD (TB) 2018-11-25 00:00:00 Completed [facility] PPD (TB) 2018-11-25 00:00:00 Completed [facility] PPD (TB) 2018-11-25 00:00:00 Completed [facility] HPV9 2018-11-22 00:00:00 Completed [facility] Meningococcal Polysaccharide (groups A, C, Y and W-135) conjugate vaccine (MCV4P) 2018-11-22 00:00:00 Completed [facility] HPV9 2018-11-22 00:00:00 Completed [facility] Meningococcal Polysaccharide (groups A, C, Y and W-135) conjugate vaccine (MCV4P) 2018-11-22 00:00:00 Completed [facility] HPV9 2018-11-22 00:00:00 Completed [facility] Meningococcal Polysaccharide (groups A, C, Y and W-135) conjugate vaccine (MCV4P) 2018-11-22 00:00:00 Completed [facility] HPV9 2018-11-22 00:00:00 Completed [facility] Meningococcal Polysaccharide (groups A, C, Y and W-135) conjugate vaccine (MCV4P) 2018-11-22 00:00:00 Completed [facility] HPV9 2018-11-22 00:00:00 Completed [facility] Meningococcal Polysaccharide (groups A, C, Y and W-135) conjugate vaccine (MCV4P) 2018-11-22 00:00:00 Completed [facility] HPV9 2018-11-22 00:00:00 Completed [facility] Meningococcal Polysaccharide (groups A, C, Y and W-135) conjugate vaccine (MCV4P) 2018-11-22 00:00:00 Completed [facility] HPV9 2018-11-22 00:00:00 Completed [facility] Meningococcal Polysaccharide (groups A, C, Y and W-135) conjugate vaccine (MCV4P) 2018-11-22 00:00:00 Completed [facility] HPV9 2018-11-22 00:00:00 Completed [facility] Meningococcal Polysaccharide (groups A, C, Y and W-135) conjugate vaccine (MCV4P) 2018-11-22 00:00:00 Completed [facility] 2018-11-22 00:00:00 Completed [facility] Meningococcal Polysaccharide (groups A, C, Y and W-135) conjugate vaccine (MCV4P) 2018-11-22 00:00:00 Completed [facility] HPV9 2018-11-22 00:00:00 Completed [facility] Meningococcal Polysaccharide (groups A, C, Y and W-135) conjugate vaccine (MCV4P) 2018-11-22 00:00:00 Completed [facility] HPV9 2018-11-22 00:00:00 Completed [facility] Meningococcal Polysaccharide (groups A, C, Y and W-135) conjugate vaccine (MCV4P) 2018-11-22 00:00:00 Completed [facility] HPV9 2018-11-22 00:00:00 Completed [facility] Meningococcal Polysaccharide (groups A, C, Y and W-135) conjugate vaccine (MCV4P) 2018-11-22 00:00:00 Completed [facility] HPV9 2018-11-22 00:00:00 Completed [facility] Meningococcal Polysaccharide (groups A, C, Y and W-135) conjugate vaccine (MCV4P) 2018-11-22 00:00:00 Completed [facility] 2018-11-22 00:00:00 Completed [facility] Meningococcal Polysaccharide (groups A, C, Y and W-135) conjugate vaccine (MCV4P) 2018-11-22 00:00:00 Completed [facility] HPV9 2018-11-22 00:00:00 Completed [facility] Meningococcal Polysaccharide (groups A, C, Y and W-135) conjugate vaccine (MCV4P) 2018-11-22 00:00:00 Completed [facility] 2018-11-22 00:00:00 Completed [facility] Meningococcal Polysaccharide (groups A, C, Y and W-135) conjugate vaccine (MCV4P) 2018-11-22 00:00:00 Completed [facility] 2018-11-22 00:00:00 Completed [facility] Meningococcal Polysaccharide (groups A, C, Y and W-135) conjugate vaccine (MCV4P) 2018-11-22 00:00:00 Completed [facility] 2018-11-22 00:00:00 Completed [facility] Meningococcal Polysaccharide (groups A, C, Y and W-135) conjugate vaccine (MCV4P) 2018-11-22 00:00:00 Completed [facility] HPV9 2018-11-22 00:00:00 Completed [facility] Meningococcal Polysaccharide (groups A, C, Y and W-135) conjugate vaccine (MCV4P) 2018-11-22 00:00:00 Completed [facility] 2018-11-22 00:00:00 Completed [facility] Meningococcal Polysaccharide (groups A, C, Y and W-135) conjugate vaccine (MCV4P) 2018-11-22 00:00:00 Completed [facility] HPV9 2018-11-22 00:00:00 Completed [facility] Meningococcal Polysaccharide (groups A, C, Y and W-135) conjugate vaccine (MCV4P) 2018-11-22 00:00:00 Completed [facility] 2018-11-22 00:00:00 Completed [facility] Meningococcal Polysaccharide (groups A, C, Y and W-135) conjugate vaccine (MCV4P) 2018-11-22 00:00:00 Completed [facility] 2018-11-22 00:00:00 Completed [facility] Meningococcal Polysaccharide (groups A, C, Y and W-135) conjugate vaccine (MCV4P) 2018-11-22 00:00:00 Completed [facility] HPV9 2018-11-22 00:00:00 Completed [facility] Meningococcal Polysaccharide (groups A, C, Y and W-135) conjugate vaccine (MCV4P) 2018-11-22 00:00:00 Completed [facility] 2018-11-22 00:00:00 Completed [facility] Meningococcal Polysaccharide (groups A, C, Y and W-135) conjugate vaccine (MCV4P) 2018-11-22 00:00:00 Completed [facility] HPV9 2018-11-22 00:00:00 Completed [facility] Meningococcal Polysaccharide (groups A, C, Y and W-135) conjugate vaccine (MCV4P) 2018-11-22 00:00:00 Completed [facility] 2018-11-22 00:00:00 Completed [facility] Meningococcal Polysaccharide (groups A, C, Y and W-135) conjugate vaccine (MCV4P) 2018-11-22 00:00:00 Completed [facility] 2018-11-22 00:00:00 Completed [facility] Meningococcal Polysaccharide (groups A, C, Y and W-135) conjugate vaccine (MCV4P) 2018-11-22 00:00:00 Completed [facility] 2018-11-22 00:00:00 Completed [facility] Meningococcal Polysaccharide (groups A, C, Y and W-135) conjugate vaccine (MCV4P) 2018-11-22 00:00:00 Completed [facility] HPV9 2018-11-22 00:00:00 Completed [facility] Meningococcal Polysaccharide (groups A, C, Y and W-135) conjugate vaccine (MCV4P) 2018-11-22 00:00:00 Completed [facility] 2018-11-22 00:00:00 Completed [facility] Meningococcal Polysaccharide (groups A, C, Y and W-135) conjugate vaccine (MCV4P) 2018-11-22 00:00:00 Completed [facility] HPV9 2018-11-22 00:00:00 Completed [facility] Meningococcal Polysaccharide (groups A, C, Y and W-135) conjugate vaccine (MCV4P) 2018-11-22 00:00:00 Completed [facility] HPV9 2018-11-22 00:00:00 Completed [facility] Meningococcal Polysaccharide (groups A, C, Y and W-135) conjugate vaccine (MCV4P) 2018-11-22 00:00:00 Completed [facility] HPV9 2018-11-22 00:00:00 Completed [facility] Meningococcal Polysaccharide (groups A, C, Y and W-135) conjugate vaccine (MCV4P) 2018-11-22 00:00:00 Completed [facility] HPV9 2018-11-22 00:00:00 Completed [facility] Meningococcal Polysaccharide (groups A, C, Y and W-135) conjugate vaccine (MCV4P) 2018-11-22 00:00:00 Completed [facility] HPV9 2018-11-22 00:00:00 Completed [facility] Meningococcal Polysaccharide (groups A, C, Y and W-135) conjugate vaccine (MCV4P) 2018-11-22 00:00:00 Completed [facility] HPV9 2015-03-01 00:00:00 Completed [facility] HPV 2015-03-01 00:00:00 Completed [facility] HPV9 2015-03-01 00:00:00 Completed [facility] HPV 2015-03-01 00:00:00 Completed [facility] HPV9 2015-03-01 00:00:00 Completed [facility] HPV 2015-03-01 00:00:00 Completed [facility] HPV9 2015-03-01 00:00:00 Completed [facility] HPV 2015-03-01 00:00:00 Completed [facility] HPV9 2015-03-01 00:00:00 Completed [facility] HPV 2015-03-01 00:00:00 Completed [facility] HPV9 2015-03-01 00:00:00 Completed [facility] HPV 2015-03-01 00:00:00 Completed [facility] HPV9 2015-03-01 00:00:00 Completed [facility] HPV 2015-03-01 00:00:00 Completed [facility] HPV9 2015-03-01 00:00:00 Completed [facility] HPV 2015-03-01 00:00:00 Completed [facility] HPV9 2015-03-01 00:00:00 Completed [facility] HPV 2015-03-01 00:00:00 Completed [facility] HPV9 2015-03-01 00:00:00 Completed [facility] HPV 2015-03-01 00:00:00 Completed [facility] HPV9 2015-03-01 00:00:00 Completed [facility] HPV 2015-03-01 00:00:00 Completed [facility] HPV9 2015-03-01 00:00:00 Completed [facility] HPV 2015-03-01 00:00:00 Completed [facility] HPV9 2015-03-01 00:00:00 Completed [facility] HPV 2015-03-01 00:00:00 Completed [facility] HPV9 2015-03-01 00:00:00 Completed [facility] HPV 2015-03-01 00:00:00 Completed [facility] HPV9 2015-03-01 00:00:00 Completed [facility] HPV 2015-03-01 00:00:00 Completed [facility] HPV9 2015-03-01 00:00:00 Completed [facility] HPV 2015-03-01 00:00:00 Completed [facility] HPV9 2015-03-01 00:00:00 Completed [facility] HPV 2015-03-01 00:00:00 Completed [facility] HPV9 2015-03-01 00:00:00 Completed [facility] HPV 2015-03-01 00:00:00 Completed [facility] HPV9 2015-03-01 00:00:00 Completed [facility] HPV 2015-03-01 00:00:00 Completed [facility] HPV9 2015-03-01 00:00:00 Completed [facility] HPV 2015-03-01 00:00:00 Completed [facility] HPV9 2015-03-01 00:00:00 Completed [facility] HPV 2015-03-01 00:00:00 Completed [facility] HPV9 2015-03-01 00:00:00 Completed [facility] HPV 2015-03-01 00:00:00 Completed [facility] HPV9 2015-03-01 00:00:00 Completed [facility] HPV 2015-03-01 00:00:00 Completed [facility] HPV9 2015-03-01 00:00:00 Completed [facility] HPV 2015-03-01 00:00:00 Completed [facility] HPV9 2015-03-01 00:00:00 Completed [facility] HPV 2015-03-01 00:00:00 Completed [facility] HPV9 2015-03-01 00:00:00 Completed [facility] HPV 2015-03-01 00:00:00 Completed [facility] HPV9 2015-03-01 00:00:00 Completed [facility] HPV 2015-03-01 00:00:00 Completed [facility] HPV9 2015-03-01 00:00:00 Completed [facility] HPV 2015-03-01 00:00:00 Completed [facility] HPV9 2015-03-01 00:00:00 Completed [facility] HPV 2015-03-01 00:00:00 Completed [facility] HPV9 2015-03-01 00:00:00 Completed [facility] HPV 2015-03-01 00:00:00 Completed [facility] HPV9 2015-03-01 00:00:00 Completed [facility] HPV 2015-03-01 00:00:00 Completed [facility] HPV9 2015-03-01 00:00:00 Completed [facility] HPV 2015-03-01 00:00:00 Completed [facility] HPV9 2015-03-01 00:00:00 Completed [facility] HPV 2015-03-01 00:00:00 Completed [facility] HPV9 2015-03-01 00:00:00 Completed [facility] HPV 2015-03-01 00:00:00 Completed [facility] HPV9 2015-03-01 00:00:00 Completed [facility] HPV 2015-03-01 00:00:00 Completed [facility] HPV9 2015-03-01 00:00:00 Completed [facility] HPV 2015-03-01 00:00:00 Completed [facility] HPV 2014-09-30 00:00:00 Completed [facility] Meningococcal Polysaccharide (groups A, C, Y and W-135) conjugate vaccine (MCV4P) 2014-09-30 00:00:00 Completed [facility] TDAP 2014-09-30 00:00:00 Completed [facility] HPV 2014-09-30 00:00:00 Completed [facility] Meningococcal Polysaccharide (groups A, C, Y and W-135) conjugate vaccine (MCV4P) 2014-09-30 00:00:00 Completed [facility] TDAP 2014-09-30 00:00:00 Completed [facility] HPV 2014-09-30 00:00:00 Completed [facility] Meningococcal Polysaccharide (groups A, C, Y and W-135) conjugate vaccine (MCV4P) 2014-09-30 00:00:00 Completed [facility] TDAP 2014-09-30 00:00:00 Completed [facility] HPV 2014-09-30 00:00:00 Completed [facility] Meningococcal Polysaccharide (groups A, C, Y and W-135) conjugate vaccine (MCV4P) 2014-09-30 00:00:00 Completed [facility] TDAP 2014-09-30 00:00:00 Completed [facility] HPV 2014-09-30 00:00:00 Completed [facility] Meningococcal Polysaccharide (groups A, C, Y and W-135) conjugate vaccine (MCV4P) 2014-09-30 00:00:00 Completed [facility] TDAP 2014-09-30 00:00:00 Completed [facility] HPV 2014-09-30 00:00:00 Completed [facility] Meningococcal Polysaccharide (groups A, C, Y and W-135) conjugate vaccine (MCV4P) 2014-09-30 00:00:00 Completed [facility] TDAP 2014-09-30 00:00:00 Completed [facility] HPV 2014-09-30 00:00:00 Completed [facility] Meningococcal Polysaccharide (groups A, C, Y and W-135) conjugate vaccine (MCV4P) 2014-09-30 00:00:00 Completed [facility] TDAP 2014-09-30 00:00:00 Completed [facility] HPV 2014-09-30 00:00:00 Completed [facility] Meningococcal Polysaccharide (groups A, C, Y and W-135) conjugate vaccine (MCV4P) 2014-09-30 00:00:00 Completed [facility] TDAP 2014-09-30 00:00:00 Completed [facility] HPV 2014-09-30 00:00:00 Completed [facility] Meningococcal Polysaccharide (groups A, C, Y and W-135) conjugate vaccine (MCV4P) 2014-09-30 00:00:00 Completed [facility] TDAP 2014-09-30 00:00:00 Completed [facility] HPV 2014-09-30 00:00:00 Completed [facility] Meningococcal Polysaccharide (groups A, C, Y and W-135) conjugate vaccine (MCV4P) 2014-09-30 00:00:00 Completed [facility] TDAP 2014-09-30 00:00:00 Completed [facility] HPV 2014-09-30 00:00:00 Completed [facility] Meningococcal Polysaccharide (groups A, C, Y and W-135) conjugate vaccine (MCV4P) 2014-09-30 00:00:00 Completed [facility] TDAP 2014-09-30 00:00:00 Completed [facility] HPV 2014-09-30 00:00:00 Completed [facility] Meningococcal Polysaccharide (groups A, C, Y and W-135) conjugate vaccine (MCV4P) 2014-09-30 00:00:00 Completed [facility] TDAP 2014-09-30 00:00:00 Completed [facility] HPV 2014-09-30 00:00:00 Completed [facility] Meningococcal Polysaccharide (groups A, C, Y and W-135) conjugate vaccine (MCV4P) 2014-09-30 00:00:00 Completed [facility] TDAP 2014-09-30 00:00:00 Completed [facility] HPV 2014-09-30 00:00:00 Completed [facility] Meningococcal Polysaccharide (groups A, C, Y and W-135) conjugate vaccine (MCV4P) 2014-09-30 00:00:00 Completed [facility] TDAP 2014-09-30 00:00:00 Completed [facility] HPV 2014-09-30 00:00:00 Completed [facility] Meningococcal Polysaccharide (groups A, C, Y and W-135) conjugate vaccine (MCV4P) 2014-09-30 00:00:00 Completed [facility] TDAP 2014-09-30 00:00:00 Completed [facility] HPV 2014-09-30 00:00:00 Completed [facility] Meningococcal Polysaccharide (groups A, C, Y and W-135) conjugate vaccine (MCV4P) 2014-09-30 00:00:00 Completed [facility] TDAP 2014-09-30 00:00:00 Completed [facility] HPV 2014-09-30 00:00:00 Completed [facility] Meningococcal Polysaccharide (groups A, C, Y and W-135) conjugate vaccine (MCV4P) 2014-09-30 00:00:00 Completed [facility] TDAP 2014-09-30 00:00:00 Completed [facility] HPV 2014-09-30 00:00:00 Completed [facility] Meningococcal Polysaccharide (groups A, C, Y and W-135) conjugate vaccine (MCV4P) 2014-09-30 00:00:00 Completed [facility] TDAP 2014-09-30 00:00:00 Completed [facility] HPV 2014-09-30 00:00:00 Completed [facility] Meningococcal Polysaccharide (groups A, C, Y and W-135) conjugate vaccine (MCV4P) 2014-09-30 00:00:00 Completed [facility] TDAP 2014-09-30 00:00:00 Completed [facility] HPV 2014-09-30 00:00:00 Completed [facility] Meningococcal Polysaccharide (groups A, C, Y and W-135) conjugate vaccine (MCV4P) 2014-09-30 00:00:00 Completed [facility] TDAP 2014-09-30 00:00:00 Completed [facility] HPV 2014-09-30 00:00:00 Completed [facility] Meningococcal Polysaccharide (groups A, C, Y and W-135) conjugate vaccine (MCV4P) 2014-09-30 00:00:00 Completed [facility] TDAP 2014-09-30 00:00:00 Completed [facility] HPV 2014-09-30 00:00:00 Completed [facility] Meningococcal Polysaccharide (groups A, C, Y and W-135) conjugate vaccine (MCV4P) 2014-09-30 00:00:00 Completed [facility] TDAP 2014-09-30 00:00:00 Completed [facility] HPV 2014-09-30 00:00:00 Completed [facility] Meningococcal Polysaccharide (groups A, C, Y and W-135) conjugate vaccine (MCV4P) 2014-09-30 00:00:00 Completed [facility] TDAP 2014-09-30 00:00:00 Completed [facility] HPV 2014-09-30 00:00:00 Completed [facility] Meningococcal Polysaccharide (groups A, C, Y and W-135) conjugate vaccine (MCV4P) 2014-09-30 00:00:00 Completed [facility] TDAP 2014-09-30 00:00:00 Completed [facility] HPV 2014-09-30 00:00:00 Completed [facility] Meningococcal Polysaccharide (groups A, C, Y and W-135) conjugate vaccine (MCV4P) 2014-09-30 00:00:00 Completed [facility] TDAP 2014-09-30 00:00:00 Completed [facility] HPV 2014-09-30 00:00:00 Completed [facility] Meningococcal Polysaccharide (groups A, C, Y and W-135) conjugate vaccine (MCV4P) 2014-09-30 00:00:00 Completed [facility] TDAP 2014-09-30 00:00:00 Completed [facility] HPV 2014-09-30 00:00:00 Completed [facility] Meningococcal Polysaccharide (groups A, C, Y and W-135) conjugate vaccine (MCV4P) 2014-09-30 00:00:00 Completed [facility] TDAP 2014-09-30 00:00:00 Completed [facility] HPV 2014-09-30 00:00:00 Completed [facility] Meningococcal Polysaccharide (groups A, C, Y and W-135) conjugate vaccine (MCV4P) 2014-09-30 00:00:00 Completed [facility] TDAP 2014-09-30 00:00:00 Completed [facility] HPV 2014-09-30 00:00:00 Completed [facility] Meningococcal Polysaccharide (groups A, C, Y and W-135) conjugate vaccine (MCV4P) 2014-09-30 00:00:00 Completed [facility] TDAP 2014-09-30 00:00:00 Completed [facility] HPV 2014-09-30 00:00:00 Completed [facility] Meningococcal Polysaccharide (groups A, C, Y and W-135) conjugate vaccine (MCV4P) 2014-09-30 00:00:00 Completed [facility] TDAP 2014-09-30 00:00:00 Completed [facility] HPV 2014-09-30 00:00:00 Completed [facility] Meningococcal Polysaccharide (groups A, C, Y and W-135) conjugate vaccine (MCV4P) 2014-09-30 00:00:00 Completed [facility] TDAP 2014-09-30 00:00:00 Completed [facility] HPV 2014-09-30 00:00:00 Completed [facility] Meningococcal Polysaccharide (groups A, C, Y and W-135) conjugate vaccine (MCV4P) 2014-09-30 00:00:00 Completed [facility] TDAP 2014-09-30 00:00:00 Completed [facility] HPV 2014-09-30 00:00:00 Completed [facility] Meningococcal Polysaccharide (groups A, C, Y and W-135) conjugate vaccine (MCV4P) 2014-09-30 00:00:00 Completed [facility] TDAP 2014-09-30 00:00:00 Completed [facility] HPV 2014-09-30 00:00:00 Completed [facility] Meningococcal Polysaccharide (groups A, C, Y and W-135) conjugate vaccine (MCV4P) 2014-09-30 00:00:00 Completed [facility] TDAP 2014-09-30 00:00:00 Completed [facility] HPV 2014-09-30 00:00:00 Completed [facility] Meningococcal Polysaccharide (groups A, C, Y and W-135) conjugate vaccine (MCV4P) 2014-09-30 00:00:00 Completed [facility] TDAP 2014-09-30 00:00:00 Completed [facility] HPV 2014-09-30 00:00:00 Completed [facility] Meningococcal Polysaccharide (groups A, C, Y and W-135) conjugate vaccine (MCV4P) 2014-09-30 00:00:00 Completed [facility] TDAP 2014-09-30 00:00:00 Completed [facility] DTAP 2006-08-24 00:00:00 Completed [facility] HEPATITIS A 2006-08-24 00:00:00 Completed [facility] Polio (IPV/OPV) 2006-08-24 00:00:00 Completed [facility] Proquad (MMR/VARICELLA) 2006-08-24 00:00:00 Completed [facility] DTAP 2006-08-24 00:00:00 Completed [facility] HEPATITIS A 2006-08-24 00:00:00 Completed [facility] Polio (IPV/OPV) 2006-08-24 00:00:00 Completed [facility] Proquad (MMR/VARICELLA) 2006-08-24 00:00:00 Completed [facility] DTAP 2006-08-24 00:00:00 Completed [facility] HEPATITIS A 2006-08-24 00:00:00 Completed [facility] Polio (IPV/OPV) 2006-08-24 00:00:00 Completed [facility] Proquad (MMR/VARICELLA) 2006-08-24 00:00:00 Completed [facility] DTAP 2006-08-24 00:00:00 Completed [facility] HEPATITIS A 2006-08-24 00:00:00 Completed [facility] Polio (IPV/OPV) 2006-08-24 00:00:00 Completed [facility] Proquad (MMR/VARICELLA) 2006-08-24 00:00:00 Completed [facility] DTAP 2006-08-24 00:00:00 Completed [facility] HEPATITIS A 2006-08-24 00:00:00 Completed [facility] Polio (IPV/OPV) 2006-08-24 00:00:00 Completed [facility] Proquad (MMR/VARICELLA) 2006-08-24 00:00:00 Completed [facility] DTAP 2006-08-24 00:00:00 Completed [facility] HEPATITIS A 2006-08-24 00:00:00 Completed [facility] Polio (IPV/OPV) 2006-08-24 00:00:00 Completed [facility] Proquad (MMR/VARICELLA) 2006-08-24 00:00:00 Completed [facility] DTAP 2006-08-24 00:00:00 Completed [facility] HEPATITIS A 2006-08-24 00:00:00 Completed [facility] Polio (IPV/OPV) 2006-08-24 00:00:00 Completed [facility] Proquad (MMR/VARICELLA) 2006-08-24 00:00:00 Completed [facility] DTAP 2006-08-24 00:00:00 Completed [facility] HEPATITIS A 2006-08-24 00:00:00 Completed [facility] Polio (IPV/OPV) 2006-08-24 00:00:00 Completed [facility] Proquad (MMR/VARICELLA) 2006-08-24 00:00:00 Completed [facility] DTAP 2006-08-24 00:00:00 Completed [facility] HEPATITIS A 2006-08-24 00:00:00 Completed [facility] Polio (IPV/OPV) 2006-08-24 00:00:00 Completed [facility] Proquad (MMR/VARICELLA) 2006-08-24 00:00:00 Completed [facility] DTAP 2006-08-24 00:00:00 Completed [facility] HEPATITIS A 2006-08-24 00:00:00 Completed [facility] Polio (IPV/OPV) 2006-08-24 00:00:00 Completed [facility] Proquad (MMR/VARICELLA) 2006-08-24 00:00:00 Completed [facility] DTAP 2006-08-24 00:00:00 Completed [facility] HEPATITIS A 2006-08-24 00:00:00 Completed [facility] Polio (IPV/OPV) 2006-08-24 00:00:00 Completed [facility] Proquad (MMR/VARICELLA) 2006-08-24 00:00:00 Completed [facility] DTAP 2006-08-24 00:00:00 Completed [facility] HEPATITIS A 2006-08-24 00:00:00 Completed [facility] Polio (IPV/OPV) 2006-08-24 00:00:00 Completed [facility] Proquad (MMR/VARICELLA) 2006-08-24 00:00:00 Completed [facility] DTAP 2006-08-24 00:00:00 Completed [facility] HEPATITIS A 2006-08-24 00:00:00 Completed [facility] Polio (IPV/OPV) 2006-08-24 00:00:00 Completed [facility] Proquad (MMR/VARICELLA) 2006-08-24 00:00:00 Completed [facility] DTAP 2006-08-24 00:00:00 Completed [facility] HEPATITIS A 2006-08-24 00:00:00 Completed [facility] Polio (IPV/OPV) 2006-08-24 00:00:00 Completed [facility] Proquad (MMR/VARICELLA) 2006-08-24 00:00:00 Completed [facility] DTAP 2006-08-24 00:00:00 Completed [facility] HEPATITIS A 2006-08-24 00:00:00 Completed [facility] Polio (IPV/OPV) 2006-08-24 00:00:00 Completed [facility] Proquad (MMR/VARICELLA) 2006-08-24 00:00:00 Completed [facility] DTAP 2006-08-24 00:00:00 Completed [facility] HEPATITIS A 2006-08-24 00:00:00 Completed [facility] Polio (IPV/OPV) 2006-08-24 00:00:00 Completed [facility] Proquad (MMR/VARICELLA) 2006-08-24 00:00:00 Completed [facility] DTAP 2006-08-24 00:00:00 Completed [facility] HEPATITIS A 2006-08-24 00:00:00 Completed [facility] Polio (IPV/OPV) 2006-08-24 00:00:00 Completed [facility] Proquad (MMR/VARICELLA) 2006-08-24 00:00:00 Completed [facility] DTAP 2006-08-24 00:00:00 Completed [facility] HEPATITIS A 2006-08-24 00:00:00 Completed [facility] Polio (IPV/OPV) 2006-08-24 00:00:00 Completed [facility] Proquad (MMR/VARICELLA) 2006-08-24 00:00:00 Completed [facility] DTAP 2006-08-24 00:00:00 Completed [facility] HEPATITIS A 2006-08-24 00:00:00 Completed [facility] Polio (IPV/OPV) 2006-08-24 00:00:00 Completed [facility] Proquad (MMR/VARICELLA) 2006-08-24 00:00:00 Completed [facility] DTAP 2006-08-24 00:00:00 Completed [facility] HEPATITIS A 2006-08-24 00:00:00 Completed [facility] Polio (IPV/OPV) 2006-08-24 00:00:00 Completed [facility] Proquad (MMR/VARICELLA) 2006-08-24 00:00:00 Completed [facility] DTAP 2006-08-24 00:00:00 Completed [facility] HEPATITIS A 2006-08-24 00:00:00 Completed [facility] Polio (IPV/OPV) 2006-08-24 00:00:00 Completed [facility] Proquad (MMR/VARICELLA) 2006-08-24 00:00:00 Completed [facility] DTAP 2006-08-24 00:00:00 Completed [facility] HEPATITIS A 2006-08-24 00:00:00 Completed [facility] Polio (IPV/OPV) 2006-08-24 00:00:00 Completed [facility] Proquad (MMR/VARICELLA) 2006-08-24 00:00:00 Completed [facility] DTAP 2006-08-24 00:00:00 Completed [facility] HEPATITIS A 2006-08-24 00:00:00 Completed [facility] Polio (IPV/OPV) 2006-08-24 00:00:00 Completed [facility] Proquad (MMR/VARICELLA) 2006-08-24 00:00:00 Completed [facility] DTAP 2006-08-24 00:00:00 Completed [facility] HEPATITIS A 2006-08-24 00:00:00 Completed [facility] Polio (IPV/OPV) 2006-08-24 00:00:00 Completed [facility] Proquad (MMR/VARICELLA) 2006-08-24 00:00:00 Completed [facility] DTAP 2006-08-24 00:00:00 Completed [facility] HEPATITIS A 2006-08-24 00:00:00 Completed [facility] Polio (IPV/OPV) 2006-08-24 00:00:00 Completed [facility] Proquad (MMR/VARICELLA) 2006-08-24 00:00:00 Completed [facility] DTAP 2006-08-24 00:00:00 Completed [facility] HEPATITIS A 2006-08-24 00:00:00 Completed [facility] Polio (IPV/OPV) 2006-08-24 00:00:00 Completed [facility] Proquad (MMR/VARICELLA) 2006-08-24 00:00:00 Completed [facility] DTAP 2006-08-24 00:00:00 Completed [facility] HEPATITIS A 2006-08-24 00:00:00 Completed [facility] Polio (IPV/OPV) 2006-08-24 00:00:00 Completed [facility] Proquad (MMR/VARICELLA) 2006-08-24 00:00:00 Completed [facility] DTAP 2006-08-24 00:00:00 Completed [facility] HEPATITIS A 2006-08-24 00:00:00 Completed [facility] Polio (IPV/OPV) 2006-08-24 00:00:00 Completed [facility] Proquad (MMR/VARICELLA) 2006-08-24 00:00:00 Completed [facility] DTAP 2006-08-24 00:00:00 Completed [facility] HEPATITIS A 2006-08-24 00:00:00 Completed [facility] Polio (IPV/OPV) 2006-08-24 00:00:00 Completed [facility] Proquad (MMR/VARICELLA) 2006-08-24 00:00:00 Completed [facility] DTAP 2006-08-24 00:00:00 Completed [facility] HEPATITIS A 2006-08-24 00:00:00 Completed [facility] Polio (IPV/OPV) 2006-08-24 00:00:00 Completed [facility] Proquad (MMR/VARICELLA) 2006-08-24 00:00:00 Completed [facility] DTAP 2006-08-24 00:00:00 Completed [facility] HEPATITIS A 2006-08-24 00:00:00 Completed [facility] Polio (IPV/OPV) 2006-08-24 00:00:00 Completed [facility] Proquad (MMR/VARICELLA) 2006-08-24 00:00:00 Completed [facility] DTAP 2006-08-24 00:00:00 Completed [facility] HEPATITIS A 2006-08-24 00:00:00 Completed [facility] Polio (IPV/OPV) 2006-08-24 00:00:00 Completed [facility] Proquad (MMR/VARICELLA) 2006-08-24 00:00:00 Completed [facility] DTAP 2006-08-24 00:00:00 Completed [facility] HEPATITIS A 2006-08-24 00:00:00 Completed [facility] Polio (IPV/OPV) 2006-08-24 00:00:00 Completed [facility] Proquad (MMR/VARICELLA) 2006-08-24 00:00:00 Completed [facility] DTAP 2006-08-24 00:00:00 Completed [facility] HEPATITIS A 2006-08-24 00:00:00 Completed [facility] Polio (IPV/OPV) 2006-08-24 00:00:00 Completed [facility] Proquad (MMR/VARICELLA) 2006-08-24 00:00:00 Completed [facility] DTAP 2006-08-24 00:00:00 Completed [facility] HEPATITIS A 2006-08-24 00:00:00 Completed [facility] Polio (IPV/OPV) 2006-08-24 00:00:00 Completed [facility] Proquad (MMR/VARICELLA) 2006-08-24 00:00:00 Completed [facility] DTAP 2006-08-24 00:00:00 Completed [facility] HEPATITIS A 2006-08-24 00:00:00 Completed [facility] Polio (IPV/OPV) 2006-08-24 00:00:00 Completed [facility] Proquad (MMR/VARICELLA) 2006-08-24 00:00:00 Completed [facility] HEPATITIS A 2006-02-14 00:00:00 Completed [facility] HEPATITIS A 2006-02-14 00:00:00 Completed [facility] HEPATITIS A 2006-02-14 00:00:00 Completed [facility] HEPATITIS A 2006-02-14 00:00:00 Completed [facility] HEPATITIS A 2006-02-14 00:00:00 Completed [facility] HEPATITIS A 2006-02-14 00:00:00 Completed [facility] HEPATITIS A 2006-02-14 00:00:00 Completed [facility] HEPATITIS A 2006-02-14 00:00:00 Completed [facility] HEPATITIS A 2006-02-14 00:00:00 Completed [facility] HEPATITIS A 2006-02-14 00:00:00 Completed [facility] HEPATITIS A 2006-02-14 00:00:00 Completed [facility] HEPATITIS A 2006-02-14 00:00:00 Completed [facility] HEPATITIS A 2006-02-14 00:00:00 Completed [facility] HEPATITIS A 2006-02-14 00:00:00 Completed [facility] HEPATITIS A 2006-02-14 00:00:00 Completed [facility] HEPATITIS A 2006-02-14 00:00:00 Completed [facility] HEPATITIS A 2006-02-14 00:00:00 Completed [facility] HEPATITIS A 2006-02-14 00:00:00 Completed [facility] HEPATITIS A 2006-02-14 00:00:00 Completed [facility] HEPATITIS A 2006-02-14 00:00:00 Completed [facility] HEPATITIS A 2006-02-14 00:00:00 Completed [facility] HEPATITIS A 2006-02-14 00:00:00 Completed [facility] HEPATITIS A 2006-02-14 00:00:00 Completed [facility] HEPATITIS A 2006-02-14 00:00:00 Completed [facility] HEPATITIS A 2006-02-14 00:00:00 Completed [facility] HEPATITIS A 2006-02-14 00:00:00 Completed [facility] HEPATITIS A 2006-02-14 00:00:00 Completed [facility] HEPATITIS A 2006-02-14 00:00:00 Completed [facility] HEPATITIS A 2006-02-14 00:00:00 Completed [facility] HEPATITIS A 2006-02-14 00:00:00 Completed [facility] HEPATITIS A 2006-02-14 00:00:00 Completed [facility] HEPATITIS A 2006-02-14 00:00:00 Completed [facility] HEPATITIS A 2006-02-14 00:00:00 Completed [facility] HEPATITIS A 2006-02-14 00:00:00 Completed [facility] HEPATITIS A 2006-02-14 00:00:00 Completed [facility] HEPATITIS A 2006-02-14 00:00:00 Completed [facility] DTAP 2003-11-10 00:00:00 Completed [facility] HIB 4 Dose Schedule 2003-11-10 00:00:00 Completed [facility] DTAP 2003-11-10 00:00:00 Completed [facility] HIB 4 Dose Schedule 2003-11-10 00:00:00 Completed [facility] DTAP 2003-11-10 00:00:00 Completed [facility] HIB 4 Dose Schedule 2003-11-10 00:00:00 Completed [facility] DTAP 2003-11-10 00:00:00 Completed [facility] HIB 4 Dose Schedule 2003-11-10 00:00:00 Completed [facility] DTAP 2003-11-10 00:00:00 Completed [facility] HIB 4 Dose Schedule 2003-11-10 00:00:00 Completed [facility] DTAP 2003-11-10 00:00:00 Completed [facility] HIB 4 Dose Schedule 2003-11-10 00:00:00 Completed [facility] DTAP 2003-11-10 00:00:00 Completed [facility] HIB 4 Dose Schedule 2003-11-10 00:00:00 Completed [facility] DTAP 2003-11-10 00:00:00 Completed [facility] HIB 4 Dose Schedule 2003-11-10 00:00:00 Completed [facility] DTAP 2003-11-10 00:00:00 Completed [facility] HIB 4 Dose Schedule 2003-11-10 00:00:00 Completed [facility] DTAP 2003-11-10 00:00:00 Completed [facility] HIB 4 Dose Schedule 2003-11-10 00:00:00 Completed [facility] DTAP 2003-11-10 00:00:00 Completed [facility] HIB 4 Dose Schedule 2003-11-10 00:00:00 Completed [facility] DTAP 2003-11-10 00:00:00 Completed [facility] HIB 4 Dose Schedule 2003-11-10 00:00:00 Completed [facility] DTAP 2003-11-10 00:00:00 Completed [facility] HIB 4 Dose Schedule 2003-11-10 00:00:00 Completed [facility] DTAP 2003-11-10 00:00:00 Completed [facility] HIB 4 Dose Schedule 2003-11-10 00:00:00 Completed [facility] DTAP 2003-11-10 00:00:00 Completed [facility] HIB 4 Dose Schedule 2003-11-10 00:00:00 Completed [facility] DTAP 2003-11-10 00:00:00 Completed [facility] HIB 4 Dose Schedule 2003-11-10 00:00:00 Completed [facility] DTAP 2003-11-10 00:00:00 Completed [facility] HIB 4 Dose Schedule 2003-11-10 00:00:00 Completed [facility] DTAP 2003-11-10 00:00:00 Completed [facility] HIB 4 Dose Schedule 2003-11-10 00:00:00 Completed [facility] DTAP 2003-11-10 00:00:00 Completed [facility] HIB 4 Dose Schedule 2003-11-10 00:00:00 Completed [facility] DTAP 2003-11-10 00:00:00 Completed [facility] HIB 4 Dose Schedule 2003-11-10 00:00:00 Completed [facility] DTAP 2003-11-10 00:00:00 Completed [facility] HIB 4 Dose Schedule 2003-11-10 00:00:00 Completed [facility] DTAP 2003-11-10 00:00:00 Completed [facility] HIB 4 Dose Schedule 2003-11-10 00:00:00 Completed [facility] DTAP 2003-11-10 00:00:00 Completed [facility] HIB 4 Dose Schedule 2003-11-10 00:00:00 Completed [facility] DTAP 2003-11-10 00:00:00 Completed [facility] HIB 4 Dose Schedule 2003-11-10 00:00:00 Completed [facility] DTAP 2003-11-10 00:00:00 Completed [facility] HIB 4 Dose Schedule 2003-11-10 00:00:00 Completed [facility] DTAP 2003-11-10 00:00:00 Completed [facility] HIB 4 Dose Schedule 2003-11-10 00:00:00 Completed [facility] DTAP 2003-11-10 00:00:00 Completed [facility] HIB 4 Dose Schedule 2003-11-10 00:00:00 Completed [facility] DTAP 2003-11-10 00:00:00 Completed [facility] HIB 4 Dose Schedule 2003-11-10 00:00:00 Completed [facility] DTAP 2003-11-10 00:00:00 Completed [facility] HIB 4 Dose Schedule 2003-11-10 00:00:00 Completed [facility] DTAP 2003-11-10 00:00:00 Completed [facility] HIB 4 Dose Schedule 2003-11-10 00:00:00 Completed [facility] DTAP 2003-11-10 00:00:00 Completed [facility] HIB 4 Dose Schedule 2003-11-10 00:00:00 Completed [facility] DTAP 2003-11-10 00:00:00 Completed [facility] HIB 4 Dose Schedule 2003-11-10 00:00:00 Completed [facility] DTAP 2003-11-10 00:00:00 Completed [facility] HIB 4 Dose Schedule 2003-11-10 00:00:00 Completed [facility] DTAP 2003-11-10 00:00:00 Completed [facility] HIB 4 Dose Schedule 2003-11-10 00:00:00 Completed [facility] DTAP 2003-11-10 00:00:00 Completed [facility] HIB 4 Dose Schedule 2003-11-10 00:00:00 Completed [facility] DTAP 2003-11-10 00:00:00 Completed [facility] HIB 4 Dose Schedule 2003-11-10 00:00:00 Completed [facility] Pneumococcal 13 Conjugate, PCV13 (Prevnar 13) 2003-10-09 00:00:00 Completed [facility] Pneumococcal 13 Conjugate, PCV13 (Prevnar 13) 2003-10-09 00:00:00 Completed [facility] Pneumococcal 13 Conjugate, PCV13 (Prevnar 13) 2003-10-09 00:00:00 Completed [facility] Pneumococcal 13 Conjugate, PCV13 (Prevnar 13) 2003-10-09 00:00:00 Completed [facility] Pneumococcal 13 Conjugate, PCV13 (Prevnar 13) 2003-10-09 00:00:00 Completed [facility] Pneumococcal 13 Conjugate, PCV13 (Prevnar 13) 2003-10-09 00:00:00 Completed [facility] Pneumococcal 13 Conjugate, PCV13 (Prevnar 13) 2003-10-09 00:00:00 Completed [facility] Pneumococcal 13 Conjugate, PCV13 (Prevnar 13) 2003-10-09 00:00:00 Completed [facility] Pneumococcal 13 Conjugate, PCV13 (Prevnar 13) 2003-10-09 00:00:00 Completed [facility] Pneumococcal 13 Conjugate, PCV13 (Prevnar 13) 2003-10-09 00:00:00 Completed [facility] Pneumococcal 13 Conjugate, PCV13 (Prevnar 13) 2003-10-09 00:00:00 Completed [facility] Pneumococcal 13 Conjugate, PCV13 (Prevnar 13) 2003-10-09 00:00:00 Completed [facility] Pneumococcal 13 Conjugate, PCV13 (Prevnar 13) 2003-10-09 00:00:00 Completed [facility] Pneumococcal 13 Conjugate, PCV13 (Prevnar 13) 2003-10-09 00:00:00 Completed [facility] Pneumococcal 13 Conjugate, PCV13 (Prevnar 13) 2003-10-09 00:00:00 Completed [facility] Pneumococcal 13 Conjugate, PCV13 (Prevnar 13) 2003-10-09 00:00:00 Completed [facility] Pneumococcal 13 Conjugate, PCV13 (Prevnar 13) 2003-10-09 00:00:00 Completed [facility] Pneumococcal 13 Conjugate, PCV13 (Prevnar 13) 2003-10-09 00:00:00 Completed [facility] Pneumococcal 13 Conjugate, PCV13 (Prevnar 13) 2003-10-09 00:00:00 Completed [facility] Pneumococcal 13 Conjugate, PCV13 (Prevnar 13) 2003-10-09 00:00:00 Completed [facility] Pneumococcal 13 Conjugate, PCV13 (Prevnar 13) 2003-10-09 00:00:00 Completed [facility] Pneumococcal 13 Conjugate, PCV13 (Prevnar 13) 2003-10-09 00:00:00 Completed [facility] Pneumococcal 13 Conjugate, PCV13 (Prevnar 13) 2003-10-09 00:00:00 Completed [facility] Pneumococcal 13 Conjugate, PCV13 (Prevnar 13) 2003-10-09 00:00:00 Completed [facility] Pneumococcal 13 Conjugate, PCV13 (Prevnar 13) 2003-10-09 00:00:00 Completed [facility] Pneumococcal 13 Conjugate, PCV13 (Prevnar 13) 2003-10-09 00:00:00 Completed [facility] Pneumococcal 13 Conjugate, PCV13 (Prevnar 13) 2003-10-09 00:00:00 Completed [facility] Pneumococcal 13 Conjugate, PCV13 (Prevnar 13) 2003-10-09 00:00:00 Completed [facility] Pneumococcal 13 Conjugate, PCV13 (Prevnar 13) 2003-10-09 00:00:00 Completed [facility] Pneumococcal 13 Conjugate, PCV13 (Prevnar 13) 2003-10-09 00:00:00 Completed [facility] Pneumococcal 13 Conjugate, PCV13 (Prevnar 13) 2003-10-09 00:00:00 Completed [facility] Pneumococcal 13 Conjugate, PCV13 (Prevnar 13) 2003-10-09 00:00:00 Completed [facility] Pneumococcal 13 Conjugate, PCV13 (Prevnar 13) 2003-10-09 00:00:00 Completed [facility] Pneumococcal 13 Conjugate, PCV13 (Prevnar 13) 2003-10-09 00:00:00 Completed [facility] Pneumococcal 13 Conjugate, PCV13 (Prevnar 13) 2003-10-09 00:00:00 Completed [facility] Pneumococcal 13 Conjugate, PCV13 (Prevnar 13) 2003-10-09 00:00:00 Completed [facility] Pneumococcal 13 Conjugate, PCV13 (Prevnar 13) 2003-08-10 00:00:00 Completed [facility] Polio (IPV/OPV) 2003-08-10 00:00:00 Completed [facility] Proquad (MMR/VARICELLA) 2003-08-10 00:00:00 Completed [facility] Pneumococcal 13 Conjugate, PCV13 (Prevnar 13) 2003-08-10 00:00:00 Completed [facility] Polio (IPV/OPV) 2003-08-10 00:00:00 Completed [facility] Proquad (MMR/VARICELLA) 2003-08-10 00:00:00 Completed [facility] Pneumococcal 13 Conjugate, PCV13 (Prevnar 13) 2003-08-10 00:00:00 Completed [facility] Polio (IPV/OPV) 2003-08-10 00:00:00 Completed [facility] Proquad (MMR/VARICELLA) 2003-08-10 00:00:00 Completed [facility] Pneumococcal 13 Conjugate, PCV13 (Prevnar 13) 2003-08-10 00:00:00 Completed [facility] Polio (IPV/OPV) 2003-08-10 00:00:00 Completed [facility] Proquad (MMR/VARICELLA) 2003-08-10 00:00:00 Completed [facility] Pneumococcal 13 Conjugate, PCV13 (Prevnar 13) 2003-08-10 00:00:00 Completed [facility] Polio (IPV/OPV) 2003-08-10 00:00:00 Completed [facility] Proquad (MMR/VARICELLA) 2003-08-10 00:00:00 Completed [facility] Pneumococcal 13 Conjugate, PCV13 (Prevnar 13) 2003-08-10 00:00:00 Completed [facility] Polio (IPV/OPV) 2003-08-10 00:00:00 Completed [facility] Proquad (MMR/VARICELLA) 2003-08-10 00:00:00 Completed [facility] Pneumococcal 13 Conjugate, PCV13 (Prevnar 13) 2003-08-10 00:00:00 Completed [facility] Polio (IPV/OPV) 2003-08-10 00:00:00 Completed [facility] Proquad (MMR/VARICELLA) 2003-08-10 00:00:00 Completed [facility] Pneumococcal 13 Conjugate, PCV13 (Prevnar 13) 2003-08-10 00:00:00 Completed [facility] Polio (IPV/OPV) 2003-08-10 00:00:00 Completed [facility] Proquad (MMR/VARICELLA) 2003-08-10 00:00:00 Completed [facility] Pneumococcal 13 Conjugate, PCV13 (Prevnar 13) 2003-08-10 00:00:00 Completed [facility] Polio (IPV/OPV) 2003-08-10 00:00:00 Completed [facility] Proquad (MMR/VARICELLA) 2003-08-10 00:00:00 Completed [facility] Pneumococcal 13 Conjugate, PCV13 (Prevnar 13) 2003-08-10 00:00:00 Completed [facility] Polio (IPV/OPV) 2003-08-10 00:00:00 Completed [facility] Proquad (MMR/VARICELLA) 2003-08-10 00:00:00 Completed [facility] Pneumococcal 13 Conjugate, PCV13 (Prevnar 13) 2003-08-10 00:00:00 Completed [facility] Polio (IPV/OPV) 2003-08-10 00:00:00 Completed [facility] Proquad (MMR/VARICELLA) 2003-08-10 00:00:00 Completed [facility] Pneumococcal 13 Conjugate, PCV13 (Prevnar 13) 2003-08-10 00:00:00 Completed [facility] Polio (IPV/OPV) 2003-08-10 00:00:00 Completed [facility] Proquad (MMR/VARICELLA) 2003-08-10 00:00:00 Completed [facility] Pneumococcal 13 Conjugate, PCV13 (Prevnar 13) 2003-08-10 00:00:00 Completed [facility] Polio (IPV/OPV) 2003-08-10 00:00:00 Completed [facility] Proquad (MMR/VARICELLA) 2003-08-10 00:00:00 Completed [facility] Pneumococcal 13 Conjugate, PCV13 (Prevnar 13) 2003-08-10 00:00:00 Completed [facility] Polio (IPV/OPV) 2003-08-10 00:00:00 Completed [facility] Proquad (MMR/VARICELLA) 2003-08-10 00:00:00 Completed [facility] Pneumococcal 13 Conjugate, PCV13 (Prevnar 13) 2003-08-10 00:00:00 Completed [facility] Polio (IPV/OPV) 2003-08-10 00:00:00 Completed [facility] Proquad (MMR/VARICELLA) 2003-08-10 00:00:00 Completed [facility] Pneumococcal 13 Conjugate, PCV13 (Prevnar 13) 2003-08-10 00:00:00 Completed [facility] Polio (IPV/OPV) 2003-08-10 00:00:00 Completed [facility] Proquad (MMR/VARICELLA) 2003-08-10 00:00:00 Completed [facility] Pneumococcal 13 Conjugate, PCV13 (Prevnar 13) 2003-08-10 00:00:00 Completed [facility] Polio (IPV/OPV) 2003-08-10 00:00:00 Completed [facility] Proquad (MMR/VARICELLA) 2003-08-10 00:00:00 Completed [facility] Pneumococcal 13 Conjugate, PCV13 (Prevnar 13) 2003-08-10 00:00:00 Completed [facility] Polio (IPV/OPV) 2003-08-10 00:00:00 Completed [facility] Proquad (MMR/VARICELLA) 2003-08-10 00:00:00 Completed [facility] Pneumococcal 13 Conjugate, PCV13 (Prevnar 13) 2003-08-10 00:00:00 Completed [facility] Polio (IPV/OPV) 2003-08-10 00:00:00 Completed [facility] Proquad (MMR/VARICELLA) 2003-08-10 00:00:00 Completed [facility] Pneumococcal 13 Conjugate, PCV13 (Prevnar 13) 2003-08-10 00:00:00 Completed [facility] Polio (IPV/OPV) 2003-08-10 00:00:00 Completed [facility] Proquad (MMR/VARICELLA) 2003-08-10 00:00:00 Completed [facility] Pneumococcal 13 Conjugate, PCV13 (Prevnar 13) 2003-08-10 00:00:00 Completed [facility] Polio (IPV/OPV) 2003-08-10 00:00:00 Completed [facility] Proquad (MMR/VARICELLA) 2003-08-10 00:00:00 Completed [facility] Pneumococcal 13 Conjugate, PCV13 (Prevnar 13) 2003-08-10 00:00:00 Completed [facility] Polio (IPV/OPV) 2003-08-10 00:00:00 Completed [facility] Proquad (MMR/VARICELLA) 2003-08-10 00:00:00 Completed [facility] Pneumococcal 13 Conjugate, PCV13 (Prevnar 13) 2003-08-10 00:00:00 Completed [facility] Polio (IPV/OPV) 2003-08-10 00:00:00 Completed [facility] Proquad (MMR/VARICELLA) 2003-08-10 00:00:00 Completed [facility] Pneumococcal 13 Conjugate, PCV13 (Prevnar 13) 2003-08-10 00:00:00 Completed [facility] Polio (IPV/OPV) 2003-08-10 00:00:00 Completed [facility] Proquad (MMR/VARICELLA) 2003-08-10 00:00:00 Completed [facility] Pneumococcal 13 Conjugate, PCV13 (Prevnar 13) 2003-08-10 00:00:00 Completed [facility] Polio (IPV/OPV) 2003-08-10 00:00:00 Completed [facility] Proquad (MMR/VARICELLA) 2003-08-10 00:00:00 Completed [facility] Pneumococcal 13 Conjugate, PCV13 (Prevnar 13) 2003-08-10 00:00:00 Completed [facility] Polio (IPV/OPV) 2003-08-10 00:00:00 Completed [facility] Proquad (MMR/VARICELLA) 2003-08-10 00:00:00 Completed [facility] Pneumococcal 13 Conjugate, PCV13 (Prevnar 13) 2003-08-10 00:00:00 Completed [facility] Polio (IPV/OPV) 2003-08-10 00:00:00 Completed [facility] Proquad (MMR/VARICELLA) 2003-08-10 00:00:00 Completed [facility] Pneumococcal 13 Conjugate, PCV13 (Prevnar 13) 2003-08-10 00:00:00 Completed [facility] Polio (IPV/OPV) 2003-08-10 00:00:00 Completed [facility] Proquad (MMR/VARICELLA) 2003-08-10 00:00:00 Completed [facility] Pneumococcal 13 Conjugate, PCV13 (Prevnar 13) 2003-08-10 00:00:00 Completed [facility] Polio (IPV/OPV) 2003-08-10 00:00:00 Completed [facility] Proquad (MMR/VARICELLA) 2003-08-10 00:00:00 Completed [facility] Pneumococcal 13 Conjugate, PCV13 (Prevnar 13) 2003-08-10 00:00:00 Completed [facility] Polio (IPV/OPV) 2003-08-10 00:00:00 Completed [facility] Proquad (MMR/VARICELLA) 2003-08-10 00:00:00 Completed [facility] Pneumococcal 13 Conjugate, PCV13 (Prevnar 13) 2003-08-10 00:00:00 Completed [facility] Polio (IPV/OPV) 2003-08-10 00:00:00 Completed [facility] Proquad (MMR/VARICELLA) 2003-08-10 00:00:00 Completed [facility] Pneumococcal 13 Conjugate, PCV13 (Prevnar 13) 2003-08-10 00:00:00 Completed [facility] Polio (IPV/OPV) 2003-08-10 00:00:00 Completed [facility] Proquad (MMR/VARICELLA) 2003-08-10 00:00:00 Completed [facility] Pneumococcal 13 Conjugate, PCV13 (Prevnar 13) 2003-08-10 00:00:00 Completed [facility] Polio (IPV/OPV) 2003-08-10 00:00:00 Completed [facility] Proquad (MMR/VARICELLA) 2003-08-10 00:00:00 Completed [facility] Pneumococcal 13 Conjugate, PCV13 (Prevnar 13) 2003-08-10 00:00:00 Completed [facility] Polio (IPV/OPV) 2003-08-10 00:00:00 Completed [facility] Proquad (MMR/VARICELLA) 2003-08-10 00:00:00 Completed [facility] Pneumococcal 13 Conjugate, PCV13 (Prevnar 13) 2003-08-10 00:00:00 Completed [facility] Polio (IPV/OPV) 2003-08-10 00:00:00 Completed [facility] Proquad (MMR/VARICELLA) 2003-08-10 00:00:00 Completed [facility] Pneumococcal 13 Conjugate, PCV13 (Prevnar 13) 2003-08-10 00:00:00 Completed [facility] Polio (IPV/OPV) 2003-08-10 00:00:00 Completed [facility] Proquad (MMR/VARICELLA) 2003-08-10 00:00:00 Completed [facility] Hep B, Adol or Pedi Dosage 2003-04-17 00:00:00 Completed [facility] Hep B, Adol or Pedi Dosage 2003-04-17 00:00:00 Completed [facility] Hep B, Adol or Pedi Dosage 2003-04-17 00:00:00 Completed [facility] Hep B, Adol or Pedi Dosage 2003-04-17 00:00:00 Completed [facility] Hep B, Adol or Pedi Dosage 2003-04-17 00:00:00 Completed [facility] Hep B, Adol or Pedi Dosage 2003-04-17 00:00:00 Completed [facility] Hep B, Adol or Pedi Dosage 2003-04-17 00:00:00 Completed [facility] Hep B, Adol or Pedi Dosage 2003-04-17 00:00:00 Completed [facility] Hep B, Adol or Pedi Dosage 2003-04-17 00:00:00 Completed [facility] Hep B, Adol or Pedi Dosage 2003-04-17 00:00:00 Completed [facility] Hep B, Adol or Pedi Dosage 2003-04-17 00:00:00 Completed [facility] Hep B, Adol or Pedi Dosage 2003-04-17 00:00:00 Completed [facility] Hep B, Adol or Pedi Dosage 2003-04-17 00:00:00 Completed [facility] Hep B, Adol or Pedi Dosage 2003-04-17 00:00:00 Completed [facility] Hep B, Adol or Pedi Dosage 2003-04-17 00:00:00 Completed [facility] Hep B, Adol or Pedi Dosage 2003-04-17 00:00:00 Completed [facility] Hep B, Adol or Pedi Dosage 2003-04-17 00:00:00 Completed [facility] Hep B, Adol or Pedi Dosage 2003-04-17 00:00:00 Completed [facility] Hep B, Adol or Pedi Dosage 2003-04-17 00:00:00 Completed [facility] Hep B, Adol or Pedi Dosage 2003-04-17 00:00:00 Completed [facility] Hep B, Adol or Pedi Dosage 2003-04-17 00:00:00 Completed [facility] Hep B, Adol or Pedi Dosage 2003-04-17 00:00:00 Completed [facility] Hep B, Adol or Pedi Dosage 2003-04-17 00:00:00 Completed [facility] Hep B, Adol or Pedi Dosage 2003-04-17 00:00:00 Completed [facility] Hep B, Adol or Pedi Dosage 2003-04-17 00:00:00 Completed [facility] Hep B, Adol or Pedi Dosage 2003-04-17 00:00:00 Completed [facility] Hep B, Adol or Pedi Dosage 2003-04-17 00:00:00 Completed [facility] Hep B, Adol or Pedi Dosage 2003-04-17 00:00:00 Completed [facility] Hep B, Adol or Pedi Dosage 2003-04-17 00:00:00 Completed [facility] Hep B, Adol or Pedi Dosage 2003-04-17 00:00:00 Completed [facility] Hep B, Adol or Pedi Dosage 2003-04-17 00:00:00 Completed [facility] Hep B, Adol or Pedi Dosage 2003-04-17 00:00:00 Completed [facility] Hep B, Adol or Pedi Dosage 2003-04-17 00:00:00 Completed [facility] Hep B, Adol or Pedi Dosage 2003-04-17 00:00:00 Completed [facility] Hep B, Adol or Pedi Dosage 2003-04-17 00:00:00 Completed [facility] Hep B, Adol or Pedi Dosage 2003-04-17 00:00:00 Completed [facility] DTAP 2003-01-28 00:00:00 Completed [facility] HIB 4 Dose Schedule 2003-01-28 00:00:00 Completed [facility] Pneumococcal 13 Conjugate, PCV13 (Prevnar 13) 2003-01-28 00:00:00 Completed [facility] DTAP 2003-01-28 00:00:00 Completed [facility] HIB 4 Dose Schedule 2003-01-28 00:00:00 Completed [facility] Pneumococcal 13 Conjugate, PCV13 (Prevnar 13) 2003-01-28 00:00:00 Completed [facility] DTAP 2003-01-28 00:00:00 Completed [facility] HIB 4 Dose Schedule 2003-01-28 00:00:00 Completed [facility] Pneumococcal 13 Conjugate, PCV13 (Prevnar 13) 2003-01-28 00:00:00 Completed [facility] DTAP 2003-01-28 00:00:00 Completed [facility] HIB 4 Dose Schedule 2003-01-28 00:00:00 Completed [facility] Pneumococcal 13 Conjugate, PCV13 (Prevnar 13) 2003-01-28 00:00:00 Completed [facility] DTAP 2003-01-28 00:00:00 Completed [facility] HIB 4 Dose Schedule 2003-01-28 00:00:00 Completed [facility] Pneumococcal 13 Conjugate, PCV13 (Prevnar 13) 2003-01-28 00:00:00 Completed [facility] DTAP 2003-01-28 00:00:00 Completed [facility] HIB 4 Dose Schedule 2003-01-28 00:00:00 Completed [facility] Pneumococcal 13 Conjugate, PCV13 (Prevnar 13) 2003-01-28 00:00:00 Completed [facility] DTAP 2003-01-28 00:00:00 Completed [facility] HIB 4 Dose Schedule 2003-01-28 00:00:00 Completed [facility] Pneumococcal 13 Conjugate, PCV13 (Prevnar 13) 2003-01-28 00:00:00 Completed [facility] DTAP 2003-01-28 00:00:00 Completed [facility] HIB 4 Dose Schedule 2003-01-28 00:00:00 Completed [facility] Pneumococcal 13 Conjugate, PCV13 (Prevnar 13) 2003-01-28 00:00:00 Completed [facility] DTAP 2003-01-28 00:00:00 Completed [facility] HIB 4 Dose Schedule 2003-01-28 00:00:00 Completed [facility] Pneumococcal 13 Conjugate, PCV13 (Prevnar 13) 2003-01-28 00:00:00 Completed [facility] DTAP 2003-01-28 00:00:00 Completed [facility] HIB 4 Dose Schedule 2003-01-28 00:00:00 Completed [facility] Pneumococcal 13 Conjugate, PCV13 (Prevnar 13) 2003-01-28 00:00:00 Completed [facility] DTAP 2003-01-28 00:00:00 Completed [facility] HIB 4 Dose Schedule 2003-01-28 00:00:00 Completed [facility] Pneumococcal 13 Conjugate, PCV13 (Prevnar 13) 2003-01-28 00:00:00 Completed [facility] DTAP 2003-01-28 00:00:00 Completed [facility] HIB 4 Dose Schedule 2003-01-28 00:00:00 Completed [facility] Pneumococcal 13 Conjugate, PCV13 (Prevnar 13) 2003-01-28 00:00:00 Completed [facility] DTAP 2003-01-28 00:00:00 Completed [facility] HIB 4 Dose Schedule 2003-01-28 00:00:00 Completed [facility] Pneumococcal 13 Conjugate, PCV13 (Prevnar 13) 2003-01-28 00:00:00 Completed [facility] DTAP 2003-01-28 00:00:00 Completed [facility] HIB 4 Dose Schedule 2003-01-28 00:00:00 Completed [facility] Pneumococcal 13 Conjugate, PCV13 (Prevnar 13) 2003-01-28 00:00:00 Completed [facility] DTAP 2003-01-28 00:00:00 Completed [facility] HIB 4 Dose Schedule 2003-01-28 00:00:00 Completed [facility] Pneumococcal 13 Conjugate, PCV13 (Prevnar 13) 2003-01-28 00:00:00 Completed [facility] DTAP 2003-01-28 00:00:00 Completed [facility] HIB 4 Dose Schedule 2003-01-28 00:00:00 Completed [facility] Pneumococcal 13 Conjugate, PCV13 (Prevnar 13) 2003-01-28 00:00:00 Completed [facility] DTAP 2003-01-28 00:00:00 Completed [facility] HIB 4 Dose Schedule 2003-01-28 00:00:00 Completed [facility] Pneumococcal 13 Conjugate, PCV13 (Prevnar 13) 2003-01-28 00:00:00 Completed [facility] DTAP 2003-01-28 00:00:00 Completed [facility] HIB 4 Dose Schedule 2003-01-28 00:00:00 Completed [facility] Pneumococcal 13 Conjugate, PCV13 (Prevnar 13) 2003-01-28 00:00:00 Completed [facility] DTAP 2003-01-28 00:00:00 Completed [facility] HIB 4 Dose Schedule 2003-01-28 00:00:00 Completed [facility] Pneumococcal 13 Conjugate, PCV13 (Prevnar 13) 2003-01-28 00:00:00 Completed [facility] DTAP 2003-01-28 00:00:00 Completed [facility] HIB 4 Dose Schedule 2003-01-28 00:00:00 Completed [facility] Pneumococcal 13 Conjugate, PCV13 (Prevnar 13) 2003-01-28 00:00:00 Completed [facility] DTAP 2003-01-28 00:00:00 Completed [facility] HIB 4 Dose Schedule 2003-01-28 00:00:00 Completed [facility] Pneumococcal 13 Conjugate, PCV13 (Prevnar 13) 2003-01-28 00:00:00 Completed [facility] DTAP 2003-01-28 00:00:00 Completed [facility] HIB 4 Dose Schedule 2003-01-28 00:00:00 Completed [facility] Pneumococcal 13 Conjugate, PCV13 (Prevnar 13) 2003-01-28 00:00:00 Completed [facility] DTAP 2003-01-28 00:00:00 Completed [facility] HIB 4 Dose Schedule 2003-01-28 00:00:00 Completed [facility] Pneumococcal 13 Conjugate, PCV13 (Prevnar 13) 2003-01-28 00:00:00 Completed [facility] DTAP 2003-01-28 00:00:00 Completed [facility] HIB 4 Dose Schedule 2003-01-28 00:00:00 Completed [facility] Pneumococcal 13 Conjugate, PCV13 (Prevnar 13) 2003-01-28 00:00:00 Completed [facility] DTAP 2003-01-28 00:00:00 Completed [facility] HIB 4 Dose Schedule 2003-01-28 00:00:00 Completed [facility] Pneumococcal 13 Conjugate, PCV13 (Prevnar 13) 2003-01-28 00:00:00 Completed [facility] DTAP 2003-01-28 00:00:00 Completed [facility] HIB 4 Dose Schedule 2003-01-28 00:00:00 Completed [facility] Pneumococcal 13 Conjugate, PCV13 (Prevnar 13) 2003-01-28 00:00:00 Completed [facility] DTAP 2003-01-28 00:00:00 Completed [facility] HIB 4 Dose Schedule 2003-01-28 00:00:00 Completed [facility] Pneumococcal 13 Conjugate, PCV13 (Prevnar 13) 2003-01-28 00:00:00 Completed [facility] DTAP 2003-01-28 00:00:00 Completed [facility] HIB 4 Dose Schedule 2003-01-28 00:00:00 Completed [facility] Pneumococcal 13 Conjugate, PCV13 (Prevnar 13) 2003-01-28 00:00:00 Completed [facility] DTAP 2003-01-28 00:00:00 Completed [facility] HIB 4 Dose Schedule 2003-01-28 00:00:00 Completed [facility] Pneumococcal 13 Conjugate, PCV13 (Prevnar 13) 2003-01-28 00:00:00 Completed [facility] DTAP 2003-01-28 00:00:00 Completed [facility] HIB 4 Dose Schedule 2003-01-28 00:00:00 Completed [facility] Pneumococcal 13 Conjugate, PCV13 (Prevnar 13) 2003-01-28 00:00:00 Completed [facility] DTAP 2003-01-28 00:00:00 Completed [facility] HIB 4 Dose Schedule 2003-01-28 00:00:00 Completed [facility] Pneumococcal 13 Conjugate, PCV13 (Prevnar 13) 2003-01-28 00:00:00 Completed [facility] DTAP 2003-01-28 00:00:00 Completed [facility] HIB 4 Dose Schedule 2003-01-28 00:00:00 Completed [facility] Pneumococcal 13 Conjugate, PCV13 (Prevnar 13) 2003-01-28 00:00:00 Completed [facility] DTAP 2003-01-28 00:00:00 Completed [facility] HIB 4 Dose Schedule 2003-01-28 00:00:00 Completed [facility] Pneumococcal 13 Conjugate, PCV13 (Prevnar 13) 2003-01-28 00:00:00 Completed [facility] DTAP 2003-01-28 00:00:00 Completed [facility] HIB 4 Dose Schedule 2003-01-28 00:00:00 Completed [facility] Pneumococcal 13 Conjugate, PCV13 (Prevnar 13) 2003-01-28 00:00:00 Completed [facility] DTAP 2003-01-28 00:00:00 Completed [facility] HIB 4 Dose Schedule 2003-01-28 00:00:00 Completed [facility] Pneumococcal 13 Conjugate, PCV13 (Prevnar 13) 2003-01-28 00:00:00 Completed [facility] DTAP 2003-01-28 00:00:00 Completed [facility] HIB 4 Dose Schedule 2003-01-28 00:00:00 Completed [facility] Pneumococcal 13 Conjugate, PCV13 (Prevnar 13) 2003-01-28 00:00:00 Completed [facility] DTAP 2002 00:00:00 Completed [facility] HIB 4 Dose Schedule 2002 00:00:00 Completed [facility] Pneumococcal 13 Conjugate, PCV13 (Prevnar 13) 2002 00:00:00 Completed [facility] Polio (IPV/OPV) 2002 00:00:00 Completed [facility] DTAP 2002 00:00:00 Completed [facility] HIB 4 Dose Schedule 2002 00:00:00 Completed [facility] Pneumococcal 13 Conjugate, PCV13 (Prevnar 13) 2002 00:00:00 Completed [facility] Polio (IPV/OPV) 2002 00:00:00 Completed [facility] DTAP 2002 00:00:00 Completed [facility] HIB 4 Dose Schedule 2002 00:00:00 Completed [facility] Pneumococcal 13 Conjugate, PCV13 (Prevnar 13) 2002 00:00:00 Completed [facility] Polio (IPV/OPV) 2002 00:00:00 Completed [facility] DTAP 2002 00:00:00 Completed [facility] HIB 4 Dose Schedule 2002 00:00:00 Completed [facility] Pneumococcal 13 Conjugate, PCV13 (Prevnar 13) 2002 00:00:00 Completed [facility] Polio (IPV/OPV) 2002 00:00:00 Completed [facility] DTAP 2002 00:00:00 Completed [facility] HIB 4 Dose Schedule 2002 00:00:00 Completed [facility] Pneumococcal 13 Conjugate, PCV13 (Prevnar 13) 2002 00:00:00 Completed [facility] Polio (IPV/OPV) 2002 00:00:00 Completed [facility] DTAP 2002 00:00:00 Completed [facility] HIB 4 Dose Schedule 2002 00:00:00 Completed [facility] Pneumococcal 13 Conjugate, PCV13 (Prevnar 13) 2002 00:00:00 Completed [facility] Polio (IPV/OPV) 2002 00:00:00 Completed [facility] DTAP 2002 00:00:00 Completed [facility] HIB 4 Dose Schedule 2002 00:00:00 Completed [facility] Pneumococcal 13 Conjugate, PCV13 (Prevnar 13) 2002 00:00:00 Completed [facility] Polio (IPV/OPV) 2002 00:00:00 Completed [facility] DTAP 2002 00:00:00 Completed [facility] HIB 4 Dose Schedule 2002 00:00:00 Completed [facility] Pneumococcal 13 Conjugate, PCV13 (Prevnar 13) 2002 00:00:00 Completed [facility] Polio (IPV/OPV) 2002 00:00:00 Completed [facility] DTAP 2002 00:00:00 Completed [facility] HIB 4 Dose Schedule 2002 00:00:00 Completed [facility] Pneumococcal 13 Conjugate, PCV13 (Prevnar 13) 2002 00:00:00 Completed [facility] Polio (IPV/OPV) 2002 00:00:00 Completed [facility] DTAP 2002 00:00:00 Completed [facility] HIB 4 Dose Schedule 2002 00:00:00 Completed [facility] Pneumococcal 13 Conjugate, PCV13 (Prevnar 13) 2002 00:00:00 Completed [facility] Polio (IPV/OPV) 2002 00:00:00 Completed [facility] DTAP 2002 00:00:00 Completed [facility] HIB 4 Dose Schedule 2002 00:00:00 Completed [facility] Pneumococcal 13 Conjugate, PCV13 (Prevnar 13) 2002 00:00:00 Completed [facility] Polio (IPV/OPV) 2002 00:00:00 Completed [facility] DTAP 2002 00:00:00 Completed [facility] HIB 4 Dose Schedule 2002 00:00:00 Completed [facility] Pneumococcal 13 Conjugate, PCV13 (Prevnar 13) 2002 00:00:00 Completed [facility] Polio (IPV/OPV) 2002 00:00:00 Completed [facility] DTAP 2002 00:00:00 Completed [facility] HIB 4 Dose Schedule 2002 00:00:00 Completed [facility] Pneumococcal 13 Conjugate, PCV13 (Prevnar 13) 2002 00:00:00 Completed [facility] Polio (IPV/OPV) 2002 00:00:00 Completed [facility] DTAP 2002 00:00:00 Completed [facility] HIB 4 Dose Schedule 2002 00:00:00 Completed [facility] Pneumococcal 13 Conjugate, PCV13 (Prevnar 13) 2002 00:00:00 Completed [facility] Polio (IPV/OPV) 2002 00:00:00 Completed [facility] DTAP 2002 00:00:00 Completed [facility] HIB 4 Dose Schedule 2002 00:00:00 Completed [facility] Pneumococcal 13 Conjugate, PCV13 (Prevnar 13) 2002 00:00:00 Completed [facility] Polio (IPV/OPV) 2002 00:00:00 Completed [facility] DTAP 2002 00:00:00 Completed [facility] HIB 4 Dose Schedule 2002 00:00:00 Completed [facility] Pneumococcal 13 Conjugate, PCV13 (Prevnar 13) 2002 00:00:00 Completed [facility] Polio (IPV/OPV) 2002 00:00:00 Completed [facility] DTAP 2002 00:00:00 Completed [facility] HIB 4 Dose Schedule 2002 00:00:00 Completed [facility] Pneumococcal 13 Conjugate, PCV13 (Prevnar 13) 2002 00:00:00 Completed [facility] Polio (IPV/OPV) 2002 00:00:00 Completed [facility] DTAP 2002 00:00:00 Completed [facility] HIB 4 Dose Schedule 2002 00:00:00 Completed [facility] Pneumococcal 13 Conjugate, PCV13 (Prevnar 13) 2002 00:00:00 Completed [facility] Polio (IPV/OPV) 2002 00:00:00 Completed [facility] DTAP 2002 00:00:00 Completed [facility] HIB 4 Dose Schedule 2002 00:00:00 Completed [facility] Pneumococcal 13 Conjugate, PCV13 (Prevnar 13) 2002 00:00:00 Completed [facility] Polio (IPV/OPV) 2002 00:00:00 Completed [facility] DTAP 2002 00:00:00 Completed [facility] HIB 4 Dose Schedule 2002 00:00:00 Completed [facility] Pneumococcal 13 Conjugate, PCV13 (Prevnar 13) 2002 00:00:00 Completed [facility] Polio (IPV/OPV) 2002 00:00:00 Completed [facility] DTAP 2002 00:00:00 Completed [facility] HIB 4 Dose Schedule 2002 00:00:00 Completed [facility] Pneumococcal 13 Conjugate, PCV13 (Prevnar 13) 2002 00:00:00 Completed [facility] Polio (IPV/OPV) 2002 00:00:00 Completed [facility] DTAP 2002 00:00:00 Completed [facility] HIB 4 Dose Schedule 2002 00:00:00 Completed [facility] Pneumococcal 13 Conjugate, PCV13 (Prevnar 13) 2002 00:00:00 Completed [facility] Polio (IPV/OPV) 2002 00:00:00 Completed [facility] DTAP 2002 00:00:00 Completed [facility] HIB 4 Dose Schedule 2002 00:00:00 Completed [facility] Pneumococcal 13 Conjugate, PCV13 (Prevnar 13) 2002 00:00:00 Completed [facility] Polio (IPV/OPV) 2002 00:00:00 Completed [facility] DTAP 2002 00:00:00 Completed [facility] HIB 4 Dose Schedule 2002 00:00:00 Completed [facility] Pneumococcal 13 Conjugate, PCV13 (Prevnar 13) 2002 00:00:00 Completed [facility] Polio (IPV/OPV) 2002 00:00:00 Completed [facility] DTAP 2002 00:00:00 Completed [facility] HIB 4 Dose Schedule 2002 00:00:00 Completed [facility] Pneumococcal 13 Conjugate, PCV13 (Prevnar 13) 2002 00:00:00 Completed [facility] Polio (IPV/OPV) 2002 00:00:00 Completed [facility] DTAP 2002 00:00:00 Completed [facility] HIB 4 Dose Schedule 2002 00:00:00 Completed [facility] Pneumococcal 13 Conjugate, PCV13 (Prevnar 13) 2002 00:00:00 Completed [facility] Polio (IPV/OPV) 2002 00:00:00 Completed [facility] DTAP 2002 00:00:00 Completed [facility] HIB 4 Dose Schedule 2002 00:00:00 Completed [facility] Pneumococcal 13 Conjugate, PCV13 (Prevnar 13) 2002 00:00:00 Completed [facility] Polio (IPV/OPV) 2002 00:00:00 Completed [facility] DTAP 2002 00:00:00 Completed [facility] HIB 4 Dose Schedule 2002 00:00:00 Completed [facility] Pneumococcal 13 Conjugate, PCV13 (Prevnar 13) 2002 00:00:00 Completed [facility] Polio (IPV/OPV) 2002 00:00:00 Completed [facility] DTAP 2002 00:00:00 Completed [facility] HIB 4 Dose Schedule 2002 00:00:00 Completed [facility] Pneumococcal 13 Conjugate, PCV13 (Prevnar 13) 2002 00:00:00 Completed [facility] Polio (IPV/OPV) 2002 00:00:00 Completed [facility] DTAP 2002 00:00:00 Completed [facility] HIB 4 Dose Schedule 2002 00:00:00 Completed [facility] Pneumococcal 13 Conjugate, PCV13 (Prevnar 13) 2002 00:00:00 Completed [facility] Polio (IPV/OPV) 2002 00:00:00 Completed [facility] DTAP 2002 00:00:00 Completed [facility] HIB 4 Dose Schedule 2002 00:00:00 Completed [facility] Pneumococcal 13 Conjugate, PCV13 (Prevnar 13) 2002 00:00:00 Completed [facility] Polio (IPV/OPV) 2002 00:00:00 Completed [facility] DTAP 2002 00:00:00 Completed [facility] HIB 4 Dose Schedule 2002 00:00:00 Completed [facility] Pneumococcal 13 Conjugate, PCV13 (Prevnar 13) 2002 00:00:00 Completed [facility] Polio (IPV/OPV) 2002 00:00:00 Completed [facility] DTAP 2002 00:00:00 Completed [facility] HIB 4 Dose Schedule 2002 00:00:00 Completed [facility] Pneumococcal 13 Conjugate, PCV13 (Prevnar 13) 2002 00:00:00 Completed [facility] Polio (IPV/OPV) 2002 00:00:00 Completed [facility] DTAP 2002 00:00:00 Completed [facility] HIB 4 Dose Schedule 2002 00:00:00 Completed [facility] Pneumococcal 13 Conjugate, PCV13 (Prevnar 13) 2002 00:00:00 Completed [facility] Polio (IPV/OPV) 2002 00:00:00 Completed [facility] DTAP 2002 00:00:00 Completed [facility] HIB 4 Dose Schedule 2002 00:00:00 Completed [facility] Pneumococcal 13 Conjugate, PCV13 (Prevnar 13) 2002 00:00:00 Completed [facility] Polio (IPV/OPV) 2002 00:00:00 Completed [facility] DTAP 2002 00:00:00 Completed [facility] HIB 4 Dose Schedule 2002 00:00:00 Completed [facility] Pneumococcal 13 Conjugate, PCV13 (Prevnar 13) 2002 00:00:00 Completed [facility] Polio (IPV/OPV) 2002 00:00:00 Completed [facility] DTAP 2002 00:00:00 Completed [facility] HIB 4 Dose Schedule 2002 00:00:00 Completed [facility] Polio (IPV/OPV) 2002 00:00:00 Completed [facility] DTAP 2002 00:00:00 Completed [facility] HIB 4 Dose Schedule 2002 00:00:00 Completed [facility] Polio (IPV/OPV) 2002 00:00:00 Completed [facility] DTAP 2002 00:00:00 Completed [facility] HIB 4 Dose Schedule 2002 00:00:00 Completed [facility] Polio (IPV/OPV) 2002 00:00:00 Completed [facility] DTAP 2002 00:00:00 Completed [facility] HIB 4 Dose Schedule 2002 00:00:00 Completed [facility] Polio (IPV/OPV) 2002 00:00:00 Completed [facility] DTAP 2002 00:00:00 Completed [facility] HIB 4 Dose Schedule 2002 00:00:00 Completed [facility] Polio (IPV/OPV) 2002 00:00:00 Completed [facility] DTAP 2002 00:00:00 Completed [facility] HIB 4 Dose Schedule 2002 00:00:00 Completed [facility] Polio (IPV/OPV) 2002 00:00:00 Completed [facility] DTAP 2002 00:00:00 Completed [facility] HIB 4 Dose Schedule 2002 00:00:00 Completed [facility] Polio (IPV/OPV) 2002 00:00:00 Completed [facility] DTAP 2002 00:00:00 Completed [facility] HIB 4 Dose Schedule 2002 00:00:00 Completed [facility] Polio (IPV/OPV) 2002 00:00:00 Completed [facility] DTAP 2002 00:00:00 Completed [facility] HIB 4 Dose Schedule 2002 00:00:00 Completed [facility] Polio (IPV/OPV) 2002 00:00:00 Completed [facility] DTAP 2002 00:00:00 Completed [facility] HIB 4 Dose Schedule 2002 00:00:00 Completed [facility] Polio (IPV/OPV) 2002 00:00:00 Completed [facility] DTAP 2002 00:00:00 Completed [facility] HIB 4 Dose Schedule 2002 00:00:00 Completed [facility] Polio (IPV/OPV) 2002 00:00:00 Completed [facility] DTAP 2002 00:00:00 Completed [facility] HIB 4 Dose Schedule 2002 00:00:00 Completed [facility] Polio (IPV/OPV) 2002 00:00:00 Completed [facility] DTAP 2002 00:00:00 Completed [facility] HIB 4 Dose Schedule 2002 00:00:00 Completed [facility] Polio (IPV/OPV) 2002 00:00:00 Completed [facility] DTAP 2002 00:00:00 Completed [facility] HIB 4 Dose Schedule 2002 00:00:00 Completed [facility] Polio (IPV/OPV) 2002 00:00:00 Completed [facility] DTAP 2002 00:00:00 Completed [facility] HIB 4 Dose Schedule 2002 00:00:00 Completed [facility] Polio (IPV/OPV) 2002 00:00:00 Completed [facility] DTAP 2002 00:00:00 Completed [facility] HIB 4 Dose Schedule 2002 00:00:00 Completed [facility] Polio (IPV/OPV) 2002 00:00:00 Completed [facility] DTAP 2002 00:00:00 Completed [facility] HIB 4 Dose Schedule 2002 00:00:00 Completed [facility] Polio (IPV/OPV) 2002 00:00:00 Completed [facility] DTAP 2002 00:00:00 Completed [facility] HIB 4 Dose Schedule 2002 00:00:00 Completed [facility] Polio (IPV/OPV) 2002 00:00:00 Completed [facility] DTAP 2002 00:00:00 Completed [facility] HIB 4 Dose Schedule 2002 00:00:00 Completed [facility] Polio (IPV/OPV) 2002 00:00:00 Completed [facility] DTAP 2002 00:00:00 Completed [facility] HIB 4 Dose Schedule 2002 00:00:00 Completed [facility] Polio (IPV/OPV) 2002 00:00:00 Completed [facility] DTAP 2002 00:00:00 Completed [facility] HIB 4 Dose Schedule 2002 00:00:00 Completed [facility] Polio (IPV/OPV) 2002 00:00:00 Completed [facility] DTAP 2002 00:00:00 Completed [facility] HIB 4 Dose Schedule 2002 00:00:00 Completed [facility] Polio (IPV/OPV) 2002 00:00:00 Completed [facility] DTAP 2002 00:00:00 Completed [facility] HIB 4 Dose Schedule 2002 00:00:00 Completed [facility] Polio (IPV/OPV) 2002 00:00:00 Completed [facility] DTAP 2002 00:00:00 Completed [facility] HIB 4 Dose Schedule 2002 00:00:00 Completed [facility] Polio (IPV/OPV) 2002 00:00:00 Completed [facility] DTAP 2002 00:00:00 Completed [facility] HIB 4 Dose Schedule 2002 00:00:00 Completed [facility] Polio (IPV/OPV) 2002 00:00:00 Completed [facility] DTAP 2002 00:00:00 Completed [facility] HIB 4 Dose Schedule 2002 00:00:00 Completed [facility] Polio (IPV/OPV) 2002 00:00:00 Completed [facility] DTAP 2002 00:00:00 Completed [facility] HIB 4 Dose Schedule 2002 00:00:00 Completed [facility] Polio (IPV/OPV) 2002 00:00:00 Completed [facility] DTAP 2002 00:00:00 Completed [facility] HIB 4 Dose Schedule 2002 00:00:00 Completed [facility] Polio (IPV/OPV) 2002 00:00:00 Completed [facility] DTAP 2002 00:00:00 Completed [facility] HIB 4 Dose Schedule 2002 00:00:00 Completed [facility] Polio (IPV/OPV) 2002 00:00:00 Completed [facility] DTAP 2002 00:00:00 Completed [facility] HIB 4 Dose Schedule 2002 00:00:00 Completed [facility] Polio (IPV/OPV) 2002 00:00:00 Completed [facility] DTAP 2002 00:00:00 Completed [facility] HIB 4 Dose Schedule 2002 00:00:00 Completed [facility] Polio (IPV/OPV) 2002 00:00:00 Completed [facility] DTAP 2002 00:00:00 Completed [facility] HIB 4 Dose Schedule 2002 00:00:00 Completed [facility] Polio (IPV/OPV) 2002 00:00:00 Completed [facility] DTAP 2002 00:00:00 Completed [facility] HIB 4 Dose Schedule 2002 00:00:00 Completed [facility] Polio (IPV/OPV) 2002 00:00:00 Completed [facility] DTAP 2002 00:00:00 Completed [facility] HIB 4 Dose Schedule 2002 00:00:00 Completed [facility] Polio (IPV/OPV) 2002 00:00:00 Completed [facility] DTAP 2002 00:00:00 Completed [facility] HIB 4 Dose Schedule 2002 00:00:00 Completed [facility] Polio (IPV/OPV) 2002 00:00:00 Completed [facility] DTAP 2002 00:00:00 Completed [facility] HIB 4 Dose Schedule 2002 00:00:00 Completed [facility] Polio (IPV/OPV) 2002 00:00:00 Completed [facility] Hep B, Adol or Pedi Dosage 2002 00:00:00 Completed [facility] Hep B, Adol or Pedi Dosage 2002 00:00:00 Completed [facility] Hep B, Adol or Pedi Dosage 2002 00:00:00 Completed [facility] Hep B, Adol or Pedi Dosage 2002 00:00:00 Completed [facility] Hep B, Adol or Pedi Dosage 2002 00:00:00 Completed [facility] Hep B, Adol or Pedi Dosage 2002 00:00:00 Completed [facility] Hep B, Adol or Pedi Dosage 2002 00:00:00 Completed [facility] Hep B, Adol or Pedi Dosage 2002 00:00:00 Completed [facility] Hep B, Adol or Pedi Dosage 2002 00:00:00 Completed [facility] Hep B, Adol or Pedi Dosage 2002 00:00:00 Completed [facility] Hep B, Adol or Pedi Dosage 2002 00:00:00 Completed [facility] Hep B, Adol or Pedi Dosage 2002 00:00:00 Completed [facility] Hep B, Adol or Pedi Dosage 2002 00:00:00 Completed [facility] Hep B, Adol or Pedi Dosage 2002 00:00:00 Completed [facility] Hep B, Adol or Pedi Dosage 2002 00:00:00 Completed [facility] Hep B, Adol or Pedi Dosage 2002 00:00:00 Completed [facility] Hep B, Adol or Pedi Dosage 2002 00:00:00 Completed [facility] Hep B, Adol or Pedi Dosage 2002 00:00:00 Completed [facility] Hep B, Adol or Pedi Dosage 2002 00:00:00 Completed [facility] Hep B, Adol or Pedi Dosage 2002 00:00:00 Completed [facility] Hep B, Adol or Pedi Dosage 2002 00:00:00 Completed [facility] Hep B, Adol or Pedi Dosage 2002 00:00:00 Completed [facility] Hep B, Adol or Pedi Dosage 2002 00:00:00 Completed [facility] Hep B, Adol or Pedi Dosage 2002 00:00:00 Completed [facility] Hep B, Adol or Pedi Dosage 2002 00:00:00 Completed [facility] Hep B, Adol or Pedi Dosage 2002 00:00:00 Completed [facility] Hep B, Adol or Pedi Dosage 2002 00:00:00 Completed [facility] Hep B, Adol or Pedi Dosage 2002 00:00:00 Completed [facility] Hep B, Adol or Pedi Dosage 2002 00:00:00 Completed [facility] Hep B, Adol or Pedi Dosage 2002 00:00:00 Completed [facility] Hep B, Adol or Pedi Dosage 2002 00:00:00 Completed [facility] Hep B, Adol or Pedi Dosage 2002 00:00:00 Completed [facility] Hep B, Adol or Pedi Dosage 2002 00:00:00 Completed [facility] Hep B, Adol or Pedi Dosage 2002 00:00:00 Completed [facility] Hep B, Adol or Pedi Dosage 2002 00:00:00 Completed [facility] Hep B, Adol or Pedi Dosage 2002 00:00:00 Completed [facility] Hep B, Adol or Pedi Dosage 2002 00:00:00 Completed [facility] Hep B, Adol or Pedi Dosage 2002 00:00:00 Completed [facility] Hep B, Adol or Pedi Dosage 2002 00:00:00 Completed [facility] Hep B, Adol or Pedi Dosage 2002 00:00:00 Completed [facility] Hep B, Adol or Pedi Dosage 2002 00:00:00 Completed [facility] Hep B, Adol or Pedi Dosage 2002 00:00:00 Completed [facility] Hep B, Adol or Pedi Dosage 2002 00:00:00 Completed [facility] Hep B, Adol or Pedi Dosage 2002 00:00:00 Completed [facility] Hep B, Adol or Pedi Dosage 2002 00:00:00 Completed [facility] Hep B, Adol or Pedi Dosage 2002 00:00:00 Completed [facility] Hep B, Adol or Pedi Dosage 2002 00:00:00 Completed [facility] Hep B, Adol or Pedi Dosage 2002 00:00:00 Completed [facility] Hep B, Adol or Pedi Dosage 2002 00:00:00 Completed [facility] Hep B, Adol or Pedi Dosage 2002 00:00:00 Completed [facility] Hep B, Adol or Pedi Dosage 2002 00:00:00 Completed [facility] Hep B, Adol or Pedi Dosage 2002 00:00:00 Completed [facility] Hep B, Adol or Pedi Dosage 2002 00:00:00 Completed [facility] Hep B, Adol or Pedi Dosage 2002 00:00:00 Completed [facility] Hep B, Adol or Pedi Dosage 2002 00:00:00 Completed [facility] Hep B, Adol or Pedi Dosage 2002 00:00:00 Completed [facility] Hep B, Adol or Pedi Dosage 2002 00:00:00 Completed [facility] Hep B, Adol or Pedi Dosage 2002 00:00:00 Completed [facility] Hep B, Adol or Pedi Dosage 2002 00:00:00 Completed [facility] Hep B, Adol or Pedi Dosage 2002 00:00:00 Completed [facility] Hep B, Adol or Pedi Dosage 2002 00:00:00 Completed [facility] Hep B, Adol or Pedi Dosage 2002 00:00:00 Completed [facility] Hep B, Adol or Pedi Dosage 2002 00:00:00 Completed [facility] Hep B, Adol or Pedi Dosage 2002 00:00:00 Completed [facility] Hep B, Adol or Pedi Dosage 2002 00:00:00 Completed [facility] Hep B, Adol or Pedi Dosage 2002 00:00:00 Completed [facility] Hep B, Adol or Pedi Dosage 2002 00:00:00 Completed [facility] Hep B, Adol or Pedi Dosage 2002 00:00:00 Completed [facility] Hep B, Adol or Pedi Dosage 2002 00:00:00 Completed [facility] Hep B, Adol or Pedi Dosage 2002 00:00:00 Completed [facility] Hep B, Adol or Pedi Dosage 2002 00:00:00 Completed [facility] Hep B, Adol or Pedi Dosage 2002 00:00:00 Completed [facility] HPV9 Unknown Completed [facility] HPV9 Unknown Completed [facility] Meningococcal Polysaccharide (groups A, C, Y and W-135) conjugate vaccine (MCV4P) Unknown Completed [facility] DTAP Unknown Completed [facility] DTAP Unknown Completed [facility] DTAP Unknown Completed [facility] DTAP Unknown Completed [facility] DTAP Unknown Completed [facility] HIB 4 Dose Schedule Unknown Completed [facility] HIB 4 Dose Schedule Unknown Completed [facility] HIB 4 Dose Schedule Unknown Completed [facility] HIB 4 Dose Schedule Unknown Completed [facility] HEPATITIS A Unknown Completed [facility] HEPATITIS A Unknown Completed [facility] Hep B, Adol or Pedi Dosage Unknown Completed [facility] Hep B, Adol or Pedi Dosage Unknown Completed [facility] Hep B, Adol or Pedi Dosage Unknown Completed [facility] HPV Unknown Completed [facility] HPV Unknown Completed [facility] Meningococcal Polysaccharide (groups A, C, Y and W-135) conjugate vaccine (MCV4P) Unknown Completed [facility] Pneumococcal 13 Conjugate, PCV13 (Prevnar 13) Unknown Completed [facility] Pneumococcal 13 Conjugate, PCV13 (Prevnar 13) Unknown Completed [facility] Pneumococcal 13 Conjugate, PCV13 (Prevnar 13) Unknown Completed [facility] Pneumococcal 13 Conjugate, PCV13 (Prevnar 13) Unknown Completed [facility] Polio (IPV/OPV) Unknown Completed [facility] Polio (IPV/OPV) Unknown Completed [facility] Polio (IPV/OPV) Unknown Completed [facility] Polio (IPV/OPV) Unknown Completed [facility] Proquad (MMR/VARICELLA) Unknown Completed [facility] Proquad (MMR/VARICELLA) Unknown Completed [facility] TDAP Unknown Completed [facility] PPD (TB) Unknown Completed [facility] Meningococcal B, OMV Unknown Completed [facility] Influenza Virus Vaccine Quad .5 mL IM 6+ MO (FLUZONE/FLULAVAL/FL UARIX) Unknown Completed [facility] TDAP Unknown Completed [facility] Influenza Virus Vaccine Quad IM, Preserv and ABX Free 6 MO-64 YRS (FLUCELVAX) Unknown Completed [facility] HPV9 Unknown Completed [facility] HPV9 Unknown Completed [facility] Meningococcal Polysaccharide (groups A, C, Y and W-135) conjugate vaccine (MCV4P) Unknown Completed [facility] DTAP Unknown Completed [facility] DTAP Unknown Completed [facility] DTAP Unknown Completed [facility] DTAP Unknown Completed [facility] DTAP Unknown Completed [facility] HIB 4 Dose Schedule Unknown Completed [facility] HIB 4 Dose Schedule Unknown Completed [facility] HIB 4 Dose Schedule Unknown Completed [facility] HIB 4 Dose Schedule Unknown Completed [facility] HEPATITIS A Unknown Completed [facility] HEPATITIS A Unknown Completed [facility] Hep B, Adol or Pedi Dosage Unknown Completed [facility] Hep B, Adol or Pedi Dosage Unknown Completed [facility] Hep B, Adol or Pedi Dosage Unknown Completed [facility] HPV Unknown Completed [facility] HPV Unknown Completed [facility] Meningococcal Polysaccharide (groups A, C, Y and W-135) conjugate vaccine (MCV4P) Unknown Completed [facility] Pneumococcal 13 Conjugate, PCV13 (Prevnar 13) Unknown Completed [facility] Pneumococcal 13 Conjugate, PCV13 (Prevnar 13) Unknown Completed [facility] Pneumococcal 13 Conjugate, PCV13 (Prevnar 13) Unknown Completed [facility] Pneumococcal 13 Conjugate, PCV13 (Prevnar 13) Unknown Completed [facility] Polio (IPV/OPV) Unknown Completed [facility] Polio (IPV/OPV) Unknown Completed [facility] Polio (IPV/OPV) Unknown Completed [facility] Polio (IPV/OPV) Unknown Completed [facility] Proquad (MMR/VARICELLA) Unknown Completed [facility] Proquad (MMR/VARICELLA) Unknown Completed [facility] TDAP Unknown Completed [facility] PPD (TB) Unknown Completed [facility] Meningococcal B, OMV Unknown Completed [facility] Influenza Virus Vaccine Quad .5 mL IM 6+ MO (FLUZONE/FLULAVAL/FL UARIX) Unknown Completed [facility] TDAP Unknown Completed [facility] Influenza Virus Vaccine Quad IM, Preserv and ABX Free 6 MO-64 YRS (FLUCELVAX) Unknown Completed [facility] HPV9 Unknown Completed [facility] HPV9 Unknown Completed [facility] Meningococcal Polysaccharide (groups A, C, Y and W-135) conjugate vaccine (MCV4P) Unknown Completed [facility] DTAP Unknown Completed [facility] DTAP Unknown Completed [facility] DTAP Unknown Completed [facility] DTAP Unknown Completed [facility] DTAP Unknown Completed [facility] HIB 4 Dose Schedule Unknown Completed [facility] HIB 4 Dose Schedule Unknown Completed [facility] HIB 4 Dose Schedule Unknown Completed [facility] HIB 4 Dose Schedule Unknown Completed [facility] HEPATITIS A Unknown Completed [facility] HEPATITIS A Unknown Completed [facility] Hep B, Adol or Pedi Dosage Unknown Completed [facility] Hep B, Adol or Pedi Dosage Unknown Completed [facility] Hep B, Adol or Pedi Dosage Unknown Completed [facility] HPV Unknown Completed [facility] HPV Unknown Completed [facility] Meningococcal Polysaccharide (groups A, C, Y and W-135) conjugate vaccine (MCV4P) Unknown Completed [facility] Pneumococcal 13 Conjugate, PCV13 (Prevnar 13) Unknown Completed [facility] Pneumococcal 13 Conjugate, PCV13 (Prevnar 13) Unknown Completed [facility] Pneumococcal 13 Conjugate, PCV13 (Prevnar 13) Unknown Completed [facility] Pneumococcal 13 Conjugate, PCV13 (Prevnar 13) Unknown Completed [facility] Polio (IPV/OPV) Unknown Completed [facility] Polio (IPV/OPV) Unknown Completed [facility] Polio (IPV/OPV) Unknown Completed [facility] Polio (IPV/OPV) Unknown Completed [facility] Proquad (MMR/VARICELLA) Unknown Completed [facility] Proquad (MMR/VARICELLA) Unknown Completed [facility] TDAP Unknown Completed [facility] PPD (TB) Unknown Completed [facility] Meningococcal B, OMV Unknown Completed [facility] Influenza Virus Vaccine Quad .5 mL IM 6+ MO (FLUZONE/FLULAVAL/FL UARIX) Unknown Completed [facility] TDAP Unknown Completed [facility] Influenza Virus Vaccine Quad IM, Preserv and ABX Free 6 MO-64 YRS (FLUCELVAX) Unknown Completed [facility] HPV9 Unknown Completed [facility] HPV9 Unknown Completed [facility] Meningococcal Polysaccharide (groups A, C, Y and W-135) conjugate vaccine (MCV4P) Unknown Completed [facility] DTAP Unknown Completed [facility] DTAP Unknown Completed [facility] DTAP Unknown Completed [facility] DTAP Unknown Completed [facility] DTAP Unknown Completed [facility] HIB 4 Dose Schedule Unknown Completed [facility] HIB 4 Dose Schedule Unknown Completed [facility] HIB 4 Dose Schedule Unknown Completed [facility] HIB 4 Dose Schedule Unknown Completed [facility] HEPATITIS A Unknown Completed [facility] HEPATITIS A Unknown Completed [facility] Hep B, Adol or Pedi Dosage Unknown Completed [facility] Hep B, Adol or Pedi Dosage Unknown Completed [facility] Hep B, Adol or Pedi Dosage Unknown Completed [facility] HPV Unknown Completed [facility] HPV Unknown Completed [facility] Meningococcal Polysaccharide (groups A, C, Y and W-135) conjugate vaccine (MCV4P) Unknown Completed [facility] Pneumococcal 13 Conjugate, PCV13 (Prevnar 13) Unknown Completed [facility] Pneumococcal 13 Conjugate, PCV13 (Prevnar 13) Unknown Completed [facility] Pneumococcal 13 Conjugate, PCV13 (Prevnar 13) Unknown Completed [facility] Pneumococcal 13 Conjugate, PCV13 (Prevnar 13) Unknown Completed [facility] Polio (IPV/OPV) Unknown Completed [facility] Polio (IPV/OPV) Unknown Completed [facility] Polio (IPV/OPV) Unknown Completed [facility] Polio (IPV/OPV) Unknown Completed [facility] Proquad (MMR/VARICELLA) Unknown Completed [facility] Proquad (MMR/VARICELLA) Unknown Completed [facility] TDAP Unknown Completed [facility] PPD (TB) Unknown Completed [facility] Meningococcal B, OMV Unknown Completed [facility] Influenza Virus Vaccine Quad .5 mL IM 6+ MO (FLUZONE/FLULAVAL/FL UARIX) Unknown Completed [facility] HPV9 Unknown Completed [facility] HPV9 Unknown Completed [facility] Meningococcal Polysaccharide (groups A, C, Y and W-135) conjugate vaccine (MCV4P) Unknown Completed [facility] DTAP Unknown Completed [facility] DTAP Unknown Completed [facility] DTAP Unknown Completed [facility] DTAP Unknown Completed [facility] DTAP Unknown Completed [facility] HIB 4 Dose Schedule Unknown Completed [facility] HIB 4 Dose Schedule Unknown Completed [facility] HIB 4 Dose Schedule Unknown Completed [facility] HIB 4 Dose Schedule Unknown Completed [facility] HEPATITIS A Unknown Completed [facility] HEPATITIS A Unknown Completed [facility] Hep B, Adol or Pedi Dosage Unknown Completed [facility] Hep B, Adol or Pedi Dosage Unknown Completed [facility] Hep B, Adol or Pedi Dosage Unknown Completed [facility] HPV Unknown Completed [facility] HPV Unknown Completed [facility] Meningococcal Polysaccharide (groups A, C, Y and W-135) conjugate vaccine (MCV4P) Unknown Completed [facility] Pneumococcal 13 Conjugate, PCV13 (Prevnar 13) Unknown Completed [facility] Pneumococcal 13 Conjugate, PCV13 (Prevnar 13) Unknown Completed [facility] Pneumococcal 13 Conjugate, PCV13 (Prevnar 13) Unknown Completed [facility] Pneumococcal 13 Conjugate, PCV13 (Prevnar 13) Unknown Completed [facility] Polio (IPV/OPV) Unknown Completed [facility] Polio (IPV/OPV) Unknown Completed [facility] Polio (IPV/OPV) Unknown Completed [facility] Polio (IPV/OPV) Unknown Completed [facility] Proquad (MMR/VARICELLA) Unknown Completed [facility] Proquad (MMR/VARICELLA) Unknown Completed [facility] TDAP Unknown Completed [facility] PPD (TB) Unknown Completed [facility] Meningococcal B, OMV Unknown Completed [facility] Influenza Virus Vaccine Quad .5 mL IM 6+ MO (FLUZONE/FLULAVAL/FL UARIX) Unknown Completed [facility] HPV9 Unknown Completed [facility] HPV9 Unknown Completed [facility] Meningococcal Polysaccharide (groups A, C, Y and W-135) conjugate vaccine (MCV4P) Unknown Completed [facility] DTAP Unknown Completed [facility] DTAP Unknown Completed [facility] DTAP Unknown Completed [facility] DTAP Unknown Completed [facility] DTAP Unknown Completed [facility] HIB 4 Dose Schedule Unknown Completed [facility] HIB 4 Dose Schedule Unknown Completed [facility] HIB 4 Dose Schedule Unknown Completed [facility] HIB 4 Dose Schedule Unknown Completed [facility] HEPATITIS A Unknown Completed [facility] HEPATITIS A Unknown Completed [facility] Hep B, Adol or Pedi Dosage Unknown Completed [facility] Hep B, Adol or Pedi Dosage Unknown Completed [facility] Hep B, Adol or Pedi Dosage Unknown Completed [facility] HPV Unknown Completed [facility] HPV Unknown Completed [facility] Meningococcal Polysaccharide (groups A, C, Y and W-135) conjugate vaccine (MCV4P) Unknown Completed [facility] Pneumococcal 13 Conjugate, PCV13 (Prevnar 13) Unknown Completed [facility] Pneumococcal 13 Conjugate, PCV13 (Prevnar 13) Unknown Completed [facility] Pneumococcal 13 Conjugate, PCV13 (Prevnar 13) Unknown Completed [facility] Pneumococcal 13 Conjugate, PCV13 (Prevnar 13) Unknown Completed [facility] Polio (IPV/OPV) Unknown Completed [facility] Polio (IPV/OPV) Unknown Completed [facility] Polio (IPV/OPV) Unknown Completed [facility] Polio (IPV/OPV) Unknown Completed [facility] Proquad (MMR/VARICELLA) Unknown Completed [facility] Proquad (MMR/VARICELLA) Unknown Completed [facility] TDAP Unknown Completed [facility] PPD (TB) Unknown Completed [facility] Meningococcal B, OMV Unknown Completed [facility] Influenza Virus Vaccine Quad .5 mL IM 6+ MO (FLUZONE/FLULAVAL/FL UARIX) Unknown Completed [facility] Vital Signs Vital Name Observation Time Observation Value Comments S ource Systolic blood pressure 2022-08-04 15:17:00 118 mm[Hg] [facility] Diastolic blood pressure 2022-08-04 15:17:00 76 mm[Hg] [facility] Heart rate 2022-08-04 15:17:00 77 /min [facility] Respiratory rate 2022-08-04 15:17:00 18 /min [facility] Body height 2022-08-04 15:17:00 162.6 cm [facility] Body weight 2022-08-04 15:17:00 87.091 kg [facility] BMI 2022-08-04 15:17:00 32.96 kg/m2 [facility] Systolic blood pressure 2022-08-01 15:22:00 107 mm[Hg] [facility] Diastolic blood pressure 2022-08-01 15:22:00 71 mm[Hg] [facility] Heart rate 2022-08-01 15:22:00 85 /min [facility] Body temperature 2022-08-01 15:22:00 36.78 Yasmeen [facility] Body height 2022-08-01 15:22:00 162.6 cm [facility] Body weight 2022-08-01 15:22:00 86.456 kg [facility] BMI 2022-08-01 15:22:00 32.72 kg/m2 [facility] Oxygen saturation in Arterial blood by Pulse oximetry 2022-08-01 15:22:00 98 /min [facility] Systolic blood pressure 2022-06-23 21:21:00 108 mm[Hg] [facility] Diastolic blood pressure 2022-06-23 21:21:00 74 mm[Hg] [facility] Heart rate 2022-06-23 21:21:00 98 /min [facility] Body temperature 2022-06-23 21:21:00 36.44 Yasmeen [facility] Body height 2022-06-23 21:21:00 162.6 cm [facility] Body weight 2022-06-23 21:21:00 85.775 kg [facility] BMI 2022-06-23 21:21:00 32.46 kg/m2 [facility] Systolic blood pressure 2022-06-03 06:16:00 122 mm[Hg] [facility] Diastolic blood pressure 2022-06-03 06:16:00 57 mm[Hg] [facility] Heart rate 2022-06-03 06:16:00 84 /min [facility] Body temperature 2022-06-03 06:16:00 36.67 Yasmeen [facility] Respiratory rate 2022-06-03 06:16:00 18 /min [facility] Oxygen saturation in Arterial blood by Pulse oximetry 2022-06-03 06:16:00 99 /min [facility] Body height 2022-06-01 18:00:00 162.6 cm [facility] Body weight 2022-06-01 18:00:00 92.987 kg [facility] BMI 2022-06-01 18:00:00 35.19 kg/m2 [facility] Systolic blood pressure 2022-05-29 21:08:00 119 mm[Hg] [facility] Diastolic blood pressure 2022-05-29 21:08:00 77 mm[Hg] [facility] Heart rate 2022-05-29 21:08:00 75 /min [facility] Body temperature 2022-05-29 21:08:00 36.72 Yasmeen [facility] Respiratory rate 2022-05-29 21:08:00 16 /min [facility] Body height 2022-05-29 21:08:00 162.6 cm [facility] Body weight 2022-05-29 21:08:00 92.534 kg [facility] BMI 2022-05-29 21:08:00 35.02 kg/m2 [facility] Oxygen saturation in Arterial blood by Pulse oximetry 2022-05-29 21:08:00 98 /min [facility] Systolic blood pressure 2022-05-26 20:50:00 110 mm[Hg] [facility] Diastolic blood pressure 2022-05-26 20:50:00 72 mm[Hg] [facility] Heart rate 2022-05-26 20:50:00 82 /min [facility] Body temperature 2022-05-26 20:50:00 36.72 Yasmeen [facility] Respiratory rate 2022-05-26 20:50:00 18 /min [facility] Body height 2022-05-26 20:50:00 162.6 cm [facility] Body weight 2022-05-26 20:50:00 91.173 kg [facility] BMI 2022-05-26 20:50:00 34.50 kg/m2 [facility] Systolic blood pressure 2022-05-19 21:30:00 120 mm[Hg] [facility] Diastolic blood pressure 2022-05-19 21:30:00 79 mm[Hg] [facility] Heart rate 2022-05-19 21:30:00 75 /min [facility] Body temperature 2022-05-19 21:30:00 36.89 Yasmeen [facility] Respiratory rate 2022-05-19 21:30:00 16 /min [facility] Body height 2022-05-19 21:30:00 162.6 cm [facility] Body weight 2022-05-19 21:30:00 92.398 kg [facility] BMI 2022-05-19 21:30:00 34.97 kg/m2 [facility] Oxygen saturation in Arterial blood by Pulse oximetry 2022-05-19 21:30:00 98 /min [facility] Systolic blood pressure 2022-05-10 19:17:00 110 mm[Hg] [facility] Diastolic blood pressure 2022-05-10 19:17:00 73 mm[Hg] [facility] Heart rate 2022-05-10 19:17:00 72 /min [facility] Body temperature 2022-05-10 19:17:00 36.67 Yasmeen [facility] Body height 2022-05-10 19:17:00 162.6 cm [facility] Body weight 2022-05-10 19:17:00 91.899 kg [facility] BMI 2022-05-10 19:17:00 34.78 kg/m2 [facility] Systolic blood pressure 2022-05-09 19:11:00 108 mm[Hg] [facility] Diastolic blood pressure 2022-05-09 19:11:00 69 mm[Hg] [facility] Heart rate 2022-05-09 19:11:00 85 /min [facility] Body temperature 2022-05-09 19:11:00 36.89 Yasmeen [facility] Respiratory rate 2022-05-09 19:11:00 16 /min [facility] Body height 2022-05-09 19:11:00 162.6 cm [facility] Body weight 2022-05-09 19:11:00 92.443 kg [facility] BMI 2022-05-09 19:11:00 34.98 kg/m2 [facility] Oxygen saturation in Arterial blood by Pulse oximetry 2022-05-09 19:11:00 95 /min [facility] Systolic blood pressure 2022-05-05 21:31:00 111 mm[Hg] [facility] Diastolic blood pressure 2022-05-05 21:31:00 77 mm[Hg] [facility] Heart rate 2022-05-05 21:31:00 71 /min [facility] Body temperature 2022-05-05 21:31:00 36.78 Yasmeen [facility] Respiratory rate 2022-05-05 21:31:00 16 /min [facility] Body height 2022-05-05 21:31:00 162.6 cm [facility] Body weight 2022-05-05 21:31:00 92.987 kg [facility] BMI 2022-05-05 21:31:00 35.19 kg/m2 [facility] Oxygen saturation in Arterial blood by Pulse oximetry 2022-05-05 21:31:00 98 /min [facility] Systolic blood pressure 2022-04-28 16:13:00 101 mm[Hg] [facility] Diastolic blood pressure 2022-04-28 16:13:00 69 mm[Hg] [facility] Heart rate 2022-04-28 16:13:00 93 /min [facility] Body temperature 2022-04-28 16:13:00 36.61 Yasmeen [facility] Respiratory rate 2022-04-28 16:13:00 18 /min [facility] Body height 2022-04-28 16:13:00 162.6 cm [facility] 2022-04-28 16:13:00 88.451 kg [facility] BMI 2022-04-28 16:13:00 33.47 kg/m2 [facility] Systolic blood pressure 2022-04-21 16:08:00 108 mm[Hg] [facility] Diastolic blood pressure 2022-04-21 16:08:00 69 mm[Hg] [facility] Heart rate 2022-04-21 16:08:00 97 /min [facility] Body temperature 2022-04-21 16:08:00 36.83 Yasmeen [facility] Respiratory rate 2022-04-21 16:08:00 18 /min [facility] Body height 2022-04-21 16:08:00 162.6 cm [facility] Body weight 2022-04-21 16:08:00 87.091 kg [facility] BMI 2022-04-21 16:08:00 32.96 kg/m2 [facility] Systolic blood pressure 2022-04-03 15:29:00 109 mm[Hg] [facility] Diastolic blood pressure 2022-04-03 15:29:00 75 mm[Hg] [facility] Heart rate 2022-04-03 15:29:00 90 /min [facility] Body temperature 2022-04-03 15:29:00 36.94 Yasmeen [facility] Respiratory rate 2022-04-03 15:29:00 16 /min [facility] Body height 2022-04-03 15:29:00 162.6 cm [facility] Body weight 2022-04-03 15:29:00 87.317 kg [facility] BMI 2022-04-03 15:29:00 33.04 kg/m2 [facility] Oxygen saturation in Arterial blood by Pulse oximetry 2022-04-03 15:29:00 98 /min [facility] Systolic blood pressure 2022-03-31 16:12:00 107 mm[Hg] [facility] Diastolic blood pressure 2022-03-31 16:12:00 73 mm[Hg] [facility] Heart rate 2022-03-31 16:12:00 80 /[facility] Body weight 2022-03-31 16:12:00 85.049 kg [facility] Oxygen saturation in Arterial blood by Pulse oximetry 2022-03-31 16:12:00 96 /min [facility] Systolic blood pressure 2022-03-20 21:15:00 103 mm[Hg] [facility] Diastolic blood pressure 2022-03-20 21:15:00 67 mm[Hg] [facility] Heart rate 2022-03-20 21:15:00 52 /min [facility] Body temperature 2022-03-20 21:15:00 37.06 Yasmeen [facility] Body height 2022-03-20 21:15:00 162.6 cm [facility] Body weight 2022-03-20 21:15:00 86.456 kg [facility] BMI 2022-03-20 21:15:00 32.72 kg/m2 [facility] Systolic blood pressure 2022-03-03 20:37:00 98 mm[Hg] [facility] Diastolic blood pressure 2022-03-03 20:37:00 63 mm[Hg] [facility] Heart rate 2022-03-03 20:37:00 83 /min [facility] Body temperature 2022-03-03 20:37:00 36.44 Yasmeen [facility] Respiratory rate 2022-03-03 20:37:00 16 /min [facility] Body height 2022-03-03 20:37:00 162.6 cm [facility] Body weight 2022-03-03 20:37:00 84.052 kg [facility] BMI 2022-03-03 20:37:00 31.81 kg/m2 [facility] Oxygen saturation in Arterial blood by Pulse oximetry 2022-03-03 20:37:00 97 /min [facility] Systolic blood pressure 2022-02-03 16:50:00 91 mm[Hg] [facility] Diastolic blood pressure 2022-02-03 16:50:00 61 mm[Hg] [facility] Heart rate 2022-02-03 16:50:00 80 /min [facility] Body temperature 2022-02-03 16:50:00 36.61 Yasmeen [facility] Respiratory rate 2022-02-03 16:50:00 17 /min [facility] Body height 2022-02-03 16:50:00 162.6 cm [facility] Body weight 2022-02-03 16:50:00 83.507 kg [facility] BMI 2022-02-03 16:50:00 31.60 kg/m2 [facility] Systolic blood pressure 2022-01-17 14:27:00 103 mm[Hg] [facility] Diastolic blood pressure 2022-01-17 14:27:00 55 mm[Hg] [facility] Heart rate 2022-01-17 14:27:00 71 /min [facility] Body height 2022-01-17 14:27:00 162.6 cm [facility] Body weight 2022-01-17 14:27:00 84.369 kg [facility] BMI 2022-01-17 14:27:00 31.93 kg/m2 [facility] Oxygen saturation in Arterial blood by Pulse oximetry 2022-01-17 14:27:00 99 /min [facility] Procedures Procedure Date / Time Performed Performing Clinician Source CONSENT FOR CONTRACEPTION 2022-06-23 06:01:00 Doctor Unassigned, [place] [facility] POCT TEST 2022-06-23 00:00:00 Erica Burris [facility] CBC WITH DIFF 2022-06-03 10:08:00 Erica [facility]ris [facility] PREPARE PACKED RBC 2022-06-02 02:27:18 [facility] WITH DIFF 2022-06-01 17:54:00 Erica [facility]ris [facility] HEPATITIS B SURFACE ANTIGEN 2022-06-01 17:54:00 Erica Burris [facility] ADC OR NEREIDA ONLY - RPR 2022-06-01 17:54:00 Erica Burris [facility] HIV 1/2 AG-AB WITH REFLEX 2022-06-01 17:54:00 [place] Erica [facility] HB ABO GROUPING 2022-06-01 17:45:00 DaytonErica Ramírez [facility] RHO (D) IMMUNE GLOBULIN 2022-06-01 17:45:00 [place] Erica [facility] ASSIGNMENT OF BENEFITS 2022-06-01 16:48:52 Docto r Unassigned, [place] [facility] NON-STRESS TEST 2022-05-29 21:34:28 [facility] POCT URINALYSIS W/O SPECIFIC GRAVITY 2022-05-19 00:00:00 [place] Erica [facility] NON-STRESS TEST 2022-05-14 23:43:10 Chrissy [facility] DSU PRE-OP 2022-05-10 06:01:00 Doctor Unass igned, [place] [facility] POCT URINALYSIS W/O SPECIFIC GRAVITY 2022-05-10 00:00:00 [place] Erica [facility] POCT URINALYSIS W/O SPECIFIC GRAVITY 2022-04-28 00:00:00 Dom Moser [facility] POCT URINALYSIS W/O SPECIFIC GRAVITY 2022-04-21 00:00:00 [place] Erica [facility] POCT URINALYSIS W/O SPECIFIC GRAVITY 2022-04-03 00:00:00 Dom Moser [facility] TDAP VACCINE, >11 YRS, IM 2022-03-20 21:16:33 Erica Burris [facility] FLU VACC (), 6 MO-64 YRS, .5ML, IM, QUAD (FLUCELVAX) 2022-03-20 21:16:33 Erica Burris [facility] POCT URINALYSIS W/O SPECIFIC GRAVITY 2022-03-20 00:00:00 [place] [facility] POCT URINALYSIS W/O SPECIFIC GRAVITY 2022-03-03 00:00:00 Dom Moser [facility] POCT URINALYSIS W/O SPECIFIC GRAVITY 2022-02-03 16:58:00 Erica Burris [facility] Encounters Start Date/Time End Date/Time Encounter Type Admission Type Attending [facility] Care Department Encounter ID Source 2021-11-27 09:49:[address] [facility] IRIS [id number] [facility] 2022-08-04 09:00:00 2022-08-04 09:35:47 [facility] [id number] [facility] 2022-08-04 09:00:00 2022-08-04 09:35:47 Office Visit Dom Moser [facility] [id number] 350.1.13.10 4.2.7.2.686 [id number] [facility] 2022-08-01 09:00:00 2022-08-01 09:20:00 Office Visit Alexia Cheema [facility] 1.840.114 350.1.13.10 4.2.7.2.686 [id number] [facility] 2022-08-01 09:00:00 2022-08-01 09:00:00 Outpatient R ALEXIA CHEEMA [facility] [id number] [facility] 2022-07-21 11:00:00 2022-07-21 11:00:00 Outpatient R ERICA BURRIS [facility] [id number] [facility] 2022-07-06 00:00:00 2022-07-06 00:00:00 Patient Secure Msg Erica Burris [facility] 1.840.114 350.1.13.10 4.2.7.2.686 [id number] 134 [id number] [facility] 2022-06-23 15:15:00 2022-06-23 15:38:12 Outpatient R ERICA BURRIS [facility] [id number] [facility] 2022-06-23 15:15:00 2022-06-23 15:38:12 Routine Visit Erica Burris [facility] [id number] 350.1.13.10 4.2.7.2.686 [id number] [facility] 2022-06-23 00:00:00 2022-06-23 00:00:00 Orders Only Doctor Unassigned, [place] [facility] [id number] 350.1.13.10 4.2.7.2.686 [id number] [facility] 2022-06-01 10:44:00 2022-06-03 13:00:00 Inpatient P [place] ERICA [facility] [id number] [facility] 2022-06-01 10:44:00 2022-06-03 13:00:00 Hospital Encounter Erica Burris [facility] [id number] 350.1.13.10 4.2.7.2.686 [id number] [facility] 2022-06-02 00:00:00 2022-06-02 00:00:00 Patient Secure Msg Dom Moser [facility] [id number] 350.1.13.10 4.2.7.2.686 [id number] [facility] 2022-06-01 18:30:46 2022-06-01 18:30:46 Anesthesia Event Piter Tran [facility] [id number] 350.1.13.10 4.2.7.2.686 [id number] [facility] 2022-05-30 00:00:00 2022-05-30 00:00:00 Patient Secure Msg Erica Burris [facility] [id number] 350.1.13.10 4.2.7.2.686 [id number] [facility] 2022-05-29 15:00:00 2022-05-29 15:27:52 Outpatient R ERICA BURRIS [facility] [id number] [facility] 2022-05-29 15:00:00 2022-05-29 15:27:52 Routine Visit 1, Lkj Nst Room Erica Burris [facility] [id number] 350.1.13.10 4.2.7.2.686 [id number] 134 [id number] [facility] 2022-05-26 14:30:00 2022-05-26 15:17:01 Outpatient R [facility] [id number] [facility] 2022-05-26 14:30:00 2022-05-26 15:17:01 Routine Visit Dom Moser [facility] 1.2840.114 350.1.13.10 4.2.7.2.686 [id number] 134 [id number] [facility] 2022-05-22 00:00:00 2022-05-22 00:00:00 Patient Secure Msg [facility] 1.2840.114 350.1.13.10 4.2.7.2.686 [id number] 134 [id number] [facility] 2022-05-22 00:00:00 2022-05-22 00:00:00 Telephone Erica Burris [facility] 1.2.840.114 350.1.13.10 4.2.7.2.686 [id number] 134 [id number] [facility] 2022-05-19 14:45:00 2022-05-19 15:58:01 Outpatient R ERICA BURRIS [facility] [id number] [facility] 2022-05-19 14:45:00 2022-05-19 15:58:01 Routine Visit Erica Burris [facility] 1.2.840.114 350.1.13.10 4.2.7.2.686 [id number] 134 [id number] [facility] 2022-05-15 00:00:00 2022-05-15 00:00:00 Refill Dom Moser [facility] 1.2840.114 350.1.13.10 4.2.7.2.686 [id number] 134 [id number] [facility] 2022-05-10 13:00:00 2022-05-10 14:11:24 Outpatient Barbara [facility] [id number] [facility] 2022-05-10 13:00:00 2022-05-10 14:11:24 Routine Visit Room, Adc Nst Dom Moser Vien [facility] BUILD[facility] 1.840.114 350.1.13.10 4.2.7.2.686 [id number] 134 [id number] [facility] 2022-05-10 12:15:00 2022-05-10 12:30:00 [employer]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, 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 Dom Moser [facility] 1.2840.114 350.1.13.10 4.2.7.2.686 [id number] 353 [id number] [facility] 2022-05-10 00:00:00 2022-05-10 00:00:00 Orders Only Doctor Unassigned, [place] [facility] 1.2.840.114 350.1.13.10 4.2.7.2.686 [id number] [facility] 2022-05-09 13:00:00 2022-05-09 13:34:31 Outpatient R DOM MOSER CHERYAL [facility] [id number] [facility] 2022-05-09 13:00:00 2022-05-09 13:34:31 Routine Visit 1, Lindenj t Room [facility] 1.2840.114 350.1.13.10 4.2.7.2.686 [id number] 134 [id number] [facility] 2022-05-08 13:00:00 2022-05-08 13:00:00 Outpatient R DOM MOSER [facility] [id number] [facility] 2022-05-05 15:15:00 2022-05-05 16:19:39 Outpatient R DOM MOSER [facility] [id number] [facility] 2022-05-05 15:15:00 2022-05-05 16:19:39 Routine Visit [facility] 1.84.114 350.1.13.10 4.2.7.2.686 [id number] 134 [id number] [facility] 2022-05-05 11:00:00 2022-05-05 11:20:56 [employer]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 RN RESIDENTIAL [facility] MATERNAL & CHILD HEALTH [facility] 1.2.840.114 350.1.13.10 4.2.7.2.686 [id number] [facility] 2022-04-28 10:00:00 2022-04-28 10:51:22 Outpatient R DOM MOSER [facility] [id number] [facility] 2022-04-28 10:00:00 2022-04-28 10:51:22 Routine Visit [facility] 1.2.840.114 350.1.13.10 4.2.7.2.686 [id number] 134 [id number] [facility] 2022-04-21 11:15:00 2022-04-21 11:46:33 Outpatient R ERICA BURRIS [facility] [id number] [facility] 2022-04-21 11:15:00 2022-04-21 11:46:33 Routine Visit Dom Moser Vien [facility] 1.2.840.114 350.1.13.10 4.2.7.2.686 [id number] 134 [id number] [facility] 2022-04-21 00:00:00 2022-04-21 00:00:00 Patient Secure Msg [facility] 1.2.840.114 350.1.13.10 4.2.7.2.686 [id number] 134 [id number] [facility] 2022-04-05 00:00:00 2022-04-05 00:00:00 Case Management Dom Moser [facility] 1.2.840.114 350.1.13.10 4.2.7.2.686 [id number] 134 [id number] [facility] 2022-04-04 12:45:00 2022-04-04 13:00:00 [employer]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, 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 Erica Burris [facility] 1.2.840.114 350.1.13.10 4.2.7.2.686 [id number] [facility] 2022-04-04 12:45:00 2022-04-04 12:45:00 Outpatient R ERICA BURRIS [facility] [id number] [facility] 2022-04-03 10:30:00 2022-04-03 10:51:59 Outpatient R DOM MOSER CHERYAL [facility] [id number] [facility] 2022-04-03 10:30:00 2022-04-03 10:51:59 Routine Visit Dom Moser [facility] 1.20.114 350.1.13.10 4.2.7.2.686 [id number] 134 [id number] [facility] 2022-03-31 11:00:00 2022-03-31 11:37:45 [facility] [id number] [facility] 2022-03-31 11:00:00 2022-03-31 11:37:45 [facility] 1.840.114 350.1.13.10 4.2.7.2.686 [id number] [facility] 2022-03-30 09:40:00 2022-03-30 09:40:00 Outpatient R [facility] [id number] [facility] 2022-03-23 00:00:00 2022-03-23 00:00:00 Patient Secure Zena Miller [facility] 1.2.114 350.1.13.10 4.2.7.2.686 [id number] 134 [id number] [facility] 2022-03-20 16:00:00 2022-03-20 17:27:08 Outpatient R ERICA BURRIS [facility] [id number] [facility] 2022-03-20 16:00:00 2022-03-20 17:27:08 Routine Visit Erica Burris [facility] 1.2.840.114 350.1.13.10 4.2.7.2.686 [id number] 134 [id number] [facility] 2022-03-13 09:40:00 2022-03-13 09:40:00 Out[facility] [id number] [facility] 2022-03-03 15:00:00 2022-03-03 15:55:42 Outpatient R DOM MOSER CHERYAL [facility] [id number] [facility] 2022-03-03 15:00:00 2022-03-03 15:55:42 Routine Visit Dom Moser [facility] 1..114 350.1.13.10 4.2.7.2.686 [id number] 134 [id number] [facility] 2022-02-22 00:00:00 2022-02-22 00:00:00 Patient Secure Msg Cheema [facility] 1.84.114 350.1.13.10 4.2.7.2.686 [id number] [facility] 2022-02-07 13:00:00 2022-02-07 23:59:00 Outpatient R [facility] [id number] [facility] 2022-02-07 00:00:00 2022-02-07 00:00:00 Patient [facility] 1.840.114 350.1.13.10 4.2.7.2.686 [id number] [facility] 2022-02-03 11:45:00 2022-02-03 12:10:26 Outpatient R ERICA BURRIS [facility] [id number] [facility] 2022-02-03 11:45:00 2022-02-03 12:10:26 Routine Visit Erica Burris [facility] 1..114 350.1.13.10 4.2.7.2.686 [id number] 134 [id number] [facility] 2022-01-26 08:00:00 2022-01-26 08:00:00 Outpatient [facility] [id number] [facility] 2022-01-17 09:20:00 2022-01-17 10:23:16 Outpatient R DHEERAJ [facility] [id number] [facility] 2022-01-17 09:20:00 2022-01-17 10:23:16 Office Visit Dheeraj [facility] 1.2.840.114 350.1.13.10 4.2.7.2.686 [id number] [facility] 2022-01-17 09:20:00 2022-01-17 10:23:16 Outpatient R DHEERAJ [facility] [id number] [facility] 2022-01-16 11:30:00 2022-01-16 12:15:12 Outpatient R DOM MOSER [facility] [id number] [facility] 2022-01-16 11:30:00 2022-01-16 12:15:12 Routine Visit Chrissy [facility] 1.2.840.114 350.1.13.10 4.2.7.2.686 [id number] 134 [id number] [facility] 2022-01-11 00:00:00 2022-01-11 00:00:00 Patient Secure Msg Chrissy [facility] 1.2.840.114 350.1.13.10 4.2.7.2.686 [id number] 134 [id number] [facility] 2022-01-09 13:30:00 2022-01-09 14:18:57 Outpatient R DOM MOSER CHERYAL [facility] [id number] [facility] 2022-01-09 13:30:00 2022-01-09 14:18:57 Routine Visit [facility] 1.20.114 350.1.13.10 4.2.7.2.686 [id number] 134 [id number] [facility] 2022-01-09 13:30:00 2022-01-09 13:30:00 Outpatient R BIADOM ARMENDARIZ [facility] [id number] [facility] 2022-01-03 00:00:00 2022-01-03 00:00:00 Case Management Danny Kandy [facility] 1.2.114 350.1.13.10 4.2.7.2.686 [id number] 134 [id number] [facility] 2022-01-02 08:30:00 2022-01-02 09:29:12 [employer]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 RN RESIDENTIAL [facility] MATERNAL & CHILD HEALTH [facility] 1.20.114 350.1.13.10 4.2.7.2.686 [id number] [facility] 2022-01-02 08:30:00 2022-01-02 08:30:00 Outpatient P [facility] [id number] [facility] 2021-12-26 13:30:00 2021-12-26 14:10:27 Outpatient R MIDOM CRUZ [facility] [id number] [facility] 2021-12-26 13:30:00 2021-12-26 14:10:27 Routine Visit [facility] Hospital[facility] armendariz [facility] 1.2.114 350.1.13.10 4.2.7.2.686 [id number] 134 [id number] [facility] 2021-12-21 08:15:00 2021-12-21 09:01:30 Qu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 Lab, Ang - Db BiapennierachelClarice cruzUNC [facility] 1..840.114 350.1.13.10 4.2.7.2.686 [id number] 353 [id number] [facility] 2021-12-21 08:15:00 2021-12-21 08:15:00 Outpatient R DOM MOSER [facility] [id number] [facility] 2021-12-21 00:00:00 2021-12-21 00:00:00 Telephone MiDom cruz [facility] 1..840.114 350.1.13.10 4.2.7.2.686 [id number] 134 [id number] [facility] 2021-12-20 11:30:00 2021-12-20 11:30:00 Outpatient R BIAPENNIERACHELDOM CRUZRACHELANNCY [facility] [id number] [facility] 2021-12-20 11:00:00 2021-12-20 11:00:00 Outpatient R BIAPENNIERACHELDOM CRUZ [facility] [id number] [facility] 2021-12-18 16:06:00 2021-12-18 19:16:00 Emergency Shawn Sow [facility] 1..840.114 350.1.13.10 4.2.7.2.686 [id number] [facility] 2021-12-18 16:06:00 2021-12-18 19:16:00 Emergency X SHAWN SOW [facility] ERT [id number] [facility] 2021-12-14 13:30:00 2021-12-14 14:24:42 Outpatient R BIAPENNIESTEPHANYDOM BIAPENNIESTEPHANY [facility] [id number] [facility] 2021-12-14 13:30:00 2021-12-14 14:24:42 Routine Visit Dom Moser [facility] 1..114 350.1.13.10 4.2.7.2.686 [id number] 134 [id number] [facility] 2021-12-09 00:00:00 2021-12-09 00:00:00 Refill Doctor Unassigned, [place] [facility] 1..114 350.1.13.10 4.2.7.2.686 [id number] [facility] 2021-12-08 00:00:00 2021-12-08 00:00:00 Refill Dom Moser [facility] 1..114 350.1.13.10 4.2.7.2.686 [id number] 134 [id number] [facility] 2021-11-29 10:00:00 2021-11-29 10:00:00 Outpatient R DOM MOSER [facility] [id number] [facility] 2021-11-29 10:00:00 2021-11-29 10:00:00 Outpatient R DOM MOSER [facility] [id number] [facility] 2021-11-24 14:31:00 2021-11-27 09:36:00 Outpatient X KANDY DELGADO [facility] IRIS [id number] [facility] 2021-11-24 14:31:00 2021-11-27 09:36:00 Emergency Brandy Vickers Megan [facility] 1.84.114 350.1.13.10 4.2.7.2.686 [id number] [facility] 2021-11-24 14:31:00 2021-11-24 14:31:00 Outpatient X KANDY DELGADO [facility] NAUN [id number] [facility] 2021-11-24 14:31:00 2021-11-24 14:31:00 Outpatient X KANDY DELGADO 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 Lab, Ad[facility] 1..840.114 350.1.13.10 4.2.7.2.686 [id number] [facility] 2021-11-24 11:30:00 2021-11-24 11:30:00 Outpatient ADRIENNE MELCHOR [facility] [id number] [facility] 2021-11-23 10:30:00 2021-11-23 10:30:00 Outpatient R [facility] [id number] [facility] 2021-11-22 14:00:00 2021-11-22 15:03:06 Outpatient R DOM MOSER CHERYAL [facility] [id number] [facility] 2021-11-22 14:00:00 2021-11-22 15:03:06 Routine Visit Dom Moser [facility] 1.840.114 350.1.13.10 4.2.7.2.686 [id number] 134 [id number] [facility] 2021-11-22 14:00:00 2021-11-22 14:00:00 Outpatient R DOM MOSER CHERYAL [facility] [id number] [facility] 2021-11-01 00:00:00 2021-11-01 00:00:00 Telephone Dom Moser [facility] 1.840.114 350.1.13.10 4.2.7.2.686 [id number] 134 [id number] [facility] 2021-10-31 10:00:00 2021-10-31 11:07:18 Outpatient R DOM MOSER CHERYAL [facility] [id number] [facility] 2021-10-31 10:00:00 2021-10-31 11:07:18 Routine Visit Dom Moser [facility] 1.840.114 350.1.13.10 4.2.7.2.686 [id number] 134 [id number] [facility] 2021-10-31 10:00:00 2021-10-31 10:00:00 Outpatient R DOM MOSER CHERYAL [facility] [id number] [facility] 2021-10-31 10:00:00 2021-10-31 10:00:00 Outpatient R DOM MOSER CHERYAL [facility] [id number] [facility] 2021-10-31 10:00:00 2021-10-31 10:00:00 Outpatient R DOM MOSER CHERYAL [facility] [id number] [facility] 2021-10-31 00:00:00 2021-10-31 00:00:00 Telephone BiaDom armendariz [facility] 1.840.114 350.1.13.10 4.2.7.2.686 [id number] 134 [id number] [facility] 2021-10-21 00:00:00 2021-10-21 00:00:00 Orders Only Doctor Unassigned, [place] [facility] 1.840.114 350.1.13.10 4.2.7.2.686 [id number] [facility] 2021-10-17 00:00:00 2021-10-17 00:00:00 Case Management Dom Moser [facility] 1.840.114 350.1.13.10 4.2.7.2.686 [id number] 134 [id number] [facility] 2021-10-14 11:08:00 2021-10-14 14:19:00 Emergency X KANDY BYRD [facility] ERT [id number] [facility] 2021-10-14 11:08:00 2021-10-14 14:19:00 Emergency Kandy Byrd [facility] 1.2840.114 350.1.13.10 4.2.7.2.686 [id number] [facility] 2021-10-14 10:25:59 2021-10-14 11:07:00 Outpatient R DOM MOSER CHERYAL [facility] [id number] [facility] 2021-10-14 10:25:59 2021-10-14 11:07:00 Outpatient R DOM MOSER CHERYAL [facility] [id number] [facility] 2021-10-14 10:25:59 2021-10-14 11:07:00 Hospital Encounter Dom Moser [facility] 1..840.114 350.1.13.10 4.2.7.2.686 [id number] [facility] 2021-10-14 00:00:00 2021-10-14 00:00:00 Outpatient R DOM MOSER CHERYAL [facility] [id number] [facility] 2021-10-14 00:00:00 2021-10-14 00:00:00 Case Management Dom Moser [facility] 1..840.114 350.1.13.10 4.2.7.2.686 [id number] 134 [id number] [facility] 2021-10-12 00:00:00 2021-10-12 00:00:00 Telephone Chrissy [facility] 1.20.114 350.1.13.10 4.2.7.2.686 [id number] 134 [id number] [facility] 2021-10-11 14:00:00 2021-10-11 14:12:37 [employer]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 [facility] 1.20.114 350.1.13.10 4.2.7.2.686 [id number] [facility] 2021-10-11 14:00:00 2021-10-11 14:00:00 Outpatient R [facility] [id number] [facility] 2021-10-11 14:00:00 2021-10-11 14:00:00 Outpatient R [facility] [id number] [facility] 2021-10-11 00:00:00 2021-10-11 00:00:00 Case Management [facility] 1.2840.114 350.1.13.10 4.2.7.2.686 [id number] 134 [id number] [facility] 2021-10-03 15:00:00 2021-10-03 16:25:05 Outpatient R DOM MOS[facility] [id number] [facility] 2021-10-03 15:00:00 2021-10-03 16:25:05 Office Visit [facility] 1.2840.114 350.1.13.10 4.2.7.2.686 [id number] 134 [id number] [facility] 2021-10-03 15:00:00 2021-10-03 16:25:05 Outpatient R DOM MOSER [facility] [id number] [facility] 2021-10-03 15:00:00 2021-10-03 16:25:05 Outpatient R DOM MOSER [facility] [id number] [facility] 2021-10-03 15:00:00 2021-10-03 16:25:05 Office Visit Dom Moser [facility] 1..114 350.1.13.10 4.2.7.2.686 [id number] 134 [id number] [facility] 2021-10-03 00:00:00 2021-10-03 00:00:00 Letter (Out) Dom Moser [facility] 1..114 350.1.13.10 4.2.7.2.686 [id number] 134 [id number] [facility] 2021-01-03 10:00:00 2021-01-03 10:00:00 Outpatient R [facility] [id number] [facility] 2020-12-01 15:30:31 2020-12-01 16:08:37 Office Visit Adrienne Serna [facility] 1..114 350.1.13.10 4.2.7.2.686 [id number] [facility] 2020-12-01 15:30:00 2020-12-01 15:30:00 Outpatient R ADRIENNE SERNA [facility] [id number] [facility] 2020-12-01 00:00:00 2020-12-01 00:00:00 Orders Only Doctor Unassigned, [place] [facility] 1..114 350.1.13.10 4.2.7.2.686 [id number] [facility] 2020-09-07 00:00:00 2020-09-07 00:00:00 Patient Outreach Keny Shakir Sahu 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, Adrienne York [facility] 1.114 350.1.13.10 4.2.7.2.686 [id number] [facility] 2019-11-26 08:00:00 2019-11-26 08:00:00 Outpatient ADRIENNE MELCHOR [facility] [id number] [facility] 2019-11-26 00:00:00 2019-11-26 00:00:00 Orders Only Doctor Unassigned, [place] [facility] 1.114 350.1.13.10 4.2.7.2.686 [id number] [facility] 2019-11-17 09:10:00 2019-11-17 09:10:00 Outpatient ADRIENNE MELCHOR [facility] [id number] [facility] 2019-11-05 11:49:58 2019-11-05 14:02:00 Emergency X PIPPA GARAY [facility] ERT [id number] [facility] 2019-11-05 11:49:58 2019-11-05 14:02:00 Emergency Pippa Garay [facility] 1.2.840.114 350.1.13.10 4.2.7.2.686 [id number] [facility] 2019-11-05 00:00:00 2019-11-05 00:00:00 Telephone Naomie Corona [facility] 1.2.840.114 350.1.13.10 4.2.7.2.686 [id number] [facility] 2019-11-05 00:00:00 2019-11-05 00:00:00 Orders Only Doctor Unassigned, [place] [facility] 1.2.840.114 350.1.13.10 4.2.7.2.686 [id number] [facility] Results Test Description Test Time Test Comments Results Result Co mments Source [facility] with [id number] 10:21:40* Test Item Value Reference Range Interpretation Comme nts WBC (test code = 6690-2) See_Comment H [Automated messa ge] The system which generated this result transmitted reference range: 4.30 - 11.10 10*3/?L. The reference range was not used to interpret this result as normal/abnormal. RBC (test code = 789-8) See_Comment L [Automated messa ge] The system which generated this result transmitted reference range: 3.93 - 5.25 10*6/?L. The reference range was not used to interpret this result as normal/abnormal. HGB (test code = 718-7) 8.7 g/dL 11.6-15.0 L HCT (test code = 4544-3) 28.2 % 35.7-45.2 L MCV (test code = 787-2) 81.3 fL 80.6-95.5 MCH (test code = 785-6) 25.1 pg 25.9-32.8 L MCHC (test code = 786-4) 30.9 g/dL 31.6-35.1 L RDW-SD (test code = 96842-6) 42.6 fL 39.0-49.9 RDW-CV (test code = 788-0) 14.6 % 12.0-15.5 PLT (test code = 777-3) See_Comment [Automated [employer] ge] The system which generated this result transmitted reference range: 166 - 358 10*3/?L. The reference range was not used to interpret this result as normal/abnormal. MPV (test code = 27942-1) 11.4 fL 9.5-12.9 NRBC/100 WBC (test code = 6110786925) See_Comment [Automated [employer]age] The system which generated this result transmitted reference range: 0.0 - 10.0 /100 WBCs. The reference range was not used to interpret this result as normal/abnormal. NRBC x10^3 (test code = 3414049754) See_Comment [Automated [employer] ge] The system which generated this result transmitted reference range: 10*3/?L. The reference range was not used to interpret this result as normal/abnormal. GRAN MAT (NEUT) % (test code = 770-8) 63.3 % IMM GRAN % (test code = 6328410899) 0.50 % LYMPH % (test code = 736-9) 26.7 % MONO % (test code = 5905-5) 6.4 % EOS % (test code = 713-8) 2.6 % BASO % (test code = 706-2) 0.5 % GRAN MAT x10^3(ANC) (test code = 7711025321) 8.36 10*3/uL 1.88-7.09 H IMM GRAN x10^3 (test code = 0100383049) 0.06 10*3/uL 0.00-0.06 LYMPH x10^3 (test code = 731-0) 3.53 10*3/uL 1.32-3.29 H MONO x10^3 (test code = 742-7) 0.85 10*3/uL 0.33-0.92 EOS x10^3 (test code = 711-2) 0.35 10*3/uL 0.03-0.39 BASO x10^3 (test code = 704-7) 0.06 10*3/uL 0.01-0.07 Lab Interpretation (test code = 59835-1) [facility] - [id number] 08:25:29* Test Item Value Reference Range Interpretation Comme nts RPR (Qualitative) (test code = 92442-6) Nonreactive Nonreactive Lab Interpretation (test cod e = 51360-7) Normal [facility] IMMUNE [id number] 13:59:10* Test Item Value Reference Range Interpretation Comme nts RHIG CANDIDATE? (test code = 5055) No- see comment Patient is not a candidate for RhIg- Patient is Rh Positive.Performed at [facility] Laboratory Services - [facility] Blood [address] [place], [place] [address]Toll Free: [phone] No. [id number] [facility]Hepatitis [facility] Surface [id number] 22:27:11 * Test Item Value Reference Range Interpretation Comme nts HBsAg Semi-Quantitative (joni t code = 5195-3) Negative Negative [facility]-AB WITH [id number] 20:07:16* Test Item Value Reference Range Interpretation Comme nts HIV Semi-quantitative (test code = 14732-7) Negative Negative TONY (test code = TONY) Non-reactive for HIV-1 antigen and HIV-1/HIV-2 antibodies. ?No laboratory evidence of HIV infection. ?Repeat in 2-4 weeks if acute HIV infection is suspected. [facility] Screen - ONCE [id number] 19:23:30 * Test Item Value Reference Range Interpretation Comme nts ABO & RH (test code = 20) A Positive Performed at [facility] Laboratory Services - [facility] Blood [address] [place], [place] [id number] Free: [phone] No. [id number] IAT (test code = 1185) Negative Performed at [facility] Laboratory [facility] Blood [address] [place], [place] [id number] Free: [phone] No. [id number] [facility] with [id number] 18:08:25* Test Item Value Reference Range Interpretation Comme nts WBC (test code = 6690-2) See_Comment [Automated messa ge] The system which generated this result transmitted reference range: 4.30 - 11.10 10*3/?L. The reference range was not used to interpret this result as normal/abnormal. RBC (test code = 789-8) See_Comment L [Automated messa ge] The system which generated this result transmitted reference range: 3.93 - 5.25 10*6/?L. The reference range was not used to interpret this result as normal/abnormal. HGB (test code = 718-7) 8.8 g/dL 11.6-15.0 L HCT (test code = 4544-3) 28.0 % 35.7-45.2 L MCV (test code = 787-2) 80.7 fL 80.6-95.5 MCH (test code = 785-6) 25.4 pg 25.9-32.8 L MCHC (test code = 786-4) 31.4 g/dL 31.6-35.1 L RDW-SD (test code = 99938-1) 41.1 fL 39.0-49.9 RDW-CV (test code = 788-0) 14.2 % 12.0-15.5 PLT (test code = 777-3) See_Comment [Automated messa ge] The system which generated this result transmitted reference range: 166 - 358 10*3/?L. The reference range was not used to interpret this result as normal/abnormal. MPV (test code = 39830-8) 11.7 fL 9.5-12.9 NRBC/100 WBC (test code = 1927296451) See_Comment [Automated me ssage] The system which generated this result transmitted reference range: 0.0 - 10.0 /100 WBCs. The reference range was not used to interpret this result as normal/abnormal. NRBC x10^3 (test code = 0148979498) See_Comment [Automated messa ge] The system which generated this result transmitted reference range: 10*3/?L. The reference range was not used to interpret this result as normal/abnormal. GRAN MAT (NEUT) % (test code = 770-8) 71.4 % IMM GRAN % (test code = 9087016197) 0.50 % LYMPH % (test code = 736-9) 19.6 % MONO % (test code = 5905-5) 5.2 % EOS % (test code = 713-8) 2.8 % BASO % (test code = 706-2) 0.5 % GRAN MAT x10^3(ANC) (test code = 6903696539) 5.82 10*3/uL 1.88-7.09 IMM GRAN x10^3 (test code = 1977935094) 0.04 10*3/uL 0.00-0.06 LYMPH x10^3 (test code = 731-0) 1.60 10*3/uL 1.32-3.29 MONO x10^3 (test code = 742-7) 0.42 10*3/uL 0.33-0.92 EOS x10^3 (test code = 711-2) 0.23 10*3/uL 0.03-0.39 BASO x10^3 (test code = 704-7) 0.04 10*3/uL 0.01-0.07 Lab Interpretation (test code = 32670-3) Abnormal [facility] URINALYSIS W/O SPECIFIC [id number] 21:34:00* Test Item Value Reference Range Interpretation Comme nts POCT PH U (test code = 3254) n/a 5-8 POCT U LEUK EST (test code = 3263) n/a Negative - Negative POCT U NIT (test code = 3262) n/a Negative - Negati ve POCT U PROT (test code = 3259) negative Negative - Negat kayli POCT U GLU (test code = 3256) negative Negative - Negati ve POCT U KETONE (test code = 3258) n/a Negative - Neg ative POCT U BLD (test code = 3257) n/a Negative - Negati ve [facility] URINALYSIS W/O SPECIFIC [id number] 19:22:00* Test Item Value Reference Range Interpretation Comme nts POCT PH U (test code = 3254) n/a 5-8 POCT U LEUK EST (test code = 3263) n/a Negative - Negative POCT U NIT (test code = 3262) n/a Negative - Negati ve POCT U PROT (test code = 3259) Negative Negative - Negat kayli POCT U GLU (test code = 3256) Normal Negative - Negati ve POCT U KETONE (test code = 3258) n/a Negative - Neg ative POCT U BLD (test code = 3257) n/a Negative - Negati ve [facility] URINALYSIS W/O SPECIFIC [id number] 16:19:00* Test Item Value Reference Range Interpretation Comme nts POCT PH U (test code = 3254) N/A 5-8 POCT U LEUK EST (test code = 3263) N/A Negative - Negative POCT U NIT (test code = 3262) N/A Negative - Negati ve POCT U PROT (test code = 3259) Negative Negative - Negat kayli POCT U GLU (test code = 3256) Negative Negative - Negati ve POCT U KETONE (test code = 3258) N/A Negative - Neg ative POCT U BLD (test code = 3257) N/A Negative - Negati ve [facility] URINALYSIS W/O SPECIFIC [id number] 19:50:00* Test Item Value Reference Range Interpretation Comme nts POCT PH U (test code = 3254) N/A 5-8 POCT U LEUK EST (test code = 3263) N/A Negative - Negative POCT U NIT (test code = 3262) N/A Negative - Negati ve POCT U PROT (test code = 3259) NEGATIVE Negative - Negat kayli POCT U GLU (test code = 3256) NEGATIVE Negative - Negati ve POCT U KETONE (test code = 3258) N/A Negative - Neg ative POCT U BLD (test code = 3257) N/A Negative - Negati ve [facility] URINALYSIS W/O SPECIFIC [id number] 15:33:00* Test Item Value Reference Range Interpretation Comme nts POCT PH U (test code = 3254) n/a 5-8 POCT U LEUK EST (test code = 3263) n/a Negative - Negative POCT U NIT (test code = 3262) n/a Negative - Negati ve POCT U PROT (test code = 3259) trace Negative - Negat kayli POCT U GLU (test code = 3256) negative Negative - Negati ve POCT U KETONE (test code = 3258) n/a Negative - Neg ative POCT U BLD (test code = 3257) n/a Negative - Negati ve [facility] URINALYSIS W/O SPECIFIC [id number] 21:13:00* Test Item Value Reference Range Interpretation Comme nts POCT PH U (test code = 3254) n/a 5-8 POCT U LEUK EST (test code = 3263) n/a Negative - N egative POCT U NIT (test code = 3262) n/a Negative - Negati ve POCT U PROT (test code = 3259) Trace Negative - Negat kayli POCT U GLU (test code = 3256) Normal Negative - Negati ve POCT U KETONE (test code = 3258) n/a Negative - Neg ative POCT U BLD (test code = 3257) n/a Negative - Negati ve [facility] URINALYSIS W/O SPECIFIC [id number] 20:42:00* Test Item Value Reference Range Interpretation Comme nts POCT PH U (test code = 3254) n/a 5-8 POCT U LEUK EST (test code = 3263) n/a Negative - Negative POCT U NIT (test code = 3262) n/a Negative - Negati ve POCT U PROT (test code = 3259) negative Negative - Negat kayli POCT U GLU (test code = 3256) negative Negative - Negati ve POCT U KETONE (test code = 3258) n/a Negative - Neg ative POCT U BLD (test code = 3257) n/a Negative - Negati ve [facility] URINALYSIS W/O SPECIFIC [id number] 16:58:00* Test Item Value Reference Range Interpretation Comme nts POCT PH U (test code = 3254) n/a 5-8 POCT U LEUK EST (test code = 3263) n/a Negative - Negative POCT U NIT (test code = 3262) n/a Negative - Negati ve POCT U PROT (test code = 5749) Negative - Negat kayli POCT U GLU (test code = 7866) negative Negative - Negati ve POCT U KETONE (test code = 7198) n/a Negative - Neg ative POCT U BLD (test code = 1687) n/a Negative - Negati ve [facility]
--- NOTE | 2023-05-29 09:51 | ER ---
Nurse's Notes [facility] Name: Christa Sinha Age: 22 yrs Sex: Female : 2000 Arrival Date: 05/29/2023 Time: 09:34 Bed IW1 [facility] MD: Diagnosis: ED Course: 05/29 09:35 Patient arrived in ED. rg4 09:36 Jacques Luciano MD is Attending Physician. rn 09:50 Patient's name was called from ER lobby. No response. Unable to locate patient. Will hb disposition as left without being seen by a provider. Administered Medications: 09:43 CANCELLED (Duplicate Order): prednisoloneliquid 1 mg/kg PO once rn 09:43 CANCELLED (Duplicate Order): pqsefksmmqkbuej07.5 mg PO once rn Outcome: 09:50 Patient left the ED. hb Signatures: Jacques Luciano MD MD rn Baxter, Heather, RN RN hb Garcia, Rubi rg4
== END 2023-05-29 09:50 | disposition left against medical advice (07) ==
LOC: ER 09:34
DX: Z02.9 Encounter for administrative examinations, unspecified (principal)